=== PATIENT | female | born 1950 | race Caucasian/White ===

== ENCOUNTER → 2017-01-23 | Outpatient (CLI) | payer MEDICARE ==
[~2017-01-23] MED LIST: ALPR-557 PO; AZAT50TA PO; BPR150TCR PO; LD5PT TOP; LIOT5TAB3 PO; LVT.15T PO; METO5TAB2 PO; OMEP20TA2 PO; PRED5TAB PO; TRAM50TA2 PO; TRAZ150T42 PO; VIT B12 IM; Vit D PO
--- OUTSIDE RECORDS SUMMARY | 2017-01-23 16:58 | XMS REPORT | Continuity of Care Document ---
Demographics Address [facility] 11/[address] [facility] [place] [address] Preferred Language Unknown Marital Status Unknown Yazidi Affiliation Unknown Race Unknown Ethnic Group Unknown Author Author [facility] Organization [facility] Address Unknown Phone Unavailable Allergies Active Description Code Type Severity Reaction Onset Reported/Identified Relationship to Patient Clinical Status Yes amoxicillin [id number] Drug Allergy Unknown N/A 08/31/2006 Yes clavulanic acid [id number] Drug Allergy Unknown N/A 08/31/2006 Yes baclofen [id number] Drug Allergy Unknown N/A 05/08/2014 Yes lorazepam [id number] Drug Allergy Unknown N/A 05/08/2014 Yes metronidazole [id number] Drug Allergy Unknown N/A 05/08/2014 Yes SOME PAIN MEDS GIVEN IV SOME PAIN MEDS GIVEN IV Unknown N/A 05/08/2014 Medications Problems Date Dx Coded Attending Type Code Diagnosis Diagnosed By 04/11/2014 LOUISE DELGADO DO S Ot 244.9 HYPOTHYROIDISM NOS 04/11/2014 PAULA DELGADO DOLINE S Ot 276.8 HYPOPOTASSEMIA 04/11/2014 PAULA DELGADO DOLINE S Ot 305.1 TOBACCO USE DISORDER 04/11/2014 PAULETTE DELGADO DOQUELINE S Ot 535.50 UNSP GASTRITIS GASTRODUODENITIS W/ O ME 04/11/2014 PAULA DELGADO DOLINE S Ot 553.3 DIAPHRAGMATIC HERNIA 04/11/2014 PAULA DELGADO DOLINE S Ot 555.9 REGIONAL ENTERITIS NOS 04/11/2014 PAULA DELGADO DOLINE S Ot 560.89 INTESTINAL OBSTRUCT NEC 04/11/2014 PAULA DELGADO DOLINE S Ot 716.90 ARTHROPATHY NOS-UNSPEC 04/11/2014 LOUISE DELGADO DO S Ot 722.52 LUMB/LUMBOSAC DISC DEGEN 04/11/2014 LOUISE DELGADO DO S Ot V12.79 PERSONAL HISTORY OTH SPEC DIGESTIVE SYST 05/08/2014 YANCY MACHADO, MARITZA Rodrigues Ot 455.6 HEMORRHOIDS NOS 05/08/2014 YANCY MACHADO, MARITZA Rodrigues Ot 555.9 REGIONAL ENTERITIS NOS 05/08/2014 YANCY MACHADO, MARITZA Rodrigues Ot 562.10 DIVERTICULOSIS COLON (W/O MENT OF HEMORR 05/08/2014 YANCY MACHADO, MARITZA Rodrigues Ot 789.06 ABDOMINAL PAIN, EPIGASTRIC 05/08/2014 YANCY MACHADO, MARITZA Rodrigues Ot 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 07/06/2015 DEXTER LAYTON ADVERTISING DISPATCH CLERK Ot 733.90 07/06/2015 DEXTER LAYTON ADVERTISING DISPATCH CLERK Ot V58.65 07/06/2015 DEXTER LAYTON ADVERTISING DISPATCH CLERK Ot V76.12 07/18/2015 DEXTER LAYTON ADVERTISING DISPATCH CLERK Ot 733.90 07/18/2015 DEXTER LAYTON ADVERTISING DISPATCH CLERK Ot V58.65 07/18/2015 DEXTER LAYTON ADVERTISING DISPATCH CLERK Ot V76.12 08/15/2015 DEXTER LAYTON ADVERTISING DISPATCH CLERK Ot 593.2 08/15/2015 DEXTER LAYTON ADVERTISING DISPATCH CLERK Ot 611.72 08/17/2015 Ot 473.9 08/17/2015 Ot 251.2 08/17/2015 Ot 255.8 08/17/2015 Ot 473.9 08/17/2015 Ot 579.9 08/17/2015 Ot 627.2 08/17/2015 YANCY MACHADO, MARITZA Rodrigues Ot V72.84 08/17/2015 DEXTER LAYTON ADVERTISING DISPATCH CLERK Ot 733.90 08/17/2015 DEXTER LAYTON ADVERTISING DISPATCH CLERK Ot V58.65 08/17/2015 DEXTER LAYTON ADVERTISING DISPATCH CLERK Ot V76.12 08/17/2015 DEXTER LAYTON ADVERTISING DISPATCH CLERK Ot 593.2 08/17/2015 DEXTER LAYTON ADVERTISING DISPATCH CLERK Ot 611.72 08/27/2015 DEXTER LAYTON ADVERTISING DISPATCH CLERK Ot 593.2 08/27/2015 DEXTER LAYTON ADVERTISING DISPATCH CLERK Ot 611.72 09/11/2015 BEATRIZ STOVER MD Ot M47.896 09/11/2015 BEATRIZ STOVER MD Ot M51.26 09/12/2015 Ot 473.9 09/12/2015 Ot 251.2 09/12/2015 Ot 255.8 09/12/2015 Ot 473.9 09/12/2015 Ot 579.9 09/12/2015 Ot 627.2 09/12/2015 YANCY MACHADO, MARITZA M Ot V72.84 09/12/2015 DEXTER LAYTON ADVERTISING DISPATCH CLERK Ot 733.90 09/12/2015 DEXTER LAYTON ADVERTISING DISPATCH CLERK Ot V58.65 09/12/2015 DEXTER LAYTON ADVERTISING DISPATCH CLERK Ot V76.12 09/12/2015 DEXTER LAYTON ADVERTISING DISPATCH CLERK Ot 593.2 09/12/2015 DEXTER LAYTON ADVERTISING DISPATCH CLERK Ot 611.72 09/12/2015 CK MACHADO, BEATRIZ Santa Ot M47.896 09/12/2015 BEATRIZ STOVER MD Ot M51.26 09/12/2015 BEATRIZ STOVER MD Ot M54.10 09/12/2015 OTHER, UNLISTED Ot K50.90 09/12/2015 OTHER, UNLISTED Ot Z87.19 09/12/2015 BEATRIZ STOVER MD Ot M54.10 09/12/2015 TERRI MACHADO, RONAL Lowry Ot K50.90 09/12/2015 TERRI MACHADO, RONAL Lowry Ot Z87.19 09/13/2015 BEATRIZ STOVER MD Ot M54.10 09/14/2015 TERRI MACHADO, RONAL Lowry Ot K50.90 09/14/2015 TERRI MACHADO, RONAL Lowry Ot Z87.19 09/19/2015 BEATRIZ STOVER MD Ot M54.10 09/19/2015 TERRI MACHADO, RONAL Lowry Ot K50.90 09/19/2015 TERRI MACHADO, RONAL Lowry Ot Z87.19 09/19/2015 TERRI MACHADO, RONAL Lowry Ot K50.90 09/19/2015 RONAL MURRAY MD, I Ot Z87.19 09/20/2015 BEATRIZ STOVER MD Ot M47.896 09/20/2015 BEATRIZ STOVER MD Ot M51.26 09/20/2015 BEATRIZ STOVER MD Ot M54.10 09/26/2015 BEATRIZ STOVER MD Ot M54.10 10/08/2015 TERRI MACHADO, RONAL Lowry Ot K50.90 10/08/2015 TERRI MACHADO, RONAL Lowry Ot Z87.19 10/11/2015 RONAL MURRAY MD, I Ot K50.90 10/11/2015 RONAL MURRAY MD, I Ot Z87.19 08/19/2016 YANCY MACHADO, MARITZA Rodrigues Ot V72.84 EXAM PRE-OPERATIVE NOS 08/19/2016 DEXTER LAYTON ADVERTISING DISPATCH CLERK Ot 733.90 BONE CARTILAGE DIS NOS 08/19/2016 DEXTER LAYTON ADVERTISING DISPATCH CLERK Ot V58.65 LONG-TERM(CURRENT)USE OF STEROIDS 08/19/2016 DEXTER LAYTON ADVERTISING DISPATCH CLERK Ot V76.12 OTH SCREEN MAMMO-MALIGN NEOPLASM OF LUIS 08/19/2016 DEXTER LAYTON ADVERTISING DISPATCH CLERK Ot 593.2 CYST OF KIDNEY, ACQUIRED 08/19/2016 DEXTER LAYTONP Ot 611.72 LUMP OR MASS IN BREAST 08/19/2016 CK MACHADO, BEATRIZ Santa Ot M47.896 OTHER SPONDYLOSIS, LUMBAR REGION 08/19/2016 CK MACHADO, BEATRIZ Santa Ot M51.26 OTHER INTERVERTEBRAL DISC DISPLACEMENT, 08/19/2016 CK MACHADO, BEATRIZ Santa Ot M54.10 RADICULOPATHY, SITE UNSPECIFIED 08/19/2016 OTHER, UNLISTED Ot K50.90 CROHN'S DISEASE, UNSPECIFIED, WITHOUT CO 08/19/2016 OTHER, UNLISTED Ot Z87.19 PERSONAL HISTORY OF OTHER DISEASES OF 08/19/2016 CK MACHADO, BEATRIZ Santa Ot M54.10 RADICULOPATHY, SITE UNSPECIFIED 08/19/2016 TERRI MACHADO, RONAL Lowry Ot K50.90 CROHN'S DISEASE, UNSPECIFIED, WITHOUT CO 08/19/2016 RONAL MURRAY MD, I Ot Z87.19 PERSONAL HISTORY OF OTHER DISEASES OF 08/19/2016 RONAL MURRAY MD, I Ot K50.90 CROHN'S DISEASE, UNSPECIFIED, WITHOUT CO 08/19/2016 RONAL MURRAY MD, I Ot Z87.19 PERSONAL HISTORY OF OTHER DISEASES OF 08/20/2016 DEXTER LAYTON ADVERTISING DISPATCH CLERK Ot N28.1 CYST OF KIDNEY, ACQUIRED 09/09/2016 DEXTER LAYTON ADVERTISING DISPATCH CLERK Ot N28.1 CYST OF KIDNEY, ACQUIRED 09/18/2016 DEXTER LAYTON ADVERTISING DISPATCH CLERK Ot N28.1 CYST OF KIDNEY, ACQUIRED Procedures Results Encounters ACCT No. Visit Date/Time Discharge Status Pt. Type Provider Facility Loc./Unit Complaint [id number] 09/12/2015 07:19:00 2014 23:59:59 CLS Outpatient RONAL MURRAY MD, I [facility] RAD CLOSTRIDUIM FIFFICILE COLITIS, HX OF CROHNS [id number] 08/28/2015 08:02:00 2014 23:59:59 CLS Outpatient OTHER, UNLISTED [facility] RAD CLOSTRIDUIM FIFFICILE COLITIS, HX OF CROHNS [id number] 08/27/2015 09:40:00 2014 23:59:59 CLS Outpatient RONAL MURRAY MD, I [facility] LAB CROHNS DISEASE, CLOSTRIDIUM DIFFICILE, MRI W/CONTRA [id number] 08/27/2015 08:16:00 2014 23:59:59 CLS Outpatient BEATRIZ STOVER MD [facility] RAD RADICULOPATHY [id number] 08/22/2015 14:23:00 2014 23:59:59 CLS Outpatient BEATRIZ STOVER MD [facility] RAD RADICULOPATHY [id number] 08/17/2015 14:42:00 2014 23:59:59 CLS Outpatient BEATRIZ STOVER MD [facility] RAD RADICULOPATHY [id number] 07/23/2015 13:34:00 2014 23:59:59 CLS Outpatient DEXTER LAYTON ADVERTISING DISPATCH CLERK [facility] RAD LEFT BREAST NODULE,RENAL CYST [id number] 06/28/2015 11:13:00 2014 23:59:59 CLS Outpatient DEXTER LAYTON ADVERTISING DISPATCH CLERK [facility] RAD SCREENING VENEER GRADER STEROID USE [id number] 05/08/2014 06:39:00 2013 10:10:00 DIS [facility] [id number] 05/03/2014 07:20:00 2013 23:59:59 CLS Outpatient MARITZA HAINES MD [facility] PREOP CHRONS DISEASE [id number] 04/09/2014 02:52:00 2013 12:07:00 DIS Inpatient LOUISE DELGADO DO [facility] SURGICAL SMALL BOWEL OBSTRUCTION [id number] 08/18/2016 13:18:00 ACT Outpatient DEXTER LAYTON [facility] RAD L RENAL CYST [id number] 05/08/2010 15:25:00 Document Registration [id number] 04/19/2010 10:18:00 Document Registration
[2017-01-26 13:47] LABS: EHRLICHIA CHAFFEENSIS G ABY <1:16 (<1:16)
[2017-01-26 16:05] LABS: IGG ROCKY MOUNTAIN SPOTTED FEV <1:16 (<1:16); IGM ROCKY MOUNTAIN SPOTTED FEV <1:10 (<1:10); TULAREMIA ANTIBODY <1:20
[2017-01-28 07:47] LABS: LYME ANTIBODY C 0.22 (0.00-0.90)
== END ==
LOC: LAB 16:55
PROVIDERS: ATTEND Family Medicine
DX: M25.50 Pain in unspecified joint (principal); M54.2 Cervicalgia; Z87.898 Personal history of other specified conditions
CPT/HCPCS: 36415; 86618; 86666; 86668; 86757

== ENCOUNTER 2017-03-24 13:16 | Outpatient (RCR) | payer MEDICARE ==
[~2017-03-24 13:16] MED LIST changes: -CATHETER FLUSH 10 ML SYR IV PRN; -IOHEXOL 350 MG/ML 100 ML (OMNIPAQUE 350) VIAL IV ONE; -NS 100 ML (IVPB) BAG IV ONE
== END 2017-04-30 14:31 | disposition home or self-care (01) ==
PROVIDERS: ATTEND Nurse Practitioner Family
DX: I89.0 Lymphedema, not elsewhere classified (principal); K66.0 Peritoneal adhesions (postprocedural) (postinfection)

== ENCOUNTER → 2017-03-24 | Outpatient (CLI) | payer MEDICARE ==
[~2017-03-24] MED LIST changes: +CATHETER FLUSH 10 ML SYR IV PRN; +IOHEXOL 350 MG/ML 100 ML (OMNIPAQUE 350) VIAL IV ONE; +NS 100 ML (IVPB) BAG IV ONE
--- NOTE | 2017-03-24 15:16 | Diagnostic Imaging Report ---
PROCEDURE: CT abdomen and pelvis with contrast. TECHNIQUE: Multiple contiguous axial images were obtained through the abdomen and pelvis after administration of intravenous contrast. INDICATION: Abdominal pain. Crohn's disease. TECHNIQUE: 100 of Omnipaque 350 was administered intravenously. FINDINGS: The lung bases demonstrate no significant abnormality. The liver, spleen, pancreas, and adrenals appear unremarkable. The CBD is mildly dilated at 1.2 cm in caliber. This is minimally more prominent compared to 09/12/2015 exam with the one measured 1 cm in caliber. Cholecystectomy clips are seen. The kidneys have symmetric enhancement and contrast excretion. There is no hydronephrosis. There is a simple cyst in the inferior pole of the left kidney measuring 2.4 cm. Anastomotic sutures are seen near the terminal ileum region. There is a slightly prominent enhancement in the small bowel loops, particularly in the jejunum, with prominent luminal fluid with no significant dilatation to suggest obstruction. This may relate to duodenitis, presumably Crohn's disease related. There is also a segment of wall thickening and luminal constriction seen within the distal sigmoid and another shorter area with similar findings. This could be related to incidental areas of spasm or colitis. Suggestion of mucosal thickening in the mid to distal rectum is also seen. There is the suggestion of a prior hysterectomy. The urinary bladder appears unremarkable. There are a few diverticula with no diverticulitis. No abscess. No evidence of perforation or pneumoperitoneum. The abdominal aorta is normal in caliber. No para-aortic significantly enlarged lymph nodes are seen. The osseous structures demonstrate the posterior and anterior fusion changes involving the lower lumbar spine (L4-S1 levels). IMPRESSION: 1. There is prominent mucosal enhancement and degenerative loops and segments of the rectosigmoid, presumably related to Crohn's disease. Followup colonoscopy to insure no underlying neoplasm is suggested. 2. Diverticulosis. No diverticulitis. The findings were discussed with Dr. Mancera at the time of dictation by Dr. Johns. Dictated by: Dictated on workstation # [id number]
== END ==
LOC: RAD 14:09
PROVIDERS: ATTEND Nurse Practitioner Family
DX: K50.90 Crohn's disease, unspecified, without complications (principal); K57.90 Diverticulosis of intestine, part unspecified, without perforation or abscess without bleeding
CPT/HCPCS: 74177

== ENCOUNTER → 2017-08-06 | Outpatient (CLI) | payer MEDICARE ==
--- NOTE | 2017-08-06 11:41 | Diagnostic Imaging Report ---
EXAMINATION: DEXA scan. INDICATION: Osteopenia. TECHNIQUE: Bone mineral density estimated based on dual energy radiography over the lumbar spine and femoral necks, was performed. FINDINGS: The femoral neck T-score is -0.6 on both sides. This is 8.5% decreased density measurement compared to the prior study of 06/28/2015. The lumbar spine T score could not be measured due to fusion hardware. IMPRESSION: Decreased bone mineral density measurements compared to 2015. It is still within normal range, however. Dictated by: Dictated on workstation # [id number]
--- NOTE | 2017-08-06 17:39 | Diagnostic Imaging Report ---
Bilateral screening mammogram 2D views with tomosynthesis. The current study was also evaluated with a Computer Aided Detection (CAD) system. INDICATION: Screening. No current complaints stated on the questionnaire. COMPARISON: 07/23/2015. FINDINGS: The breasts are composed of heterogeneously dense parenchyma which may decrease mammographic sensitivity. Benign-appearing calcifications are seen. Allowing for technique and positional differences, no suspicious change is seen. IMPRESSION: Dense breasts with no definite change. ACR BI-RADS Category 2: Benign findings. Result letter will be mailed to the patient. Note: At least 10% of breast cancer is not imaged by mammography. Dictated by: Dictated on workstation # [id number]
== END ==
LOC: RAD 09:36
PROVIDERS: ATTEND Family Medicine
DX: Z12.31 Encounter for screening mammogram for malignant neoplasm of breast (principal); K50.918 Crohn's disease, unspecified, with other complication; Z79.52 Long term (current) use of systemic steroids
CPT/HCPCS: 77067; 77080

== ENCOUNTER → 2017-12-22 | Outpatient (CLI) | payer MEDICARE ==
--- NOTE | 2017-12-22 16:48 | Diagnostic Imaging Report ---
INDICATION: Abdominal pain. COMPARISON: CT dated 03/24/2017. FINDINGS: Two supine radiographic views of the abdomen were obtained. Small bowel loops are nondistended. There is no large collection of free intraperitoneal air. Postsurgical changes of the lumbar spine are noted. No unexpected radiopaque foreign bodies are seen. Multiple pelvic phleboliths are noted. Included portions of the lung bases are clear. IMPRESSION: 1. Nonobstructed small bowel gas pattern. Dictated by: Dictated on workstation # [id number]
== END ==
LOC: RAD 16:09
PROVIDERS: ATTEND Nurse Practitioner Family
DX: R10.9 Unspecified abdominal pain (principal)
CPT/HCPCS: 74018

== ENCOUNTER 2018-01-09 17:27 | Inpatient (IN) | payer MEDICARE ==
[~2018-01-09] VITALS: Ht 162.6 cm; Wt 88.9 kg
[2018-01-09] MEDS ORDERED: ACETAMINOPHEN 500 MG TAB (TYLENOL) PO ONE (18:15)
[2018-01-09] MEDS ORDERED: NS IV 1000 ML 1,000 ML IV SCH (18:15)
--- NOTE | 2018-01-09 18:21 | ED Abdominal Pain ---
General Chief Complaint: Abdominal/GI Problems Stated Complaint: HX OF KROHNS,JOINT PAIN,FEVER Nursing Triage Note: c/o L side abdomen pain and just not feeling well Sepsis Screen: No Definite Risk Source of Information: Patient, Family Exam Limitations: No Limitations (SHAI HANDY MD) History of Present Illness Date Seen by Provider: Jan 09, 2018 Time Seen by Provider: 18:16 Initial Comments This 67-year-old white female presents with a complaint of left lower abdominal pain for the last 10 days. The patient describes the pain as sharp, moderate in severity, essentially nonradiating, and reminiscent of her previous bowel obstructions. Patient denies any history of diverticulitis. She denies black or tarry stools. The patient has had fever but attributes to an upper respiratory infection for which she is on azithromycin. Patient denies associated flank pain, dysuria, or frequency. She's had no productive cough or chest pain. She denies headache or stiff neck or photophobia. The patient had evaluation of this abdominal pain with her primary care physician Dr. Mancera. The patient's abdominal film at that time failed to demonstrate evidence of obstruction. (SHAI HANDY MD) Allergies and Home Medications Allergies Coded Allergies: Amoxicillin (Verified Allergy, Unknown, 08/31/06) baclofen (Unverified Allergy, Unknown, 05/08/14) clavulanic acid (Verified Allergy, Unknown, 08/31/06) lorazepam (Unverified Allergy, Unknown, 05/08/14) metronidazole (Unverified Allergy, Unknown, 05/08/14) Uncoded Allergies: SOME PAIN MEDS GIVEN IV (Allergy, Unknown, 05/08/14) Home Medications Alprazolam 0.5 Mg Tab, 0.5 MG PO BID, (Reported) Azathioprine 50 Mg Tablet, 100 MG PO HS, (Reported) Bupropion Hcl 150 Mg Tabcr, 150 MG PO BID, (Reported) Levothyroxine Sodium 150 Mcg Tablet, 0.5 EACH PO DAILY, (Reported) Lidocaine 1 Ea Patch, 1 EA TOP DAILY, (Reported) Liothyronine Sodium 5 Mcg Tablet, 5 MCG PO DAILY, (Reported) Omeprazole 20 Mg Tablet.dr, 20 MG PO DAILY, (Reported) Prednisone 5 Mg Tablet, 5 MG PO DAILY start at 60mg x 2 days, then 40mg x 2 days, then 20mg x 2 days, then 10mg x 2 days, then resume 5mg dosing Prescribed by: JEAN MANCERA on 04/11/14 0936 Tramadol Hcl 50 Mg Tablet, 50 MG PO BID, (Reported) Trazodone Hcl 150 Mg Tablet, 150 MG PO HS, (Reported) [Vit B12 ] , IM EVERY OTHER WEEK Prescribed by: IAN LAUREANO on 04/09/14 0708 [Vit D] , 50,000 PO twice a week, (Reported) Patient Home Medication List Home Medication List Reviewed: Yes (SHAI HANDY MD) Review of Systems Constitutional: fever EENTM: No Ear Pain, No Throat Pain Respiratory: See HPI, Cough Cardiovascular: Denies Chest Pain Gastrointestinal: Abdominal Pain, Denies Diarrhea, Denies Vomiting Genitourinary: Burning, Frequency Musculoskeletal: No back pain Skin: No rash Psychiatric/Neurological: No Symptoms Reported Endocrine: No Symptoms Reported Hematologic/Lymphatic: No Symptoms Reported (SHAI HANDY MD) Past Lpkskuc-Rwecgm-Jlonfa Hx Patient Social History Alcohol Use: Denies Use Recreational Drug Use: No Recent Foreign Travel: No Contact w/Someone Who Travel: No Recent Infectious Disease Expo: No Physical Abuse: No Sexual Abuse: No (SHAI HANDY MD) Immunizations Up To Date Date of Pneumonia Vaccine: Oct 09, 2011 (SHAI HANDY MD) Surgeries History of Surgeries: Yes (SHAI HANDY MD) Respiratory History of Respiratory Disorde: Yes (ASTHMA) (SHAI HANDY MD) Cardiovascular History of Cardiac Disorders: No (SHAI HANDY MD) Neurological History of Neurological Disord: No (SHAI HANDY MD) Reproductive System Hx Reproductive Disorders: No Sexually Transmitted Disease: No HIV/AIDS: No (SHAI HANDY MD) Gastrointestinal History of Gastrointestinal Di: Yes (gastritis) Gastrointestinal Disorders: Crohns Disease, Hiatal Hernia (SHAI HANDY MD) Musculoskeletal History of Musculoskeletal Dis: Yes (DEGENERATIVE ARTHRITIS IN BACK) Musculoskeletal Disorders: Arthritis (SHAI HANDY MD) Endocrine History of Endocrine Disorders: Yes Endocrine Disorders: Hypothyroidsim (SHAI HANDY MD) Cancer History of Cancer: No (SHAI HANDY MD) Psychosocial History of Psychiatric Problem: No Suicide Risk Score: 0 (SHAI HANDY MD) Integumentary History of Skin or Integumenta: No (SHAI HANDY MD) Blood Transfusions History of Blood Disorders: No Adverse Reaction to a Blood Tr: No (SHAI HANDY MD) Reviewed Nursing Assessment Reviewed/Agree w Nursing PMH: Yes (SHAI HANDY MD) Family Medical History Family Medial History: Cancer 19 FATHER, Onset:40's - 50 G8 SISTER, Onset:40's - 50 Family history: Allergy 19 MOTHER Family history: Alzheimer's disease 19 MOTHER Family history: Arthritis 19 MOTHER Family history: Asthma 19 MOTHER Family history: Cardiovascular disease 19 MOTHER Family history: Osteoporosis 19 MOTHER Heart disease 19 MOTHER History of - respiratory disease 19 MOTHER Hypercholesterolemia 19 MOTHER Malignant neoplasm of lung G8 SISTER Stroke 19 MOTHER No Family History of: Abdominal aortic aneurysm Saint Jacob's disease Alcoholism Aphasia Cancer of colon Cataract Chest pain Congenital heart disease Congestive heart failure Cystic fibrosis Family history: Breast disease Family history: Coronary thrombosis Family history: Diabetes mellitus Family history: Gastrointestinal disease Family history: Glaucoma Family history: Hypertension Headache Hearing loss Hereditary disease History of - anemia History of - disorder History of drug abuse Human immunodeficiency virus (HIV) seropositivity Infertile Kidney disease Myocardial infarction Parkinson's disease Prostate cancer Psychotic disorder Seizure disorder Tuberculosis (SHAI HANDY MD) Family Medial History: Cancer 19 FATHER, Onset:40's - 50 G8 SISTER, Onset:40's - 50 Family history: Allergy 19 MOTHER Family history: Alzheimer's disease 19 MOTHER Family history: Arthritis 19 MOTHER Family history: Asthma 19 MOTHER Family history: Cardiovascular disease 19 MOTHER Family history: Osteoporosis 19 MOTHER Heart disease 19 MOTHER History of - respiratory disease 19 MOTHER Hypercholesterolemia 19 MOTHER Malignant neoplasm of lung G8 SISTER Stroke 19 MOTHER No Family History of: Abdominal aortic aneurysm Saint Jacob's disease Alcoholism Aphasia Cancer of colon Cataract Chest pain Congenital heart disease Congestive heart failure Cystic fibrosis Family history: Breast disease Family history: Coronary thrombosis Family history: Diabetes mellitus Family history: Gastrointestinal disease Family history: Glaucoma Family history: Hypertension Headache Hearing loss Hereditary disease History of - anemia History of - disorder History of drug abuse Human immunodeficiency virus (HIV) seropositivity Infertile Kidney disease Myocardial infarction Parkinson's disease Prostate cancer Psychotic disorder Seizure disorder Tuberculosis (COLT PALMA MD) Physical Exam Vital Signs VS - Last 72 Hours, by Label 01/09/18 17:54 Temp 98.6 Pulse 105 Resp 18 B/P (MAP) 143/101 (115) Pulse Ox 94 (COLT PALMA MD) Vital Signs Capillary Refill : Less Than 3 Seconds (SHAI HANDY MD) General Appearance: WD/WN, no apparent distress HEENT: normal ENT inspection Neck: normal inspection Respiratory: chest non-tender, lungs clear, normal breath sounds Cardiovascular: normal peripheral pulses, regular rate, rhythm Gastrointestinal: normal bowel sounds, tenderness (there was slight tenderness to palpation left lower quadrant.) Extremities: normal range of motion, non-tender Back: normal inspection Neurologic/Psychiatric: no motor/sensory deficits, alert, normal mood/affect Skin: normal color, warm/dry (SHAI HANDY MD) Focused Exam Evaluation Lactate Level Laboratory Tests 01/09/18 20:30: (COLT PALMA MD) Lactic Acid Level Laboratory Tests Test 01/09/18 20:30 (COLT PALMA MD) Progress/Results/Core Measures Results/Orders Lab Results Laboratory Tests Test 01/09/18 16:35 01/09/18 19:21 01/09/18 20:30 Range/Units White Blood Count 26.1 H 4.3-11.0 10^3/uL Red Blood Count 4.09 L 4.35-5.85 10^6/uL Hemoglobin 13.8 11.5-16.0 G/DL Hematocrit 40 35-52 % Mean Corpuscular Volume 98 80-99 FL Mean Corpuscular Hemoglobin 34 25-34 PG Mean Corpuscular Hemoglobin Concent 35 32-36 G/DL Red Cell Distribution Width 14.0 10.0-14.5 % Platelet Count 368 130-400 10^3/uL Mean Platelet Volume 9.1 7.4-10.4 FL Neutrophils (%) (Auto) 86 H 42-75 % Lymphocytes (%) (Auto) 6 L 12-44 % Monocytes (%) (Auto) 8 0-12 % Eosinophils (%) (Auto) 0 0-10 % Basophils (%) (Auto) 0 0-10 % Neutrophils # (Auto) 22.5 H 1.8-7.8 X 10^3 Lymphocytes # (Auto) 1.5 1.0-4.0 X 10^3 Monocytes # (Auto) 2.0 H 0.0-1.0 X 10^3 Eosinophils # (Auto) 0.0 0.0-0.3 10^3/uL Basophils # (Auto) 0.0 0.0-0.1 10^3/uL Neutrophils % (Manual) 83 % Lymphocytes % (Manual) 7 % Monocytes % (Manual) 7 % Eosinophils % (Manual) 0 % Basophils % (Manual) 0 % Band Neutrophils 3 % Blood Morphology Comment NORMAL Sodium Level 136 135-145 MMOL/L Potassium Level 3.7 3.6-5.0 MMOL/L Chloride Level 101 98-107 MMOL/L Carbon Dioxide Level 24 21-32 MMOL/L Anion Gap 11 5-14 MMOL/L Blood Urea Nitrogen 9 7-18 MG/DL Creatinine 0.71 0.60-1.30 MG/DL Estimat Glomerular Filtration Rate > 60 BUN/Creatinine Ratio 13 Glucose Level 103 70-105 MG/DL Calcium Level 9.8 8.5-10.1 MG/DL Total Bilirubin 1.6 H 0.1-1.0 MG/DL Aspartate Amino Transf (AST/SGOT) 13 5-34 U/L Alanine Aminotransferase (ALT/SGPT) 12 0-55 U/L Alkaline Phosphatase 60 40-136 U/L Total Protein 7.0 6.4-8.2 GM/DL Albumin 4.0 3.2-4.5 GM/DL Lipase < 4 L 8-78 U/L Urine Color YELLOW Urine Clarity CLEAR Urine pH 5 5-9 Urine Specific Hustle 1.020 1.016-1.022 Urine Protein 1+ H NEGATIVE Urine Glucose (UA) NEGATIVE NEGATIVE Urine Ketones NEGATIVE NEGATIVE Urine Nitrite NEGATIVE NEGATIVE Urine Bilirubin NEGATIVE NEGATIVE Urine Urobilinogen NORMAL NORMAL MG/DL Urine Leukocyte Esterase 3+ H NEGATIVE Urine RBC (Auto) 4+ H NEGATIVE Urine RBC 0-2 /HPF Urine WBC 10-25 H /HPF Urine Squamous Epithelial Cells 2-5 /HPF Urine Crystals NONE /LPF Urine Bacteria TRACE /HPF Urine Casts NONE /LPF Urine Mucus MODERATE H /LPF Urine Culture Indicated YES (COLT PALMA MD) My Orders Orders - COLT PALMA MD Lactic Acid Analyzer (01/09/18 20:13) Blood Culture (01/09/18 20:13) Ns Iv 1000 Ml (Sodium Chloride 0.9%) (01/09/18 20:13) Ceftriaxone Injection (Rocephin Injectio (01/09/18 20:45) Methylprednisolone Sod Succ (Solu-Medrol (01/09/18 20:32) (COLT PALMA MD) Medications Given in ED Current Medications Medications Dose Ordered Sig/Judith Route Start Time Stop Time Status Last Admin Dose Admin Acetaminophen 1,000 mg ONCE ONCE PO 01/09/18 18:15 01/09/18 18:16 DC 01/09/18 18:18 1,000 MG (COLT PALMA MD) Vital Signs/I&O Vital Sign - Last 12Hours 01/09/18 17:54 Temp 98.6 Pulse 105 Resp 18 B/P (MAP) 143/101 (115) Pulse Ox 94 (COLT PALMA MD) Blood Pressure Mean: 115 Progress Note : Time: 18:22 Progress Note I discussed the history of patient. She is still concerned that she may be having an acute abdominal process. I ordered a CT of the abdomen with appropriate lab to evaluate this possibility. All present patient to Dr. Palma for his definitive evaluation at the completion of the patient's treatment. (SHAI HANDY MD) Progress Note : Progress Note 1900: Care was assumed from Dr. Handy at [address] Reexamined. Patient does have left lower quadrant left upper quadrant abdominal pain. Does have history of white count elevation previously this week that had improved. Today seems to have worsened. CT pending. 2030: CT complete and does show findings consistent and/or concerning for Crohn's flare especially on the left side and maybe even up to the transverse colon. See report for details. I discussed the case with Dr. HAGAN, on-call for Dr. Mancera. We will initiate antibiotics and steroids. Blood cultures and lactic acid have been ordered and are pending. Patient also has urinary tract infection. We will initiate treatment with Rocephin and Flagyl IV as well as Solu-Medrol 125 mg IV every 6 hours. Patient is wanting to take her home medicines which we will allow her for tonight with Dr. HAGAN to evaluate for further medication in the morning. Patient to be admitted inpatient status. Findings and concerns discussed with patient and family who agree with plan. (COLT PALMA MD) Diagnostic Imaging Diagonstic Imaging: CT Plain Films/CT/US/NM/MRI: abdomen, pelvis Comments NAME: JULIENNE GENAO [facility] REC#: [id number] PT STATUS: REG ER : 1950 PHYSICIAN: SHAI HANDY MD ADMIT DATE: 01/09/18/ER Draft Date of Exam:01/09/18 CT ABDOMEN/PELVIS WO Clinical indication: Patient complains of left-sided pain times approximately 10 days which is worsening day. Patient denies nausea, vomiting and diarrhea. Patient has history of Crohn's and left kidney cyst. Past surgical history of cholecystectomy, appendectomy, hysterectomy and bowel resection. Exam: CT scan of the abdomen and pelvis performed without IV contrast. Sagittal and coronal reformatted images were created. Comparison: CT scan of the abdomen and pelvis performed with contrast dated 03/24/2017. Findings: Likely minimal atelectasis involving both lung bases. There are degenerative changes involving both hips and the visualized lower thoracic spine and lumbar spine. There is again seen postop changes to the lower lumbar spine with posterior fusion hardware. The gallbladder is surgically resected, stable. The liver, spleen and adrenal glands are unremarkable. Again seen is fatty infiltration of the pancreas which is otherwise unremarkable. Stable 3.4 cm cyst involving the inferior pole of the left kidney. Otherwise, both kidneys are unremarkable with no stones, hydronephrosis or other renal mass. There is interval development of diffuse bowel wall thickening involving the mid to distal descending colon extending to the proximal sigmoid colon with small to moderate amount of adjacent fat stranding. There is also note of diverticula seen in these regions as well too. There is a prominent diverticula seen on series 2, image 48 which is in the midst of the fat stranding and diverticulitis cannot be completely excluded. There may also be component of Crohn's flareup given the diffuse bowel wall thickening which even extends further than the area of inflammation. Bowel wall thickening is seen from the mid colon all the way to the splenic flexure region. There are also areas of bowel wall thickening seen across the transverse colon. There are stable surgical resection changes with sutures in the region of the cecum. There is no evidence of intestinal obstruction, intra-abdominal free air or evidence of abscess. The bladder is partially fluid-filled with no gross abnormality. The uterus is surgically resected. The ovaries are not identified on this exam and may have been surgically resected. There is no significant intra-abdominal or pelvic lymphadenopathy. Again seen are postop changes with incision along the anterior abdominal wall. The extra abdominal soft tissues are otherwise unremarkable. Impression: 1: There is small to moderate amount of fat stranding adjacent to the mid to distal descending colon with circumferential bowel wall thickening in the region. There is also a prominent diverticula noted in the area as well. These findings may be related to diverticulitis, but components of Crohn's disease flareup cannot be completely excluded given the diffuse thickening of the bowel involving the left colon and sigmoid colon as well. 2: There is no evidence of intra-abdominal free air or drainable fluid collection. 3: There are areas of circumferential bowel wall thickening involving the mid sigmoid colon all the way to the splenic flexure and involving the transverse colon. 4: The remainder of the exam is stable with no significant interval abnormality. Dictated on workstation # [id number] Dict: 01/09/181858 Trans: 01/09/181915 [facility] [id number] Interpreted by: NAYE ARCE MD Electronically signed by: Reviewed: Reviewed by Me (COLT PALMA MD) Departure Communication (Admissions) Time/Spoke to Admitting Phy: 20:30 (COLT PALMA MD) Impression Impression: Primary Impression: Crohns disease Qualified Codes: K50.80 - Crohn's disease of both small and large intestine without complications Additional Impression: Urinary tract infection Qualified Codes: N30.00 - Acute cystitis without hematuria Disposition: ADMITTED INPATIENT Condition: Stable Admissions Decision to Admit Reason: Admit from ER (General) Decision to Admit/Date: Jan 09, 2018 Time/Decision to Admit Time: 20:30 (COLT PALMA MD) Departure-Patient Inst. Referrals: JEAN MANCERA MD (PCP/Family) Primary Care Physician SHAI HANDY MD Jan 09, 2018 18:21 COLT PALMA MD Jan 09, 2018 19:20
[2018-01-09 18:47] LABS: BASOPHILS % (AUTO) 0 % (0-10); EOSINOPHILS % (AUTO) 0 % (0-10); HEMATOCRIT 40 % (35-52); HEMOGLOBIN 13.8 G/DL (11.5-16.0); LYMPHOCYTES # (AUTO) 1.5 X 10^3 (1.0-4.0); LYMPHOCYTES % (AUTO) 6 % (12-44); MEAN CORPUSCULAR HEMOGLOBIN 34 PG (25-34); MEAN CORPUSCULAR HGB CONC 35 G/DL (32-36); MEAN CORPUSCULAR VOLUME 98 FL (80-99); MEAN PLATELET VOLUME 9.1 FL (7.4-10.4); MONOCYTES % (AUTO) 8 % (0-12); NEUTROPHILS # (AUTO) 22.5 X 10^3 (1.8-7.8); NEUTROPHILS % (AUTO) 86 % (42-75); PLATELET COUNT 368 10^3/uL (130-400); RED BLOOD COUNT 4.09 10^6/uL (4.35-5.85); WHITE BLOOD COUNT 26.1 10^3/uL (4.3-11.0)
[2018-01-09 19:14] LABS: BAND NEUTROPHILS 3 %; BASOPHILS % (MANUAL) 0 %; EOSINOPHILS % (MANUAL) 0 %; LYMPHOCYTES % (MANUAL) 7 %; MONOCYTES % (MANUAL) 7 %; NEUTROPHILS % (MANUAL) 83 %; RBC MORPH NORMAL
--- NOTE | 2018-01-09 19:17 | Diagnostic Imaging Report ---
Clinical indication: Patient complains of left-sided pain times approximately 10 days which is worsening day. Patient denies nausea, vomiting and diarrhea. Patient has history of Crohn's and left kidney cyst. Past surgical history of cholecystectomy, appendectomy, hysterectomy and bowel resection. Exam: CT scan of the abdomen and pelvis performed without IV contrast. Sagittal and coronal reformatted images were created. Comparison: CT scan of the abdomen and pelvis performed with contrast dated 03/24/2017. Findings: Likely minimal atelectasis involving both lung bases. There are degenerative changes involving both hips and the visualized lower thoracic spine and lumbar spine. There is again seen postop changes to the lower lumbar spine with posterior fusion hardware. The gallbladder is surgically resected, stable. The liver, spleen and adrenal glands are unremarkable. Again seen is fatty infiltration of the pancreas which is otherwise unremarkable. Stable 3.4 cm cyst involving the inferior pole of the left kidney. Otherwise, both kidneys are unremarkable with no stones, hydronephrosis or other renal mass. There is interval development of diffuse bowel wall thickening involving the mid to distal descending colon extending to the proximal sigmoid colon with small to moderate amount of adjacent fat stranding. There is also note of diverticula seen in these regions as well too. There is a prominent diverticula seen on series 2, image 48 which is in the midst of the fat stranding and diverticulitis cannot be completely excluded. There may also be component of Crohn's flareup given the diffuse bowel wall thickening which even extends further than the area of inflammation. Bowel wall thickening is seen from the mid colon all the way to the splenic flexure region. There are also areas of bowel wall thickening seen across the transverse colon. There are stable surgical resection changes with sutures in the region of the cecum. There is no evidence of intestinal obstruction, intra-abdominal free air or evidence of abscess. The bladder is partially fluid-filled with no gross abnormality. The uterus is surgically resected. The ovaries are not identified on this exam and may have been surgically resected. There is no significant intra-abdominal or pelvic lymphadenopathy. Again seen are postop changes with incision along the anterior abdominal wall. The extra abdominal soft tissues are otherwise unremarkable. Impression: 1: There is small to moderate amount of fat stranding adjacent to the mid to distal descending colon with circumferential bowel wall thickening in the region. There is also a prominent diverticula noted in the area as well. These findings may be related to diverticulitis, but components of Crohn's disease flareup cannot be completely excluded given the diffuse thickening of the bowel involving the left colon and sigmoid colon as well. 2: There is no evidence of intra-abdominal free air or drainable fluid collection. 3: There are areas of circumferential bowel wall thickening involving the mid sigmoid colon all the way to the splenic flexure and involving the transverse colon. 4: The remainder of the exam is stable with no significant interval abnormality. Dictated by: Dictated on workstation # [id number]
[2018-01-09 19:26] LABS: BILIRUBIN,URINE NEGATIVE (NEGATIVE); CLARITY,URINE CLEAR; COLOR,URINE YELLOW; GLUCOSE, URINE (UA) NEGATIVE (NEGATIVE); KETONES,URINE NEGATIVE (NEGATIVE); LEUKOCYTE ESTERASE ,URINE 3+ (NEGATIVE); NITRITE,URINE NEGATIVE (NEGATIVE); PH,URINE 5 (5-9); PROTEIN,URINE 1+ (NEGATIVE); UROBILINOGEN,URINE NORMAL (NORMAL)
[2018-01-09 19:28] LABS: ALANINE AMINOTRANSFERASE 12 U/L (0-55); ALKALINE PHOSPHATASE 60 U/L (40-136); BILIRUBIN,TOTAL 1.6 MG/DL (0.1-1.0); BUN/CREATININE RATIO 13; CALCIUM 9.8 MG/DL (8.5-10.1); CARBON DIOXIDE 24 MMOL/L (21-32); CHLORIDE 101 MMOL/L (98-107); CREATININE SERUM 0.71 MG/DL (0.60-1.30); GFR ESTIMATED > 60; GLUCOSE 103 MG/DL (70-105); LIPASE < 4 U/L (8-78); POTASSIUM 3.7 MMOL/L (3.6-5.0); SODIUM 136 MMOL/L (135-145)
[2018-01-09 19:33] LABS: BACTERIA,URINE TRACE /HPF; RBC,URINE 0-2 /HPF
[2018-01-09] MEDS ORDERED: NS IV 1000 ML 1,000 ML IV ONE (20:13)
[2018-01-09] MEDS ORDERED: methylPREDNISolone 125 MG (Solu-MEDROL) VIAL IV STA (20:32)
[2018-01-09] MEDS ORDERED: cefTRIAXone INJECTION 1,000 MG in NS (IVPB) 100 ML IV ONE (20:45)
[2018-01-09 21:03] VITALS: BP 142/79
--- OUTSIDE RECORDS SUMMARY | 2018-01-09 21:05 | XMS REPORT | CCD ---
Author Author Jacinta Modi MD, [facility] Address [address] [place] [address] Phone Care Team Providers Care Infusion Therapy Nurse Name Role Phone PP Unavailable CCM Unavailable Summary Purpose Interface Exchange Insurance Providers Payer name Policy type / Coverage type Covered republican ID Effective Begin Date Effective End Date WPS Medicare Part B Medicare Part B [id number] Unknown Unknown [facility] Medicare Part B [id number] Unknown Unknown Family history Mother Diagnosis Age At Onset Hyperlipidemia Unknown Stroke Unknown Hypertension Unknown Osteoporosis Unknown Heart Attack Unknown Arthritis Unknown Asthma Unknown Alzheimer's Disease Unknown Son Diagnosis Age At Onset Asthma Unknown Father Diagnosis Age At Onset brain cancer Unknown Cancer Unknown Sister Diagnosis Age At Onset Arthritis Unknown Depression Unknown Cancer Unknown Social History Social History Element Codes Description Effective Dates Marital status Unknown Single 10/17/[address]: 65838174 Current every day smoker 10/17/2013 Number of years using tobacco Unknown 25 10/17/2013 Number of cigarettes/day Unknown 10 ( Half a pack) 10/17/2013 Alcohol history Unknown occasionally drinks alcohol 10/17/2013 Has the patient ever used illegal drugs? Unknown Has never used illegal drugs 10/17/2013 Allergies, Adverse Reactions, Alerts Allergies, Adverse Reactions, Alerts data not found Past Medical History Illness Codes Condition Status Onset Date Resolved Date Generalized abdominal pain ICD-9: 789.07 ICD-10: R10.84 Active 03/23/2017 Unknown Vitamin B12 deficiency anemia, unspecified ICD-9: 266.2 ICD-10: D51.9 Active 01/02/2016 Unknown Atrophy of thyroid (acquired) ICD-9: 244.8 ICD-10: E03.4 Active 10/19/2017 Unknown Essential (primary) hypertension ICD-9: 401.1 ICD-10: I10 Active 08/24/2017 Unknown Crohn's disease of large intestine with other complication ICD-9: 555.1 ICD-10: K50.118 Active 10/19/2017 Unknown Crohn's disease, unspecified, with other complication ICD-9: 555.9 ICD-10: K50.918 Active 01/02/2016 Unknown Generalized anxiety disorder ICD-9: 300.02 ICD-10: F41.1 Active 10/19/2016 Unknown 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 ICD-10: E27.3 Active 10/19/2016 Unknown Essential (primary) hypertension ICD-9: 401.9 ICD-10: I10 Active 10/19/2016 Unknown Hypokalemia ICD-9: 276.8 ICD-10: E87.6 Active 09/22/2017 Unknown Hypothyroidism, unspecified ICD-9: 244.9 ICD-10: E03.9 Active 10/19/2016 Unknown 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 ICD-9: V58.65 ICD-10: Z79.52 Active 07/28/2017 Unknown Vitamin B12 deficiency anemia due to intrinsic factor deficiency ICD-9: 281.0 ICD-10: D51.0 Active 08/11/2016 Unknown Vitamin D deficiency, unspecified ICD-9: 268.9 ICD-10: E55.9 Active 01/02/2016 Unknown Anorectal abscess ICD- 9: 566 ICD-10: K61.2 Active 01/02/2016 Unknown Low back pain ICD-9: 724.2 ICD-10: M54.5 Active 03/05/2016 Unknown Encounter for screening mammogram for malignant neoplasm of breast ICD-9: V76.12 ICD-10: Z12.31 Active 07/28/2017 Unknown Allergic rhinitis due to pollen ICD-9: 477.9 ICD-10: J30.1 Active 09/06/2015 Unknown Encounter for general adult medical examination with abnormal findings ICD-9: V70.0 ICD-10: Z00.01 Active 02/11/2017 Unknown Major depressive disorder, single episode, mild ICD-9: 311 ICD-10: F32.0 Active 06/16/2016 Unknown Cervicalgia ICD-9: 723.1 ICD-10: M54.2 Active 01/23/2017 Unknown Other malaise ICD-9: 780.79 ICD-10: R53.81 Active 01/23/2017 Unknown Pain in joints of left hand ICD-9: 719.44 ICD-10: M25.542 Active 01/23/2017 Unknown Pain in joints of right hand ICD-9: 719.44 ICD-10: M25.541 Active 01/23/2017 Unknown Pain in left hip ICD-9 : 719.45 ICD-10: M25.552 Active 01/23/2017 Unknown Pain in right hip ICD- 9: 719.45 ICD-10: M25.551 Active 01/23/2017 Unknown Personal history of other infectious and parasitic diseases ICD-9: V12.09 ICD-10: Z86.19 Active 01/23/2017 Unknown Encounter for immunization ICD-9: V04.81 ICD-10: Z23 Active 08/11/2016 Unknown Urinary tract infection, site not specified ICD-9: 599.0 ICD-10: N39.0 Active 08/11/2016 Unknown Actinic keratosis ICD- 9: 702.0 ICD-10: L57.0 Active 07/14/2016 Unknown Rash and other nonspecific skin eruption ICD-9: 782.1 ICD-10: R21 Active 07/07/2016 Unknown Bitten or stung by nonvenomous insect and other nonvenomous arthropods, initial encounter ICD-9: 919.4 ICD-10: W57.XXXA Active 07/01/2016 Unknown Other pruritus ICD-9: 698.8 ICD-10: L29.8 Active 07/01/2016 Unknown Dysuria ICD-9: 788.1 ICD-10: R30.0 Active 12/22/2014 Unknown Hypertension Unknown Active 02/08/2016 Unknown Dizziness and giddiness ICD-9: 780.4 ICD-10: R42 Active 02/07/2016 Unknown Acute recurrent maxillary sinusitis ICD-9: 461.0 ICD-10: J01.01 Active 11/18/2015 Unknown Vasomotor rhinitis ICD -9: 477.9 ICD-10: J30.0 Active 11/18/2015 Unknown Candidal stomatitis ICD-9: 112.0 ICD-10: B37.0 Active 10/02/2015 Unknown Other specified disorders of nose and nasal sinuses ICD-9: 478.19 ICD-10: J34.89 Active 10/02/2015 Unknown Sciatica Unknown Active 09/13/2015 Unknown Lumbago with sciatica, unspecified side ICD-9: 724.3 ICD-10: M54.40 Active 09/12/2015 Unknown Cutaneous abscess, unspecified ICD-9: 682.9 ICD-10: L02.91 Active 07/21/2014 Unknown Other herpesviral infection ICD-9: 054.79 ICD-10: B00.89 Active 08/08/2015 Unknown URINARY FREQUENCY ICD- 9: 788.41 Active 07/30/2015 Unknown Bulging disc ICD-9: 722.2 Active 02/13/2014 Unknown Chronic steroid use ICD-9: V58.65 Active 10/31/2013 Unknown Degenerative disc disease, lumbar ICD-9: 722.52 Active 2014 Unknown Peroneal mononeuropathy ICD-9: 355.3 Active 07/05/2015 Unknown Pain, dental ICD-9: 525.9 Active 06/14/2015 Unknown Medicare welcome exam ICD-9: V70.0 Active 04/30/2015 Unknown Chronic sinusitis ICD- 9: 473.9 Active 04/26/2015 Unknown Low back pain ICD-9: 724.2 Active 02/23/2015 Unknown Vitamin B 12 deficiency ICD-9: 266.2 Active 02/23/2015 Unknown ALLERGIC RHINITIS ICD- 9: 477.9 Active 01/26/2015 Unknown COPD (chronic obstructive pulmonary disease) ICD-9: 496 Active 12/22/2014 Unknown Dyspnea ICD-9: 786.09 Active 12/22/2014 Unknown Dysuria ICD-9: 788.1 Active 12/22/2014 Unknown DEPRESSIVE DISORDER NEC ICD-9: 311 Active 09/29/2014 Unknown ACUTE URI ICD-9: 465.9 Active 09/08/2014 Unknown COUGH ICD-9: 786.2 Active 09/08/2014 Unknown MALAISE AND FATIGUE ICD-9: 780.79 Active 09/08/2014 Unknown Adrenal insufficiency ICD-9: 255.41 Active 08/28/2014 Unknown GENERALIZED ANXIETY DISEASE ICD-9: 300.02 Active 08/28/2014 Unknown ACUTE SINUSITIS ICD-9 : 461.9 Active 08/16/2014 Unknown Crohns disease ICD-9: 555.9 Active 08/16/2014 Unknown Cellulitis ICD-9: 682.9 Active 07/21/2014 Unknown Hypothyroid ICD-9: 244.9 Active 06/30/2014 Unknown Abdominal pain ICD-9: 789.00 Active 05/02/2014 Unknown Back pain ICD-9: 724.5 Active 05/02/2014 Unknown ANAL FISTULA ICD-9: 565.1 Active 03/23/2014 Unknown Hematuria ICD-9: 599.70 Active 02/15/2014 Unknown Sacroiliitis ICD-9: 720.2 Active 02/13/2014 Unknown Depression Unknown Active 01/09/2014 Unknown Hypokalemia ICD-9: 276.8 Active 01/09/2014 Unknown ACUTE PHARYNGITIS ICD- 9: 462 Active 11/15/2013 Unknown Encounter for long-term (current) use of other medications ICD-9: V58.69 Active 10/31/2013 Unknown Post-menopausal ICD-9 : V49.81 Active 10/31/2013 Unknown Crohn's disease Unknown Active 10/17/2013 Unknown Hypothryroidism Unknown Active 10/17/2013 Unknown Problems Condition Codes Effective Dates Condition Status Generalized abdominal pain ICD-9: 789.07 ICD-10: R10.84 03/23/2017 Active Vitamin B12 deficiency anemia, unspecified ICD-9: 266.2 ICD-10: D51.9 01/02/2016 Active Atrophy of thyroid (acquired) ICD-9: 244.8 ICD-10: E03.4 10/19/2017 Active Essential (primary) hypertension ICD-9: 401.1 ICD-10: I10 08/24/2017 Active Crohn's disease of large intestine with other complication ICD-9: 555.1 ICD-10: K50.118 10/19/2017 Active Crohn's disease, unspecified, with other complication ICD-9: 555.9 ICD-10: K50.918 01/02/2016 Active Generalized anxiety disorder ICD-9: 300.02 ICD-10: F41.1 10/19/2016 Active 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 ICD-10: E27.3 10/19/2016 Active Essential (primary) hypertension ICD-9: 401.9 ICD-10: I10 10/19/2016 Active Hypokalemia ICD-9: 276.8 ICD-10: E87.6 09/22/2017 Active Hypothyroidism, unspecified ICD-9: 244.9 ICD-10: E03.9 10/19/2016 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 ICD-10: Z79.52 07/28/2017 Active Vitamin B12 deficiency anemia due to intrinsic factor deficiency ICD-9: 281.0 ICD-10: D51.0 08/11/2016 Active Vitamin D deficiency, unspecified ICD-9: 268.9 ICD-10: E55.9 01/02/2016 Active Anorectal abscess ICD- 9: 566 ICD-10: K61.2 01/02/2016 Active Low back pain ICD-9: 724.2 ICD-10: M54.5 03/05/2016 Active Encounter for screening mammogram for malignant neoplasm of breast ICD-9: V76.12 ICD-10: Z12.31 07/28/2017 Active Allergic rhinitis due to pollen ICD-9: 477.9 ICD-10: J30.1 09/06/2015 Active Encounter for general adult medical examination with abnormal findings ICD-9: V70.0 ICD-10: Z00.01 02/11/2017 Active Major depressive disorder, single episode, mild ICD-9: 311 ICD-10: F32.0 06/16/2016 Active Cervicalgia ICD-9: 723.1 ICD-10: M54.2 01/23/2017 Active Other malaise ICD-9: 780.79 ICD-10: R53.81 01/23/2017 Active Pain in joints of left hand ICD-9: 719.44 ICD-10: M25.542 01/23/2017 Active Pain in joints of right hand ICD-9: 719.44 ICD-10: M25.541 01/23/2017 Active Pain in left hip ICD-9 : 719.45 ICD-10: M25.552 01/23/2017 Active Pain in right hip ICD- 9: 719.45 ICD-10: M25.551 01/23/2017 Active Personal history of other infectious and parasitic diseases ICD-9: V12.09 ICD-10: Z86.19 01/23/2017 Active Encounter for immunization ICD-9: V04.81 ICD-10: Z23 08/11/2016 Active Urinary tract infection, site not specified ICD-9: 599.0 ICD-10: N39.0 08/11/2016 Active Actinic keratosis ICD- 9: 702.0 ICD-10: L57.0 07/14/2016 Active Rash and other nonspecific skin eruption ICD-9: 782.1 ICD-10: R21 07/07/2016 Active Bitten or stung by nonvenomous insect and other nonvenomous arthropods, initial encounter ICD-9: 919.4 ICD-10: W57.XXXA 07/01/2016 Active Other pruritus ICD-9: 698.8 ICD-10: L29.8 07/01/2016 Active Dysuria ICD-9: 788.1 ICD-10: R30.0 12/22/2014 Active Hypertension Unknown 02/08/2016 Active Dizziness and giddiness ICD-9: 780.4 ICD-10: R42 02/07/2016 Active Acute recurrent maxillary sinusitis ICD-9: 461.0 ICD-10: J01.01 11/18/2015 Active Vasomotor rhinitis ICD -9: 477.9 ICD-10: J30.0 11/18/2015 Active Candidal stomatitis ICD-9: 112.0 ICD-10: B37.0 10/02/2015 Active Other specified disorders of nose and nasal sinuses ICD-9: 478.19 ICD-10: J34.89 10/02/2015 Active Sciatica Unknown 09/13/2015 Active Lumbago with sciatica, unspecified side ICD-9: 724.3 ICD-10: M54.40 09/12/2015 Active Cutaneous abscess, unspecified ICD-9: 682.9 ICD-10: L02.91 07/21/2014 Active Other herpesviral infection ICD-9: 054.79 ICD-10: B00.89 08/08/2015 Active URINARY FREQUENCY ICD- 9: 788.41 07/30/2015 Active Bulging disc ICD-9: 722.2 02/13/2014 Active Chronic steroid use ICD-9: V58.65 10/31/2013 Active Degenerative disc disease, lumbar ICD-9: 722.52 07/05/2015 Active Peroneal mononeuropathy ICD-9: 355.3 07/05/2015 Active Pain, dental ICD-9: 525.9 06/14/2015 Active Medicare welcome exam ICD-9: V70.0 04/30/2015 Active Chronic sinusitis ICD- 9: 473.9 04/26/2015 Active Low back pain ICD-9: 724.2 02/23/2015 Active Vitamin B 12 deficiency ICD-9: 266.2 02/23/2015 Active ALLERGIC RHINITIS ICD- 9: 477.9 01/26/2015 Active COPD (chronic obstructive pulmonary disease) ICD-9: 496 12/22/2014 Active Dyspnea ICD-9: 786.09 12/22/2014 Active Dysuria ICD-9: 788.1 12/22/2014 Active DEPRESSIVE DISORDER NEC ICD-9: 311 09/29/2014 Active ACUTE URI ICD-9: 465.9 09/08/2014 Active COUGH ICD-9: 786.2 09/08/2014 Active MALAISE AND FATIGUE ICD-9: 780.79 09/08/2014 Active Adrenal insufficiency ICD-9: 255.41 08/28/2014 Active GENERALIZED ANXIETY DISEASE ICD-9: 300.02 08/28/2014 Active ACUTE SINUSITIS ICD-9 : 461.9 08/16/2014 Active Crohns disease ICD-9: 555.9 08/16/2014 Active Cellulitis ICD-9: 682.9 07/21/2014 Active Hypothyroid ICD-9: 244.9 06/30/2014 Active Abdominal pain ICD-9: 789.00 05/02/2014 Active Back pain ICD-9: 724.5 05/02/2014 Active ANAL FISTULA ICD-9: 565.1 03/23/2014 Active Hematuria ICD-9: 599.70 02/15/2014 Active Sacroiliitis ICD-9: 720.2 02/13/2014 Active Depression Unknown 01/09/2014 Active Hypokalemia ICD-9: 276.8 01/09/2014 Active ACUTE PHARYNGITIS ICD- 9: 462 11/15/2013 Active Encounter for long-term (current) use of other medications ICD-9: V58.69 2012 Active Post-menopausal ICD-9 : V49.81 10/31/2013 Active Crohn's disease Unknown 10/17/2013 Active Hypothryroidism Unknown 10/17/2013 Active Medications Medication Codes Instructions Start Date Stop Date Status Fill Instructions cyanocobalamin (vit B-12) 1,000 mcg/mL injection solution RxNorm: 354035 1 Milliliter(s) Inj 12/22/2017 12/22/2017 Inactive Vitamin D2 50,000 unit capsule RxNorm: 221928 TAKE 2 CAPSULES BY MOUTH ONCE WEEKLY 11/30/2017 02/21/2018 Active liothyronine 5 mcg tablet RxNorm: 550824 1 Tablet(s) daily 06/201802/20/2019 Active - First Attempt Ref: [id number] levothyroxine 50 mcg tablet RxNorm: 028926 1 Tablet(s) PO daily 11/16/2017 08/12/2018 Active pt will call when she needs it filled tramadol 50 mg tablet RxNorm: 484463 1 or 2 Tablet(s) PO Q6 PRN as needed 11/03/2017 01/31/2018 Active cyanocobalamin (vit B-12) 1,000 mcg/mL injection solution RxNorm: 723825 Milliliter(s) Inj 10/29/2017 10/29/2017 Inactive prednisone 10 mg tablet RxNorm: 937890 TAKE 1 TABLET BY MOUTH DAILY DIRECTED 10/28/2017 07/24/2018 Active - Ref: [id number] prednisone 10 mg tablet RxNorm: 457366 1 Tablet(s) PO daily 07/24/2018 Active prednisone 20 mg tablet RxNorm: 811586 3 Tablet(s) PO daily 07/24/2018 Active Wellbutrin SR 150 mg tablet, 12 hr sustained-release RxNorm: 022664 Tablet(s) TAKE 2 TABLETS BY MOUTH EVERY MORNING AND 1 TABLET BY MOUTH EVERY NIGHT AT BEDTIME 10/28/2017 07/24/2018 Active prednisone 20 mg tablet RxNorm: 144618 TAKE 3 TABLETS BY MOUTH DAILY 10/28/2017 07/24/2018 Active - Ref: [id number] Xanax 0.5 mg tablet RxNorm: 458007 Tablet(s) TAKE 1 TABLET BY MOUTH TWICE DAILY NEEDED FOR ANXIETY 10/21/20172017 Active prednisone 10 mg tablet RxNorm: 595966 1 Tablet(s) PO UD use as directed to taper dose of steroid 10/19/2017 10/27/2017 Inactive prednisone 20 mg tablet RxNorm: 137535 2 Tablet(s) PO UD as directed to taper down dose per dr orders 10/19/20172016 Inactive 2 tabs daily x 3 days, 1.5 tabs daily x 3 days, then 25mg daily x 3 days then resume 20mg daily. prednisone 1 mg tablet RxNorm: 235675 1 Tablet(s) PO UD use as directed to decrease dose of steroid per dr orders 10/19/2017 10/27/2017 Inactive cyanocobalamin (vit B-12) 1,000 mcg/mL injection solution RxNorm: 178405 Milliliter(s) Inj 10/12/2017 10/12/2017 Inactive Wellbutrin SR 150 mg tablet, 12 hr sustained-release RxNorm: 060053 TAKE 2 TABLETS BY MOUTH EVERY MORNING AND 1 TABLET BY MOUTH EVERY NIGHT AT BEDTIME 10/08/2017 10/27/2017 Inactive - First Attempt Ref: [id number] liothyronine 5 mcg tablet RxNorm: 298440 TAKE 2 TABLETS BY MOUTH EVERY DAY 10/08/2017 11/15/2017 Inactive - First Attempt Ref: [id number] cyanocobalamin (vit B-12) 1,000 mcg/mL injection solution RxNorm: 491105 1 Milliliter(s) Inj 09/22/2017 09/22/2017 Inactive losartan 50 mg tablet RxNorm: 722693 1 Tablet(s) PO daily 201609/03/2018 Active losartan 50 mg tablet RxNorm: 543090 1 Tablet(s) PO daily 201609/08/2017 Inactive Imuran 50 mg tablet RxNorm: 666941 3 Tablet(s) daily Take 3 tablets by mouth daily 09/04/2017 12/02/2017 Inactive trazodone 150 mg tablet RxNorm: 079922 Tablet(s) Take 1 tablet by mouth at bedtime 09/04/2017 12/02/2017 Inactive trazodone 150 mg tablet RxNorm: 673497 Tablet(s) Take 1 tablet by mouth at bedtime 08/26/2017 09/03/2017 Inactive Imuran 50 mg tablet RxNorm: 677593 3 Tablet(s) daily Take 3 tablets by mouth daily 08/26/2017 09/03/2017 Inactive doxycycline hyclate 100 mg tablet RxNorm: 845937 1 Tablet(s) PO BID 08/18/2017 08/27/2017 Inactive nystatin 100,000 unit/mL oral suspension RxNorm: 346645 5 Milliliter(s) PO QID 08/14/2017 08/13/2017 Inactive nystatin 100,000 unit/mL oral suspension RxNorm: 549570 5 Milliliter(s) PO QID 08/14/2017 08/27/2017 Inactive Vitamin D2 50,000 unit capsule RxNorm: 787279 TAKE 2 CAPSULES BY MOUTH ONCE WEEKLY 08/10/2017 11/01/2017 Inactive cyanocobalamin (vit B-12) 1,000 mcg/mL injection solution RxNorm: 512419 1 Milliliter(s) Inj 07/28/2017 07/28/2017 Inactive losartan 50 mg tablet RxNorm: 234388 1 Tablet(s) PO daily 201609/07/2017 Inactive Imuran 50 mg tablet RxNorm: 106182 Take 3 tablets by mouth daily 07/23/2017 08/25/2017 Inactive - First Attempt Ref: [id number] trazodone 150 mg tablet RxNorm: 722110 Take 1 tablet by mouth at bedtime 07/23/2017 08/25/2017 Inactive - First Attempt Ref: [id number] Valtrex 1 gram tablet RxNorm: 380206 1 Tablet(s) PO BID 201607/19/2017 Inactive Valtrex 1 gram tablet RxNorm: 305739 1 Tablet(s) PO BID 201607/26/2017 Inactive Cipro 500 mg tablet RxNorm: 831443 1 Tablet(s) PO BID 201607/01/2017 Inactive prednisone 5 mg tablet RxNorm: 565467 1 Tablet(s) PO UD 201610/18/2017 Inactive prednisone 20 mg tablet RxNorm: 608161 2 Tablet(s) PO UD 201610/18/2017 Inactive 2 tabs daily x 3 days, 1.5 tabs daily x 3 days, then 25mg daily x 3 days then resume 20mg daily. omeprazole 20 mg capsule,delayed release RxNorm: 697147 Take 1 capsule by mouth daily 05/25/2017 02/18/2018 Active - First Attempt Ref: [id number] levothyroxine 50 mcg tablet RxNorm: 399906 Take 1 tablet by mouth daily 05/25/2017 10/18/2017 Inactive - First Attempt Ref: [id number] liothyronine 5 mcg tablet RxNorm: 202536 Take 2 tablets by mouth every day 05/25/2017 08/22/2017 Inactive - First Attempt Ref: [id number] Cipro 500 mg tablet RxNorm: 428959 1 Tablet(s) PO BID 201605/24/2017 Inactive Vitamin D2 50,000 unit capsule RxNorm: 259096 TAKE 2 CAPSULES BY MOUTH ONCE WEEKLY 05/14/2017 08/05/2017 Inactive cyanocobalamin (vit B-12) 1,000 mcg/mL injection solution RxNorm: 202029 INJECT 1 ML IN THE MUSCLE EVERY 2 WEEKS 05/11/2017 04/11/2018 Active tramadol 50 mg tablet RxNorm: 438264 1 or 2 Tablet(s) PO Q6 PRN as needed 05/05/2017 08/02/2017 Inactive methotrexate sodium 2.5 mg tablet RxNorm: 600550 2 Tablet(s) PO QW Manage by Dr Ellington 04/14/2017 04/15/2017 Inactive Xanax 0.5 mg tablet RxNorm: 298441 TAKE 1 TABLET BY MOUTH TWICE DAILY NEEDED FOR ANXIETY 04/10/2017 10/06/2017 Inactive Cipro 500 mg tablet RxNorm: 185473 1 Tablet(s) PO BID 201603/25/2017 Inactive Cipro 500 mg tablet RxNorm: 744550 1 Tablet(s) PO BID 201604/04/2017 Inactive Xanax 0.5 mg tablet RxNorm: 277700 1 Tablet(s) PO BID TAKE 1 TABLET BY MOUTH TWICE DAILY NEEDED FOR ANXIETY 02/18/2017 04/09/2017 Inactive liothyronine 5 mcg tablet RxNorm: 320301 Take 2 tablets by mouth every day 02/10/2017 05/10/2017 Inactive - Ref: [id number] doxycycline hyclate 100 mg tablet RxNorm: 009372 1 Tablet(s) PO BID 01/23/2017 02/01/2017 Inactive cyanocobalamin (vit B-12) 1,000 mcg/mL injection solution RxNorm: 383835 Milliliter(s) Inj 01/13/2017 01/13/2017 Inactive liothyronine 5 mcg tablet RxNorm: 035582 Take 2 tablets by mouth every day 01/09/2017 02/09/2017 Inactive - Ref: [id number] cyanocobalamin (vit B-12) 1,000 mcg/mL injection solution RxNorm: 178947 1 Milliliter(s) Inj 12/30/2016 12/30/2016 Inactive Wellbutrin SR 150 mg tablet, 12 hr sustained-release RxNorm: 734079 Take 2 tablets by mouth every morning and 1 tablet by mouth every night at bedtime 12/26/2016 09/21/2017 Inactive - First Attempt Ref: [id number] levothyroxine 50 mcg tablet RxNorm: 234593 Take 1 tablet by mouth daily 12/25/2016 05/24/2017 Inactive - First Attempt Ref: [id number] tramadol 50 mg tablet RxNorm: 214145 1 or 2 Tablet(s) PO Q6 PRN as needed 10/22/2016 05/04/2017 Inactive prednisone 20 mg tablet RxNorm: 679779 1 Tablet(s) PO daily 02/17/2017 Inactive Xanax 0.5 mg tablet RxNorm: 003164 1 Tablet(s) PO BID TAKE 1 TABLET BY MOUTH TWICE DAILY NEEDED FOR ANXIETY 10/21/2016 02/17/2017 Inactive tramadol 50 mg tablet RxNorm: 440523 1 or 2 Tablet(s) PO Q6 PRN as needed 10/21/2016 10/21/2016 Inactive Xanax 0.5 mg tablet RxNorm: 364196 1 Tablet(s) PO BID TAKE 1 TABLET BY MOUTH TWICE DAILY NEEDED FOR ANXIETY 09/29/2016 10/20/2016 Inactive nystatin 100,000 unit/mL oral suspension RxNorm: 169433 5 Unit(s) PO QID 09/22/2016 09/21/2016 Inactive nystatin 100,000 unit/mL oral suspension RxNorm: 094054 5 Unit(s) PO QID SWISH AND SWALLOW 09/22/2016 10/05/2016 Inactive Xanax 0.5 mg tablet RxNorm: 666922 1 Tablet(s) PO BID TAKE 1 TABLET BY MOUTH TWICE DAILY NEEDED FOR ANXIETY 09/01/2016 09/28/2016 Inactive Xanax 0.5 mg tablet RxNorm: 208863 1 Tablet(s) PO BID TAKE 1 TABLET BY MOUTH TWICE DAILY NEEDED FOR ANXIETY 08/12/2016 08/31/2016 Inactive omeprazole 20 mg capsule,delayed release RxNorm: 045130 Capsule(s) 1 CAPSULE(S) PO DAILY 08/12/2016 05/24/2017 Inactive prednisone 20 mg tablet RxNorm: 463074 1 Tablet(s) PO daily 02/201610/20/2016 Inactive trazodone 150 mg tablet RxNorm: 673096 Tablet(s) Take 1 tablet by mouth every night at bedtime 08/12/2016 07/22/2017 Inactive - cyanocobalamin (vit B-12) 1,000 mcg/mL injection solution RxNorm: 970709 Milliliter(s) Inj 08/12/2016 08/12/2016 Inactive Imuran 50 mg tablet RxNorm: 019364 3 Tablet(s) PO daily 201507/22/2017 Inactive Vitamin D2 50,000 unit capsule RxNorm: 939641 TAKE 2 CAPSULES BY MOUTH ONCE WEEKLY 07/28/2016 01/11/2017 Inactive prednisone 20 mg tablet RxNorm: 431424 TAKE 2 TABLETS(40MG) BY MOUTH DAILY THEN DECREASE DIRECTED 07/11/20162015 Inactive doxycycline hyclate 100 mg capsule RxNorm: 9824833 1 Capsule(s) PO BID 07/08/2016 07/17/2016 Inactive liothyronine 5 mcg tablet RxNorm: 917401 Tablet(s) PO UD 2 TABLET(S) PO QAM AND 1 PO Q PM 06/17/2016 01/08/2017 Inactive prednisone 20 mg tablet RxNorm: 760376 1 Tablet(s) PO UD 201507/10/2016 Inactive 40mg daily then decrease as directed Xanax 0.5 mg tablet RxNorm: 919426 1 Tablet(s) PO BID TAKE 1 TABLET BY MOUTH TWICE DAILY NEEDED FOR ANXIETY 06/06/2016 08/11/2016 Inactive prednisone 20 mg tablet RxNorm: 939277 1 Tablet(s) PO UD 201506/11/2016 Inactive 40mg daily then decrease as directed cyanocobalamin (vit B-12) 1,000 mcg/mL injection solution RxNorm: 327855 Milliliter(s) Inj 05/13/2016 05/13/2016 Inactive tramadol 50 mg tablet RxNorm: 465514 1 or 2 Tablet(s) PO Q6 PRN as needed 05/05/2016 10/20/2016 Inactive prednisone 20 mg tablet RxNorm: 246397 1 Tablet(s) PO daily 05/201604/24/2016 Inactive Wellbutrin SR 150 mg tablet,sustained-release RxNorm: 088946 Take 2 tablets by mouth every morning and 1 tablet by mouth at bedtime 201510/06/2016 Inactive - Wellbutrin SR 150 mg tablet,sustained-release RxNorm: 092502 1 Tablet(s) PO UD 2 pills in morning and one pill at bedtime 04/09/2016 04/09/2016 Inactive levothyroxine 50 mcg tablet RxNorm: 872615 Tablet(s) Take 1 tablet by mouth daily 03/12/2016 12/06/2016 Inactive - cyanocobalamin (vit B-12) 1,000 mcg/mL injection solution RxNorm: 491183 INJECT 1 ML IN THE MUSCLE EVERY 2 WEEKS 03/12/2016 06/03/2016 Inactive omeprazole 20 mg capsule,delayed release RxNorm: 121027 Take 1 capsule by mouth daily 03/10/2016 12/04/2016 Inactive - levothyroxine 50 mcg tablet RxNorm: 207455 Take 1 tablet by mouth daily 03/10/2016 03/11/2016 Inactive - trazodone 150 mg tablet RxNorm: 531520 Take 1 tablet by mouth every night at bedtime 03/10/2016 08/11/2016 Inactive - liothyronine 5 mcg tablet RxNorm: 911068 2 TABLET(S) PO QAM 12/201506/16/2016 Inactive omeprazole 20 mg capsule,delayed release RxNorm: 405375 1 CAPSULE(S) PO DAILY 03/10/2016 08/11/2016 Inactive Wellbutrin SR 150 mg tablet,sustained-release RxNorm: 405814 1 Tablet(s) PO UD 2 pills in morning and one pill at bedtime 03/06/2016 04/08/2016 Inactive prednisone 20 mg tablet RxNorm: 560218 1 Tablet(s) PO UD 201504/04/2016 Inactive prednisone 20 mg tablet RxNorm: 627357 1 Tablet(s) PO UD 201503/18/2016 Inactive prednisone 20 mg tablet RxNorm: 192992 1 Tablet(s) PO UD 201502/17/2016 Inactive 60mgx3 days then 40mg daily x 3 days then 20mg dailyx 3 days Xanax 0.5 mg tablet RxNorm: 222899 1 Tablet(s) PO BID TAKE 1 TABLET BY MOUTH TWICE DAILY NEEDED FOR ANXIETY 02/04/2016 04/03/2016 Inactive (Response to an electronic controlled substance refill request - RxReferenceNumber: [id number]| 1|0|1) Voltaren 1 % topical gel RxNorm: 514245 2 TOP QID as needed 06/201601/14/2016 Inactive prednisone 20 mg tablet RxNorm: 334495 1 Tablet(s) PO daily 06/201601/17/2016 Inactive Voltaren 1 % topical gel RxNorm: 801515 2 TOP QID as needed 06/201603/05/2016 Inactive Cipro 500 mg tablet RxNorm: 880235 1 Tablet(s) PO BID 201501/12/2016 Inactive tramadol 50 mg tablet RxNorm: 304616 1 or 2 Tablet(s) PO Q6 PRN as needed 01/03/2016 11/02/2017 Inactive trazodone 150 mg tablet RxNorm: 052786 1 TABLET(S) PO QHS 12/1803/09/2016 Inactive Kenalog 40 mg/mL suspension for injection RxNorm: 9212160 Milliliter(s) Inj 11/19/2015 11/19/2015 Inactive ceftriaxone 500 mg solution for injection RxNorm: 8347961 Inj 11/19/2015 11/19/2015 Inactive liothyronine 5 mcg tablet RxNorm: 215115 2 Tablet(s) PO daily 11/08/2015 11/01/2016 Inactive prednisone 10 mg tablet RxNorm: 137420 1 Tablet(s) PO daily 08/03/2016 Inactive Xanax 0.5 mg tablet RxNorm: 879750 1 Tablet(s) PO BID TAKE 1 TABLET BY MOUTH TWICE DAILY NEEDED FOR ANXIETY 11/08/2015 01/06/2016 Inactive (Response to an electronic controlled substance refill request - RxReferenceNumber: [id number]| 1|0|1) liothyronine 5 mcg tablet RxNorm: 216028 2 Tablet(s) PO daily 11/08/2015 11/07/2015 Inactive tramadol 50 mg tablet RxNorm: 091489 1 or 2 Tablet(s) PO Q6 PRN as needed 10/16/2015 01/02/2016 Inactive Xanax 0.5 mg tablet RxNorm: 623877 1 Tablet(s) PO BID TAKE 1 TABLET BY MOUTH TWICE DAILY NEEDED FOR ANXIETY 10/16/2015 11/07/2015 Inactive (Response to an electronic controlled substance refill request - RxReferenceNumber: [id number]| 1|0|1) Xanax 0.5 mg tablet RxNorm: 322686 1 Tablet(s) PO BID TAKE 1 TABLET BY MOUTH TWICE DAILY NEEDED FOR ANXIETY 10/01/2015 10/15/2015 Inactive (Response to an electronic controlled substance refill request - RxReferenceNumber: [id number]| 1|0|1) ProAir HFA 90 mcg/actuation aerosol inhaler RxNorm: 1003098 1-2 Puff(s) INH PRN as needed 09/07/2015 No Stop Date Active tramadol 50 mg tablet RxNorm: 645362 1 or 2 Tablet(s) PO Q6 PRN as needed 09/07/2015 10/15/2015 Inactive Kenalog 40 mg/mL suspension for injection RxNorm: 2782722 Milliliter(s) Inj 09/07/2015 09/07/2015 Inactive prednisone 20 mg tablet RxNorm: 981109 1 Tablet(s) PO daily 11/05/2015 Inactive cyanocobalamin (vit B-12) 1,000 mcg/mL injection solution RxNorm: 317796 Milliliter(s) Inj 09/07/2015 09/07/2015 Inactive Lidoderm 5 % (700 mg/patch) adhesive patch RxNorm: 2413642 APPLY 2 PATCHES TOPICALLY NEEDED(LEAVE ON FOR 12 HOURS THEN REMOVE FOR 12 HOURS) 08/16/2015 03/05/2016 Inactive acyclovir 800 mg tablet RxNorm: 163576 1 Tablet(s) PO QID 08/0908/18/2015 Inactive tramadol 50 mg tablet RxNorm: 259674 1 or 2 Tablet(s) PO Q6 PRN as needed 08/06/2015 09/06/2015 Inactive prednisone 20 mg tablet RxNorm: 392430 1 Tablet(s) PO UD 201409/06/2015 Inactive cyclobenzaprine 5 mg tablet RxNorm: 893295 1 Tablet(s) PO TID PRN 07/06/2015 03/05/2016 Inactive Vitamin D2 50,000 unit capsule RxNorm: 787552 2 Capsule(s) PO QW 07/06/2015 03/05/2016 Inactive nystatin 100,000 unit/mL oral suspension RxNorm: 155442 5 Milliliter(s) PO QID 07/06/2015 07/19/2015 Inactive prednisone 20 mg tablet RxNorm: 488915 1 Tablet(s) PO UD 201406/24/2015 Inactive prednisone 20 mg tablet RxNorm: 982519 1 Tablet(s) PO UD 201407/04/2015 Inactive disregard the last order for 20 prednisone 10 mg tablet RxNorm: 521315 1 Tablet(s) PO daily 10/201511/07/2015 Inactive prednisone 20 mg tablet RxNorm: 817579 1 Tablet(s) PO UD 201406/24/2015 Inactive prednisone 20 mg tablet RxNorm: 033380 1 Tablet(s) PO UD 201406/19/2015 Inactive prednisone 20 mg tablet RxNorm: 912952 Tablet(s) PO 3 tablets po daily x 3 days, then 2 tablets po daily x 3 days, then 1 tablet po daily x 1 week, then down to 10mg thereafter 06/12/2015 06/24/2015 Inactive prednisone 20 mg tablet RxNorm: 585052 Tablet(s) PO 3 tablets po daily x 3 days, then 2 tablets po daily x 3 days, then 1 tablet po daily x 1 week, then down to 10mg thereafter 06/12/2015 06/11/2015 Inactive Levaquin 500 mg tablet RxNorm: 833099 1 Tablet(s) PO x1 dose before dental appt on June 05 05/31/2015 03/05/2016 Inactive ProAir HFA 90 mcg/actuation aerosol inhaler RxNorm: 7516570 1-2 Puff(s) INH PRN as needed 05/01/2015 09/06/2015 Inactive Zithromax Z-Leno 250 mg tablet RxNorm: 638608 1 Tablet(s) PO UD 04/13/2015 04/22/2015 Inactive devyn sheridan refill x 1 Kenalog 40 mg/mL suspension for injection RxNorm: 7639310 Milliliter(s) Inj 04/13/2015 04/13/2015 Inactive Xanax 0.5 mg tablet RxNorm: 745577 1 Tablet(s) PO BID TAKE 1 TABLET BY MOUTH TWICE DAILY NEEDED FOR ANXIETY 04/03/2015 07/31/2015 Inactive (Response to an electronic controlled substance refill request - RxReferenceNumber: [id number]| 1|0|1) Imuran 50 mg tablet RxNorm: 050773 3 Tablet(s) PO daily 201408/11/2016 Inactive omeprazole 20 mg capsule,delayed release RxNorm: 836058 1 CAPSULE(S) PO DAILY 03/05/2015 11/29/2015 Inactive Omnaris 50 mcg nasal spray RxNorm: 519070 2 Premier NASAL QPM 05/25/2015 Inactive Claritin 10 mg tablet RxNorm: 338683 1 Tablet(s) PO daily 201401/02/2016 Inactive Vitamin D2 50,000 unit capsule RxNorm: 169848 TAKE TWO CAPSULES BY MOUTH EVERY WEEK 01/26/2015 04/19/2015 Inactive cyanocobalamin (vit B-12) 1,000 mcg/mL injection solution RxNorm: 454081 1 Milliliter(s) Inj X7azfcm 01/25/201510/15 Inactive Xanax 0.5 mg tablet RxNorm: 499010 1 Tablet(s) PO BID TAKE 1 TABLET BY MOUTH TWICE DAILY NEEDED FOR ANXIETY 01/01/2015 04/02/2015 Inactive (Response to an electronic controlled substance refill request - RxReferenceNumber: [id number]| 1|0|1) Imuran 50 mg tablet RxNorm: 617699 2 Tablet(s) PO daily 201403/25/2015 Inactive trazodone 150 mg tablet RxNorm: 888514 1 Tablet(s) PO QHS 01/0109/27/2015 Inactive [SAVINGS FOR UNINSURED PATIENTS -- BIN:[id number], PCN: ASPROD1, Group: [place], ID# [id number], Process claim through [employer], for questions: . THIS IS NOT INSURANCE.] Lidoderm 5 % (700 mg/patch) adhesive patch RxNorm: 9943971 2 TOP Q12 PRN as needed on q12 hours off q 12 hours 01/01/2015 06/29/2015 Inactive prednisone 10 mg tablet RxNorm: 743594 1 Tablet(s) PO daily 06/19/2015 Inactive Xanax 0.5 mg tablet RxNorm: 013636 TAKE 1 TABLET BY MOUTH TWICE DAILY NEEDED FOR ANXIETY 12/29/2014 01/27/2015 Inactive (Response to an electronic controlled substance refill request - RxReferenceNumber: [id number]|1|0|1) Wellbutrin SR 150 mg tablet,sustained-release RxNorm: 223109 1 Tablet(s) PO UD 2 pills in morning and one pill at bedtime 12/29/2014 12/23/2015 Inactive liothyronine 5 mcg tablet RxNorm: 745677 2 Tablet(s) PO QAM 09/24/2015 Inactive Xanax 0.5 mg tablet RxNorm: 600599 1 Tablet(s) PO BID TAKE 1 TABLET BY MOUTH TWICE DAILY NEEDED FOR ANXIETY 12/28/2014 12/31/2014 Inactive (Response to an electronic controlled substance refill request - RxReferenceNumber: [id number]| 1|0|1) Anoro Ellipta 62.5 mcg-25 mcg/actuation powder for inhalation RxNorm: 9856430 1 Puff(s) INH QAM 12/22/20142014 Inactive trazodone 150 mg tablet RxNorm: 228210 1 TABLET(S) PO QHS 12/1106/08/2015 Inactive trazodone 150 mg tablet RxNorm: 124315 1 Tablet(s) PO QHS 12/0812/31/2014 Inactive [SAVINGS FOR UNINSURED PATIENTS -- BIN:[id number], PCN: ASPROD1, Group: [id number], ID# [id number], Process claim through [employer], for questions: . THIS IS NOT INSURANCE.] Xanax 0.5 mg tablet RxNorm: 792626 TAKE 1 TABLET BY MOUTH TWICE DAILY NEEDED FOR ANXIETY 10/17/2014 11/15/2014 Inactive (Response to an electronic controlled substance refill request - RxReferenceNumber: [id number]|1|0|1) Xanax 0.5 mg tablet RxNorm: 284196 1 Tablet(s) PO BID TAKE 1 TABLET BY MOUTH TWICE DAILY NEEDED FOR ANXIETY 10/17/2014 12/15/2014 Inactive (Response to an electronic controlled substance refill request - RxReferenceNumber: [id number]| 1|0|1) Slow-Mag 71.5 mg tablet,delayed release RxNorm: 223539 1 Tablet(s) PO as doctor directed biweekly 10/16/2014 03/05/2016 Inactive [SAVINGS FOR UNINSURED PATIENTS - - BIN:[id number], PCN: ASPROD1, Group: [id number], ID# [id number], Process claim through [employer], for questions: . THIS IS NOT INSURANCE.] azithromycin 250 mg tablet RxNorm: 484740 TAKE 2 TABLETS BY MOUTH AT ONCE TODAY, THEN TAKE 1 TABLET BY MOUTH ONCE DAILY FOR 4 DAYS 10/12/2014 10/16/2014 Inactive azithromycin 250 mg tablet RxNorm: 764747 2 Tablet(s) PO day 1, then 1 tablet po days 2 through 5 10/10/2014 10/11/2014 Inactive azithromycin 250 mg tablet RxNorm: 166132 2 Tablet(s) PO day 1, then 1 tablet po days 2 through 5 10/10/2014 10/09/2014 Inactive Wellbutrin SR 150 mg tablet,sustained-release RxNorm: 242295 1 Tablet(s) PO UD 2 pills in morning and one pill at bedtime 09/29/2014 12/28/2014 Inactive Wellbutrin SR 150 mg tablet,sustained-release RxNorm: 718736 1 Tablet(s) PO BID 09/25/2014 09/28/2014 Inactive Xanax 0.5 mg tablet RxNorm: 100571 1 Tablet(s) PO BID TAKE 1 TABLET BY MOUTH TWICE DAILY NEEDED FOR ANXIETY 09/19/2014 10/16/2014 Inactive (Response to an electronic controlled substance refill request - RxReferenceNumber: [id number]| 1|0|1) Vitamin D2 50,000 unit capsule RxNorm: 849919 TAKE TWO CAPSULES BY MOUTH EVERY WEEK 09/18/2014 12/10/2014 Inactive Kenalog 40 mg/mL suspension for injection RxNorm: 1971229 1 Milliliter(s) Inj 09/08/2014 09/08/2014 Inactive prednisone 10 mg tablet RxNorm: 511947 1 Tablet(s) PO daily 12/28/2014 Inactive prednisone 20 mg tablet RxNorm: 234352 1/2 Tablet(s) PO every other day 08/28/2014 09/07/2014 Inactive [SAVINGS FOR UNINSURED PATIENTS -- BIN:[id number], PCN: ASPROD1, Group: [facility], ID# [id number], Process claim through [employer], for questions: [phone]. THIS IS NOT INSURANCE.] Xanax 0.5 mg tablet RxNorm: 901868 TAKE 1 TABLET BY MOUTH TWICE DAILY NEEDED FOR ANXIETY 08/14/2014 09/12/2014 Inactive (Response to an electronic controlled substance refill request - RxReferenceNumber: [id number]|1|0|1) Bactroban 2 % topical ointment RxNorm: 176852 1 Application TOP BID 07/21/2014 07/30/2014 Inactive ciprofloxacin 500 mg tablet RxNorm: 937576 1 Tablet(s) PO BID 07/21/2014 07/30/2014 Inactive Xanax 0.5 mg tablet RxNorm: 892891 Tablet(s) PO TAKE 1 TABLET BY MOUTH TWICE DAILY 07/05/2014 12/21/2014 Inactive (Appended: Controlled substance eRx refill - RxReferenceNumber: [id number]|1|0|1) Xanax 0.5 mg tablet RxNorm: 196743 TAKE 1 TABLET BY MOUTH TWICE DAILY NEEDED FOR ANXIETY 07/04/2014 08/02/2014 Inactive (Response to an electronic controlled substance refill request - RxReferenceNumber: [id number]|1|0|1) liothyronine 5 mcg tablet RxNorm: 524064 2 Tablet(s) PO QAM 12/28/2014 Inactive trazodone 150 mg tablet RxNorm: 524815 1 Tablet(s) PO QHS 05/2312/07/2014 Inactive levothyroxine 50 mcg tablet RxNorm: 324086 1 Tablet(s) PO daily 03/23/2014 03/17/2015 Inactive ciprofloxacin 500 mg tablet RxNorm: 673542 1 Tablet(s) PO BID 03/23/2014 04/01/2014 Inactive tramadol 50 mg tablet RxNorm: 044154 1 or 2 Tablet(s) PO Q6 PRN 02/13/2014 05/04/2016 Inactive prednisone 10 mg tablet RxNorm: 350686 1 Tablet(s) PO daily 05/201408/15/[address] is tapering this down so will be taking 5 mg daily Lidoderm 5 % (700 mg/patch) adhesive patch RxNorm: 1377874 2 TOP Q12 PRN on q12 hours off q 12 hours 02/13/20142013 Inactive Klor-Con M10 mEq tablet,extended release RxNorm: 448439 1 Tablet(s) PO daily 01/16/2014 03/05/2016 Inactive Klor-Con M10 mEq tablet,extended release RxNorm: 598366 1 Tablet(s) PO daily 01/16/2014 01/15/2014 Inactive omeprazole 20 mg capsule,delayed release RxNorm: 719214 1 Capsule(s) PO daily 01/09/2014 01/03/2015 Inactive cyanocobalamin (vit B-12) 1,000 mcg/mL injection solution RxNorm: 897573 1 Milliliter(s) Inj C8eoorx 01/09/201401/24 Inactive prednisone 10 mg tablet RxNorm: 852827 1 Tablet(s) PO daily 01/201402/12/[address] is tapering this down so will be taking 5 mg daily Wellbutrin SR 150 mg tablet,sustained-release RxNorm: 868124 1 Tablet(s) PO BID 12/20/2013 09/24/2014 Inactive Wellbutrin SR 150 mg tablet,sustained-release RxNorm: 286327 1 Tablet(s) PO BID 12/20/2013 12/19/2013 Inactive Xanax 0.5 mg tablet RxNorm: 160759 Tablet(s) PO TAKE 1 TABLET BY MOUTH TWICE DAILY 11/28/2013 07/04/2014 Inactive (Appended: Controlled substance eRx refill - RxReferenceNumber: [id number]|1|0|1) Xanax 0.5 mg tablet RxNorm: 793045 1 Tablet(s) PO BID 201307/05/2014 Inactive Kenalog 40 mg/mL suspension for injection RxNorm: 5043228 1 Milliliter(s) Inj 11/15/2013 11/15/2013 Inactive prednisone 10 mg tablet RxNorm: 912612 1 Tablet(s) PO daily 01/08/2014 Inactive Trazadone 100mg 100 mg RxNorm: 1.5 Tablet(s) PO QHS 201201/02/2016 Inactive simethicone 125 mg capsule RxNorm: 253148 Capsule(s) PO PRN No Start Date Active loperamide 2 mg tablet RxNorm: 785961 Tablet(s) PO PRN No Start Date Active Xanax 0.5 mg tablet RxNorm: 699740 1 Tablet(s) PO BID No Start Date 11/28/2013 Inactive Lidoderm 5 % (700 mg/patch) adhesive patch RxNorm: 8452124 TOP on q12 hours off q 12 hours No Start Date 02/12/2014 Inactive liothyronine 5 mcg tablet RxNorm: 880233 2 Tablet(s) PO QAM No Start Date 06/04/2014 Inactive tramadol 50 mg tablet RxNorm: 284541 1 Tablet(s) PO daily No Start Date 02/12/2014 Inactive fluticasone propionate (bulk) 100 % powder RxNorm: Premier Miscellaneous PRN No Start Date 01/25/2015 Inactive trazodone 150 mg tablet RxNorm: 500420 1 Tablet(s) PO QHS No Start Date 05/23/2014 Inactive Vitamin D2 50,000 unit capsule RxNorm: 473135 1 Capsule(s) PO BIW No Start Date 09/17/2014 Inactive prednisone 10 mg tablet RxNorm: 758055 1 Tablet(s) PO daily No Start Date 10/30/2013 Inactive Imuran 50 mg tablet RxNorm: 278693 2 Tablet(s) PO daily No Start Date 12/31/2014 Inactive omeprazole 40 mg capsule,delayed release RxNorm: 103991 1 Capsule(s) PO daily No Start Date 01/08/2014 Inactive ProAir HFA 90 mcg/actuation aerosol inhaler RxNorm: 7133041 Puff(s) INH PRN No Start Date 04/30/2015 Inactive levothyroxine 75 mcg tablet RxNorm: 532749 1/2 Tablet(s) PO daily No Start Date 03/22/2014 Inactive Wellbutrin SR 150 mg tablet,sustained-release RxNorm: 042028 1 Tablet(s) PO BID No Start Date 12/19/2013 Inactive cyanocobalamin (vit B-12) 1,000 mcg/mL injection solution RxNorm: 639047 Milliliter(s) Inj BIW No Start Date 2013 Inactive Trazadone 100mg 100 mg RxNorm: oral No Start Date 10/16/2013 Inactive Levaquin 500 mg tablet RxNorm: 581217 1 Tablet(s) PO x1 dose before dental appt on June 05 No Start Date 05/30/2015 Inactive Medication Administered Medication Codes Instructions Start Date Status cyanocobalamin (vit B-12) 1,000 mcg/mL injection solution RxNorm: 747757 1Milliliter 12/22/2017 No longer Active cyanocobalamin (vit B-12) 1,000 mcg/mL injection solution RxNorm: 545873 Milliliter 10/29/2017 No longer Active cyanocobalamin (vit B-12) 1,000 mcg/mL injection solution RxNorm: 874066 Milliliter 10/12/2017 No longer Active cyanocobalamin (vit B-12) 1,000 mcg/mL injection solution RxNorm: 668436 1Milliliter 09/22/2017 No longer Active cyanocobalamin (vit B-12) 1,000 mcg/mL injection solution RxNorm: 697545 1Milliliter 07/28/2017 No longer Active cyanocobalamin (vit B-12) 1,000 mcg/mL injection solution RxNorm: 094505 Milliliter 01/13/2017 No longer Active cyanocobalamin (vit B-12) 1,000 mcg/mL injection solution RxNorm: 566348 1Milliliter 12/30/2016 No longer Active cyanocobalamin (vit B-12) 1,000 mcg/mL injection solution RxNorm: 331609 Milliliter 08/12/2016 No longer Active cyanocobalamin (vit B-12) 1,000 mcg/mL injection solution RxNorm: 731846 Milliliter 05/13/2016 No longer Active ceftriaxone 500 mg solution for injection RxNorm: 2816018 11/19/2015 No longer Active Kenalog 40 mg/mL suspension for injection RxNorm: 7434249 Milliliter 11/19/2015 No longer Active cyanocobalamin (vit B-12) 1,000 mcg/mL injection solution RxNorm: 592562 Milliliter 09/07/2015 No longer Active Kenalog 40 mg/mL suspension for injection RxNorm: 5204168 Milliliter 09/07/2015 No longer Active Kenalog 40 mg/mL suspension for injection RxNorm: 7910297 Milliliter 04/13/2015 No longer Active Kenalog 40 mg/mL suspension for injection RxNorm: 5699578 1Milliliter 09/08/2014 No longer Active Kenalog 40 mg/mL suspension for injection RxNorm: 0010480 1Milliliter 11/15/2013 No longer Active Immunizations Vaccine Codes Date Status Influenza CVX: 141 08/12/2016 completed Influenza CVX: 141 10/09/2011 completed Pneumococcal CVX: 33 10/09/2011 completed Tetanus, Diptheria, Pertussis CVX: 113 completed Tetanus/Diptheria CVX: 113 10/09/2011 completed Assessments Condition Codes Effective Dates Other vitamin B12 deficiency anemias ICD-10: D51.8 ICD-9: 281.1 12/22/2017 Generalized abdominal pain ICD-10: R10.84 ICD-9: 789.07 12/22/2017 Atrophy of thyroid (acquired) ICD-10: E03.4 ICD-9: 244.8 11/16/2017 Essential (primary) hypertension ICD-10: I10 ICD-9: 401.1 10/29/2017 Vitamin B12 deficiency anemia, unspecified ICD-10: D51.9 ICD-9: 266.2 10/29/2017 Generalized anxiety disorder ICD-10: F41.1 ICD-9: 300.02 10/19/2017 Crohn's disease of large intestine with other complication ICD-10: K50.118 ICD-9: 555.1 10/19/2017 Essential (primary) hypertension ICD-10: I10 ICD-9: 401.9 09/22/2017 Vitamin B12 deficiency anemia due to intrinsic factor deficiency ICD-10: D51.0 ICD-9: 281.0 09/22/2017 long-term (current) use of systemic steroids ICD-10: Z79.52 ICD-9: V58.65 09/22/2017 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 ICD-9: 255.41 09/22/2017 Hypothyroidism, unspecified ICD-10: E03.9 ICD-9: 244.9 09/22/2017 Vitamin D deficiency, unspecified ICD-10: E55.9 ICD-9: 268.9 09/22/2017 Hypokalemia ICD-10: E87.6 ICD-9: 276.8 09/22/2017 Crohn's disease, unspecified, with other complication ICD-10 : K50.918 ICD-9: 555.9 09/22/2017 Low back pain ICD-10: M54.5 ICD-9: 724.2 08/20/2017 Anorectal abscess ICD-10: K61.2 ICD-9: 566 08/20/2017 Encounter for screening mammogram for malignant neoplasm of breast ICD-10: Z12.31 ICD-9: V76.12 07/28/2017 Allergic rhinitis due to pollen ICD-10: J30.1 ICD-9: 477.9 06/12/2017 Encounter for general adult medical examination with abnormal findings ICD-10: Z00.01 ICD-9: V70.0 02/11/2017 Major depressive disorder, single episode, mild ICD-10: F32.0 ICD-9: 311 02/10/2017 Pain in joints of left hand ICD-10: M25.542 ICD-9: 719.44 01/23/2017 Pain in joints of right hand ICD-10: M25.541 ICD-9: 719.44 01/23/2017 Cervicalgia ICD-10: M54.2 ICD-9: 723.1 01/23/2017 Personal history of other infectious and parasitic diseases ICD-10: Z86.19 ICD-9: V12.09 01/23/2017 Other malaise ICD-10: R53.81 ICD-9: 780.79 01/23/2017 Pain in left hip ICD-10: M25.552 ICD-9: 719.45 01/23/2017 Pain in right hip ICD-10: M25.551 ICD-9: 719.45 01/23/2017 Urinary tract infection, site not specified ICD-10: N39.0 ICD-9: 599.0 08/12/2016 Encounter for immunization ICD-10: Z23 ICD-9: V04.81 08/12/2016 Actinic keratosis ICD-10: L57.0 ICD-9: 702.0 07/15/2016 Rash and other nonspecific skin eruption ICD-10: R21 ICD-9: 782.1 07/08/2016 Other pruritus ICD-10: L29.8 ICD-9: 698.8 07/02/2016 Bitten or stung by nonvenomous insect and other nonvenomous arthropods, initial encounter ICD-10: W57.XXXA ICD-9: 919.4 07/02/2016 Dysuria ICD-10: R30.0 ICD-9: 788.1 05/13/2016 Dizziness and giddiness ICD-10: R42 ICD-9: 780.4 02/08/2016 Acute recurrent maxillary sinusitis ICD-10: J01.01 ICD-9: 461.0 11/19/2015 Vasomotor rhinitis ICD-10: J30.0 ICD-9: 477.9 11/19/2015 Candidal stomatitis ICD-10: B37.0 ICD-9: 112.0 10/03/2015 Other specified disorders of nose and nasal sinuses ICD-10: J34.89 ICD-9: 478.19 10/03/2015 Lumbago with sciatica, unspecified side ICD-10: M54.40 ICD-9: 724.3 09/13/2015 Cutaneous abscess, unspecified ICD-10: L02.91 ICD-9: 682.9 08/09/2015 Other herpesviral infection ICD-10: B00.89 ICD-9: 054.79 08/09/2015 Degenerative disc disease, lumbar ICD-9: 722.52 07/31/2015 URINARY FREQUENCY ICD-9: 788.41 2014 Crohns disease ICD-9: 555.9 07/31/2015 Bulging disc ICD-9: 722.2 07/06/2015 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79 12/22/2014 Back pain ICD-9: 724.5 10/16/2014 DEPRESSIVE DISORDER NEC ICD-9: 311 2013 GENERALIZED ANXIETY DISEASE ICD-9: 300.02 08/28/2014 ACUTE SINUSITIS ICD-9: 461.9 08/16/2014 ANAL FISTULA ICD-9: 565.1 07/21/2014 Cellulitis ICD-9: 682.9 07/21/2014 ENCNTR LONG-RX USE NEC ICD-9: V58.69 HYPOPOTASSEMIA ICD-9: 276.8 03/23/2014 Hematuria ICD-9: 599.70 02/15/2014 Sacroiliitis ICD-9: 720.2 02/13/2014 ACUTE PHARYNGITIS ICD-9: 462 11/15/2013 Post-menopausal ICD-9: V49.81 10/31/2013 Reason For Visit Reason For Visit Effective Dates Notes abdominal pain 12/22/2017 hypertension 11/16/2017 back pain 10/19/2017 and left hip pain hypertension 09/25/2017 hypertension 09/08/2017 and left hip pain back pain 08/20/2017 and left hip pain back pain 07/28/2017 and left hip pain back pain 06/19/2017 sinus congestion 06/12/2017 new lesion 05/15/2017 abdominal pain 04/14/2017 crohn's disease abdominal pain 03/23/2017 crohn's disease Annual Medicare Wellness Exam 02/11/2017 anxiety 02/10/2017 crohn's disease joint complaint 01/23/2017 anxiety 01/13/2017 crohn's disease anxiety 12/30/2016 crohn's disease anxiety 12/22/2016 abdominal pain 10/20/2016 crohn's disease abdominal pain 08/12/2016 crohn's disease rash 07/15/2016 arthropod bite 07/08/2016 arthropod bite 07/02/2016 depression 06/17/2016 back pain 05/16/2016 back pain 05/13/2016 back pain 03/06/2016 hypothyroid 02/08/2016 hemorrhoids 01/03/2016 she reports she has a rectal abscess that needs opened cough 11/19/2015 back pain 10/15/2015 oral pain 10/03/2015 nasal allergies 09/07/2015 cyst 08/09/2015 urinary incontinence 07/31/2015 fatigue 07/06/2015 fatigue 06/15/2015 ~generic 05/01/2015 cough 04/27/2015 sinus congestion 04/13/2015 nose stopped up, cough, ears and eyes itch. back pain 02/23/2015 c/o cramping cough 01/26/2015 urinary urgency 12/22/2014 cough 11/16/2014 depression 10/16/2014 depression 09/29/2014 cough 09/08/2014 cough 08/28/2014 cough 08/16/2014 skin lesion 07/21/2014 back pain 06/30/2014 c/o cramping back pain 06/05/2014 c/o cramping Hospital Follow Up 05/02/2014 small bowel obobstruction fatigue 04/04/2014 fatigue 03/23/2014 back pain 02/13/2014 depression 01/09/2014 sinus congestion 11/15/2013 cough 10/31/2013 2 week follow up sinus congestion 10/17/2013 Results Observation Observation Code Item Item Code Result Date Vitamin D 25 Oh [id number] VITAMIN D, 25 HYDROXY 61.36 ng/mL Magnesium Ord90 Mag 1.5 mg/dL 09/22/2017 Free T4 Ips968 FREE T4 0.84 ng/dL 09/22/2017 C-Reactive Protein Qnt Crqnt CRP 1.1 mg/dl 09/22/2017 Comp Metabolic Nxe162 NA 138 mEq/L 09/22/2017 Comp Metabolic Jwe779 K 3.4 mEq/L 09/22/2017 Comp Metabolic Una398 CL 104 mEq/L 09/22/2017 Comp Metabolic Ess083 CO2 25.0 mEq/L 09/22/2017 Comp Metabolic Tpt391 ANION GAP 12 09/22/2017 Comp Metabolic Hlt313 GLUCOSE 141 mg/dL 09/22/2017 Comp Metabolic Gbc198 Creat 0.7 mg/dL 09/22/2017 Comp Metabolic Mdc170 eGFR 86 ml/min/1.73m2 09/22/2017 Comp Metabolic Hsk295 BUN 11 mg/dL 09/22/2017 Comp Metabolic Noq014 B/C Ratio 15.3 Ratio 09/22/2017 Comp Metabolic Ndu564 CALCIUM 9.5 mg/dL 09/22/2017 Comp Metabolic Aew464 ALK PHOS 42 U/L 09/22/2017 Comp Metabolic Oaw531 AST(SGOT) 26 U/L 09/22/2017 Comp Metabolic Eiy959 ALT(SGPT) 32 U/L 09/22/2017 Comp Metabolic Iil207 BILI T 0.6 mg/dL 09/22/2017 Comp Metabolic Rem815 ALBUMIN 4.1 g/dL 09/22/2017 Comp Metabolic Ntg220 TPRO 6.4 g/dL 09/22/2017 Comp Metabolic Kfo258 GLOB 2.3 g/dL 09/22/2017 Comp Metabolic Yfd824 A/G Ratio 1.8 Ratio 09/22/2017 Comp Metabolic Mtx893 Osmo 277 mOsmo 09/22/2017 Tsh Ord6 hTSH II 0.48 uIU/mL 09/22/2017 B12 Nix213 B12 443.00 pg/ml 09/22/2017 Sed Rate Ord21 ESR 10 mm/hr 09/22/2017 Cbc With Differential Ord2 WBC 11.87 K/ul 09/22/2017 Cbc With Differential Ord2 RBC 4.28 M/ul 09/22/2017 Cbc With Differential Ord2 HGB 15.1 g/dl 09/22/2017 Cbc With Differential Ord2 Neut% 93.6 % 09/22/2017 Cbc With Differential Ord2 HCT 43.8 % 09/22/2017 Cbc With Differential Ord2 MCV 102.3 fl 09/22/2017 Cbc With Differential Ord2 Lymph% 3.9 % 09/22/2017 Cbc With Differential Ord2 MCH 35.3 pg 09/22/2017 Cbc With Differential Ord2 [place]% 2.3 % 09/22/2017 Cbc With Differential Ord2 MCHC 34.5 pg 09/22/2017 Cbc With Differential Ord2 Eos% 0.1 % 09/22/2017 Cbc With Differential Ord2 Baso% 0.1 % 09/22/2017 Cbc With Differential Ord2 PLT 341 K/ul 09/22/2017 Cbc With Differential Ord2 Neut ABS# 11.12 K/ul 09/22/2017 Cbc With Differential Ord2 RDW 14.3 % 09/22/2017 Cbc With Differential Ord2 Lymph ABS# 0.46 K/ul 09/22/2017 Cbc With Differential Ord2 [place] ABS# 0.3 K/ul 09/22/2017 Cbc With Differential Ord2 Eos ABS# 0.0 K/ul 09/22/2017 Cbc With Differential Ord2 Baso ABS# 0.0 K/ul 09/22/2017 Cbc With Differential Ord2 WBC 12.97 K/ul 06/19/2017 Cbc With Differential Ord2 RBC 4.23 M/ul 06/19/2017 Cbc With Differential Ord2 HGB 14.4 g/dl 06/19/2017 Cbc With Differential Ord2 Neut% 77.1 % 06/19/2017 Cbc With Differential Ord2 HCT 42.5 % 06/19/2017 Cbc With Differential Ord2 MCV 100.5 fl 06/19/2017 Cbc With Differential Ord2 Lymph% 12.3 % 06/19/2017 Cbc With Differential Ord2 MCH 34.0 pg 06/19/2017 Cbc With Differential Ord2 [place]% 9.7 % 06/19/2017 Cbc With Differential Ord2 MCHC 33.9 pg 06/19/2017 Cbc With Differential Ord2 Eos% 0.7 % 06/19/2017 Cbc With Differential Ord2 PLT 286 K/ul 06/19/2017 Cbc With Differential Ord2 Baso% 0.2 % 06/19/2017 Cbc With Differential Ord2 RDW 14.4 % 06/19/2017 Cbc With Differential Ord2 Neut ABS# 9.99 K/ul 06/19/2017 Cbc With Differential Ord2 Lymph ABS# 1.60 K/ul 06/19/2017 Cbc With Differential Ord2 [place] ABS# 1.3 K/ul 06/19/2017 Cbc With Differential Ord2 Eos ABS# 0.1 K/ul 06/19/2017 Cbc With Differential Ord2 Baso ABS# 0.0 K/ul 06/19/2017 Magnesium Ord90 Mag 1.5 mg/dL 06/19/2017 B12 Gmp019 B12 611.00 pg/ml 06/19/2017 Sed Rate Ord21 ESR 1 mm/hr 06/19/2017 C-Reactive Protein Qnt Crqnt CRP 0.2 mg/dl 06/19/2017 Tsh Ord6 hTSH II 0.94 uIU/mL 06/19/2017 Vitamin D 25 Oh [id number] VITAMIN D, 25 HYDROXY 39.89 ng/mL Comp Metabolic Rqk079 NA 140 mEq/L 06/19/2017 Comp Metabolic Kuq047 K 3.7 mEq/L 06/19/2017 Comp Metabolic Zzx064 CL 101 mEq/L 06/19/2017 Comp Metabolic Saz885 CO2 30.0 mEq/L 06/19/2017 Comp Metabolic Edi089 ANION GAP 13 06/19/2017 Comp Metabolic Uyr915 GLUCOSE 91 mg/dL 06/19/2017 Comp Metabolic Ahi081 Creat 0.7 mg/dL 06/19/2017 Comp Metabolic Dzv693 eGFR 87 ml/min/1.73m2 06/19/2017 Comp Metabolic Tok398 BUN 12 mg/dL 06/19/2017 Comp Metabolic Yjn377 B/C Ratio 16.9 Ratio 06/19/2017 Comp Metabolic Cmk153 CALCIUM 9.0 mg/dL 06/19/2017 Comp Metabolic Wai555 ALK PHOS 45 U/L 06/19/2017 Comp Metabolic Feb273 AST(SGOT) 14 U/L 06/19/2017 Comp Metabolic Lhc822 ALT(SGPT) 15 U/L 06/19/2017 Comp Metabolic Rvf259 BILI T 0.7 mg/dL 06/19/2017 Comp Metabolic Bqs761 ALBUMIN 3.8 g/dL 06/19/2017 Comp Metabolic Vri351 TPRO 6.1 g/dL 06/19/2017 Comp Metabolic Jmq233 GLOB 2.3 g/dL 06/19/2017 Comp Metabolic Men892 A/G Ratio 1.6 Ratio 06/19/2017 Comp Metabolic Dtc236 Osmo 279 mOsmo 06/19/2017 Free T4 Wih224 FREE T4 0.99 ng/dL 06/19/2017 Comp Metabolic Fme452 NA 139 mEq/L 03/23/2017 Comp Metabolic Kfq454 K 4.2 mEq/L 03/23/2017 Comp Metabolic Krj393 CL 104 mEq/L 03/23/2017 Comp Metabolic Whn531 CO2 23.0 mEq/L 03/23/2017 Comp Metabolic Ldz604 ANION GAP 16 03/23/2017 Comp Metabolic Rhz039 GLUCOSE 111 mg/dL 03/23/2017 Comp Metabolic Qna015 Creat 0.7 mg/dL 03/23/2017 Comp Metabolic Wjq837 eGFR 87 ml/min/1.73m2 03/23/2017 Comp Metabolic Wba607 BUN 16 mg/dL 03/23/2017 Comp Metabolic Qyx051 B/C Ratio 22.5 Ratio 03/23/2017 Comp Metabolic Pmx272 CALCIUM 9.4 mg/dL 03/23/2017 Comp Metabolic Eyh999 ALK PHOS 51 U/L 03/23/2017 Comp Metabolic Rys536 AST(SGOT) 14 U/L 03/23/2017 Comp Metabolic Kiq470 ALT(SGPT) 13 U/L 03/23/2017 Comp Metabolic Emk427 BILI T 0.6 mg/dL 03/23/2017 Comp Metabolic Qdu855 ALBUMIN 4.0 g/dL 03/23/2017 Comp Metabolic Fxa424 TPRO 6.6 g/dL 03/23/2017 Comp Metabolic Ywo081 GLOB 2.6 g/dL 03/23/2017 Comp Metabolic Qfx178 A/G Ratio 1.5 Ratio 03/23/2017 Comp Metabolic Vab318 Osmo 279 mOsmo 03/23/2017 Cbc With Differential Ord2 WBC 11.56 K/ul 03/23/2017 Cbc With Differential Ord2 RBC 4.35 M/ul 03/23/2017 Cbc With Differential Ord2 HGB 15.0 g/dl 03/23/2017 Cbc With Differential Ord2 Neut% 87.2 % 03/23/2017 Cbc With Differential Ord2 HCT 43.0 % 03/23/2017 Cbc With Differential Ord2 Lymph% 8.5 % 03/23/2017 Cbc With Differential Ord2 MCV 98.9 fl 03/23/2017 Cbc With Differential Ord2 [place]% 3.7 % 03/23/2017 Cbc With Differential Ord2 MCH 34.5 pg 03/23/2017 Cbc With Differential Ord2 Eos% 0.3 % 03/23/2017 Cbc With Differential Ord2 MCHC 34.9 pg 03/23/2017 Cbc With Differential Ord2 PLT 315 K/ul 03/23/2017 Cbc With Differential Ord2 Baso% 0.3 % 03/23/2017 Cbc With Differential Ord2 RDW 13.4 % 03/23/2017 Cbc With Differential Ord2 Neut ABS# 10.08 K/ul 03/23/2017 Cbc With Differential Ord2 Lymph ABS# 0.98 K/ul 03/23/2017 Cbc With Differential Ord2 [place] ABS# 0.4 K/ul 03/23/2017 Cbc With Differential Ord2 Eos ABS# 0.0 K/ul 03/23/2017 Cbc With Differential Ord2 Baso ABS# 0.0 K/ul 03/23/2017 Comp Metabolic Nbe157 NA 136 mEq/L 01/13/2017 Comp Metabolic Hsi051 K 3.9 mEq/L 01/13/2017 Comp Metabolic Znd310 CL 101 mEq/L 01/13/2017 Comp Metabolic Ong407 CO2 26.0 mEq/L 01/13/2017 Comp Metabolic Egb246 ANION GAP 13 01/13/2017 Comp Metabolic Noc070 GLUCOSE 110 mg/dL 01/13/2017 Comp Metabolic Bzj034 Creat 0.8 mg/dL 01/13/2017 Comp Metabolic Ylv007 eGFR 75 ml/min/1.73m2 01/13/2017 Comp Metabolic Kuz621 BUN 14 mg/dL 01/13/2017 Comp Metabolic Yko589 B/C Ratio 17.3 Ratio 01/13/2017 Comp Metabolic Nuz690 CALCIUM 9.3 mg/dL 01/13/2017 Comp Metabolic Kyh547 ALK PHOS 50 U/L 01/13/2017 Comp Metabolic Sze559 AST(SGOT) 14 U/L 01/13/2017 Comp Metabolic Jqt312 ALT(SGPT) 12 U/L 01/13/2017 Comp Metabolic Kfe000 BILI T 0.4 mg/dL 01/13/2017 Comp Metabolic Cjw605 ALBUMIN 4.1 g/dL 01/13/2017 Comp Metabolic Qih844 TPRO 6.7 g/dL 01/13/2017 Comp Metabolic Sdi247 GLOB 2.6 g/dL 01/13/2017 Comp Metabolic Mxs421 A/G Ratio 1.5 Ratio 01/13/2017 Comp Metabolic Frb659 Osmo 273 mOsmo 01/13/2017 C-Reactive Protein Qnt Crqnt CRP 0.2 mg/dl 01/13/2017 Cbc With Differential Ord2 WBC 12.99 K/ul 01/13/2017 Cbc With Differential Ord2 RBC 4.34 M/ul 01/13/2017 Cbc With Differential Ord2 HGB 14.8 g/dl 01/13/2017 Cbc With Differential Ord2 HCT 44.3 % 01/13/2017 Cbc With Differential Ord2 Neut% 84.3 % 01/13/2017 Cbc With Differential Ord2 MCV 102.1 fl 01/13/2017 Cbc With Differential Ord2 Lymph% 10.2 % 01/13/2017 Cbc With Differential Ord2 MCH 34.1 pg 01/13/2017 Cbc With Differential Ord2 [place]% 4.9 % 01/13/2017 Cbc With Differential Ord2 Eos% 0.5 % 01/13/2017 Cbc With Differential Ord2 MCHC 33.4 pg 01/13/2017 Cbc With Differential Ord2 PLT 320 K/ul 01/13/2017 Cbc With Differential Ord2 Baso% 0.1 % 01/13/2017 Cbc With Differential Ord2 Neut ABS# 10.96 K/ul 01/13/2017 Cbc With Differential Ord2 RDW 13.4 % 01/13/2017 Cbc With Differential Ord2 Lymph ABS# 1.32 K/ul 01/13/2017 Cbc With Differential Ord2 [place] ABS# 0.6 K/ul 01/13/2017 Cbc With Differential Ord2 Eos ABS# 0.1 K/ul 01/13/2017 Cbc With Differential Ord2 Baso ABS# 0.0 K/ul 01/13/2017 Thyroglobulin Quant/Antithyroglobulin 401866 THYROGLOBULIN . 12/23/2016 Thyroglobulin Quant/Antithyroglobulin 479273 THYROGLOBULIN 10.7 ng/mL 12/23/2016 Thyroglobulin Quant/Antithyroglobulin 278543 THYROGLOBULIN ANTIBODY . 12/23/2016 Thyroglobulin Quant/Antithyroglobulin 818214 THYROGLOBULIN ANTIBODY <10 IU/mL 12/23/2016 Total T3 Ord42 TT3 1.04 ng/ml 12/22/2016 Tsh Ord6 hTSH II 0.44 uIU/mL 12/22/2016 Free T4 Erf339 FREE T4 0.99 ng/dL 12/22/2016 [place] Spotted Fever Igg/Igm [id number] [place] SPOTTED FEVER IGM EIA . 08/26/2016 [place] Spotted Fever Igg/Igm [id number] RMSF, IGM 2.01 index 08/26/2016 [place] Spotted Fever Igg/Igm [id number] [place] SPOTTED FEVER IGG EIA FLEX . 08/26/2016 [place] Spotted Fever Igg/Igm [id number] RMSF, IGG SCREEN-FLEX Equivocal 08/26/2016 [place] Spot'D Fev Igg 547451 RMSF, IGG -TITER IFA 1:256 Ehrlichia Chaffeensis Antibody Igm [id number] EHRLICHIA CHAFFEENSIS IGM < 1:16 08/25/2016 Ehrlichia Chaffeensis Antibody Igg [id number] EHRLICHIA CHAFFEENSIS IGG <1:64 08/25/2016 [place] Disease Total Antibodies With Western Blot Reflex [id number] B. BURGDORFERI, IGG/IGM 0.12 LI 08/23/2016 [place]ym[place] Disease Total Antibodies With Western Blot Reflex [id number] 08/23/2016 Vitamin D 25 Oh Lxi3260 VITAMIN D, 25 HYDROXY 46.68 ng/mL Free T4 Cck358 FREE T4 0.82 ng/dL 08/21/2016 Comp Metabolic Vzh497 NA 138 mEq/L 08/21/2016 Comp Metabolic Zng588 K 3.6 mEq/L 08/21/2016 Comp Metabolic Unf069 CL 98 mEq/L 08/21/2016 Comp Metabolic Ifw016 CO2 32.0 mEq/L 08/21/2016 Comp Metabolic Iwj775 ANION GAP 12 08/21/2016 Comp Metabolic Riv208 GLUCOSE 86 mg/dL 08/21/2016 Comp Metabolic Nio971 Creat 0.8 mg/dL 08/21/2016 Comp Metabolic Ugt778 eGFR 77 ml/min/1.73m2 08/21/2016 Comp Metabolic Gil407 BUN 15 mg/dL 08/21/2016 Comp Metabolic Edd455 B/C Ratio 19.0 Ratio 08/21/2016 Comp Metabolic Rot029 CALCIUM 9.3 mg/dL 08/21/2016 Comp Metabolic Cxu439 ALK PHOS 46 U/L 08/21/2016 Comp Metabolic Wza443 AST(SGOT) 14 U/L 08/21/2016 Comp Metabolic Top645 ALT(SGPT) 13 U/L 08/21/2016 Comp Metabolic Nrz133 BILI T 0.6 mg/dL 08/21/2016 Comp Metabolic Pdq415 ALBUMIN 4.1 g/dL 08/21/2016 Comp Metabolic Xgt406 TPRO 6.5 g/dL 08/21/2016 Comp Metabolic Ttp479 GLOB 2.4 g/dL 08/21/2016 Comp Metabolic Hps035 A/G Ratio 1.7 Ratio 08/21/2016 Comp Metabolic Hlk686 Osmo 276 mOsmo 08/21/2016 C-Reactive Protein Qnt Crqnt CRP 0.2 mg/dl 08/21/2016 Bili D Ord93 BILI D 0.1 mg/dL 08/21/2016 Bili D Ord93 BILI I 0.5 mg/dL 08/21/2016 Tsh Ord6 hTSH II 1.14 uIU/mL 08/21/2016 Lipid Ord30 CHOL 238 mg/dL 08/21/2016 Lipid Ord30 HDL 63.0 mg/dl 08/21/2016 Lipid Ord30 TRIG 269 mg/dL 08/21/2016 Lipid Ord30 LDL 121 mg/dL 08/21/2016 Lipid Ord30 C/HDL 3.8 Ratio 08/21/2016 B12 Hvi328 B12 582.00 pg/ml 08/21/2016 Cbc With Differential Ord2 WBC 10.87 K/ul 08/21/2016 Cbc With Differential Ord2 RBC 4.31 M/ul 08/21/2016 Cbc With Differential Ord2 HGB 14.8 g/dl 08/21/2016 Cbc With Differential Ord2 HCT 43.8 % 08/21/2016 Cbc With Differential Ord2 Neut% 61.1 % 08/21/2016 Cbc With Differential Ord2 Lymph% 27.7 % 08/21/2016 Cbc With Differential Ord2 MCV 101.6 fl 08/21/2016 Cbc With Differential Ord2 [place]% 9.6 % 08/21/2016 Cbc With Differential Ord2 MCH 34.3 pg 08/21/2016 Cbc With Differential Ord2 MCHC 33.8 pg 08/21/2016 Cbc With Differential Ord2 Eos% 1.2 % 08/21/2016 Cbc With Differential Ord2 Baso% 0.4 % 08/21/2016 Cbc With Differential Ord2 PLT 329 K/ul 08/21/2016 Cbc With Differential Ord2 Neut ABS# 6.65 K/ul 08/21/2016 Cbc With Differential Ord2 RDW 13.7 % 08/21/2016 Cbc With Differential Ord2 Lymph ABS# 3.01 K/ul 08/21/2016 Cbc With Differential Ord2 [place] ABS# 1.0 K/ul 08/21/2016 Cbc With Differential Ord2 Eos ABS# 0.1 K/ul 08/21/2016 Cbc With Differential Ord2 Baso ABS# 0.0 K/ul 08/21/2016 Magnesium Ord90 Mag 1.6 mg/dL 08/21/2016 Urine Culture Ucult Preliminary NO Growth Day 1 08/14/2016 Urine Culture Ucult Complete NO Growth Day 2 08/14/2016 [place] Spotted Fever Igg/Igm [id number] [place] SPOTTED FEVER IGM EIA . 07/08/2016 [place] Spotted Fever Igg/Igm 174810 RMSF, IGM 0.37 index 07/08/2016 [place] Spotted Fever Igg/Igm 375130 [place] SPOTTED FEVER IGG EIA FLEX . 07/08/2016 [place] Spotted Fever Igg/Igm 324518 RMSF, IGG SCREEN-FLEX Negative 07/08/2016 Ehrlichia Chaffeensis Antibody Igm [id number] EHRLICHIA CHAFFEENSIS IGM < 1:16 07/07/2016 Ehrlichia Chaffeensis Antibody Igg [id number] EHRLICHIA CHAFFEENSIS IGG <1:64 07/07/2016 Lymes Disease Total Antibodies With Western Blot Reflex [id number] B. BURGDORFERI, IGG/IGM 0.19 LI 07/04/2016 Lymes Disease Total Antibodies With Western Blot Reflex [id number] 07/04/2016 Bili D Ord93 BILI D 0.1 mg/dL 05/13/2016 Bili D Ord93 BILI I 0.5 mg/dL 05/13/2016 Tsh Ord6 hTSH II 0.34 uIU/mL 05/13/2016 Cbc With Differential Ord2 WBC 10.52 K/ul 05/13/2016 Cbc With Differential Ord2 RBC 4.43 M/ul 05/13/2016 Cbc With Differential Ord2 HGB 15.1 g/dl 05/13/2016 Cbc With Differential Ord2 HCT 45.1 % 05/13/2016 Cbc With Differential Ord2 Neut% 86.5 % 05/13/2016 Cbc With Differential Ord2 MCV 101.8 fl 05/13/2016 Cbc With Differential Ord2 Lymph% 7.7 % 05/13/2016 Cbc With Differential Ord2 [place]% 5.1 % 05/13/2016 Cbc With Differential Ord2 MCH 34.1 pg 05/13/2016 Cbc With Differential Ord2 MCHC 33.5 pg 05/13/2016 Cbc With Differential Ord2 Eos% 0.3 % 05/13/2016 Cbc With Differential Ord2 Baso% 0.4 % 05/13/2016 Cbc With Differential Ord2 PLT 332 K/ul 05/13/2016 Cbc With Differential Ord2 Neut ABS# 9.10 K/ul 05/13/2016 Cbc With Differential Ord2 RDW 13.6 % 05/13/2016 Cbc With Differential Ord2 Lymph ABS# 0.81 K/ul 05/13/2016 Cbc With Differential Ord2 [place] ABS# 0.5 K/ul 05/13/2016 Cbc With Differential Ord2 Eos ABS# 0.0 K/ul 05/13/2016 Cbc With Differential Ord2 Baso ABS# 0.0 K/ul 05/13/2016 C-Reactive Protein Qnt Crqnt CRP 0.2 mg/dl 05/13/2016 Comp Metabolic Nus499 NA 136 mEq/L 05/13/2016 Comp Metabolic Dpc879 K 4.4 mEq/L 05/13/2016 Comp Metabolic Wcy853 CL 102 mEq/L 05/13/2016 Comp Metabolic Ddg507 CO2 27.0 mEq/L 05/13/2016 Comp Metabolic Mcd892 ANION GAP 11 05/13/2016 Comp Metabolic Apm892 GLUCOSE 101 mg/dL 05/13/2016 Comp Metabolic Ajb908 Creat 0.7 mg/dL 05/13/2016 Comp Metabolic Dwd738 eGFR 97 ml/min/1.73m2 05/13/2016 Comp Metabolic Gkh794 BUN 22 mg/dL 05/13/2016 Comp Metabolic Nde486 B/C Ratio 33.8 Ratio 05/13/2016 Comp Metabolic Erd030 CALCIUM 9.5 mg/dL 05/13/2016 Comp Metabolic Zhd530 ALK PHOS 62 U/L 05/13/2016 Comp Metabolic Dch689 AST(SGOT) 24 U/L 05/13/2016 Comp Metabolic Tqc657 ALT(SGPT) 14 U/L 05/13/2016 Comp Metabolic Eqj819 BILI T 0.6 mg/dL 05/13/2016 Comp Metabolic Bqj196 ALBUMIN 4.1 g/dL 05/13/2016 Comp Metabolic Bfu740 TPRO 6.8 g/dL 05/13/2016 Comp Metabolic Isl350 GLOB 2.7 g/dL 05/13/2016 Comp Metabolic Tsq983 A/G Ratio 1.5 Ratio 05/13/2016 Comp Metabolic Uzr805 Osmo 275 mOsmo 05/13/2016 Free T4 Srs765 FREE T4 0.82 ng/dL 05/13/2016 Comp Metabolic Lwx986 NA 136 mEq/L 02/11/2016 Comp Metabolic Saj708 K 4.8 mEq/L 02/11/2016 Comp Metabolic Ydp121 CL 99 mEq/L 02/11/2016 Comp Metabolic Mii661 CO2 29.0 mEq/L 02/11/2016 Comp Metabolic Xij582 ANION GAP 13 02/11/2016 Comp Metabolic Vfe140 GLUCOSE 100 mg/dL 02/11/2016 Comp Metabolic Jhw612 Creat 0.7 mg/dL 02/11/2016 Comp Metabolic Ktg342 eGFR 94 ml/min/1.73m2 02/11/2016 Comp Metabolic Znh843 BUN 13 mg/dL 02/11/2016 Comp Metabolic Ncr689 B/C Ratio 19.4 Ratio 02/11/2016 Comp Metabolic Dko754 CALCIUM 9.9 mg/dL 02/11/2016 Comp Metabolic Ecx838 ALK PHOS 76 U/L 02/11/2016 Comp Metabolic Poc880 AST(SGOT) 17 U/L 02/11/2016 Comp Metabolic Ocf726 ALT(SGPT) 12 U/L 02/11/2016 Comp Metabolic Cpe108 BILI T 0.6 mg/dL 02/11/2016 Comp Metabolic Zmz983 ALBUMIN 4.2 g/dL 02/11/2016 Comp Metabolic Plr602 TPRO 7.1 g/dL 02/11/2016 Comp Metabolic Hlx343 GLOB 2.9 g/dL 02/11/2016 Comp Metabolic Nad656 A/G Ratio 1.5 Ratio 02/11/2016 Comp Metabolic Dez888 Osmo 272 mOsmo 02/11/2016 Cbc With Differential Ord2 WBC 9.43 K/ul 02/08/2016 Cbc With Differential Ord2 RBC 4.30 M/ul 02/08/2016 Cbc With Differential Ord2 HGB 14.2 g/dl 02/08/2016 Cbc With Differential Ord2 HCT 42.7 % 02/08/2016 Cbc With Differential Ord2 Neut% 81.5 % 02/08/2016 Cbc With Differential Ord2 Lymph% 12.9 % 02/08/2016 Cbc With Differential Ord2 MCV 99.3 fl 02/08/2016 Cbc With Differential Ord2 MCH 33.0 pg 02/08/2016 Cbc With Differential Ord2 [place]% 5.2 % 02/08/2016 Cbc With Differential Ord2 MCHC 33.3 pg 02/08/2016 Cbc With Differential Ord2 Eos% 0.1 % 02/08/2016 Cbc With Differential Ord2 PLT 327 K/ul 02/08/2016 Cbc With Differential Ord2 Baso% 0.3 % 02/08/2016 Cbc With Differential Ord2 Neut ABS# 7.68 K/ul 02/08/2016 Cbc With Differential Ord2 RDW 14.2 % 02/08/2016 Cbc With Differential Ord2 Lymph ABS# 1.22 K/ul 02/08/2016 Cbc With Differential Ord2 [place] ABS# 0.5 K/ul 02/08/2016 Cbc With Differential Ord2 Eos ABS# 0.0 K/ul 02/08/2016 Cbc With Differential Ord2 Baso ABS# 0.0 K/ul 02/08/2016 Cbc With Differential Ord2 New Analyzer Notice Please note new ref ranges starting 11-21-2015 due to implemntation of new five part differential hematolgy analyzer. 02/08/2016 Tsh Ord6 hTSH II 0.27 uIU/mL 02/08/2016 Free T4 Tdp693 FREE T4 0.86 ng/dL 02/08/2016 Vitamin D 25 Oh Rvs5307 VITAMIN D, 25 HYDROXY 51.23 ng/mL B12 Acy261 B12 594.00 pg/ml 01/03/2016 Magnesium Ord90 Mag 1.4 mg/dL 01/03/2016 C-Reactive Protein Qnt Crqnt CRP 1.5 mg/dl 01/03/2016 Comp Metabolic Axa024 NA 138 mEq/L 01/03/2016 Comp Metabolic Hoj827 K 3.9 mEq/L 01/03/2016 Comp Metabolic Gsp864 CL 100 mEq/L 01/03/2016 Comp Metabolic Dxl214 CO2 27.0 mEq/L 01/03/2016 Comp Metabolic Xwg792 ANION GAP 15 01/03/2016 Comp Metabolic Vda847 GLUCOSE 104 mg/dL 01/03/2016 Comp Metabolic Zeu134 Creat 0.6 mg/dL 01/03/2016 Comp Metabolic Tem460 eGFR 104 ml/min/1.73m2 01/03/2016 Comp Metabolic Imz528 BUN 13 mg/dL 01/03/2016 Comp Metabolic Jll965 B/C Ratio 21.3 Ratio 01/03/2016 Comp Metabolic Sft556 CALCIUM 9.3 mg/dL 01/03/2016 Comp Metabolic Alm966 ALK PHOS 70 U/L 01/03/2016 Comp Metabolic Obj151 AST(SGOT) 17 U/L 01/03/2016 Comp Metabolic Ybj973 ALT(SGPT) 10 U/L 01/03/2016 Comp Metabolic Tnc230 BILI T 0.5 mg/dL 01/03/2016 Comp Metabolic Mpo850 ALBUMIN 4.1 g/dL 01/03/2016 Comp Metabolic Tvs690 TPRO 6.7 g/dL 01/03/2016 Comp Metabolic Jdc362 GLOB 2.6 g/dL 01/03/2016 Comp Metabolic Nhl563 A/G Ratio 1.6 Ratio 01/03/2016 Comp Metabolic Ige093 Osmo 276 mOsmo 01/03/2016 Free T4 Qlk830 FREE T4 0.94 ng/dL 01/03/2016 Cbc With Differential Ord2 WBC 13.01 K/ul 01/03/2016 Cbc With Differential Ord2 RBC 4.38 M/ul 01/03/2016 Cbc With Differential Ord2 HGB 14.2 g/dl 01/03/2016 Cbc With Differential Ord2 HCT 43.5 % 01/03/2016 Cbc With Differential Ord2 Neut% 88.0 % 01/03/2016 Cbc With Differential Ord2 Lymph% 6.5 % 01/03/2016 Cbc With Differential Ord2 MCV 99.3 fl 01/03/2016 Cbc With Differential Ord2 MCH 32.4 pg 01/03/2016 Cbc With Differential Ord2 [place]% 5.2 % 01/03/2016 Cbc With Differential Ord2 MCHC 32.6 pg 01/03/2016 Cbc With Differential Ord2 Eos% 0.1 % 01/03/2016 Cbc With Differential Ord2 PLT 269 K/ul 01/03/2016 Cbc With Differential Ord2 Baso% 0.2 % 01/03/2016 Cbc With Differential Ord2 RDW 14.7 % 01/03/2016 Cbc With Differential Ord2 Neut ABS# 11.46 K/ul 01/03/2016 Cbc With Differential Ord2 Lymph ABS# 0.84 K/ul 01/03/2016 Cbc With Differential Ord2 [place] ABS# 0.7 K/ul 01/03/2016 Cbc With Differential Ord2 Eos ABS# 0.0 K/ul 01/03/2016 Cbc With Differential Ord2 Baso ABS# 0.0 K/ul 01/03/2016 Cbc With Differential Ord2 New Analyzer Notice Please note new ref ranges starting 11-21-2015 due to implemntation of new five part differential hematolgy analyzer. 01/03/2016 Tsh Ord6 hTSH II 0.31 uIU/mL 01/03/2016 Urine Culture Ucult Preliminary No Growth Day 1 08/02/2015 Urine Culture Ucult Complete No Growth Day 2 08/02/2015 B12 Qed157 B12 550.00 pg/ml 07/02/2015 Cbc With Differential Ord2 WBC 11.7 K/uL 07/02/2015 Cbc With Differential Ord2 LYM 2.3 K/uL 07/02/2015 Cbc With Differential Ord2 LYM% 19.9 % 07/02/2015 Cbc With Differential Ord2 NEUT/GRAN 8.7 K/uL 07/02/2015 Cbc With Differential Ord2 NEUT/GRAN % 74.0 % 07/02/2015 Cbc With Differential Ord2 MID 0.7 K/uL 07/02/2015 Cbc With Differential Ord2 MID% 6.1 % 07/02/2015 Cbc With Differential Ord2 RBC 4.42 M/uL 07/02/2015 Cbc With Differential Ord2 HGB 15.2 g/dL 07/02/2015 Cbc With Differential Ord2 HCT 45.3 % 07/02/2015 Cbc With Differential Ord2 MCV 102 fL 07/02/2015 Cbc With Differential Ord2 MCH 34 pg 07/02/2015 Cbc With Differential Ord2 MCHC 34 g/dL 07/02/2015 Cbc With Differential Ord2 PLT 339 K/uL 07/02/2015 Cbc With Differential Ord2 RDW 14.3 % 07/02/2015 T4 Ord4 T4 11.0 ug/dL 07/02/2015 Comp Metabolic Znl364 NA 137 mEq/L 07/02/2015 Comp Metabolic Bcf910 K 3.8 mEq/L 07/02/2015 Comp Metabolic Fjv339 CL 100 mEq/L 07/02/2015 Comp Metabolic Ucq472 CO2 32.0 mEq/L 07/02/2015 Comp Metabolic Gdo478 ANION GAP 9 07/02/2015 Comp Metabolic Iqc180 GLUCOSE 96 mg/dL 07/02/2015 Comp Metabolic Wev626 Creat 0.8 mg/dL 07/02/2015 Comp Metabolic Wul247 eGFR 81 ml/min/1.73m2 07/02/2015 Comp Metabolic Zxe370 BUN 16 mg/dL 07/02/2015 Comp Metabolic Swb860 B/C Ratio 21.1 Ratio 07/02/2015 Comp Metabolic Irh592 CALCIUM 9.4 mg/dL 07/02/2015 Comp Metabolic Mae281 ALK PHOS 51 U/L 07/02/2015 Comp Metabolic Igo399 AST(SGOT) 14 U/L 07/02/2015 Comp Metabolic Cep172 ALT(SGPT) 13 U/L 07/02/2015 Comp Metabolic Pot857 BILI T 0.8 mg/dL 07/02/2015 Comp Metabolic Nzh995 ALBUMIN 4.1 g/dL 07/02/2015 Comp Metabolic Czx912 TPRO 6.6 g/dL 07/02/2015 Comp Metabolic Dvv611 GLOB 2.5 g/dL 07/02/2015 Comp Metabolic Yzy916 A/G Ratio 1.6 Ratio 07/02/2015 Comp Metabolic Eaa632 Osmo 275 mOsmo 07/02/2015 Magnesium Ord90 Mag 1.6 mg/dL 07/02/2015 Tsh Ord6 hTSH II 0.58 uIU/mL 07/02/2015 Bili D Ord93 BILI D 0.1 mg/dL 07/02/2015 Bili D Ord93 BILI I 0.7 mg/dL 07/02/2015 Folate Ord36 Folate >24.30 ng/mL 07/02/2015 CHEM 14 [id number] AST 12 U/L 02/23/2015 CHEM 14 8711589 ALT 9 IU/L 02/23/2015 CHEM 14 8932044 BUN 15 MG/DL 02/23/2015 CHEM 14 7298347 ALBUMIN 4.3 GM/DL 02/23/2015 CHEM 14 9203591 CHLORIDE 106 MMOL/L 02/23/2015 CHEM 14 2038008 BILI TOT 0.6 MG/DL 02/23/2015 CHEM 14 4173998 ALK PHOS 48 U/L 02/23/2015 CHEM 14 0207596 SODIUM 138 MMOL/L 02/23/2015 CHEM 14 3736977 CREATININE 0.63 MG/DL 02/23/2015 CHEM 14 6236909 CALCIUM 9.5 MG/DL 02/23/2015 CHEM 14 4477432 POTASSIUM 3.7 MMOL/L 02/23/2015 CHEM 14 0352346 PROT TOT 7.0 GM/DL 02/23/2015 CHEM 14 7791713 GLUCOSE 109 MG/DL 02/23/2015 CHEM 14 6891036 BICARB 30 MMOL/L 02/23/2015 CHEM 14 3458285 ANION GAP 2 MEQ/L 02/23/2015 CBC 5899693 WBC 11.1 10e9/L 02/23/2015 CBC 2979455 RBC 4.30 10e12/L 02/23/2015 CBC 2369287 HGB 14.6 g/dL 02/23/2015 CBC 4183660 HCT DET 42.9 % 02/23/2015 CBC 9061697 MCV 99.8 fL 02/23/2015 CBC 7159380 MCH 34.0 pg 02/23/2015 CBC 2011931 MCHC 34.0 g/dL 02/23/2015 CBC 3663459 PLT 352 10e9/L 02/23/2015 CBC 1513101 MPV 9.7 fL 02/23/2015 CBC 6582147 NANI % 76.8 % 02/23/2015 CBC 1491486 LY % 14.1 % 02/23/2015 CBC 7392039 MON % 7.8 % 02/23/2015 CBC 1106623 EOS % 0.9 % 02/23/2015 CBC 1712007 BASO % 0.4 % 02/23/2015 CBC 2938439 RDW 12.9 % 02/23/2015 CBC 9587320 ABS NANI 8.52 10e9/L 02/23/2015 CBC 7294725 ABS LYMPH 1.57 10e9/L 02/23/2015 CBC 1656667 ABS MONO 0.87 10e9/L 02/23/2015 CBC 5397500 ABS EOS 0.10 10e9/L 02/23/2015 CBC 7165045 ABS BASO 0.04 10e9/L 02/23/2015 CBC 2526857 RDW-SD 46.1 fL 02/23/2015 VIT B 12 2660265 VIT B 12 716 PG/ML 02/23/2015 GFR CALC 1882531 GFR AA >60 ML/MIN 02/23/2015 GFR CALC 9052630 GFR NON-AA >60 ML/MIN 02/23/2015 MAGNESIUM 4677015 MAGNESIUM 1.1 MEQ/L 02/23/2015 TSH 6258723 TSH 0.692 uIU/ML 02/23/2015 FREE T4 8915680 FREE T4 1.25 NG/DL 02/23/2015 VIT D TOTL 7204151 VIT D TOTL 57 NG/ML 02/23/2015 BMP 3420664 GLUCOSE 106 MG/DL 11/16/2014 BMP 9082443 CREATININE 0.65 MG/DL 11/16/2014 BMP 7239351 BUN 11 MG/DL 11/16/2014 BMP 5181127 SODIUM 137 MMOL/L 11/16/2014 BMP 0233090 POTASSIUM 3.5 MMOL/L 11/16/2014 BMP 8280113 CHLORIDE 99 MMOL/L 11/16/2014 BMP 5056878 BICARB 29 MMOL/L 11/16/2014 BMP 5548895 ANION GAP 9 MEQ/L 11/16/2014 BMP 2666940 CALCIUM 9.2 MG/DL 11/16/2014 GFR CALC 0358118 GFR AA >60 ML/MIN 11/16/2014 GFR CALC 5432958 GFR NON-AA >60 ML/MIN 11/16/2014 MAGNESIUM 1141521 MAGNESIUM 1.2 MEQ/L 11/16/2014 CHEM 14 1852590 AST 12 U/L 06/05/2014 CHEM 14 7749620 ALT 9 U/L 06/05/2014 CHEM 14 4252062 BUN 9 MG/DL 06/05/2014 CHEM 14 2494081 ALBUMIN 4.3 GM/DL 06/05/2014 CHEM 14 3159881 CHLORIDE 102 MMOL/L 06/05/2014 CHEM 14 6152802 BILI TOT 0.5 MG/DL 06/05/2014 CHEM 14 8617585 ALK PHOS 50 U/L 06/05/2014 CHEM 14 5038781 SODIUM 140 MMOL/L 06/05/2014 CHEM 14 7271930 CREATININE 0.72 MG/DL 06/05/2014 CHEM 14 5497215 CALCIUM 9.3 MG/DL 06/05/2014 CHEM 14 0417119 POTASSIUM 3.3 MMOL/L 06/05/2014 CHEM 14 4507097 PROT TOT 6.8 GM/DL 06/05/2014 CHEM 14 8273084 GLUCOSE 98 MG/DL 06/05/2014 CHEM 14 4441613 BICARB 24 MMOL/L 06/05/2014 CHEM 14 6176583 ANION GAP 14 MMOL/L 06/05/2014 TSH 6893808 TSH 0.238 uIU/ML 06/05/2014 CBC [id number] WBC 10.8 10e9/L 06/05/2014 CBC [id number] RBC 4.24 10e12/L 06/05/2014 CBC [id number] HGB 14.4 g/dL 06/05/2014 CBC [id number] HCT DET 40.7 % 06/05/2014 CBC [id number] MCV 96.0 fL 06/05/2014 CBC [id number] MCH 34.0 pg 06/05/2014 CBC [id number] MCHC 35.4 g/dL 06/05/2014 CBC [id number] PLT 323 10e9/L 06/05/2014 CBC [id number] MPV 9.7 fL 06/05/2014 CBC [id number] NANI % 79.8 % 06/05/2014 CBC [id number] LY % 13.0 % 06/05/2014 CBC [id number] MON % 6.3 % 06/05/2014 CBC [id number] EOS % 0.6 % 06/05/2014 CBC [id number] BASO % 0.3 % 06/05/2014 CBC [id number] RDW 12.8 % 06/05/2014 CBC [id number] ABS NANI 8.62 10e9/L 06/05/2014 CBC [id number] ABS LYMPH 1.40 10e9/L 06/05/2014 CBC [id number] ABS MONO 0.68 10e9/L 06/05/2014 CBC [id number] ABS EOS 0.06 10e9/L 06/05/2014 CBC [id number] ABS BASO 0.03 10e9/L 06/05/2014 CBC [id number] RDW-SD 43.7 fL 06/05/2014 CRP [id number] CRP 0.1 MG/DL 06/05/2014 CHEM 14 [id number] AST 15 U/L 03/23/2014 CHEM 14 [id number] ALT 11 U/L 03/23/2014 CHEM 14 [id number] BUN 13 MG/DL 03/23/2014 CHEM 14 [id number] ALBUMIN 4.6 GM/DL 03/23/2014 CHEM 14 [id number] CHLORIDE 98 MMOL/L 03/23/2014 CHEM 14 [id number] BILI TOT 0.5 MG/DL 03/23/2014 CHEM 14 [id number] ALK PHOS 61 U/L 03/23/2014 CHEM 14 [id number] SODIUM 138 MMOL/L 03/23/2014 CHEM 14 [id number] CREATININE 0.74 MG/DL 03/23/2014 CHEM 14 [id number] CALCIUM 9.7 MG/DL 03/23/2014 CHEM 14 [id number] POTASSIUM 3.9 MMOL/L 03/23/2014 CHEM 14 [id number] PROT TOT 7.4 GM/DL 03/23/2014 CHEM 14 [id number] GLUCOSE 100 MG/DL 03/23/2014 CHEM 14 [id number] BICARB 30 MMOL/L 03/23/2014 CHEM 14 [id number] ANION GAP 10 MMOL/L 03/23/2014 GFR CALC [id number] GFR AA >60 ML/MIN 03/23/2014 GFR CALC [id number] GFR NON-AA >60 ML/MIN 03/23/2014 CBC [id number] WBC 11.5 10e9/L 03/23/2014 CBC [id number] RBC 4.63 10e12/L 03/23/2014 CBC [id number] HGB 15.6 g/dL 03/23/2014 CBC [id number] HCT DET 45.4 % 03/23/2014 CBC [id number] MCV 98.1 fL 03/23/2014 CBC [id number] MCH 33.7 pg 03/23/2014 CBC [id number] MCHC 34.4 g/dL 03/23/2014 CBC [id number] PLT 311 10e9/L 03/23/2014 CBC [id number] MPV 9.5 fL 03/23/2014 CBC [id number] NANI % 81.5 % 03/23/2014 CBC [id number] LY % 10.9 % 03/23/2014 CBC [id number] MON % 6.7 % 03/23/2014 CBC [id number] EOS % 0.7 % 03/23/2014 CBC [id number] BASO % 0.2 % 03/23/2014 CBC [id number] RDW 13.1 % 03/23/2014 CBC [id number] ABS NANI 9.37 10e9/L 03/23/2014 CBC [id number] ABS LYMPH 1.25 10e9/L 03/23/2014 CBC [id number] ABS MONO 0.77 10e9/L 03/23/2014 CBC [id number] ABS EOS 0.08 10e9/L 03/23/2014 CBC [id number] ABS BASO 0.02 10e9/L 03/23/2014 CBC [id number] RDW-SD 46.3 fL 03/23/2014 CBC [id number] WBC 11.8 10e9/L 02/13/2014 CBC [id number] RBC 4.42 10e12/L 02/13/2014 CBC [id number] HGB 14.8 g/dL 02/13/2014 CBC [id number] HCT DET 42.8 % 02/13/2014 CBC [id number] MCV 96.8 fL 02/13/2014 CBC [id number] MCH 33.5 pg 02/13/2014 CBC [id number] MCHC 34.6 g/dL 02/13/2014 CBC [id number] PLT 317 10e9/L 02/13/2014 CBC [id number] MPV 9.7 fL 02/13/2014 CBC [id number] NANI % 82.5 % 02/13/2014 CBC [id number] LY % 11.8 % 02/13/2014 CBC [id number] MON % 5.0 % 02/13/2014 CBC [id number] EOS % 0.4 % 02/13/2014 CBC [id number] BASO % 0.3 % 02/13/2014 CBC [id number] RDW 12.6 % 02/13/2014 CBC [id number] ABS NANI 9.74 10e9/L 02/13/2014 CBC [id number] ABS LYMPH 1.39 10e9/L 02/13/2014 CBC [id number] ABS MONO 0.59 10e9/L 02/13/2014 CBC [id number] ABS EOS 0.05 10e9/L 02/13/2014 CBC [id number] ABS BASO 0.04 10e9/L 02/13/2014 CBC [id number] RDW-SD 43.3 fL 02/13/2014 VIT B 12 6510214 VIT B 12 1144 PG/ML 02/13/2014 CHEM 14 [id number] AST 14 U/L 02/13/2014 CHEM 14 [id number] ALT 11 IU/L 02/13/2014 CHEM 14 [id number] BUN 13 MG/DL 02/13/2014 CHEM 14 [id number] ALBUMIN 4.4 GM/DL 02/13/2014 CHEM 14 [id number] CHLORIDE 103 MMOL/L 02/13/2014 CHEM 14 [id number] BILI TOT 0.6 MG/DL 02/13/2014 CHEM 14 4195438 ALK PHOS 49 U/L 02/13/2014 CHEM 14 8625971 SODIUM 137 MMOL/L 02/13/2014 CHEM 14 [id number] CREATININE 0.64 MG/DL 02/13/2014 CHEM 14 [id number] CALCIUM 9.8 MG/DL 02/13/2014 CHEM 14 [id number] POTASSIUM 3.8 MMOL/L 02/13/2014 CHEM 14 [id number] PROT TOT 7.1 GM/DL 02/13/2014 CHEM 14 [id number] GLUCOSE 96 MG/DL 02/13/2014 CHEM 14 [id number] BICARB 25 MMOL/L 02/13/2014 CHEM 14 [id number] ANION GAP 9 MEQ/L 02/13/2014 GFR CALC [id number] GFR AA >60 ML/MIN 02/13/2014 GFR CALC [id number] GFR NON-AA >60 ML/MIN 02/13/2014 A1C HPLC [id number] A1C HPLC 34826-8 4.7 % 01/12/2014 MAGNESIUM [id number] MAGNESIUM 1.3 MEQ/L 01/10/2014 GFR CALC [id number] GFR AA >60 ML/MIN 01/09/2014 GFR CALC [id number] GFR NON-AA >60 ML/MIN 01/09/2014 CHEM 14 [id number] AST 11 U/L 01/09/2014 CHEM 14 [id number] ALT 8 IU/L 01/09/2014 CHEM 14 [id number] BUN 11 MG/DL 01/09/2014 CHEM 14 2571130 ALBUMIN 4.1 GM/DL 01/09/2014 CHEM 14 [id number] CHLORIDE 100 MMOL/L 01/09/2014 CHEM 14 [id number] BILI TOT 0.5 MG/DL 01/09/2014 CHEM 14 7628974 ALK PHOS 47 U/L 01/09/2014 CHEM 14 [id number] SODIUM 136 MMOL/L 01/09/2014 CHEM 14 [id number] CREATININE 0.69 MG/DL 01/09/2014 CHEM 14 7649724 CALCIUM 9.3 MG/DL 01/09/2014 CHEM 14 8899795 POTASSIUM 3.4 MMOL/L 01/09/2014 CHEM 14 1949550 PROT TOT 6.4 GM/DL 01/09/2014 CHEM 14 [id number] GLUCOSE 103 MG/DL 01/09/2014 CHEM 14 [id number] BICARB 27 MMOL/L 01/09/2014 CHEM 14 [id number] ANION GAP 9 MEQ/L 01/09/2014 CBC [id number] WBC 10.4 10e9/L 01/09/2014 CBC [id number] RBC 4.20 10e12/L 01/09/2014 CBC [id number] HGB 14.2 g/dL 01/09/2014 CBC [id number] HCT DET 41.3 % 01/09/2014 CBC [id number] MCV 98.3 fL 01/09/2014 CBC [id number] MCH 33.8 pg 01/09/2014 CBC [id number] MCHC 34.4 g/dL 01/09/2014 CBC [id number] PLT 305 10e9/L 01/09/2014 CBC [id number] MPV 9.5 fL 01/09/2014 CBC [id number] NANI % 81.5 % 01/09/2014 CBC [id number] LY % 11.1 % 01/09/2014 CBC [id number] MON % 6.3 % 01/09/2014 CBC [id number] EOS % 0.6 % 01/09/2014 CBC [id number] BASO % 0.5 % 01/09/2014 CBC [id number] RDW 12.8 % 01/09/2014 CBC [id number] ABS NANI 8.48 10e9/L 01/09/2014 CBC [id number] ABS LYMPH 1.15 10e9/L 01/09/2014 CBC [id number] ABS MONO 0.66 10e9/L 01/09/2014 CBC [id number] ABS EOS 0.06 10e9/L 01/09/2014 CBC [id number] ABS BASO 0.05 10e9/L 01/09/2014 CBC [id number] RDW-SD 44.4 fL 01/09/2014 TSH [id number] TSH 0.359 uIU/ML 01/09/2014 TSH [id number] TSH 0.452 uIU/ML 10/31/2013 MAGNESIUM [id number] MAGNESIUM 1.2 MEQ/L 10/31/2013 FREE T4 [id number] FREE T4 1.17 NG/DL 10/31/2013 GFR CALC [id number] GFR AA >60 ML/MIN 10/31/2013 GFR CALC [id number] GFR NON-AA >60 ML/MIN 10/31/2013 CHEM 14 [id number] AST 13 U/L 10/31/2013 CHEM 14 [id number] ALT 11 IU/L 10/31/2013 CHEM 14 [id number] BUN 10 MG/DL 10/31/2013 CHEM 14 [id number] ALBUMIN 4.1 GM/DL 10/31/2013 CHEM 14 7020511 CHLORIDE 101 MMOL/L 10/31/2013 CHEM 14 7831536 BILI TOT 0.5 MG/DL 10/31/2013 CHEM 14 6280532 ALK PHOS 44 U/L 10/31/2013 CHEM 14 3718632 SODIUM 140 MMOL/L 10/31/2013 CHEM 14 [id number] CREATININE 0.76 MG/DL 10/31/2013 CHEM 14 6567851 CALCIUM 9.4 MG/DL 10/31/2013 CHEM 14 4240030 POTASSIUM 3.7 MMOL/L 10/31/2013 CHEM 14 2135198 PROT TOT 6.5 GM/DL 10/31/2013 CHEM 14 3853841 GLUCOSE 116 MG/DL 10/31/2013 CHEM 14 7370905 BICARB 32 MMOL/L 10/31/2013 CHEM 14 4742295 ANION GAP 7 MEQ/L 10/31/2013 VIT D TOTL 8787703 VIT D TOTL 89 NG/ML 10/31/2013 URINALYSIS NONAUTO W/O SCOPE 74966 Specific [place] 1.025 DateTime(Free Text in Aprima) URINALYSIS NONAUTO W/O SCOPE 95387 PH 5 DateTime(Free Text in Aprima) URINALYSIS NONAUTO W/O SCOPE 34192 GLUCOSE neg DateTime( Free Text in Apr[employer]) URINALYSIS NONAUTO W/O SCOPE 47755 Protein neg DateTime( Free Text in Apr[employer]) URINALYSIS NONAUTO W/O SCOPE 95688 Blood 1+ DateTime(Free Text in Apr[employer]) URINALYSIS NONAUTO W/O SCOPE 57624 Bilirubin neg DateTime(Free Text in Apr[employer]) URINALYSIS NONAUTO W/O SCOPE 22159 Ketones neg DateTime( Free Text in Apr[employer]) URINALYSIS NONAUTO W/O SCOPE 51862 Urobilinogen neg DateTime(Free Text in Apr[employer]) URINALYSIS NONAUTO W/O SCOPE 96171 Nitrite neg DateTime( Free Text in Apr[employer]) URINALYSIS NONAUTO W/O SCOPE 09543 Leukocytes 1+ DateTime(Free Text in Apr[employer]) URINALYSIS NONAUTO W/O SCOPE 21831 Specific [place] 1.010 DateTime(Free Text in Aprima) URINALYSIS NONAUTO W/O SCOPE 95944 PH 6.0 DateTime(Free Text in Aprima) URINALYSIS NONAUTO W/O SCOPE 79979 Protein N DateTime( Free Text in Apr[employer]) URINALYSIS NONAUTO W/O SCOPE 49746 Blood N DateTime(Free Text in Apr[employer]) URINALYSIS NONAUTO W/O SCOPE 98627 Bilirubin N DateTime( Free Text in Apr[employer]) URINALYSIS NONAUTO W/O SCOPE 00345 Ketones N DateTime( Free Text in Apr[employer]) URINALYSIS NONAUTO W/O SCOPE 18062 Urobilinogen N DateTime(Free Text in Apr[employer]) URINALYSIS NONAUTO W/O SCOPE 59667 Nitrite N DateTime( Free Text in ) URINALYSIS NONAUTO W/O SCOPE 56307 Leukocytes N DateTime (Free Text in ) Review of Systems System Result Effective Dates Constitutional recent illness 12/22/2017 Constitutional No chills 12/22/2017 Constitutional No diaphoresis 12/22/2017 Constitutional fatigue 12/22/2017 Constitutional No fever 12/22/2017 Constitutional malaise 12/22/2017 Eyes No eye erythema 12/22/2017 Ears/Nose/Throat/Neck No nasal discharge 12/22/2017 Ears/Nose/Throat/Neck No nasal allergies 12/22/2017 Cardiovascular No chest pain/pressure Cardiovascular No dyspnea 12/22/2017 Respiratory No cough 12/22/2017 Gastrointestinal abdominal pain 2017 Gastrointestinal diarrhea 12/22/2017 Gastrointestinal constipation 12/22/2017 Gastrointestinal gas and bloating 2017 Gastrointestinal gastroesophageal reflux 12/22/2017 Gastrointestinal No vomiting 12/22/2017 Gastrointestinal nausea 12/22/2017 Gastrointestinal No melena 12/22/2017 Gastrointestinal No hematochezia 2017 Neurologic No alteration of consciousness 12/22/2017 Neurologic No mental status change 2017 Dermatologic sores 12/22/2017 Constitutional recent illness 11/16/2017 Constitutional No anorexia 11/16/2017 Constitutional No night sweats 2017 Constitutional No chills 11/16/2017 Constitutional No diaphoresis 11/16/2017 Constitutional fatigue 11/16/2017 Constitutional No insomnia 11/16/2017 Constitutional No malaise 11/16/2017 Eyes No eye discharge 11/16/2017 Eyes No eye erythema 11/16/2017 Ears/Nose/Throat/Neck No dizziness 2017 Ears/Nose/Throat/Neck No headache 2017 Ears/Nose/Throat/Neck No sore throat 06/2018 Ears/Nose/Throat/Neck No otalgia 2017 Cardiovascular No chest pain/pressure 06/2018 Respiratory No chest tightness 2017 Respiratory No cigarette smoking 2017 Respiratory No cough 11/16/2017 Respiratory No dyspnea 11/16/2017 Respiratory No pedal edema 11/16/2017 Respiratory No snoring 11/16/2017 Respiratory No wheezing 11/16/2017 Gastrointestinal abdominal pain 2017 Gastrointestinal No constipation 2017 Gastrointestinal No vomiting 11/16/2017 Genitourinary/Nephrology No dysuria 11/16 Musculoskeletal back pain 11/16/2017 Musculoskeletal joint complaint 2017 Dermatologic No rash 11/16/2017 Neurologic No alteration of consciousness 11/16/2017 Psychiatric No anxiety 11/16/2017 Psychiatric No depression 11/16/2017 Endocrine cold sensitivity 11/16/2017 Endocrine dry or coarse skin 11/16/2017 Constitutional recent illness 10/19/2017 Constitutional No anorexia 10/19/2017 Constitutional No night sweats 2016 Constitutional No chills 10/19/2017 Constitutional No diaphoresis 10/19/2017 Constitutional fatigue 10/19/2017 Constitutional No insomnia 10/19/2017 Constitutional No weight loss 10/19/2017 Constitutional weight gain 10/19/2017 Eyes No eye discharge 10/19/2017 Eyes No eye erythema 10/19/2017 Ears/Nose/Throat/Neck No dizziness 2016 Ears/Nose/Throat/Neck No headache 2016 Ears/Nose/Throat/Neck No otalgia 2016 Ears/Nose/Throat/Neck No sore throat 09/2017 Cardiovascular No chest pain/pressure 09/2017 Respiratory No chest tightness 2016 Respiratory No cigarette smoking 2016 Respiratory No cough 10/19/2017 Respiratory No dyspnea 10/19/2017 Respiratory No pedal edema 10/19/2017 Respiratory No snoring 10/19/2017 Respiratory No wheezing 10/19/2017 Gastrointestinal abdominal pain 2016 Gastrointestinal No constipation 2016 Gastrointestinal No vomiting 10/19/2017 Genitourinary/Nephrology No dysuria 10/19 Musculoskeletal back pain 10/19/2017 Musculoskeletal joint complaint 2016 Dermatologic No rash 10/19/2017 Neurologic No alteration of consciousness 10/19/2017 Constitutional No malaise 10/19/2017 Psychiatric No anxiety 10/19/2017 Psychiatric No depression 10/19/2017 Respiratory cough 09/25/2017 Constitutional recent illness 09/25/2017 Constitutional No anorexia 09/25/2017 Constitutional No night sweats 2016 Constitutional No chills 09/25/2017 Constitutional No diaphoresis 09/25/2017 Constitutional fatigue 09/25/2017 Constitutional No fever 09/25/2017 Constitutional No insomnia 09/25/2017 Constitutional No malaise 09/25/2017 Constitutional No weight loss 09/25/2017 Constitutional No weight gain 09/25/2017 Eyes No eye discharge 09/25/2017 Eyes No eye erythema 09/25/2017 Ears/Nose/Throat/Neck nasal allergies Cardiovascular No chest pain/pressure Gastrointestinal abdominal pain 2016 Gastrointestinal diarrhea 09/25/2017 Genitourinary/Nephrology No dysuria 09/25 Musculoskeletal joint complaint 2016 Musculoskeletal back pain 09/25/2017 Dermatologic No rash 09/25/2017 Neurologic No alteration of consciousness 09/25/2017 Constitutional recent illness 09/08/2017 Constitutional No anorexia 09/08/2017 Constitutional No night sweats 2016 Constitutional No chills 09/08/2017 Constitutional No diaphoresis 09/08/2017 Constitutional fatigue 09/08/2017 Constitutional No fever 09/08/2017 Constitutional No insomnia 09/08/2017 Constitutional No malaise 09/08/2017 Constitutional weight gain 09/08/2017 Eyes No eye discharge 09/08/2017 Eyes No eye erythema 09/08/2017 Ears/Nose/Throat/Neck No dizziness 2016 Ears/Nose/Throat/Neck No headache 2016 Ears/Nose/Throat/Neck No sore throat Ears/Nose/Throat/Neck No otalgia 2016 Cardiovascular No chest pain/pressure Respiratory No chest tightness 2016 Respiratory No cigarette smoking 2016 Respiratory No cough 09/08/2017 Respiratory No dyspnea 09/08/2017 Respiratory No pedal edema 09/08/2017 Respiratory No snoring 09/08/2017 Respiratory No wheezing 09/08/2017 Gastrointestinal abdominal pain 2016 Gastrointestinal No constipation 2016 Gastrointestinal No vomiting 09/08/2017 Genitourinary/Nephrology No dysuria 09/08 Musculoskeletal back pain 09/08/2017 Musculoskeletal joint complaint 2016 Dermatologic No rash 09/08/2017 Neurologic No alteration of consciousness 09/08/2017 Constitutional No weight loss 09/08/2017 Constitutional recent illness 08/20/2017 Constitutional No anorexia 08/20/2017 Constitutional No night sweats 2016 Constitutional No chills 08/20/2017 Constitutional No diaphoresis 08/20/2017 Constitutional fatigue 08/20/2017 Constitutional No fever 08/20/2017 Constitutional No insomnia 08/20/2017 Constitutional No malaise 08/20/2017 Constitutional weight gain 08/20/2017 Eyes No eye discharge 08/20/2017 Eyes No eye erythema 08/20/2017 Ears/Nose/Throat/Neck No dizziness 2016 Ears/Nose/Throat/Neck No headache 2016 Ears/Nose/Throat/Neck No sore throat 10/2017 Ears/Nose/Throat/Neck No otalgia 2016 Cardiovascular No chest pain/pressure 10/2017 Gastrointestinal abdominal pain 2016 Gastrointestinal No constipation 2016 Gastrointestinal No vomiting 08/20/2017 Genitourinary/Nephrology No dysuria 08/20 Musculoskeletal back pain 08/20/2017 Musculoskeletal joint complaint 2016 Dermatologic No rash 08/20/2017 Neurologic No alteration of consciousness 08/20/2017 Respiratory No chest tightness 2016 Respiratory No cigarette smoking 2016 Respiratory No cough 08/20/2017 Respiratory No dyspnea 08/20/2017 Respiratory No pedal edema 08/20/2017 Respiratory No snoring 08/20/2017 Respiratory No wheezing 08/20/2017 Dermatologic sores 08/20/2017 Constitutional No recent illness 2016 Constitutional No anorexia 07/28/2017 Constitutional No night sweats 2016 Constitutional No chills 07/28/2017 Constitutional No diaphoresis 07/28/2017 Constitutional No fatigue 07/28/2017 Constitutional No fever 07/28/2017 Constitutional No insomnia 07/28/2017 Constitutional No malaise 07/28/2017 Constitutional weight gain 07/28/2017 Eyes No eye discharge 07/28/2017 Eyes No eye erythema 07/28/2017 Ears/Nose/Throat/Neck No dizziness 2016 Ears/Nose/Throat/Neck No headache 2016 Ears/Nose/Throat/Neck No otalgia 2016 Ears/Nose/Throat/Neck No sore throat Cardiovascular No chest pain/pressure Gastrointestinal abdominal pain 2016 Gastrointestinal No constipation 2016 Gastrointestinal No vomiting 07/28/2017 Genitourinary/Nephrology No dysuria 07/28 Musculoskeletal back pain 07/28/2017 Musculoskeletal joint complaint 2016 Dermatologic No rash 07/28/2017 Neurologic No alteration of consciousness 07/28/2017 Constitutional No recent illness 2016 Constitutional No anorexia 06/19/2017 Constitutional No night sweats 2016 Constitutional No chills 06/19/2017 Constitutional No diaphoresis 06/19/2017 Constitutional No fatigue 06/19/2017 Constitutional No fever 06/19/2017 Constitutional No insomnia 06/19/2017 Constitutional No malaise 06/19/2017 Constitutional No weight gain 06/19/2017 Eyes No eye discharge 06/19/2017 Eyes No eye erythema 06/19/2017 Ears/Nose/Throat/Neck No dizziness 2016 Ears/Nose/Throat/Neck No headache 2016 Ears/Nose/Throat/Neck nasal allergies 09/2017 Ears/Nose/Throat/Neck nasal discharge 09/2017 Ears/Nose/Throat/Neck No otalgia 2016 Ears/Nose/Throat/Neck sinus congestion Ears/Nose/Throat/Neck No sore throat 09/2017 Cardiovascular No chest pain/pressure 09/2017 Respiratory cough 06/19/2017 Gastrointestinal abdominal pain 2016 Gastrointestinal No constipation 2016 Gastrointestinal No vomiting 06/19/2017 Genitourinary/Nephrology No dysuria 06/19 Musculoskeletal back pain 06/19/2017 Musculoskeletal joint complaint 2016 Dermatologic No rash 06/19/2017 Neurologic No alteration of consciousness 06/19/2017 Constitutional No recent illness 2016 Constitutional No night sweats 2016 Constitutional No chills 06/12/2017 Constitutional No diaphoresis 06/12/2017 Constitutional No fatigue 06/12/2017 Constitutional No fever 06/12/2017 Constitutional No insomnia 06/12/2017 Constitutional No malaise 06/12/2017 Constitutional weight loss 06/12/2017 Constitutional No weight gain 06/12/2017 Eyes No eye discharge 06/12/2017 Eyes No eye erythema 06/12/2017 Ears/Nose/Throat/Neck No dizziness 2016 Ears/Nose/Throat/Neck No headache 2016 Cardiovascular No chest pain/pressure 02/2017 Respiratory cough 06/12/2017 Gastrointestinal No constipation 2016 Gastrointestinal No vomiting 06/12/2017 Genitourinary/Nephrology No dysuria 06/12 Musculoskeletal back pain 06/12/2017 Dermatologic No rash 06/12/2017 Neurologic No alteration of consciousness 06/12/2017 Constitutional No anorexia 06/12/2017 Ears/Nose/Throat/Neck nasal allergies 02/2017 Ears/Nose/Throat/Neck nasal discharge 02/2017 Ears/Nose/Throat/Neck No otalgia 2016 Ears/Nose/Throat/Neck sinus congestion Ears/Nose/Throat/Neck No sore throat 02/2017 Gastrointestinal abdominal pain 2016 Musculoskeletal joint complaint 2016 Gastrointestinal diarrhea 05/15/2017 Gastrointestinal No constipation 2016 Gastrointestinal abdominal pain 2016 Constitutional recent illness 05/15/2017 Constitutional No anorexia 05/15/2017 Constitutional No night sweats 2016 Constitutional No chills 05/15/2017 Constitutional No diaphoresis 05/15/2017 Constitutional No fatigue 05/15/2017 Constitutional No insomnia 05/15/2017 Constitutional No fever 05/15/2017 Constitutional No malaise 05/15/2017 Constitutional No weight loss 05/15/2017 Constitutional No weight gain 05/15/2017 Constitutional recent illness 04/14/2017 Constitutional No night sweats 2016 Constitutional No chills 04/14/2017 Constitutional No diaphoresis 04/14/2017 Constitutional fatigue 04/14/2017 Constitutional No fever 04/14/2017 Constitutional No insomnia 04/14/2017 Constitutional No malaise 04/14/2017 Constitutional No weight loss 04/14/2017 Constitutional No weight gain 04/14/2017 Eyes No eye discharge 04/14/2017 Eyes No eye erythema 04/14/2017 Ears/Nose/Throat/Neck No dizziness 2016 Ears/Nose/Throat/Neck headache 2016 Cardiovascular No chest pain/pressure 04/2017 Respiratory cough 04/14/2017 Gastrointestinal abdominal pain 2016 Gastrointestinal No constipation 2016 Gastrointestinal nausea 04/14/2017 Gastrointestinal No vomiting 04/14/2017 Genitourinary/Nephrology No dysuria 04/14 Musculoskeletal back pain 04/14/2017 Dermatologic No rash 04/14/2017 Neurologic No alteration of consciousness 04/14/2017 Gastrointestinal abdominal pain 2016 Gastrointestinal nausea 03/23/2017 Gastrointestinal No vomiting 03/23/2017 Constitutional recent illness 03/23/2017 Constitutional anorexia 03/23/2017 Constitutional No night sweats 2016 Constitutional No chills 03/23/2017 Constitutional No diaphoresis 03/23/2017 Constitutional fatigue 03/23/2017 Constitutional No fever 03/23/2017 Constitutional No insomnia 03/23/2017 Constitutional No malaise 03/23/2017 Constitutional No weight loss 03/23/2017 Constitutional No weight gain 03/23/2017 Eyes No eye erythema 03/23/2017 Eyes No eye discharge 03/23/2017 Ears/Nose/Throat/Neck No dizziness 2016 Ears/Nose/Throat/Neck headache 2016 Cardiovascular No chest pain/pressure Respiratory cough 03/23/2017 Gastrointestinal No constipation 2016 Genitourinary/Nephrology No dysuria 03/23 Musculoskeletal back pain 03/23/2017 Dermatologic No rash 03/23/2017 Neurologic No alteration of consciousness 03/23/2017 Constitutional No chills 02/11/2017 Constitutional No diaphoresis 02/11/2017 Constitutional No fever 02/11/2017 Eyes No eye discharge 02/11/2017 Eyes No eye erythema 02/11/2017 Cardiovascular No chest pain/pressure 03/2017 Respiratory No cough 02/11/2017 Neurologic No alteration of consciousness 02/11/2017 Ears/Nose/Throat/Neck nasal allergies 03/2017 Neurologic No mental status change 2016 Constitutional recent illness 02/10/2017 Constitutional No anorexia 02/10/2017 Constitutional No night sweats 2016 Constitutional No chills 02/10/2017 Constitutional No diaphoresis 02/10/2017 Constitutional No fatigue 02/10/2017 Constitutional No fever 02/10/2017 Constitutional No insomnia 02/10/2017 Constitutional No malaise 02/10/2017 Constitutional No weight loss 02/10/2017 Constitutional No weight gain 02/10/2017 Eyes No eye discharge 02/10/2017 Eyes No eye erythema 02/10/2017 Ears/Nose/Throat/Neck No dizziness 2016 Cardiovascular No chest pain/pressure 02/2017 Respiratory No cough 02/10/2017 Gastrointestinal abdominal pain 2016 Gastrointestinal No constipation 2016 Gastrointestinal No diarrhea 02/10/2017 Gastrointestinal gastroesophageal reflux 02/10/2017 Genitourinary/Nephrology No dysuria 02/10 Musculoskeletal joint complaint 2016 Dermatologic No rash 02/10/2017 Neurologic No alteration of consciousness 02/10/2017 Psychiatric anxiety 02/10/2017 Psychiatric depression 02/10/2017 Constitutional recent illness 01/23/2017 Constitutional No chills 01/23/2017 Constitutional fatigue 01/23/2017 Constitutional No fever 01/23/2017 Constitutional malaise 01/23/2017 Eyes No eye discharge 01/23/2017 Eyes No eye erythema 01/23/2017 Ears/Nose/Throat/Neck nasal allergies Ears/Nose/Throat/Neck nasal discharge Cardiovascular No chest pain/pressure Respiratory No cough 01/23/2017 Genitourinary/Nephrology dysuria 2016 Musculoskeletal back pain 01/23/2017 Dermatologic No rash 01/23/2017 Neurologic No alteration of consciousness 01/23/2017 Psychiatric anxiety 01/23/2017 Psychiatric depression 01/23/2017 Ears/Nose/Throat/Neck otalgia 01/23/2017 Gastrointestinal abdominal pain 2016 Musculoskeletal joint complaint 2016 Constitutional No recent illness 2016 Constitutional No anorexia 01/13/2017 Constitutional No night sweats 2016 Constitutional No chills 01/13/2017 Constitutional No diaphoresis 01/13/2017 Constitutional fatigue 01/13/2017 Constitutional No fever 01/13/2017 Constitutional No insomnia 01/13/2017 Constitutional No malaise 01/13/2017 Constitutional No weight loss 01/13/2017 Constitutional No weight gain 01/13/2017 Eyes No eye discharge 01/13/2017 Eyes No eye erythema 01/13/2017 Ears/Nose/Throat/Neck nasal allergies 05/2017 Cardiovascular No chest pain/pressure 05/2017 Respiratory No cough 01/13/2017 Gastrointestinal abdominal pain 2016 Genitourinary/Nephrology No dysuria 01/13 Musculoskeletal back pain 01/13/2017 Dermatologic No rash 01/13/2017 Neurologic No alteration of consciousness 01/13/2017 Psychiatric anxiety 01/13/2017 Psychiatric depression 01/13/2017 Ears/Nose/Throat/Neck No dizziness 2016 Ears/Nose/Throat/Neck nasal discharge 05/2017 Constitutional No recent illness 2016 Constitutional No anorexia 12/30/2016 Constitutional No night sweats 2016 Constitutional No chills 12/30/2016 Constitutional No diaphoresis 12/30/2016 Constitutional fatigue 12/30/2016 Constitutional No fever 12/30/2016 Constitutional No insomnia 12/30/2016 Constitutional No malaise 12/30/2016 Constitutional No weight loss 12/30/2016 Constitutional No weight gain 12/30/2016 Psychiatric depression 12/30/2016 Psychiatric anxiety 12/30/2016 Musculoskeletal back pain 12/30/2016 Gastrointestinal abdominal pain 2016 Eyes No eye discharge 12/30/2016 Eyes No eye erythema 12/30/2016 Ears/Nose/Throat/Neck nasal allergies Cardiovascular No chest pain/pressure Respiratory No cough 12/30/2016 Genitourinary/Nephrology No dysuria 12/30 Dermatologic No rash 12/30/2016 Neurologic No alteration of consciousness 12/30/2016 Constitutional No recent illness 2016 Constitutional No anorexia 12/22/2016 Constitutional No night sweats 2016 Constitutional No chills 12/22/2016 Constitutional No diaphoresis 12/22/2016 Constitutional fatigue 12/22/2016 Constitutional No fever 12/22/2016 Constitutional No insomnia 12/22/2016 Constitutional No malaise 12/22/2016 Constitutional No weight loss 12/22/2016 Constitutional No weight gain 12/22/2016 Eyes No eye discharge 12/22/2016 Eyes No eye erythema 12/22/2016 Ears/Nose/Throat/Neck No dizziness 2016 Ears/Nose/Throat/Neck nasal allergies Ears/Nose/Throat/Neck nasal discharge Cardiovascular No chest pain/pressure Respiratory No cough 12/22/2016 Gastrointestinal abdominal pain 2016 Genitourinary/Nephrology No dysuria 12/22 Musculoskeletal back pain 12/22/2016 Dermatologic No rash 12/22/2016 Neurologic No alteration of consciousness 12/22/2016 Psychiatric anxiety 12/22/2016 Psychiatric depression 12/22/2016 Constitutional No recent illness 2015 Constitutional No anorexia 10/20/2016 Constitutional No night sweats 2015 Constitutional No chills 10/20/2016 Constitutional fatigue 10/20/2016 Constitutional No diaphoresis 10/20/2016 Constitutional No fever 10/20/2016 Constitutional No insomnia 10/20/2016 Constitutional No malaise 10/20/2016 Constitutional No weight loss 10/20/2016 Constitutional No weight gain 10/20/2016 Eyes No eye discharge 10/20/2016 Eyes No eye erythema 10/20/2016 Ears/Nose/Throat/Neck No dizziness 2015 Ears/Nose/Throat/Neck No headache 2015 Cardiovascular No chest pain/pressure 10/2016 Respiratory cough 10/20/2016 Gastrointestinal abdominal pain 2015 Genitourinary/Nephrology No dysuria 10/20 Neurologic No alteration of consciousness 10/20/2016 Psychiatric depression 10/20/2016 Musculoskeletal back pain 10/20/2016 Dermatologic mole change 10/20/2016 Ears/Nose/Throat/Neck nasal allergies 10/2016 Constitutional No recent illness 2015 Constitutional No anorexia 08/12/2016 Constitutional No night sweats 2015 Constitutional No chills 08/12/2016 Constitutional No diaphoresis 08/12/2016 Constitutional fatigue 08/12/2016 Constitutional No fever 08/12/2016 Constitutional No insomnia 08/12/2016 Constitutional No malaise 08/12/2016 Constitutional No weight loss 08/12/2016 Constitutional No weight gain 08/12/2016 Eyes No eye discharge 08/12/2016 Eyes No eye erythema 08/12/2016 Ears/Nose/Throat/Neck No dizziness 2015 Ears/Nose/Throat/Neck No headache 2015 Cardiovascular No chest pain/pressure 02/2016 Respiratory cough 08/12/2016 Gastrointestinal abdominal pain 2015 Genitourinary/Nephrology dysuria 2015 Neurologic No alteration of consciousness 08/12/2016 Psychiatric depression 08/12/2016 Gastrointestinal gas and bloating 2015 Ears/Nose/Throat/Neck nasal allergies 02/2016 Ears/Nose/Throat/Neck nasal discharge 02/2016 Respiratory wheezing 08/12/2016 Respiratory cigarette smoking 08/12/2016 Musculoskeletal back pain 08/12/2016 Dermatologic No rash 08/12/2016 Psychiatric anxiety 08/12/2016 Constitutional No recent illness 2015 Constitutional No anorexia 07/15/2016 Constitutional No night sweats 2015 Constitutional No chills 07/15/2016 Constitutional No diaphoresis 07/15/2016 Constitutional fatigue 07/15/2016 Constitutional No fever 07/15/2016 Constitutional No insomnia 07/15/2016 Constitutional No malaise 07/15/2016 Constitutional No weight loss 07/15/2016 Constitutional No weight gain 07/15/2016 Eyes No eye discharge 07/15/2016 Eyes No eye erythema 07/15/2016 Ears/Nose/Throat/Neck No dizziness 2015 Ears/Nose/Throat/Neck No headache 2015 Cardiovascular No chest pain/pressure 04/2016 Respiratory No cough 07/15/2016 Dermatologic rash 07/15/2016 Neurologic No alteration of consciousness 07/15/2016 Psychiatric depression 07/15/2016 Gastrointestinal No abdominal pain 2015 Genitourinary/Nephrology No dysuria 07/15 Dermatologic sores 07/15/2016 Constitutional No recent illness 2015 Constitutional No chills 07/08/2016 Constitutional No diaphoresis 07/08/2016 Constitutional No fever 07/08/2016 Eyes No eye discharge 07/08/2016 Eyes No eye erythema 07/08/2016 Cardiovascular No chest pain/pressure Respiratory No cough 07/08/2016 Neurologic No alteration of consciousness 07/08/2016 Ears/Nose/Throat/Neck No nasal discharge 07/08/2016 Ears/Nose/Throat/Neck No nasal allergies 07/08/2016 Cardiovascular No dyspnea 07/08/2016 Respiratory No dyspnea 07/08/2016 Respiratory No chest congestion 2015 Gastrointestinal No abdominal pain 2015 Dermatologic sores 07/08/2016 Neurologic No mental status change 2015 Constitutional No recent illness 2015 Constitutional No chills 07/02/2016 Constitutional No diaphoresis 07/02/2016 Constitutional No fever 07/02/2016 Eyes No eye discharge 07/02/2016 Eyes No eye erythema 07/02/2016 Ears/Nose/Throat/Neck No nasal allergies 07/02/2016 Ears/Nose/Throat/Neck No nasal discharge 07/02/2016 Cardiovascular No chest pain/pressure Cardiovascular No dyspnea 07/02/2016 Respiratory No cough 07/02/2016 Respiratory No dyspnea 07/02/2016 Gastrointestinal No abdominal pain 2015 Neurologic No alteration of consciousness 07/02/2016 Neurologic No mental status change 2015 Dermatologic sores 07/02/2016 Musculoskeletal joint complaint 2015 Constitutional No recent illness 2015 Constitutional No anorexia 06/17/2016 Constitutional No night sweats 2015 Constitutional No chills 06/17/2016 Constitutional No diaphoresis 06/17/2016 Constitutional fatigue 06/17/2016 Constitutional No fever 06/17/2016 Constitutional No malaise 06/17/2016 Constitutional No weight loss 06/17/2016 Constitutional No insomnia 06/17/2016 Constitutional No weight gain 06/17/2016 Eyes No eye discharge 06/17/2016 Eyes No eye erythema 06/17/2016 Ears/Nose/Throat/Neck No dizziness 2015 Ears/Nose/Throat/Neck No headache 2015 Cardiovascular No chest pain/pressure 07/2016 Respiratory No cough 06/17/2016 Dermatologic No rash 06/17/2016 Neurologic No alteration of consciousness 06/17/2016 Psychiatric depression 06/17/2016 Musculoskeletal joint complaint 2015 Musculoskeletal myalgias 05/16/2016 Musculoskeletal No muscle weakness 2015 Psychiatric depression 05/16/2016 Psychiatric No anxiety 05/16/2016 Dermatologic No rash 05/16/2016 Dermatologic No sores 05/16/2016 Constitutional No recent illness 2015 Constitutional No anorexia 05/16/2016 Constitutional No night sweats 2015 Constitutional No chills 05/16/2016 Constitutional No diaphoresis 05/16/2016 Constitutional No fatigue 05/16/2016 Constitutional No fever 05/16/2016 Constitutional insomnia 05/16/2016 Constitutional No malaise 05/16/2016 Constitutional No weight loss 05/16/2016 Constitutional No weight gain 05/16/2016 Constitutional No obesity 05/16/2016 Gastrointestinal gastroesophageal reflux 05/16/2016 Gastrointestinal No constipation 2015 Gastrointestinal No diarrhea 05/16/2016 Respiratory No cigarette smoking 2015 Respiratory No cough 05/16/2016 Respiratory No chest tightness 2015 Respiratory No chest congestion 2015 Respiratory No dyspnea 05/16/2016 Respiratory No dyspnea on exertion 2015 Cardiovascular No chest pain/pressure 06/2016 Musculoskeletal shoulder pain 05/16/2016 Musculoskeletal arthralgia(s) 05/16/2016 Musculoskeletal No swelling 05/16/2016 Musculoskeletal back pain 05/16/2016 Genitourinary/Nephrology No dysuria 05/16 Ears/Nose/Throat/Neck nasal discharge 06/2016 Ears/Nose/Throat/Neck nasal allergies 06/2016 Ears/Nose/Throat/Neck No headache 2015 Ears/Nose/Throat/Neck No postnasal drip 05/16/2016 Ears/Nose/Throat/Neck sinus congestion Ears/Nose/Throat/Neck No sore throat 06/2016 Eyes No vision change 05/16/2016 Constitutional No recent illness 2015 Constitutional No anorexia 05/13/2016 Constitutional No night sweats 2015 Constitutional No chills 05/13/2016 Constitutional No diaphoresis 05/13/2016 Constitutional fatigue 05/13/2016 Constitutional No fever 05/13/2016 Constitutional No insomnia 05/13/2016 Constitutional No malaise 05/13/2016 Eyes No eye discharge 05/13/2016 Eyes No eye erythema 05/13/2016 Ears/Nose/Throat/Neck nasal allergies 03/2016 Cardiovascular No chest pain/pressure 03/2016 Respiratory No cough 05/13/2016 Gastrointestinal No vomiting 05/13/2016 Genitourinary/Nephrology dysuria 2015 Dermatologic No rash 05/13/2016 Neurologic No alteration of consciousness 05/13/2016 Musculoskeletal joint complaint 2015 Musculoskeletal myalgias 05/13/2016 Musculoskeletal back pain 05/13/2016 Musculoskeletal back pain 03/06/2016 Constitutional No recent illness 2015 Constitutional No anorexia 03/06/2016 Constitutional No night sweats 2015 Constitutional No chills 03/06/2016 Constitutional No diaphoresis 03/06/2016 Constitutional fatigue 03/06/2016 Constitutional No fever 03/06/2016 Constitutional No insomnia 03/06/2016 Constitutional No malaise 03/06/2016 Eyes No eye discharge 03/06/2016 Eyes No eye erythema 03/06/2016 Ears/Nose/Throat/Neck nasal allergies Cardiovascular No chest pain/pressure Respiratory No cough 03/06/2016 Gastrointestinal No vomiting 03/06/2016 Genitourinary/Nephrology No dysuria 03/06 Dermatologic No rash 03/06/2016 Neurologic No alteration of consciousness 03/06/2016 Gastrointestinal abdominal pain 2015 Gastrointestinal constipation 02/08/2016 Gastrointestinal No diarrhea 02/08/2016 Genitourinary/Nephrology No dysuria 02/07 Constitutional No recent illness 2015 Constitutional No anorexia 02/08/2016 Constitutional No night sweats 2015 Constitutional No chills 02/08/2016 Constitutional No diaphoresis 02/08/2016 Constitutional fatigue 02/08/2016 Constitutional No fever 02/08/2016 Constitutional No insomnia 02/08/2016 Constitutional No malaise 02/08/2016 Constitutional No weight loss 02/08/2016 Constitutional No weight gain 02/08/2016 Eyes No eye discharge 02/08/2016 Eyes No eye erythema 02/08/2016 Ears/Nose/Throat/Neck dizziness 2015 Ears/Nose/Throat/Neck No headache 2015 Cardiovascular No chest pain/pressure 11/2015 Respiratory No cough 02/08/2016 Musculoskeletal joint complaint 2015 Dermatologic No rash 02/08/2016 Neurologic No alteration of consciousness 02/08/2016 Psychiatric anxiety 02/08/2016 Endocrine No dry or coarse skin 2015 Constitutional No recent illness 2015 Constitutional No anorexia 01/03/2016 Constitutional No night sweats 2015 Constitutional No chills 01/03/2016 Constitutional No diaphoresis 01/03/2016 Constitutional No fatigue 01/03/2016 Constitutional No fever 01/03/2016 Constitutional No insomnia 01/03/2016 Constitutional No malaise 01/03/2016 Constitutional No weight loss 01/03/2016 Constitutional No weight gain 01/03/2016 Constitutional No obesity 01/03/2016 Dermatologic No rash 01/03/2016 Dermatologic sores 01/03/2016 Gastrointestinal No hemorrhoids 2015 Gastrointestinal No constipation 2015 Gastrointestinal diarrhea 01/03/2016 Gastrointestinal abdominal pain 2015 Gastrointestinal No vomiting 01/03/2016 Gastrointestinal No nausea 01/03/2016 Respiratory No dyspnea 01/03/2016 Respiratory No dyspnea on exertion 2015 Respiratory No cough 01/03/2016 Respiratory No cigarette smoking 2015 Respiratory No chest congestion 2015 Respiratory No chest tightness 2015 Ears/Nose/Throat/Neck nasal allergies Ears/Nose/Throat/Neck nasal discharge Ears/Nose/Throat/Neck No headache 2015 Ears/Nose/Throat/Neck No otitis media Ears/Nose/Throat/Neck No otalgia 2015 Ears/Nose/Throat/Neck No sore throat Ears/Nose/Throat/Neck No sinus congestion 01/03/2016 Cardiovascular No chest pain/pressure Genitourinary/Nephrology No dysuria 01/03 Musculoskeletal No myalgias 01/03/2016 Musculoskeletal No muscle weakness 2015 Musculoskeletal No joint complaint 2015 Musculoskeletal No back pain 01/03/2016 Psychiatric depression 01/03/2016 Psychiatric No anxiety 01/03/2016 Constitutional recent illness 11/19/2015 Constitutional No anorexia 11/19/2015 Constitutional No night sweats 2015 Constitutional No diaphoresis 11/19/2015 Constitutional fatigue 11/19/2015 Constitutional No fever 11/19/2015 Constitutional No insomnia 11/19/2015 Constitutional No malaise 11/19/2015 Eyes No eye discharge 11/19/2015 Eyes No eye erythema 11/19/2015 Ears/Nose/Throat/Neck headache 2015 Ears/Nose/Throat/Neck nasal allergies 09/2016 Ears/Nose/Throat/Neck nasal discharge 09/2016 Ears/Nose/Throat/Neck otalgia 11/19/2015 Ears/Nose/Throat/Neck sinus congestion Cardiovascular No chest pain/pressure 09/2016 Respiratory cough 11/19/2015 Gastrointestinal No abdominal pain 2015 Gastrointestinal No constipation 2015 Gastrointestinal No diarrhea 11/19/2015 Neurologic No alteration of consciousness 11/19/2015 Constitutional No chills 11/19/2015 Ears/Nose/Throat/Neck postnasal drip 09/2016 Cardiovascular No dyspnea 11/19/2015 Respiratory chest congestion 11/19/2015 Gastrointestinal No nausea 11/19/2015 Gastrointestinal No vomiting 11/19/2015 Dermatologic No rash 11/19/2015 Constitutional No recent illness 2014 Constitutional No anorexia 10/15/2015 Constitutional No night sweats 2014 Constitutional No chills 10/15/2015 Constitutional No diaphoresis 10/15/2015 Constitutional fatigue 10/15/2015 Constitutional No fever 10/15/2015 Constitutional No insomnia 10/15/2015 Constitutional No malaise 10/15/2015 Eyes No eye discharge 10/15/2015 Eyes No eye erythema 10/15/2015 Ears/Nose/Throat/Neck No otalgia 2014 Cardiovascular No chest pain/pressure 05/2015 Gastrointestinal No abdominal pain 2014 Genitourinary/Nephrology No dysuria 10/15 Musculoskeletal back pain 10/15/2015 Dermatologic mole change 10/15/2015 Neurologic No alteration of consciousness 10/15/2015 Constitutional No chills 10/03/2015 Constitutional No fatigue 10/03/2015 Constitutional No fever 10/03/2015 Constitutional No insomnia 10/03/2015 Constitutional No malaise 10/03/2015 Eyes No blindness 10/03/2015 Eyes No vision change 10/03/2015 Ears/Nose/Throat/Neck No nasal allergies 10/03/2015 Ears/Nose/Throat/Neck No sore throat Ears/Nose/Throat/Neck No postnasal drip 10/03/2015 Ears/Nose/Throat/Neck No sinus congestion 10/03/2015 Cardiovascular No chest pain/pressure Cardiovascular No dyspnea 10/03/2015 Cardiovascular No edema 10/03/2015 Cardiovascular No fatigue 10/03/2015 Respiratory No chest tightness 2014 Respiratory No cough 10/03/2015 Respiratory No dyspnea 10/03/2015 Gastrointestinal No abdominal pain 2014 Gastrointestinal No constipation 2014 Gastrointestinal No diarrhea 10/03/2015 Musculoskeletal No stiffness 10/03/2015 Musculoskeletal No swelling 10/03/2015 Musculoskeletal back pain 10/03/2015 Musculoskeletal No muscle weakness 2014 Musculoskeletal No myalgias 10/03/2015 Dermatologic No rash 10/03/2015 Dermatologic No sores 10/03/2015 Dermatologic No scar 10/03/2015 Neurologic No dizziness 10/03/2015 Neurologic No headache 10/03/2015 Psychiatric No anxiety 10/03/2015 Psychiatric No depression 10/03/2015 Ears/Nose/Throat/Neck No headache 2014 Ears/Nose/Throat/Neck oral lesion 2014 Constitutional No recent illness 2014 Constitutional No chills 09/13/2015 Constitutional No fatigue 09/13/2015 Constitutional No fever 09/13/2015 Constitutional No insomnia 09/13/2015 Constitutional No malaise 09/13/2015 Eyes No blindness 09/13/2015 Eyes No vision change 09/13/2015 Ears/Nose/Throat/Neck No dental pain 03/2015 Ears/Nose/Throat/Neck No dizziness 2014 Ears/Nose/Throat/Neck No dysphagia 2014 Ears/Nose/Throat/Neck No headache 2014 Ears/Nose/Throat/Neck No hearing loss 03/2015 Ears/Nose/Throat/Neck No nasal allergies 09/13/2015 Ears/Nose/Throat/Neck No sore throat 03/2015 Ears/Nose/Throat/Neck No postnasal drip 09/13/2015 Ears/Nose/Throat/Neck No sinus congestion 09/13/2015 Cardiovascular No chest pain/pressure 03/2015 Cardiovascular No dyspnea 09/13/2015 Cardiovascular No edema 09/13/2015 Cardiovascular No exercise intolerance Cardiovascular No fatigue 09/13/2015 Cardiovascular No near-syncope/dizziness 09/13/2015 Respiratory No chest tightness 2014 Respiratory No cough 09/13/2015 Respiratory No dyspnea 09/13/2015 Respiratory No pedal edema 09/13/2015 Gastrointestinal No abdominal pain 2014 Gastrointestinal No constipation 2014 Gastrointestinal No diarrhea 09/13/2015 Gastrointestinal No gastroesophageal reflux 09/13/2015 Gastrointestinal No nausea 09/13/2015 Gastrointestinal No vomiting 09/13/2015 Genitourinary/Nephrology No dysuria 09/13 Genitourinary/Nephrology No nocturia 03/2015 Genitourinary/Nephrology No urinary incontinence 09/13/2015 Musculoskeletal No stiffness 09/13/2015 Musculoskeletal No swelling 09/13/2015 Musculoskeletal No muscle weakness 2014 Musculoskeletal No myalgias 09/13/2015 Dermatologic No rash 09/13/2015 Dermatologic No sores 09/13/2015 Dermatologic No scar 09/13/2015 Neurologic No dizziness 09/13/2015 Neurologic No headache 09/13/2015 Neurologic No neck pain 09/13/2015 Neurologic No syncope 09/13/2015 Psychiatric No anxiety 09/13/2015 Psychiatric No depression 09/13/2015 Musculoskeletal back pain 09/13/2015 Constitutional No recent illness 2014 Constitutional No anorexia 09/07/2015 Constitutional No night sweats 2014 Constitutional No chills 09/07/2015 Constitutional No diaphoresis 09/07/2015 Constitutional fatigue 09/07/2015 Constitutional No fever 09/07/2015 Constitutional No insomnia 09/07/2015 Constitutional No malaise 09/07/2015 Constitutional No weight loss 09/07/2015 Constitutional No weight gain 09/07/2015 Eyes No eye discharge 09/07/2015 Eyes No eye erythema 09/07/2015 Ears/Nose/Throat/Neck nasal allergies Ears/Nose/Throat/Neck nasal discharge Ears/Nose/Throat/Neck No otalgia 2014 Ears/Nose/Throat/Neck sinus congestion Cardiovascular No chest pain/pressure Respiratory productive sputum 09/07/2015 Respiratory cough 09/07/2015 Gastrointestinal No abdominal pain 2014 Genitourinary/Nephrology No dysuria 09/07 Musculoskeletal back pain 09/07/2015 Dermatologic mole change 09/07/2015 Neurologic No alteration of consciousness 09/07/2015 Constitutional recent illness 08/09/2015 Constitutional fatigue 08/09/2015 Constitutional No fever 08/09/2015 Cardiovascular No chest pain/pressure 11/2014 Respiratory No cough 08/09/2015 Respiratory No chest tightness 2014 Gastrointestinal No abdominal pain 2014 Gastrointestinal diarrhea 08/09/2015 Dermatologic drainage 08/09/2015 Dermatologic erythema 08/09/2015 Psychiatric No anxiety 08/09/2015 Psychiatric No depression 08/09/2015 Genitourinary/Nephrology No dysuria 07/31 Genitourinary/Nephrology urinary urgency 07/31/2015 Genitourinary/Nephrology urinary frequency 07/31/2015 Genitourinary/Nephrology urinary incontinence 07/31/2015 Constitutional No recent illness 2014 Constitutional No anorexia 07/31/2015 Constitutional No night sweats 2014 Constitutional No chills 07/31/2015 Constitutional No diaphoresis 07/31/2015 Constitutional fatigue 07/31/2015 Constitutional No fever 07/31/2015 Constitutional No insomnia 07/31/2015 Constitutional No malaise 07/31/2015 Constitutional No weight gain 07/31/2015 Eyes No eye discharge 07/31/2015 Ears/Nose/Throat/Neck nasal allergies Ears/Nose/Throat/Neck No nasal discharge 07/31/2015 Ears/Nose/Throat/Neck oral pain 2014 Respiratory No cough 07/31/2015 Gastrointestinal No nausea 07/31/2015 Gastrointestinal No vomiting 07/31/2015 Dermatologic No rash 07/31/2015 Neurologic No aphasia 07/31/2015 Constitutional No recent illness 2014 Constitutional No anorexia 07/06/2015 Constitutional No night sweats 2014 Constitutional No chills 07/06/2015 Constitutional No diaphoresis 07/06/2015 Constitutional fatigue 07/06/2015 Constitutional No fever 07/06/2015 Constitutional No insomnia 07/06/2015 Constitutional No malaise 07/06/2015 Constitutional No weight gain 07/06/2015 Eyes No eye discharge 07/06/2015 Ears/Nose/Throat/Neck nasal allergies Ears/Nose/Throat/Neck No nasal discharge 07/06/2015 Ears/Nose/Throat/Neck oral pain 2014 Respiratory No cough 07/06/2015 Gastrointestinal No nausea 07/06/2015 Gastrointestinal No vomiting 07/06/2015 Dermatologic No rash 07/06/2015 Neurologic No aphasia 07/06/2015 Constitutional No recent illness 2014 Constitutional fatigue 06/15/2015 Constitutional No anorexia 06/15/2015 Constitutional No night sweats 2014 Constitutional No chills 06/15/2015 Constitutional No diaphoresis 06/15/2015 Constitutional No fever 06/15/2015 Constitutional No insomnia 06/15/2015 Constitutional No malaise 06/15/2015 Constitutional weight loss 06/15/2015 Constitutional No weight gain 06/15/2015 Respiratory No cough 06/15/2015 Ears/Nose/Throat/Neck nasal allergies 05/2015 Ears/Nose/Throat/Neck No nasal discharge 06/15/2015 Eyes No eye discharge 06/15/2015 Ears/Nose/Throat/Neck oral pain 2014 Gastrointestinal No vomiting 06/15/2015 Gastrointestinal No nausea 06/15/2015 Dermatologic No rash 06/15/2015 Neurologic No aphasia 06/15/2015 Constitutional No recent illness 2014 Constitutional No night sweats 2014 Constitutional No chills 05/01/2015 Constitutional No diaphoresis 05/01/2015 Constitutional No fatigue 05/01/2015 Constitutional No fever 05/01/2015 Constitutional No insomnia 05/01/2015 Constitutional No malaise 05/01/2015 Constitutional No weight loss 05/01/2015 Constitutional No weight gain 05/01/2015 Constitutional No obesity 05/01/2015 Eyes No blindness 05/01/2015 Eyes No eye discharge 05/01/2015 Eyes No eye erythema 05/01/2015 Eyes No eye floaters 05/01/2015 Eyes No eye foreign body 05/01/2015 Eyes No eye pain 05/01/2015 Eyes No eye tearing 05/01/2015 Eyes No eye trauma 05/01/2015 Eyes No eyelid edema 05/01/2015 Eyes No eyelid erythema 05/01/2015 Eyes No eyelid pain 05/01/2015 Eyes No photophobia 05/01/2015 Eyes No vision change 05/01/2015 Eyes No amblyopia 05/01/2015 Eyes No cataract 05/01/2015 Eyes No glaucoma 05/01/2015 Eyes No macular degeneration 05/01/2015 Ears/Nose/Throat/Neck No dental pain Ears/Nose/Throat/Neck No dizziness 2014 Ears/Nose/Throat/Neck No dysphagia 2014 Ears/Nose/Throat/Neck No headache 2014 Ears/Nose/Throat/Neck No hearing loss Ears/Nose/Throat/Neck No nasal allergies 05/01/2015 Ears/Nose/Throat/Neck No nasal discharge 05/01/2015 Ears/Nose/Throat/Neck No postnasal drip 05/01/2015 Ears/Nose/Throat/Neck No sinus congestion 05/01/2015 Ears/Nose/Throat/Neck No sore throat Cardiovascular No arrhythmia 05/01/2015 Cardiovascular No chest pain/pressure Cardiovascular No dyspnea 05/01/2015 Cardiovascular No edema 05/01/2015 Cardiovascular No exercise intolerance Cardiovascular No fatigue 05/01/2015 Cardiovascular No near-syncope/dizziness 05/01/2015 Cardiovascular No orthopnea 05/01/2015 Cardiovascular No palpitations 2014 Respiratory No asthma 05/01/2015 Respiratory No pleuritic pain 05/01/2015 Respiratory No productive sputum 2014 Respiratory No chest tightness 2014 Respiratory No cigarette smoking 2014 Respiratory No cough 05/01/2015 Respiratory No dyspnea 05/01/2015 Respiratory No pedal edema 05/01/2015 Respiratory No snoring 05/01/2015 Respiratory No wheezing 05/01/2015 Gastrointestinal No hemorrhoids 2014 Gastrointestinal No abdominal pain 2014 Gastrointestinal No constipation 2014 Gastrointestinal No diarrhea 05/01/2015 Gastrointestinal No gastroesophageal reflux 05/01/2015 Gastrointestinal No melena 05/01/2015 Gastrointestinal No nausea 05/01/2015 Gastrointestinal No vomiting 05/01/2015 Genitourinary/Nephrology No dysuria 05/01 Genitourinary/Nephrology No nocturia Genitourinary/Nephrology No urinary incontinence 05/01/2015 Musculoskeletal No stiffness 05/01/2015 Musculoskeletal No swelling 05/01/2015 Musculoskeletal No muscle weakness 2014 Musculoskeletal No myalgias 05/01/2015 Dermatologic No rash 05/01/2015 Dermatologic No scar 05/01/2015 Constitutional recent illness 04/27/2015 Constitutional No anorexia 04/27/2015 Constitutional No chills 04/27/2015 Constitutional No night sweats 2014 Constitutional No diaphoresis 04/27/2015 Constitutional No fatigue 04/27/2015 Constitutional No fever 04/27/2015 Constitutional No insomnia 04/27/2015 Constitutional No malaise 04/27/2015 Constitutional No weight loss 04/27/2015 Constitutional No weight gain 04/27/2015 Eyes No eye discharge 04/27/2015 Eyes No eye erythema 04/27/2015 Ears/Nose/Throat/Neck nasal allergies Ears/Nose/Throat/Neck nasal discharge Ears/Nose/Throat/Neck No headache 2014 Ears/Nose/Throat/Neck otalgia 04/27/2015 Ears/Nose/Throat/Neck sinus congestion Cardiovascular No chest pain/pressure Respiratory No cough 04/27/2015 Gastrointestinal No abdominal pain 2014 Gastrointestinal No constipation 2014 Gastrointestinal No diarrhea 04/27/2015 Genitourinary/Nephrology No dysuria 04/27 Dermatologic No rash 04/27/2015 Dermatologic No sores 04/27/2015 Neurologic No alteration of consciousness 04/27/2015 Constitutional recent illness 04/13/2015 Constitutional No anorexia 04/13/2015 Constitutional No night sweats 2014 Constitutional No chills 04/13/2015 Constitutional diaphoresis 04/13/2015 Constitutional fatigue 04/13/2015 Constitutional No fever 04/13/2015 Constitutional No insomnia 04/13/2015 Constitutional No malaise 04/13/2015 Constitutional No weight loss 04/13/2015 Constitutional No weight gain 04/13/2015 Eyes No eye discharge 04/13/2015 Eyes No eye erythema 04/13/2015 Ears/Nose/Throat/Neck No dizziness 2014 Ears/Nose/Throat/Neck headache 2014 Ears/Nose/Throat/Neck nasal allergies 03/2015 Ears/Nose/Throat/Neck nasal discharge 03/2015 Ears/Nose/Throat/Neck otalgia 04/13/2015 Ears/Nose/Throat/Neck sinus congestion Cardiovascular No chest pain/pressure 03/2015 Respiratory productive sputum 04/13/2015 Respiratory chest congestion 04/13/2015 Respiratory cough 04/13/2015 Respiratory wheezing 04/13/2015 Gastrointestinal gastroesophageal reflux 04/13/2015 Genitourinary/Nephrology No dysuria 04/13 Dermatologic No rash 04/13/2015 Dermatologic No sores 04/13/2015 Musculoskeletal No joint complaint 2014 Neurologic No alteration of consciousness 04/13/2015 Constitutional recent illness 02/23/2015 Constitutional No anorexia 02/23/2015 Constitutional fatigue 02/23/2015 Constitutional No fever 02/23/2015 Eyes No eye discharge 02/23/2015 Eyes No eye erythema 02/23/2015 Ears/Nose/Throat/Neck No nasal discharge 02/23/2015 Cardiovascular No chest pain/pressure Respiratory No cough 02/23/2015 Gastrointestinal abdominal pain 2014 Gastrointestinal constipation 02/23/2015 Gastrointestinal diarrhea 02/23/2015 Genitourinary/Nephrology No dysuria 02/23 Musculoskeletal joint complaint 2014 Dermatologic No rash 02/23/2015 Neurologic No alteration of consciousness 02/23/2015 Constitutional No anorexia 01/26/2015 Constitutional No night sweats 2014 Constitutional No chills 01/26/2015 Constitutional No diaphoresis 01/26/2015 Constitutional fatigue 01/26/2015 Constitutional No fever 01/26/2015 Constitutional No insomnia 01/26/2015 Constitutional No malaise 01/26/2015 Eyes No eye discharge 01/26/2015 Eyes No eye erythema 01/26/2015 Ears/Nose/Throat/Neck No sore throat Ears/Nose/Throat/Neck No otalgia 2014 Cardiovascular No chest pain/pressure Gastrointestinal No constipation 2014 Gastrointestinal No nausea 01/26/2015 Gastrointestinal No vomiting 01/26/2015 Genitourinary/Nephrology No dysuria 01/26 Dermatologic No rash 01/26/2015 Dermatologic No sores 01/26/2015 Psychiatric No anxiety 01/26/2015 Psychiatric No depression 01/26/2015 Constitutional No anorexia 12/22/2014 Constitutional No night sweats 2014 Constitutional No chills 12/22/2014 Constitutional No diaphoresis 12/22/2014 Constitutional fatigue 12/22/2014 Constitutional No fever 12/22/2014 Constitutional No insomnia 12/22/2014 Constitutional No malaise 12/22/2014 Eyes No eye discharge 12/22/2014 Eyes No eye erythema 12/22/2014 Ears/Nose/Throat/Neck No sore throat Ears/Nose/Throat/Neck No otalgia 2014 Cardiovascular No chest pain/pressure Gastrointestinal No constipation 2014 Gastrointestinal No nausea 12/22/2014 Gastrointestinal No vomiting 12/22/2014 Genitourinary/Nephrology No dysuria 12/22 Dermatologic No rash 12/22/2014 Dermatologic No sores 12/22/2014 Psychiatric No anxiety 12/22/2014 Psychiatric No depression 12/22/2014 Respiratory chest tightness 12/22/2014 Respiratory cough 12/22/2014 Respiratory dyspnea on exertion 2014 Constitutional No anorexia 11/16/2014 Constitutional No night sweats 2014 Constitutional No chills 11/16/2014 Constitutional No diaphoresis 11/16/2014 Constitutional fatigue 11/16/2014 Constitutional No fever 11/16/2014 Constitutional No insomnia 11/16/2014 Constitutional No malaise 11/16/2014 Eyes No eye discharge 11/16/2014 Eyes No eye erythema 11/16/2014 Ears/Nose/Throat/Neck No sore throat 06/2015 Ears/Nose/Throat/Neck No otalgia 2014 Cardiovascular No chest pain/pressure 06/2015 Gastrointestinal No constipation 2014 Gastrointestinal No nausea 11/16/2014 Gastrointestinal No vomiting 11/16/2014 Genitourinary/Nephrology No dysuria 11/16 Dermatologic No rash 11/16/2014 Dermatologic No sores 11/16/2014 Psychiatric No anxiety 11/16/2014 Psychiatric No depression 11/16/2014 Constitutional No anorexia 10/16/2014 Constitutional No night sweats 2013 Constitutional No chills 10/16/2014 Constitutional No diaphoresis 10/16/2014 Constitutional fatigue 10/16/2014 Constitutional No fever 10/16/2014 Constitutional No insomnia 10/16/2014 Constitutional No malaise 10/16/2014 Eyes No eye discharge 10/16/2014 Eyes No eye erythema 10/16/2014 Ears/Nose/Throat/Neck No sore throat 06/2014 Ears/Nose/Throat/Neck No otalgia 2013 Cardiovascular No chest pain/pressure 06/2014 Respiratory chest congestion 10/16/2014 Respiratory cough 10/16/2014 Gastrointestinal abdominal pain 2013 Gastrointestinal No constipation 2013 Gastrointestinal No gas and bloating 06/2014 Gastrointestinal No vomiting 10/16/2014 Genitourinary/Nephrology No dysuria 10/16 Dermatologic No rash 10/16/2014 Dermatologic No sores 10/16/2014 Psychiatric No anxiety 10/16/2014 Psychiatric No depression 10/16/2014 Constitutional No anorexia 09/29/2014 Constitutional No night sweats 2013 Constitutional No chills 09/29/2014 Constitutional No diaphoresis 09/29/2014 Constitutional fatigue 09/29/2014 Constitutional No fever 09/29/2014 Constitutional No insomnia 09/29/2014 Constitutional No malaise 09/29/2014 Eyes No eye discharge 09/29/2014 Eyes No eye erythema 09/29/2014 Ears/Nose/Throat/Neck No sore throat Ears/Nose/Throat/Neck No otalgia 2013 Cardiovascular No chest pain/pressure Respiratory chest congestion 09/29/2014 Respiratory cough 09/29/2014 Gastrointestinal abdominal pain 2013 Gastrointestinal No constipation 2013 Gastrointestinal No gas and bloating Gastrointestinal No vomiting 09/29/2014 Genitourinary/Nephrology No dysuria 09/29 Dermatologic No rash 09/29/2014 Dermatologic No sores 09/29/2014 Psychiatric No anxiety 09/29/2014 Psychiatric No depression 09/29/2014 Constitutional No anorexia 09/08/2014 Constitutional No night sweats 2013 Constitutional No chills 09/08/2014 Constitutional No diaphoresis 09/08/2014 Constitutional fatigue 09/08/2014 Constitutional No fever 09/08/2014 Constitutional No insomnia 09/08/2014 Constitutional No malaise 09/08/2014 Eyes No eye discharge 09/08/2014 Eyes No eye erythema 09/08/2014 Ears/Nose/Throat/Neck No sore throat Ears/Nose/Throat/Neck No otalgia 2013 Cardiovascular No chest pain/pressure Respiratory cough 09/08/2014 Gastrointestinal abdominal pain 2013 Gastrointestinal No constipation 2013 Gastrointestinal No gas and bloating Gastrointestinal No vomiting 09/08/2014 Genitourinary/Nephrology No dysuria 09/08 Dermatologic No rash 09/08/2014 Dermatologic No sores 09/08/2014 Psychiatric No anxiety 09/08/2014 Psychiatric No depression 09/08/2014 Respiratory chest congestion 09/08/2014 Constitutional No anorexia 08/28/2014 Constitutional No night sweats 2013 Constitutional No chills 08/28/2014 Constitutional No diaphoresis 08/28/2014 Constitutional fatigue 08/28/2014 Constitutional No fever 08/28/2014 Constitutional No insomnia 08/28/2014 Constitutional No malaise 08/28/2014 Eyes No eye discharge 08/28/2014 Eyes No eye erythema 08/28/2014 Ears/Nose/Throat/Neck No sore throat Ears/Nose/Throat/Neck No otalgia 2013 Cardiovascular No chest pain/pressure Gastrointestinal abdominal pain 2013 Gastrointestinal No constipation 2013 Gastrointestinal No gas and bloating Gastrointestinal No vomiting 08/28/2014 Genitourinary/Nephrology No dysuria 08/28 Dermatologic No rash 08/28/2014 Dermatologic No sores 08/28/2014 Psychiatric No anxiety 08/28/2014 Psychiatric No depression 08/28/2014 Constitutional No anorexia 08/16/2014 Constitutional No night sweats 2013 Constitutional No chills 08/16/2014 Constitutional No diaphoresis 08/16/2014 Constitutional fatigue 08/16/2014 Constitutional No fever 08/16/2014 Constitutional No insomnia 08/16/2014 Constitutional No malaise 08/16/2014 Eyes No eye discharge 08/16/2014 Eyes No eye erythema 08/16/2014 Ears/Nose/Throat/Neck No sore throat 06/2014 Ears/Nose/Throat/Neck No otalgia 2013 Cardiovascular No chest pain/pressure 06/2014 Gastrointestinal abdominal pain 2013 Gastrointestinal No constipation 2013 Gastrointestinal No gas and bloating 06/2014 Gastrointestinal No vomiting 08/16/2014 Genitourinary/Nephrology No dysuria 08/16 Dermatologic No rash 08/16/2014 Dermatologic No sores 08/16/2014 Psychiatric No anxiety 08/16/2014 Psychiatric No depression 08/16/2014 Respiratory cough 08/16/2014 Constitutional recent illness 07/21/2014 Constitutional No anorexia 07/21/2014 Constitutional No chills 07/21/2014 Constitutional No diaphoresis 07/21/2014 Constitutional fatigue 07/21/2014 Constitutional No fever 07/21/2014 Constitutional No insomnia 07/21/2014 Gastrointestinal No constipation 2013 Gastrointestinal No nausea 07/21/2014 Gastrointestinal No vomiting 07/21/2014 Genitourinary/Nephrology No dysuria 07/21 Eyes No eye discharge 07/21/2014 Respiratory No cough 07/21/2014 Cardiovascular No chest pain/pressure 10/2014 Constitutional No anorexia 06/30/2014 Constitutional No night sweats 2013 Constitutional No chills 06/30/2014 Constitutional No diaphoresis 06/30/2014 Constitutional fatigue 06/30/2014 Constitutional No fever 06/30/2014 Constitutional No insomnia 06/30/2014 Constitutional No malaise 06/30/2014 Eyes No eye discharge 06/30/2014 Eyes No eye erythema 06/30/2014 Ears/Nose/Throat/Neck No otalgia 2013 Ears/Nose/Throat/Neck No sore throat Cardiovascular No chest pain/pressure Gastrointestinal No constipation 2013 Gastrointestinal No gas and bloating Gastrointestinal No vomiting 06/30/2014 Genitourinary/Nephrology No dysuria 06/30 Dermatologic No rash 06/30/2014 Dermatologic No sores 06/30/2014 Psychiatric No anxiety 06/30/2014 Psychiatric No depression 06/30/2014 Gastrointestinal abdominal pain 2013 Constitutional No anorexia 06/05/2014 Constitutional No night sweats 2013 Constitutional No chills 06/05/2014 Constitutional No diaphoresis 06/05/2014 Constitutional fatigue 06/05/2014 Constitutional No fever 06/05/2014 Constitutional No insomnia 06/05/2014 Constitutional No malaise 06/05/2014 Eyes No eye discharge 06/05/2014 Eyes No eye erythema 06/05/2014 Ears/Nose/Throat/Neck No sore throat Ears/Nose/Throat/Neck No otalgia 2013 Cardiovascular No chest pain/pressure Gastrointestinal No constipation 2013 Gastrointestinal No gas and bloating Gastrointestinal No nausea 06/05/2014 Gastrointestinal No vomiting 06/05/2014 Genitourinary/Nephrology No dysuria 06/05 Dermatologic No rash 06/05/2014 Dermatologic No sores 06/05/2014 Psychiatric No anxiety 06/05/2014 Psychiatric No depression 06/05/2014 Constitutional No anorexia 05/02/2014 Constitutional No night sweats 2013 Constitutional No chills 05/02/2014 Constitutional No diaphoresis 05/02/2014 Constitutional fatigue 05/02/2014 Constitutional No fever 05/02/2014 Constitutional No insomnia 05/02/2014 Constitutional No malaise 05/02/2014 Eyes No eye discharge 05/02/2014 Eyes No eye erythema 05/02/2014 Ears/Nose/Throat/Neck No sore throat Ears/Nose/Throat/Neck No otalgia 2013 Cardiovascular No chest pain/pressure Gastrointestinal No constipation 2013 Gastrointestinal No gas and bloating Gastrointestinal No nausea 05/02/2014 Gastrointestinal No vomiting 05/02/2014 Genitourinary/Nephrology No dysuria 05/02 Dermatologic No rash 05/02/2014 Dermatologic No sores 05/02/2014 Psychiatric No anxiety 05/02/2014 Psychiatric No depression 05/02/2014 Gastrointestinal No abdominal pain 2013 Gastrointestinal No constipation 2013 Gastrointestinal No diarrhea 04/04/2014 Gastrointestinal No vomiting 04/04/2014 Gastrointestinal No nausea 04/04/2014 Genitourinary/Nephrology No dysuria 04/04 Respiratory No cough 04/04/2014 Cardiovascular No chest pain/pressure Constitutional recent illness 04/04/2014 Constitutional No anorexia 04/04/2014 Constitutional No fever 04/04/2014 Constitutional fatigue 04/04/2014 Constitutional No chills 04/04/2014 Constitutional No diaphoresis 04/04/2014 Constitutional No night sweats 2013 Eyes No eye erythema 04/04/2014 Eyes No eye discharge 04/04/2014 Ears/Nose/Throat/Neck No dizziness 2013 Ears/Nose/Throat/Neck No nasal discharge 04/04/2014 Musculoskeletal No joint complaint 2013 Dermatologic No rash 04/04/2014 Dermatologic No sores 04/04/2014 Neurologic No alteration of consciousness 04/04/2014 Constitutional No anorexia 03/23/2014 Constitutional No night sweats 2013 Constitutional No chills 03/23/2014 Constitutional No diaphoresis 03/23/2014 Constitutional fatigue 03/23/2014 Constitutional No fever 03/23/2014 Constitutional No insomnia 03/23/2014 Constitutional No malaise 03/23/2014 Eyes No eye discharge 03/23/2014 Eyes No eye erythema 03/23/2014 Ears/Nose/Throat/Neck No sore throat Ears/Nose/Throat/Neck No otalgia 2013 Cardiovascular No chest pain/pressure Gastrointestinal No constipation 2013 Gastrointestinal No nausea 03/23/2014 Gastrointestinal No vomiting 03/23/2014 Genitourinary/Nephrology No dysuria 03/23 Dermatologic No rash 03/23/2014 Dermatologic No sores 03/23/2014 Gastrointestinal No gas and bloating Psychiatric No anxiety 03/23/2014 Psychiatric No depression 03/23/2014 Constitutional No recent illness 2013 Constitutional No diaphoresis 02/13/2014 Constitutional No chills 02/13/2014 Constitutional No night sweats 2013 Constitutional No anorexia 02/13/2014 Constitutional fatigue 02/13/2014 Constitutional No fever 02/13/2014 Constitutional No insomnia 02/13/2014 Eyes No eye discharge 02/13/2014 Eyes No eye erythema 02/13/2014 Ears/Nose/Throat/Neck No dizziness 2013 Ears/Nose/Throat/Neck No headache 2013 Cardiovascular No chest pain/pressure 05/2014 Respiratory No cough 02/13/2014 Gastrointestinal No abdominal pain 2013 Genitourinary/Nephrology No dysuria 02/13 Dermatologic No sores 02/13/2014 Dermatologic No rash 02/13/2014 Neurologic No alteration of consciousness 02/13/2014 Constitutional No anorexia 01/09/2014 Constitutional No night sweats 2013 Constitutional No chills 01/09/2014 Constitutional No diaphoresis 01/09/2014 Constitutional fatigue 01/09/2014 Constitutional No fever 01/09/2014 Constitutional No insomnia 01/09/2014 Constitutional No malaise 01/09/2014 Eyes No eye discharge 01/09/2014 Eyes No eye erythema 01/09/2014 Ears/Nose/Throat/Neck No sore throat 01/2014 Ears/Nose/Throat/Neck No otalgia 2013 Cardiovascular No chest pain/pressure 01/2014 Gastrointestinal No constipation 2013 Gastrointestinal No nausea 01/09/2014 Gastrointestinal No vomiting 01/09/2014 Genitourinary/Nephrology No dysuria 01/09 Dermatologic No rash 01/09/2014 Dermatologic No sores 01/09/2014 Constitutional recent illness 11/15/2013 Constitutional No anorexia 11/15/2013 Constitutional No night sweats 2013 Constitutional No chills 11/15/2013 Constitutional No diaphoresis 11/15/2013 Constitutional fatigue 11/15/2013 Constitutional No fever 11/15/2013 Constitutional No insomnia 11/15/2013 Constitutional No malaise 11/15/2013 Eyes No eye discharge 11/15/2013 Eyes No eye erythema 11/15/2013 Cardiovascular No chest pain/pressure 05/2014 Respiratory No chest congestion 2013 Respiratory cough 11/15/2013 Gastrointestinal abdominal pain 2013 Gastrointestinal No constipation 2013 Gastrointestinal diarrhea 11/15/2013 Gastrointestinal No nausea 11/15/2013 Gastrointestinal No vomiting 11/15/2013 Genitourinary/Nephrology No dysuria 11/15 Dermatologic No rash 11/15/2013 Dermatologic No sores 11/15/2013 Constitutional recent illness 10/31/2013 Constitutional No anorexia 10/31/2013 Constitutional No night sweats 2012 Constitutional No chills 10/31/2013 Constitutional No diaphoresis 10/31/2013 Constitutional fatigue 10/31/2013 Constitutional No fever 10/31/2013 Constitutional No insomnia 10/31/2013 Constitutional No malaise 10/31/2013 Eyes No eye discharge 10/31/2013 Eyes No eye erythema 10/31/2013 Ears/Nose/Throat/Neck nasal allergies Ears/Nose/Throat/Neck No otalgia 2012 Ears/Nose/Throat/Neck sinus congestion Ears/Nose/Throat/Neck No sore throat Cardiovascular No chest pain/pressure Gastrointestinal abdominal pain 2012 Gastrointestinal No constipation 2012 Gastrointestinal diarrhea 10/31/2013 Gastrointestinal No nausea 10/31/2013 Gastrointestinal No vomiting 10/31/2013 Genitourinary/Nephrology No dysuria 10/31 Dermatologic No rash 10/31/2013 Dermatologic No sores 10/31/2013 Ears/Nose/Throat/Neck nasal discharge Constitutional recent illness 10/17/2013 Constitutional No anorexia 10/17/2013 Constitutional No night sweats 2012 Constitutional No chills 10/17/2013 Constitutional No diaphoresis 10/17/2013 Constitutional fatigue 10/17/2013 Constitutional No fever 10/17/2013 Constitutional No insomnia 10/17/2013 Constitutional No malaise 10/17/2013 Eyes No eye discharge 10/17/2013 Eyes No eye erythema 10/17/2013 Ears/Nose/Throat/Neck nasal allergies 07/2013 Ears/Nose/Throat/Neck nasal discharge 07/2013 Ears/Nose/Throat/Neck No otalgia 2012 Ears/Nose/Throat/Neck sinus congestion Ears/Nose/Throat/Neck No sore throat 07/2013 Cardiovascular No chest pain/pressure 07/2013 Respiratory productive sputum 10/17/2013 Respiratory cough 10/17/2013 Respiratory No chest congestion 2012 Gastrointestinal abdominal pain 2012 Gastrointestinal No constipation 2012 Gastrointestinal diarrhea 10/17/2013 Gastrointestinal No nausea 10/17/2013 Gastrointestinal No vomiting 10/17/2013 Genitourinary/Nephrology No dysuria 10/17 Dermatologic No rash 10/17/2013 Dermatologic No sores 10/17/2013 Physical Exam Exam Name System Name Item Name Status Result Effective Dates Notes Full Exam - General 1994 Constitutional general appearance Overall: well developed 12/22/2017 None Full Exam - General 1994 Constitutional general appearance Overall: in no acute distress 12/22/2017 None Full Exam - General 1994 Constitutional general appearance Overall: well nourished 12/22/2017 None Full Exam - General 1994 Eyes conjunctiva /eyelids Overall: conjunctiva clear 12/22/2017 None Full Exam - General 1994 Eyes conjunctiva /eyelids Overall: cornea clear 12/22/2017 None Full Exam - General 1994 Eyes conjunctiva /eyelids Overall: eyelids normal 12/22/2017 None Full Exam - General 1994 Ears/Nose/Throat lips/teeth/gingiva Overall: benign lips 12/22/2017 None Full Exam - General 1994 Ears/Nose/Throat oral cavity/pharynx/larynx Overall: oral mucosa clear 12/22/2017 None Full Exam - General 1994 Respiratory respiratory effort/rhythm Overall: normal rate 12/22/2017 None Full Exam - General 1994 Respiratory respiratory effort/rhythm Overall: no retractions 12/22/2017 None Full Exam - General 1994 Respiratory auscultation Overall: breath sounds clear bilaterally 12/22/2017 None Full Exam - General 1994 Cardiovascular auscultation of heart Rate: regular rate 12/22/2017 None Full Exam - General 1994 Abdomen abdominal exam Bowel sounds: hypoactive 12/22/2017 None Full Exam - General 1994 Abdomen abdominal exam Epigastric: tender to palpation 12/22/2017 None Full Exam - General 1994 Abdomen abdominal exam Epigastric: voluntary guarding 12/22/2017 None Full Exam - General 1994 Abdomen abdominal exam Epigastric: no rebound tenderness 12/22/2017 None Full Exam - General 1994 Abdomen abdominal exam Epigastric: soft 12/22/2017 None Full Exam - General 1994 Abdomen abdominal exam Lower quadrant: non-tender to palpation 12/22/2017 None Full Exam - General 1994 Abdomen abdominal exam Lower quadrant: no guarding 12/22/2017 None Full Exam - General 1994 Abdomen abdominal exam Lower quadrant: soft 12/22/2017 None Full Exam - General 1994 Abdomen abdominal exam Lower quadrant: no rebound tenderness 12/22/2017 None Full Exam - General 1994 Abdomen abdominal exam Upper quadrant: tender to palpation 12/22/2017 None Full Exam - General 1994 Abdomen abdominal exam Upper quadrant: dull pain 12/22/2017 None Full Exam - General 1994 Abdomen abdominal exam Upper quadrant: voluntary guarding 12/22/2017 None Full Exam - General 1994 Abdomen abdominal exam Upper quadrant: no rebound tenderness 12/22/2017 None Full Exam - General 1994 Abdomen abdominal exam Upper quadrant: soft 12/22/2017 None Full Exam - General 1994 Musculoskeletal head and neck Overall: head atraumatic 12/22/2017 None Full Exam - General 1994 Integument inspection of skin Location: chest 12/22/2017 right breast Full Exam - General 1994 Integument inspection of skin Rash/Lesions: bulla 12/22/2017 None Full Exam - General 1994 Integument inspection of skin Pigmentation: erythematous 12/22/2017 None Full Exam - General 1994 Neurologic cranial nerves Overall: crainial nerves 2 - 12 grossly intact 12/22/2017 None Full Exam - General 1994 Psychiatric orientation/consciousness Overall: oriented to person, place and time 12/22/2017 None Full Exam - General 1994 Psychiatric mood and affect Overall: normal mood and affect 12/22/2017 None Full Exam - General 1994 Psychiatric appearance Overall: well-groomed, good eye contact 12/22/2017 None Full Exam - General 1994 Constitutional general appearance Overall: well developed 11/16/2017 None Full Exam - General 1994 Constitutional general appearance Overall: in no acute distress 11/16/2017 None Full Exam - General 1994 Constitutional general appearance Overall: well nourished 11/16/2017 None Full Exam - General 1994 Eyes pupils and irises Overall: pupils equal, round, reactive to light and accomodation 11/16/2017 None Full Exam - General 1994 Ears/Nose/Throat otoscopic exam Overall: external auditory canals clear 11/16/2017 None Full Exam - General 1994 Ears/Nose/Throat otoscopic exam Overall: tympanic membranes clear 11/16/2017 None Full Exam - General 1994 Respiratory auscultation Overall: breath sounds clear bilaterally 11/16/2017 None Full Exam - General 1994 Respiratory respiratory effort/rhythm Overall: no retractions 11/16/2017 None Full Exam - General 1994 Respiratory respiratory effort/rhythm Overall: normal rate 11/16/2017 None Full Exam - General 1994 Cardiovascular extremities Overall: no clubbing 11/16/2017 None Full Exam - General 1994 Cardiovascular auscultation of heart Overall: regular rate 11/16/2017 None Full Exam - General 1994 Cardiovascular auscultation of heart Overall: normal heart sounds 11/16/2017 None Full Exam - General 1994 Cardiovascular auscultation of heart Overall: no murmurs 11/16/2017 None Full Exam - General 1994 Abdomen abdominal exam Bowel sounds: a normal exam 11/16/2017 None Full Exam - General 1994 Lymphatic neck nodes Overall: anterior cervical chain benign 11/16/2017 None Full Exam - General 1994 Lymphatic neck nodes Overall: posterior cervical chain benign 11/16/2017 None Full Exam - General 1994 Psychiatric orientation/consciousness Overall: oriented to person, place and time 11/16/2017 None Full Exam - General 1994 Constitutional general appearance Overall: well developed 10/19/2017 None Full Exam - General 1994 Constitutional general appearance Overall: in no acute distress 10/19/2017 None Full Exam - General 1994 Constitutional general appearance Overall: well nourished 10/19/2017 None Full Exam - General 1994 Ears/Nose/Throat otoscopic exam Overall: external auditory canals clear 10/19/2017 None Full Exam - General 1994 Ears/Nose/Throat otoscopic exam Overall: tympanic membranes clear 10/19/2017 None Full Exam - General 1994 Respiratory auscultation Overall: breath sounds clear bilaterally 10/19/2017 None Full Exam - General 1994 Respiratory respiratory effort/rhythm Overall: no retractions 10/19/2017 None Full Exam - General 1994 Respiratory respiratory effort/rhythm Overall: normal rate 10/19/2017 None Full Exam - General 1994 Cardiovascular extremities Overall: no clubbing 10/19/2017 None Full Exam - General 1994 Cardiovascular auscultation of heart Overall: regular rate 10/19/2017 None Full Exam - General 1994 Cardiovascular auscultation of heart Overall: normal heart sounds 10/19/2017 None Full Exam - General 1994 Cardiovascular auscultation of heart Overall: no murmurs 10/19/2017 None Full Exam - General 1994 Abdomen abdominal exam Bowel sounds: a normal exam 10/19/2017 None Full Exam - General 1994 Psychiatric orientation/consciousness Overall: oriented to person, place and time 10/19/2017 None Full Exam - General 1994 Eyes pupils and irises Overall: pupils equal, round, reactive to light and accomodation 10/19/2017 None Full Exam - General 1994 Lymphatic neck nodes Overall: anterior cervical chain benign 10/19/2017 None Full Exam - General 1994 Lymphatic neck nodes Overall: posterior cervical chain benign 10/19/2017 None Full Exam - General 1994 Integument inspection of skin Overall: few scattered moles, no gross abnormalities 10/19/2017 None Full Exam - General 1994 Constitutional general appearance Overall: well developed 09/25/2017 None Full Exam - General 1994 Constitutional general appearance Overall: in no acute distress 09/25/2017 None Full Exam - General 1994 Constitutional general appearance Overall: well nourished 09/25/2017 None Full Exam - General 1994 Ears/Nose/Throat otoscopic exam Overall: external auditory canals clear 09/25/2017 None Full Exam - General 1994 Ears/Nose/Throat otoscopic exam Overall: tympanic membranes clear 09/25/2017 None Full Exam - General 1994 Respiratory auscultation Overall: breath sounds clear bilaterally 09/25/2017 None Full Exam - General 1994 Respiratory respiratory effort/rhythm Overall: no retractions 09/25/2017 None Full Exam - General 1994 Respiratory respiratory effort/rhythm Overall: normal rate 09/25/2017 None Full Exam - General 1994 Cardiovascular extremities Overall: no clubbing 09/25/2017 None Full Exam - General 1994 Cardiovascular auscultation of heart Overall: regular rate 09/25/2017 None Full Exam - General 1994 Cardiovascular auscultation of heart Overall: normal heart sounds 09/25/2017 None Full Exam - General 1994 Cardiovascular auscultation of heart Overall: no murmurs 09/25/2017 None Full Exam - General 1994 Abdomen abdominal exam Bowel sounds: a normal exam 09/25/2017 None Full Exam - General 1994 Psychiatric orientation/consciousness Overall: oriented to person, place and time 09/25/2017 None Full Exam - General 1994 Lymphatic neck nodes Overall: posterior cervical chain benign 09/25/2017 None Full Exam - General 1994 Lymphatic neck nodes Overall: anterior cervical chain benign 09/25/2017 None Full Exam - General 1994 Constitutional general appearance Assistive Device: cane 09/25/2017 None Full Exam - General 1994 Constitutional general appearance Overall: well developed 09/08/2017 None Full Exam - General 1994 Constitutional general appearance Overall: in no acute distress 09/08/2017 None Full Exam - General 1994 Constitutional general appearance Overall: well nourished 09/08/2017 None Full Exam - General 1994 Respiratory auscultation Overall: breath sounds clear bilaterally 09/08/2017 None Full Exam - General 1994 Respiratory respiratory effort/rhythm Overall: no retractions 09/08/2017 None Full Exam - General 1994 Respiratory respiratory effort/rhythm Overall: normal rate 09/08/2017 None Full Exam - General 1994 Cardiovascular extremities Overall: no clubbing 09/08/2017 None Full Exam - General 1994 Cardiovascular auscultation of heart Overall: regular rate 09/08/2017 None Full Exam - General 1994 Cardiovascular auscultation of heart Overall: normal heart sounds 09/08/2017 None Full Exam - General 1994 Cardiovascular auscultation of heart Overall: no murmurs 09/08/2017 None Full Exam - General 1994 Abdomen abdominal exam Bowel sounds: a normal exam 09/08/2017 None Full Exam - General 1994 Psychiatric orientation/consciousness Overall: oriented to person, place and time 09/08/2017 None Full Exam - General 1994 Ears/Nose/Throat otoscopic exam Overall: tympanic membranes clear 09/08/2017 None Full Exam - General 1994 Ears/Nose/Throat otoscopic exam Overall: external auditory canals clear 09/08/2017 None Full Exam - General 1994 Constitutional general appearance Overall: well developed 08/20/2017 None Full Exam - General 1994 Constitutional general appearance Overall: in no acute distress 08/20/2017 None Full Exam - General 1994 Constitutional general appearance Overall: well nourished 08/20/2017 None Full Exam - General 1994 Respiratory auscultation Overall: breath sounds clear bilaterally 08/20/2017 None Full Exam - General 1994 Respiratory respiratory effort/rhythm Overall: no retractions 08/20/2017 None Full Exam - General 1994 Respiratory respiratory effort/rhythm Overall: normal rate 08/20/2017 None Full Exam - General 1994 Cardiovascular extremities Overall: no clubbing 08/20/2017 None Full Exam - General 1994 Cardiovascular auscultation of heart Overall: regular rate 08/20/2017 None Full Exam - General 1994 Cardiovascular auscultation of heart Overall: normal heart sounds 08/20/2017 None Full Exam - General 1994 Cardiovascular auscultation of heart Overall: no murmurs 08/20/2017 None Full Exam - General 1994 Abdomen abdominal exam Bowel sounds: a normal exam 08/20/2017 None Full Exam - General 1994 Psychiatric orientation/consciousness Overall: oriented to person, place and time 08/20/2017 None Full Exam - General 1994 Integument inspection of skin Dermatitis: erythema 08/20/2017 around anus - at 3 oclock and 4 oclock position - tender to palpation. Full Exam - General 1994 Constitutional general appearance Overall: well developed 07/28/2017 None Full Exam - General 1994 Constitutional general appearance Overall: in no acute distress 07/28/2017 None Full Exam - General 1994 Constitutional general appearance Overall: well nourished 07/28/2017 None Full Exam - General 1994 Eyes conjunctiva /eyelids Overall: conjunctiva clear 07/28/2017 None Full Exam - General 1994 Eyes conjunctiva /eyelids Overall: cornea clear 07/28/2017 None Full Exam - General 1994 Eyes conjunctiva /eyelids Overall: eyelids normal 07/28/2017 None Full Exam - General 1994 Eyes pupils and irises Overall: pupils equal, round, reactive to light and accomodation 07/28/2017 None Full Exam - General 1994 Respiratory auscultation Overall: breath sounds clear bilaterally 07/28/2017 None Full Exam - General 1994 Respiratory respiratory effort/rhythm Overall: no retractions 07/28/2017 None Full Exam - General 1994 Respiratory respiratory effort/rhythm Overall: normal rate 07/28/2017 None Full Exam - General 1994 Cardiovascular extremities Overall: no clubbing 07/28/2017 None Full Exam - General 1994 Cardiovascular auscultation of heart Overall: regular rate 07/28/2017 None Full Exam - General 1994 Cardiovascular auscultation of heart Overall: normal heart sounds 07/28/2017 None Full Exam - General 1994 Cardiovascular auscultation of heart Overall: no murmurs 07/28/2017 None Full Exam - General 1994 Abdomen abdominal exam Bowel sounds: a normal exam 07/28/2017 None Full Exam - General 1994 Lymphatic neck nodes Overall: anterior cervical chain benign 07/28/2017 None Full Exam - General 1994 Lymphatic neck nodes Overall: posterior cervical chain benign 07/28/2017 None Full Exam - General 1994 Neurologic cranial nerves Overall: crainial nerves 2 - 12 grossly intact 07/28/2017 None Full Exam - General 1994 Psychiatric orientation/consciousness Overall: oriented to person, place and time 07/28/2017 None Full Exam - General 1994 Ears/Nose/Throat otoscopic exam Overall: tympanic membranes clear 07/28/2017 None Full Exam - General 1994 Ears/Nose/Throat otoscopic exam Overall: external auditory canals clear 07/28/2017 None Full Exam - General 1994 Ears/Nose/Throat oral cavity/pharynx/larynx Overall: oropharyngeal mucosa clear 07/28/2017 None Full Exam - General 1994 Ears/Nose/Throat oral cavity/pharynx/larynx Overall: no masses 07/28/2017 None Full Exam - General 1994 Ears/Nose/Throat oral cavity/pharynx/larynx Overall: oral mucosa clear 07/28/2017 None Full Exam - General 1994 Constitutional general appearance Overall: well developed 06/19/2017 None Full Exam - General 1994 Constitutional general appearance Overall: in no acute distress 06/19/2017 None Full Exam - General 1994 Constitutional general appearance Overall: well nourished 06/19/2017 None Full Exam - General 1994 Eyes conjunctiva /eyelids Overall: conjunctiva clear 06/19/2017 None Full Exam - General 1994 Eyes conjunctiva /eyelids Overall: cornea clear 06/19/2017 None Full Exam - General 1994 Eyes conjunctiva /eyelids Overall: eyelids normal 06/19/2017 None Full Exam - General 1994 Eyes pupils and irises Overall: pupils equal, round, reactive to light and accomodation 06/19/2017 None Full Exam - General 1994 Respiratory auscultation Overall: breath sounds clear bilaterally 06/19/2017 None Full Exam - General 1994 Respiratory respiratory effort/rhythm Overall: no retractions 06/19/2017 None Full Exam - General 1994 Respiratory respiratory effort/rhythm Overall: normal rate 06/19/2017 None Full Exam - General 1994 Cardiovascular extremities Overall: no clubbing 06/19/2017 None Full Exam - General 1994 Cardiovascular auscultation of heart Overall: regular rate 06/19/2017 None Full Exam - General 1994 Cardiovascular auscultation of heart Overall: normal heart sounds 06/19/2017 None Full Exam - General 1994 Cardiovascular auscultation of heart Overall: no murmurs 06/19/2017 None Full Exam - General 1994 Abdomen abdominal exam Bowel sounds: a normal exam 06/19/2017 None Full Exam - General 1994 Lymphatic neck nodes Overall: anterior cervical chain benign 06/19/2017 None Full Exam - General 1994 Lymphatic neck nodes Overall: posterior cervical chain benign 06/19/2017 None Full Exam - General 1994 Neurologic cranial nerves Overall: crainial nerves 2 - 12 grossly intact 06/19/2017 None Full Exam - General 1994 Psychiatric orientation/consciousness Overall: oriented to person, place and time 06/19/2017 None Full Exam - General 1994 Constitutional general appearance Overall: well developed 06/12/2017 None Full Exam - General 1994 Constitutional general appearance Overall: in no acute distress 06/12/2017 None Full Exam - General 1994 Constitutional general appearance Overall: well nourished 06/12/2017 None Full Exam - General 1994 Eyes conjunctiva /eyelids Overall: conjunctiva clear 06/12/2017 None Full Exam - General 1994 Eyes conjunctiva /eyelids Overall: cornea clear 06/12/2017 None Full Exam - General 1994 Eyes conjunctiva /eyelids Overall: eyelids normal 06/12/2017 None Full Exam - General 1994 Eyes pupils and irises Overall: pupils equal, round, reactive to light and accomodation 06/12/2017 None Full Exam - General 1994 Ears/Nose/Throat otoscopic exam Overall: external auditory canals clear 06/12/2017 None Full Exam - General 1994 Ears/Nose/Throat otoscopic exam Overall: tympanic membranes clear 06/12/2017 None Full Exam - General 1994 Ears/Nose/Throat oral cavity/pharynx/larynx Overall: oral mucosa clear 06/12/2017 None Full Exam - General 1994 Ears/Nose/Throat oral cavity/pharynx/larynx Overall: oropharyngeal mucosa clear 06/12/2017 None Full Exam - General 1994 Ears/Nose/Throat oral cavity/pharynx/larynx Overall: no masses 06/12/2017 None Full Exam - General 1994 Respiratory auscultation Overall: breath sounds clear bilaterally 06/12/2017 None Full Exam - General 1994 Respiratory respiratory effort/rhythm Overall: no retractions 06/12/2017 None Full Exam - General 1994 Respiratory respiratory effort/rhythm Overall: normal rate 06/12/2017 None Full Exam - General 1994 Cardiovascular extremities Overall: no clubbing 06/12/2017 None Full Exam - General 1994 Cardiovascular auscultation of heart Overall: regular rate 06/12/2017 None Full Exam - General 1994 Cardiovascular auscultation of heart Overall: normal heart sounds 06/12/2017 None Full Exam - General 1994 Cardiovascular auscultation of heart Overall: no murmurs 06/12/2017 None Full Exam - General 1994 Abdomen abdominal exam Contour: flat 06/12/2017 None Full Exam - General 1994 Abdomen abdominal exam Bowel sounds: a normal exam 06/12/2017 None Full Exam - General 1994 Abdomen abdominal exam Upper quadrant: tender to palpation 06/12/2017 None Full Exam - General 1994 Abdomen abdominal exam Lower quadrant: non-tender to palpation 06/12/2017 None Full Exam - General 1994 Lymphatic neck nodes Overall: anterior cervical chain benign 06/12/2017 None Full Exam - General 1994 Lymphatic neck nodes Overall: posterior cervical chain benign 06/12/2017 None Full Exam - General 1994 Neurologic cranial nerves Overall: crainial nerves 2 - 12 grossly intact 06/12/2017 None Full Exam - General 1994 Psychiatric orientation/consciousness Overall: oriented to person, place and time 06/12/2017 None Full Exam - General 1994 Abdomen rectal exam Palpation: tenderness 05/15/2017 at 9 o'clock , fullness 8 o'clock to 10 o' clock Full Exam - General 1994 Constitutional general appearance Overall: well developed 05/15/2017 None Full Exam - General 1994 Constitutional general appearance Overall: in no acute distress 05/15/2017 None Full Exam - General 1994 Constitutional general appearance Overall: well nourished 05/15/2017 None Full Exam - General 1994 Psychiatric orientation/consciousness Overall: oriented to person, place and time 05/15/2017 None Full Exam - General 1994 Respiratory auscultation Overall: breath sounds clear bilaterally 05/15/2017 None Full Exam - General 1994 Respiratory respiratory effort/rhythm Overall: no retractions 05/15/2017 None Full Exam - General 1994 Respiratory respiratory effort/rhythm Overall: normal rate 05/15/2017 None Full Exam - General 1994 Cardiovascular auscultation of heart Overall: regular rate 05/15/2017 None Full Exam - General 1994 Cardiovascular auscultation of heart Overall: normal heart sounds 05/15/2017 None Full Exam - General 1994 Constitutional general appearance Overall: well developed 04/14/2017 None Full Exam - General 1994 Constitutional general appearance Overall: in no acute distress 04/14/2017 None Full Exam - General 1994 Constitutional general appearance Overall: well nourished 04/14/2017 None Full Exam - General 1994 Eyes conjunctiva /eyelids Overall: conjunctiva clear 04/14/2017 None Full Exam - General 1994 Eyes conjunctiva /eyelids Overall: cornea clear 04/14/2017 None Full Exam - General 1994 Eyes conjunctiva /eyelids Overall: eyelids normal 04/14/2017 None Full Exam - General 1994 Eyes pupils and irises Overall: pupils equal, round, reactive to light and accomodation 04/14/2017 None Full Exam - General 1994 Ears/Nose/Throat otoscopic exam Overall: external auditory canals clear 04/14/2017 None Full Exam - General 1994 Ears/Nose/Throat otoscopic exam Overall: tympanic membranes clear 04/14/2017 None Full Exam - General 1994 Ears/Nose/Throat oral cavity/pharynx/larynx Overall: oral mucosa clear 04/14/2017 None Full Exam - General 1994 Ears/Nose/Throat oral cavity/pharynx/larynx Overall: oropharyngeal mucosa clear 04/14/2017 None Full Exam - General 1994 Ears/Nose/Throat oral cavity/pharynx/larynx Overall: no masses 04/14/2017 None Full Exam - General 1994 Respiratory auscultation Overall: breath sounds clear bilaterally 04/14/2017 None Full Exam - General 1994 Respiratory respiratory effort/rhythm Overall: no retractions 04/14/2017 None Full Exam - General 1994 Respiratory respiratory effort/rhythm Overall: normal rate 04/14/2017 None Full Exam - General 1994 Cardiovascular extremities Overall: no clubbing 04/14/2017 None Full Exam - General 1994 Cardiovascular auscultation of heart Overall: regular rate 04/14/2017 None Full Exam - General 1994 Cardiovascular auscultation of heart Overall: normal heart sounds 04/14/2017 None Full Exam - General 1994 Cardiovascular auscultation of heart Overall: no murmurs 04/14/2017 None Full Exam - General 1994 Abdomen abdominal exam Contour: flat 04/14/2017 None Full Exam - General 1994 Abdomen abdominal exam Bowel sounds: a normal exam 04/14/2017 None Full Exam - General 1994 Abdomen abdominal exam Upper quadrant: tender to palpation 04/14/2017 None Full Exam - General 1994 Abdomen abdominal exam Lower quadrant: non-tender to palpation 04/14/2017 None Full Exam - General 1994 Lymphatic neck nodes Overall: anterior cervical chain benign 04/14/2017 None Full Exam - General 1994 Lymphatic neck nodes Overall: posterior cervical chain benign 04/14/2017 None Full Exam - General 1994 Neurologic cranial nerves Overall: crainial nerves 2 - 12 grossly intact 04/14/2017 None Full Exam - General 1994 Psychiatric orientation/consciousness Overall: oriented to person, place and time 04/14/2017 None Full Exam - General 1994 Constitutional general appearance Overall: well developed 03/23/2017 None Full Exam - General 1994 Constitutional general appearance Overall: in no acute distress 03/23/2017 None Full Exam - General 1994 Constitutional general appearance Overall: well nourished 03/23/2017 None Full Exam - General 1994 Eyes conjunctiva /eyelids Overall: conjunctiva clear 03/23/2017 None Full Exam - General 1994 Eyes conjunctiva /eyelids Overall: cornea clear 03/23/2017 None Full Exam - General 1994 Eyes conjunctiva /eyelids Overall: eyelids normal 03/23/2017 None Full Exam - General 1994 Eyes pupils and irises Overall: pupils equal, round, reactive to light and accomodation 03/23/2017 None Full Exam - General 1994 Ears/Nose/Throat otoscopic exam Overall: external auditory canals clear 03/23/2017 None Full Exam - General 1994 Ears/Nose/Throat otoscopic exam Overall: tympanic membranes clear 03/23/2017 None Full Exam - General 1994 Ears/Nose/Throat oral cavity/pharynx/larynx Overall: oral mucosa clear 03/23/2017 None Full Exam - General 1994 Ears/Nose/Throat oral cavity/pharynx/larynx Overall: oropharyngeal mucosa clear 03/23/2017 None Full Exam - General 1994 Ears/Nose/Throat oral cavity/pharynx/larynx Overall: no masses 03/23/2017 None Full Exam - General 1994 Respiratory auscultation Overall: breath sounds clear bilaterally 03/23/2017 None Full Exam - General 1994 Respiratory respiratory effort/rhythm Overall: no retractions 03/23/2017 None Full Exam - General 1994 Respiratory respiratory effort/rhythm Overall: normal rate 03/23/2017 None Full Exam - General 1994 Cardiovascular extremities Overall: no clubbing 03/23/2017 None Full Exam - General 1994 Cardiovascular auscultation of heart Overall: regular rate 03/23/2017 None Full Exam - General 1994 Cardiovascular auscultation of heart Overall: normal heart sounds 03/23/2017 None Full Exam - General 1994 Cardiovascular auscultation of heart Overall: no murmurs 03/23/2017 None Full Exam - General 1994 Abdomen abdominal exam Contour: flat 03/23/2017 None Full Exam - General 1994 Abdomen abdominal exam Bowel sounds: a normal exam 03/23/2017 None Full Exam - General 1994 Abdomen abdominal exam Upper quadrant: tender to palpation 03/23/2017 None Full Exam - General 1994 Abdomen abdominal exam Lower quadrant: non-tender to palpation 03/23/2017 None Full Exam - General 1994 Lymphatic neck nodes Overall: anterior cervical chain benign 03/23/2017 None Full Exam - General 1994 Lymphatic neck nodes Overall: posterior cervical chain benign 03/23/2017 None Full Exam - General 1994 Neurologic cranial nerves Overall: crainial nerves 2 - 12 grossly intact 03/23/2017 None Full Exam - General 1994 Psychiatric orientation/consciousness Overall: oriented to person, place and time 03/23/2017 None Full Exam - General 1994 Constitutional general appearance Overall: well developed 02/11/2017 None Full Exam - General 1994 Constitutional general appearance Overall: in no acute distress 02/11/2017 None Full Exam - General 1994 Constitutional general appearance Overall: well nourished 02/11/2017 None Full Exam - General 1994 Eyes conjunctiva /eyelids Overall: conjunctiva clear 02/11/2017 None Full Exam - General 1994 Eyes conjunctiva /eyelids Overall: eyelids normal 02/11/2017 None Full Exam - General 1994 Ears/Nose/Throat oral cavity/pharynx/larynx Overall: oral mucosa clear 02/11/2017 None Full Exam - General 1994 Respiratory auscultation Overall: breath sounds clear bilaterally 02/11/2017 None Full Exam - General 1994 Respiratory respiratory effort/rhythm Overall: no retractions 02/11/2017 None Full Exam - General 1994 Respiratory respiratory effort/rhythm Overall: normal rate 02/11/2017 None Full Exam - General 1994 Cardiovascular extremities Overall: no clubbing 02/11/2017 None Full Exam - General 1994 Cardiovascular auscultation of heart Overall: regular rate 02/11/2017 None Full Exam - General 1994 Cardiovascular auscultation of heart Overall: normal heart sounds 02/11/2017 None Full Exam - General 1994 Lymphatic neck nodes Overall: anterior cervical chain benign 02/11/2017 None Full Exam - General 1994 Lymphatic neck nodes Overall: posterior cervical chain benign 02/11/2017 None Full Exam - General 1994 Musculoskeletal gait and station Overall: normal gait 02/11/2017 None Full Exam - General 1994 Musculoskeletal gait and station Overall: normal station 02/11/2017 None Full Exam - General 1994 Neurologic cranial nerves Overall: crainial nerves 2 - 12 grossly intact 02/11/2017 None Full Exam - General 1994 Psychiatric orientation/consciousness Overall: oriented to person, place and time 02/11/2017 None Full Exam - General 1994 Psychiatric mood and affect Overall: normal mood and affect 02/11/2017 None Full Exam - General 1994 Ears/Nose/Throat lips/teeth/gingiva Overall: benign lips 02/11/2017 None Full Exam - General 1994 Psychiatric appearance Overall: well-groomed, good eye contact 02/11/2017 None Full Exam - General 1994 Constitutional general appearance Overall: well developed 02/10/2017 None Full Exam - General 1994 Constitutional general appearance Overall: in no acute distress 02/10/2017 None Full Exam - General 1994 Constitutional general appearance Overall: well nourished 02/10/2017 None Full Exam - General 1994 Eyes conjunctiva /eyelids Overall: conjunctiva clear 02/10/2017 None Full Exam - General 1994 Eyes conjunctiva /eyelids Overall: cornea clear 02/10/2017 None Full Exam - General 1994 Eyes conjunctiva /eyelids Overall: eyelids normal 02/10/2017 None Full Exam - General 1994 Eyes pupils and irises Overall: pupils equal, round, reactive to light and accomodation 02/10/2017 None Full Exam - General 1994 Ears/Nose/Throat otoscopic exam Overall: external auditory canals clear 02/10/2017 None Full Exam - General 1994 Ears/Nose/Throat otoscopic exam Overall: tympanic membranes clear 02/10/2017 None Full Exam - General 1994 Ears/Nose/Throat oral cavity/pharynx/larynx Overall: oral mucosa clear 02/10/2017 None Full Exam - General 1994 Respiratory auscultation Overall: breath sounds clear bilaterally 02/10/2017 None Full Exam - General 1994 Respiratory respiratory effort/rhythm Overall: no retractions 02/10/2017 None Full Exam - General 1994 Respiratory respiratory effort/rhythm Overall: normal rate 02/10/2017 None Full Exam - General 1994 Cardiovascular extremities Overall: no clubbing 02/10/2017 None Full Exam - General 1994 Cardiovascular auscultation of heart Overall: regular rate 02/10/2017 None Full Exam - General 1994 Cardiovascular auscultation of heart Overall: normal heart sounds 02/10/2017 None Full Exam - General 1994 Cardiovascular auscultation of heart Overall: no murmurs 02/10/2017 None Full Exam - General 1994 Abdomen abdominal exam Contour: flat 02/10/2017 None Full Exam - General 1994 Abdomen abdominal exam Bowel sounds: a normal exam 02/10/2017 None Full Exam - General 1994 Lymphatic neck nodes Overall: anterior cervical chain benign 02/10/2017 None Full Exam - General 1994 Lymphatic neck nodes Overall: posterior cervical chain benign 02/10/2017 None Full Exam - General 1994 Musculoskeletal gait and station Overall: normal gait 02/10/2017 None Full Exam - General 1994 Musculoskeletal gait and station Overall: normal station 02/10/2017 None Full Exam - General 1994 Neurologic cranial nerves Overall: crainial nerves 2 - 12 grossly intact 02/10/2017 None Full Exam - General 1994 Psychiatric orientation/consciousness Overall: oriented to person, place and time 02/10/2017 None Full Exam - General 1994 Psychiatric mood and affect Overall: normal mood and affect 02/10/2017 None Full Exam - General 1994 Constitutional general appearance Overall: well developed 01/23/2017 None Full Exam - General 1994 Constitutional general appearance Overall: well nourished 01/23/2017 None Full Exam - General 1994 Eyes conjunctiva /eyelids Overall: conjunctiva clear 01/23/2017 None Full Exam - General 1994 Eyes conjunctiva /eyelids Overall: eyelids normal 01/23/2017 None Full Exam - General 1994 Ears/Nose/Throat otoscopic exam Overall: external auditory canals clear 01/23/2017 None Full Exam - General 1994 Ears/Nose/Throat otoscopic exam Overall: tympanic membranes clear 01/23/2017 None Full Exam - General 1994 Ears/Nose/Throat oral cavity/pharynx/larynx Overall: oral mucosa clear 01/23/2017 None Full Exam - General 1994 Respiratory auscultation Overall: breath sounds clear bilaterally 01/23/2017 None Full Exam - General 1994 Respiratory respiratory effort/rhythm Overall: no retractions 01/23/2017 None Full Exam - General 1994 Respiratory respiratory effort/rhythm Overall: normal rate 01/23/2017 None Full Exam - General 1994 Cardiovascular extremities Overall: no clubbing 01/23/2017 None Full Exam - General 1994 Cardiovascular auscultation of heart Overall: regular rate 01/23/2017 None Full Exam - General 1994 Cardiovascular auscultation of heart Overall: normal heart sounds 01/23/2017 None Full Exam - General 1994 Musculoskeletal gait and station Overall: normal gait 01/23/2017 None Full Exam - General 1994 Musculoskeletal gait and station Overall: normal station 01/23/2017 None Full Exam - General 1994 Neurologic cranial nerves Overall: crainial nerves 2 - 12 grossly intact 01/23/2017 None Full Exam - General 1994 Psychiatric orientation/consciousness Overall: oriented to person, place and time 01/23/2017 None Full Exam - General 1994 Psychiatric mood and affect Mood: depressed 01/23/2017 None Full Exam - General 1994 Constitutional general appearance Evidence of Distress: mild distress 01/23/2017 None Full Exam - General 1994 Constitutional general appearance Evidence of Distress: anxious 01/23/2017 None Full Exam - General 1994 Lymphatic neck nodes Overall: anterior cervical chain benign 01/23/2017 None Full Exam - General 1994 Lymphatic neck nodes Overall: posterior cervical chain benign 01/23/2017 None Full Exam - General 1994 Constitutional general appearance Overall: well developed 01/13/2017 None Full Exam - General 1994 Constitutional general appearance Overall: in no acute distress 01/13/2017 None Full Exam - General 1994 Constitutional general appearance Overall: well nourished 01/13/2017 None Full Exam - General 1994 Eyes conjunctiva /eyelids Overall: conjunctiva clear 01/13/2017 None Full Exam - General 1994 Eyes conjunctiva /eyelids Overall: cornea clear 01/13/2017 None Full Exam - General 1994 Eyes conjunctiva /eyelids Overall: eyelids normal 01/13/2017 None Full Exam - General 1994 Eyes pupils and irises Overall: pupils equal, round, reactive to light and accomodation 01/13/2017 None Full Exam - General 1994 Ears/Nose/Throat otoscopic exam Overall: external auditory canals clear 01/13/2017 None Full Exam - General 1994 Ears/Nose/Throat otoscopic exam Overall: tympanic membranes clear 01/13/2017 None Full Exam - General 1994 Ears/Nose/Throat oral cavity/pharynx/larynx Overall: oral mucosa clear 01/13/2017 None Full Exam - General 1994 Respiratory auscultation Overall: breath sounds clear bilaterally 01/13/2017 None Full Exam - General 1994 Respiratory respiratory effort/rhythm Overall: no retractions 01/13/2017 None Full Exam - General 1994 Respiratory respiratory effort/rhythm Overall: normal rate 01/13/2017 None Full Exam - General 1994 Cardiovascular extremities Overall: no clubbing 01/13/2017 None Full Exam - General 1994 Cardiovascular auscultation of heart Overall: regular rate 01/13/2017 None Full Exam - General 1994 Cardiovascular auscultation of heart Overall: normal heart sounds 01/13/2017 None Full Exam - General 1994 Cardiovascular auscultation of heart Overall: no murmurs 01/13/2017 None Full Exam - General 1994 Abdomen abdominal exam Contour: flat 01/13/2017 None Full Exam - General 1994 Abdomen abdominal exam Bowel sounds: a normal exam 01/13/2017 None Full Exam - General 1994 Lymphatic neck nodes Overall: anterior cervical chain benign 01/13/2017 None Full Exam - General 1994 Lymphatic neck nodes Overall: posterior cervical chain benign 01/13/2017 None Full Exam - General 1994 Musculoskeletal gait and station Overall: normal gait 01/13/2017 None Full Exam - General 1994 Musculoskeletal gait and station Overall: normal station 01/13/2017 None Full Exam - General 1994 Neurologic cranial nerves Overall: crainial nerves 2 - 12 grossly intact 01/13/2017 None Full Exam - General 1994 Psychiatric orientation/consciousness Overall: oriented to person, place and time 01/13/2017 None Full Exam - General 1994 Psychiatric mood and affect Mood: depressed 01/13/2017 None Full Exam - General 1994 Abdomen abdominal exam Upper quadrant: tender to palpation 01/13/2017 None Full Exam - General 1994 Constitutional general appearance Overall: well developed 12/30/2016 None Full Exam - General 1994 Constitutional general appearance Overall: in no acute distress 12/30/2016 None Full Exam - General 1994 Constitutional general appearance Overall: well nourished 12/30/2016 None Full Exam - General 1994 Eyes conjunctiva /eyelids Overall: conjunctiva clear 12/30/2016 None Full Exam - General 1994 Eyes conjunctiva /eyelids Overall: cornea clear 12/30/2016 None Full Exam - General 1994 Eyes conjunctiva /eyelids Overall: eyelids normal 12/30/2016 None Full Exam - General 1994 Eyes pupils and irises Overall: pupils equal, round, reactive to light and accomodation 12/30/2016 None Full Exam - General 1994 Ears/Nose/Throat otoscopic exam Overall: external auditory canals clear 12/30/2016 None Full Exam - General 1994 Ears/Nose/Throat otoscopic exam Overall: tympanic membranes clear 12/30/2016 None Full Exam - General 1994 Ears/Nose/Throat oral cavity/pharynx/larynx Overall: oral mucosa clear 12/30/2016 None Full Exam - General 1994 Respiratory auscultation Overall: breath sounds clear bilaterally 12/30/2016 None Full Exam - General 1994 Respiratory respiratory effort/rhythm Overall: no retractions 12/30/2016 None Full Exam - General 1994 Respiratory respiratory effort/rhythm Overall: normal rate 12/30/2016 None Full Exam - General 1994 Cardiovascular extremities Overall: no clubbing 12/30/2016 None Full Exam - General 1994 Cardiovascular auscultation of heart Overall: regular rate 12/30/2016 None Full Exam - General 1994 Cardiovascular auscultation of heart Overall: normal heart sounds 12/30/2016 None Full Exam - General 1994 Cardiovascular auscultation of heart Overall: no murmurs 12/30/2016 None Full Exam - General 1994 Abdomen abdominal exam Contour: flat 12/30/2016 None Full Exam - General 1994 Abdomen abdominal exam Bowel sounds: a normal exam 12/30/2016 None Full Exam - General 1994 Lymphatic neck nodes Overall: anterior cervical chain benign 12/30/2016 None Full Exam - General 1994 Lymphatic neck nodes Overall: posterior cervical chain benign 12/30/2016 None Full Exam - General 1994 Musculoskeletal gait and station Overall: normal gait 12/30/2016 None Full Exam - General 1994 Musculoskeletal gait and station Overall: normal station 12/30/2016 None Full Exam - General 1994 Neurologic cranial nerves Overall: crainial nerves 2 - 12 grossly intact 12/30/2016 None Full Exam - General 1994 Psychiatric orientation/consciousness Overall: oriented to person, place and time 12/30/2016 None Full Exam - General 1994 Constitutional general appearance Overall: well developed 12/22/2016 None Full Exam - General 1994 Constitutional general appearance Overall: in no acute distress 12/22/2016 None Full Exam - General 1994 Constitutional general appearance Overall: well nourished 12/22/2016 None Full Exam - General 1994 Eyes conjunctiva /eyelids Overall: conjunctiva clear 12/22/2016 None Full Exam - General 1994 Eyes conjunctiva /eyelids Overall: cornea clear 12/22/2016 None Full Exam - General 1994 Eyes conjunctiva /eyelids Overall: eyelids normal 12/22/2016 None Full Exam - General 1994 Eyes pupils and irises Overall: pupils equal, round, reactive to light and accomodation 12/22/2016 None Full Exam - General 1994 Ears/Nose/Throat otoscopic exam Overall: external auditory canals clear 12/22/2016 None Full Exam - General 1994 Ears/Nose/Throat otoscopic exam Overall: tympanic membranes clear 12/22/2016 None Full Exam - General 1994 Ears/Nose/Throat oral cavity/pharynx/larynx Overall: oral mucosa clear 12/22/2016 None Full Exam - General 1994 Respiratory auscultation Overall: breath sounds clear bilaterally 12/22/2016 None Full Exam - General 1994 Respiratory respiratory effort/rhythm Overall: no retractions 12/22/2016 None Full Exam - General 1994 Respiratory respiratory effort/rhythm Overall: normal rate 12/22/2016 None Full Exam - General 1994 Cardiovascular extremities Overall: no clubbing 12/22/2016 None Full Exam - General 1994 Cardiovascular auscultation of heart Overall: regular rate 12/22/2016 None Full Exam - General 1994 Cardiovascular auscultation of heart Overall: normal heart sounds 12/22/2016 None Full Exam - General 1994 Cardiovascular auscultation of heart Overall: no murmurs 12/22/2016 None Full Exam - General 1994 Abdomen abdominal exam Contour: flat 12/22/2016 None Full Exam - General 1994 Abdomen abdominal exam Bowel sounds: a normal exam 12/22/2016 None Full Exam - General 1994 Abdomen abdominal exam Upper quadrant: tender to palpation 12/22/2016 None Full Exam - General 1994 Lymphatic neck nodes Overall: anterior cervical chain benign 12/22/2016 None Full Exam - General 1994 Lymphatic neck nodes Overall: posterior cervical chain benign 12/22/2016 None Full Exam - General 1994 Musculoskeletal gait and station Overall: normal gait 12/22/2016 None Full Exam - General 1994 Musculoskeletal gait and station Overall: normal station 12/22/2016 None Full Exam - General 1994 Neurologic cranial nerves Overall: crainial nerves 2 - 12 grossly intact 12/22/2016 None Full Exam - General 1994 Psychiatric orientation/consciousness Overall: oriented to person, place and time 12/22/2016 None Full Exam - General 1994 Psychiatric mood and affect Mood: depressed 12/22/2016 None Full Exam - General 1994 Constitutional general appearance Overall: well developed 10/20/2016 None Full Exam - General 1994 Constitutional general appearance Overall: in no acute distress 10/20/2016 None Full Exam - General 1994 Constitutional general appearance Overall: well nourished 10/20/2016 None Full Exam - General 1994 Eyes conjunctiva /eyelids Overall: conjunctiva clear 10/20/2016 None Full Exam - General 1994 Eyes conjunctiva /eyelids Overall: cornea clear 10/20/2016 None Full Exam - General 1994 Eyes conjunctiva /eyelids Overall: eyelids normal 10/20/2016 None Full Exam - General 1994 Eyes pupils and irises Overall: pupils equal, round, reactive to light and accomodation 10/20/2016 None Full Exam - General 1994 Ears/Nose/Throat otoscopic exam Overall: external auditory canals clear 10/20/2016 None Full Exam - General 1994 Ears/Nose/Throat otoscopic exam Overall: tympanic membranes clear 10/20/2016 None Full Exam - General 1994 Ears/Nose/Throat oral cavity/pharynx/larynx Overall: oral mucosa clear 10/20/2016 None Full Exam - General 1994 Respiratory auscultation Overall: breath sounds clear bilaterally 10/20/2016 None Full Exam - General 1994 Respiratory respiratory effort/rhythm Overall: no retractions 10/20/2016 None Full Exam - General 1994 Respiratory respiratory effort/rhythm Overall: normal rate 10/20/2016 None Full Exam - General 1994 Cardiovascular extremities Overall: no clubbing 10/20/2016 None Full Exam - General 1994 Cardiovascular auscultation of heart Overall: regular rate 10/20/2016 None Full Exam - General 1994 Cardiovascular auscultation of heart Overall: normal heart sounds 10/20/2016 None Full Exam - General 1994 Cardiovascular auscultation of heart Overall: no murmurs 10/20/2016 None Full Exam - General 1994 Abdomen abdominal exam Contour: flat 10/20/2016 None Full Exam - General 1994 Abdomen abdominal exam Bowel sounds: a normal exam 10/20/2016 None Full Exam - General 1994 Abdomen abdominal exam Upper quadrant: tender to palpation 10/20/2016 None Full Exam - General 1994 Abdomen abdominal exam Lower quadrant: non-tender to palpation 10/20/2016 None Full Exam - General 1994 Lymphatic neck nodes Overall: anterior cervical chain benign 10/20/2016 None Full Exam - General 1994 Lymphatic neck nodes Overall: posterior cervical chain benign 10/20/2016 None Full Exam - General 1994 Musculoskeletal gait and station Overall: normal gait 10/20/2016 None Full Exam - General 1994 Musculoskeletal gait and station Overall: normal station 10/20/2016 None Full Exam - General 1994 Neurologic cranial nerves Overall: crainial nerves 2 - 12 grossly intact 10/20/2016 None Full Exam - General 1994 Psychiatric orientation/consciousness Overall: oriented to person, place and time 10/20/2016 None Full Exam - General 1994 Constitutional general appearance Overall: well developed 08/12/2016 None Full Exam - General 1994 Constitutional general appearance Overall: in no acute distress 08/12/2016 None Full Exam - General 1994 Constitutional general appearance Overall: well nourished 08/12/2016 None Full Exam - General 1994 Eyes conjunctiva /eyelids Overall: conjunctiva clear 08/12/2016 None Full Exam - General 1994 Eyes conjunctiva /eyelids Overall: cornea clear 08/12/2016 None Full Exam - General 1994 Eyes conjunctiva /eyelids Overall: eyelids normal 08/12/2016 None Full Exam - General 1994 Eyes pupils and irises Overall: pupils equal, round, reactive to light and accomodation 08/12/2016 None Full Exam - General 1994 Ears/Nose/Throat otoscopic exam Overall: external auditory canals clear 08/12/2016 None Full Exam - General 1994 Ears/Nose/Throat otoscopic exam Overall: tympanic membranes clear 08/12/2016 None Full Exam - General 1994 Ears/Nose/Throat oral cavity/pharynx/larynx Overall: oral mucosa clear 08/12/2016 None Full Exam - General 1994 Respiratory auscultation Overall: breath sounds clear bilaterally 08/12/2016 None Full Exam - General 1994 Respiratory respiratory effort/rhythm Overall: no retractions 08/12/2016 None Full Exam - General 1994 Respiratory respiratory effort/rhythm Overall: normal rate 08/12/2016 None Full Exam - General 1994 Cardiovascular extremities Overall: no clubbing 08/12/2016 None Full Exam - General 1994 Cardiovascular auscultation of heart Overall: regular rate 08/12/2016 None Full Exam - General 1994 Cardiovascular auscultation of heart Overall: normal heart sounds 08/12/2016 None Full Exam - General 1994 Cardiovascular auscultation of heart Overall: no murmurs 08/12/2016 None Full Exam - General 1994 Abdomen abdominal exam Contour: flat 08/12/2016 None Full Exam - General 1994 Abdomen abdominal exam Bowel sounds: a normal exam 08/12/2016 None Full Exam - General 1994 Abdomen abdominal exam Upper quadrant: tender to palpation 08/12/2016 None Full Exam - General 1994 Abdomen abdominal exam Lower quadrant: non-tender to palpation 08/12/2016 None Full Exam - General 1994 Lymphatic neck nodes Overall: anterior cervical chain benign 08/12/2016 None Full Exam - General 1994 Lymphatic neck nodes Overall: posterior cervical chain benign 08/12/2016 None Full Exam - General 1994 Musculoskeletal gait and station Overall: normal gait 08/12/2016 None Full Exam - General 1994 Musculoskeletal gait and station Overall: normal station 08/12/2016 None Full Exam - General 1994 Neurologic cranial nerves Overall: crainial nerves 2 - 12 grossly intact 08/12/2016 None Full Exam - General 1994 Psychiatric orientation/consciousness Overall: oriented to person, place and time 08/12/2016 None Full Exam - General 1994 Constitutional general appearance Overall: well developed 07/15/2016 None Full Exam - General 1994 Constitutional general appearance Overall: in no acute distress 07/15/2016 None Full Exam - General 1994 Constitutional general appearance Overall: well nourished 07/15/2016 None Full Exam - General 1994 Eyes conjunctiva /eyelids Overall: conjunctiva clear 07/15/2016 None Full Exam - General 1994 Eyes conjunctiva /eyelids Overall: cornea clear 07/15/2016 None Full Exam - General 1994 Eyes conjunctiva /eyelids Overall: eyelids normal 07/15/2016 None Full Exam - General 1994 Ears/Nose/Throat lips/teeth/gingiva Overall: benign lips 07/15/2016 None Full Exam - General 1994 Ears/Nose/Throat oral cavity/pharynx/larynx Overall: oral mucosa clear 07/15/2016 None Full Exam - General 1994 Respiratory respiratory effort/rhythm Overall: no retractions 07/15/2016 None Full Exam - General 1994 Respiratory respiratory effort/rhythm Overall: normal rate 07/15/2016 None Full Exam - General 1994 Cardiovascular extremities Overall: no clubbing 07/15/2016 None Full Exam - General 1994 Lymphatic neck nodes Overall: anterior cervical chain benign 07/15/2016 None Full Exam - General 1994 Lymphatic neck nodes Overall: posterior cervical chain benign 07/15/2016 None Full Exam - General 1994 Musculoskeletal gait and station Overall: normal gait 07/15/2016 None Full Exam - General 1994 Musculoskeletal gait and station Overall: normal station 07/15/2016 None Full Exam - General 1994 Integument inspection of skin Location: diffuse 07/15/2016 small areas of irritation Full Exam - General 1994 Integument inspection of skin Pigmentation: erythematous 07/15/2016 None Full Exam - General 1994 Neurologic cranial nerves Overall: crainial nerves 2 - 12 grossly intact 07/15/2016 None Full Exam - General 1994 Psychiatric orientation/consciousness Overall: oriented to person, place and time 07/15/2016 None Full Exam - General 1994 Psychiatric mood and affect Overall: normal mood and affect 07/15/2016 None Full Exam - General 1994 Psychiatric appearance Overall: well-groomed, good eye contact 07/15/2016 None Full Exam - General 1994 Psychiatric speech Overall: normal quality, no aphasia 07/15/2016 None Full Exam - General 1994 Psychiatric speech Overall: normal quality, quantity, rate 07/15/2016 None Full Exam - General 1994 Integument inspection of skin Location: left arm 07/15/2016 AK x 3 left arm Full Exam - General 1994 Integument inspection of skin Location: left leg 07/15/2016 AK left anterior cowan Full Exam - General 1994 Integument inspection of skin Location: right arm 07/15/2016 AK Full Exam - General 1994 Constitutional general appearance Overall: well developed 07/08/2016 None Full Exam - General 1994 Constitutional general appearance Overall: in no acute distress 07/08/2016 None Full Exam - General 1994 Constitutional general appearance Overall: well nourished 07/08/2016 None Full Exam - General 1994 Eyes conjunctiva /eyelids Overall: conjunctiva clear 07/08/2016 None Full Exam - General 1994 Eyes conjunctiva /eyelids Overall: cornea clear 07/08/2016 None Full Exam - General 1994 Eyes conjunctiva /eyelids Overall: eyelids normal 07/08/2016 None Full Exam - General 1994 Respiratory respiratory effort/rhythm Overall: no retractions 07/08/2016 None Full Exam - General 1994 Respiratory respiratory effort/rhythm Overall: normal rate 07/08/2016 None Full Exam - General 1994 Cardiovascular extremities Overall: no clubbing 07/08/2016 None Full Exam - General 1994 Musculoskeletal gait and station Overall: normal gait 07/08/2016 None Full Exam - General 1994 Musculoskeletal gait and station Overall: normal station 07/08/2016 None Full Exam - General 1994 Neurologic cranial nerves Overall: crainial nerves 2 - 12 grossly intact 07/08/2016 None Full Exam - General 1994 Psychiatric orientation/consciousness Overall: oriented to person, place and time 07/08/2016 None Full Exam - General 1994 Psychiatric mood and affect Overall: normal mood and affect 07/08/2016 None Full Exam - General 1994 Psychiatric appearance Overall: well-groomed, good eye contact 07/08/2016 None Full Exam - General 1994 Psychiatric speech Overall: normal quality, no aphasia 07/08/2016 None Full Exam - General 1994 Psychiatric speech Overall: normal quality, quantity, rate 07/08/2016 None Full Exam - General 1994 Integument inspection of skin Location: back 07/08/2016 None Full Exam - General 1994 Integument inspection of skin Rash/Lesions: wheal 07/08/2016 x 3 Full Exam - General 1994 Integument inspection of skin Pigmentation: erythematous 07/08/2016 None Full Exam - General 1994 Constitutional general appearance Overall: well developed 07/02/2016 None Full Exam - General 1994 Constitutional general appearance Overall: in no acute distress 07/02/2016 None Full Exam - General 1994 Constitutional general appearance Overall: well nourished 07/02/2016 None Full Exam - General 1994 Eyes conjunctiva /eyelids Overall: conjunctiva clear 07/02/2016 None Full Exam - General 1994 Eyes conjunctiva /eyelids Overall: cornea clear 07/02/2016 None Full Exam - General 1994 Eyes conjunctiva /eyelids Overall: eyelids normal 07/02/2016 None Full Exam - General 1994 Respiratory respiratory effort/rhythm Overall: no retractions 07/02/2016 None Full Exam - General 1994 Respiratory respiratory effort/rhythm Overall: normal rate 07/02/2016 None Full Exam - General 1994 Cardiovascular extremities Overall: no clubbing 07/02/2016 None Full Exam - General 1994 Musculoskeletal gait and station Overall: normal gait 07/02/2016 None Full Exam - General 1994 Musculoskeletal gait and station Overall: normal station 07/02/2016 None Full Exam - General 1994 Integument inspection of skin Pigmentation: erythematous 07/02/2016 None Full Exam - General 1994 Neurologic cranial nerves Overall: crainial nerves 2 - 12 grossly intact 07/02/2016 None Full Exam - General 1994 Psychiatric orientation/consciousness Overall: oriented to person, place and time 07/02/2016 None Full Exam - General 1994 Psychiatric mood and affect Overall: normal mood and affect 07/02/2016 None Full Exam - General 1994 Psychiatric appearance Overall: well-groomed, good eye contact 07/02/2016 None Full Exam - General 1994 Psychiatric speech Overall: normal quality, no aphasia 07/02/2016 None Full Exam - General 1994 Psychiatric speech Overall: normal quality, quantity, rate 07/02/2016 None Full Exam - General 1994 Ears/Nose/Throat lips/teeth/gingiva Overall: benign lips 07/02/2016 None Full Exam - General 1994 Ears/Nose/Throat oral cavity/pharynx/larynx Overall: oral mucosa clear 07/02/2016 None Full Exam - General 1994 Lymphatic neck nodes Overall: posterior cervical chain benign 07/02/2016 None Full Exam - General 1994 Lymphatic neck nodes Overall: anterior cervical chain benign 07/02/2016 None Full Exam - General 1994 Integument inspection of skin Location: diffuse 07/02/2016 small areas of irritation Full Exam - General 1994 Integument inspection of skin Location: inguinal area 07/02/2016 4 seed ticks found and removed with head intact Full Exam - General 1994 Constitutional general appearance Overall: well developed 06/17/2016 None Full Exam - General 1994 Constitutional general appearance Overall: in no acute distress 06/17/2016 None Full Exam - General 1994 Constitutional general appearance Overall: well nourished 06/17/2016 None Full Exam - General 1994 Eyes conjunctiva /eyelids Overall: conjunctiva clear 06/17/2016 None Full Exam - General 1994 Eyes conjunctiva /eyelids Overall: cornea clear 06/17/2016 None Full Exam - General 1994 Eyes conjunctiva /eyelids Overall: eyelids normal 06/17/2016 None Full Exam - General 1994 Eyes pupils and irises Overall: pupils equal, round, reactive to light and accomodation 06/17/2016 None Full Exam - General 1994 Respiratory auscultation Overall: breath sounds clear bilaterally 06/17/2016 None Full Exam - General 1994 Respiratory respiratory effort/rhythm Overall: no retractions 06/17/2016 None Full Exam - General 1994 Respiratory respiratory effort/rhythm Overall: normal rate 06/17/2016 None Full Exam - General 1994 Cardiovascular extremities Overall: no clubbing 06/17/2016 None Full Exam - General 1994 Cardiovascular auscultation of heart Overall: regular rate 06/17/2016 None Full Exam - General 1994 Cardiovascular auscultation of heart Overall: normal heart sounds 06/17/2016 None Full Exam - General 1994 Cardiovascular auscultation of heart Overall: no murmurs 06/17/2016 None Full Exam - General 1994 Musculoskeletal gait and station Overall: normal gait 06/17/2016 None Full Exam - General 1994 Musculoskeletal gait and station Overall: normal station 06/17/2016 None Full Exam - General 1994 Neurologic cranial nerves Overall: crainial nerves 2 - 12 grossly intact 06/17/2016 None Full Exam - General 1994 Psychiatric orientation/consciousness Overall: oriented to person, place and time 06/17/2016 None Full Exam - General 1994 Constitutional general appearance Evidence of Distress: tearful 06/17/2016 None Full Exam - General 1994 Constitutional general appearance Overall: well developed 05/16/2016 None Full Exam - General 1994 Constitutional general appearance Overall: in no acute distress 05/16/2016 None Full Exam - General 1994 Constitutional general appearance Overall: well nourished 05/16/2016 None Full Exam - General 1994 Eyes conjunctiva /eyelids Overall: conjunctiva clear 05/16/2016 None Full Exam - General 1994 Eyes conjunctiva /eyelids Overall: cornea clear 05/16/2016 None Full Exam - General 1994 Eyes conjunctiva /eyelids Overall: eyelids normal 05/16/2016 None Full Exam - General 1994 Eyes pupils and irises Overall: pupils equal, round, reactive to light and accomodation 05/16/2016 None Full Exam - General 1994 Ears/Nose/Throat otoscopic exam Overall: external auditory canals clear 05/16/2016 None Full Exam - General 1994 Ears/Nose/Throat otoscopic exam Overall: tympanic membranes clear 05/16/2016 None Full Exam - General 1994 Ears/Nose/Throat oral cavity/pharynx/larynx Overall: oral mucosa clear 05/16/2016 None Full Exam - General 1994 Respiratory auscultation Overall: breath sounds clear bilaterally 05/16/2016 None Full Exam - General 1994 Respiratory respiratory effort/rhythm Overall: no retractions 05/16/2016 None Full Exam - General 1994 Respiratory respiratory effort/rhythm Overall: normal rate 05/16/2016 None Full Exam - General 1994 Cardiovascular extremities Overall: no clubbing 05/16/2016 None Full Exam - General 1994 Cardiovascular auscultation of heart Overall: regular rate 05/16/2016 None Full Exam - General 1994 Cardiovascular auscultation of heart Overall: normal heart sounds 05/16/2016 None Full Exam - General 1994 Cardiovascular auscultation of heart Overall: no murmurs 05/16/2016 None Full Exam - General 1994 Abdomen abdominal exam Contour: flat 05/16/2016 None Full Exam - General 1994 Abdomen abdominal exam Bowel sounds: a normal exam 05/16/2016 None Full Exam - General 1994 Lymphatic neck nodes Overall: anterior cervical chain benign 05/16/2016 None Full Exam - General 1994 Lymphatic neck nodes Overall: posterior cervical chain benign 05/16/2016 None Full Exam - General 1994 Musculoskeletal gait and station Overall: normal gait 05/16/2016 None Full Exam - General 1994 Musculoskeletal gait and station Overall: normal station 05/16/2016 None Full Exam - General 1994 Neurologic cranial nerves Overall: crainial nerves 2 - 12 grossly intact 05/16/2016 None Full Exam - General 1994 Psychiatric orientation/consciousness Overall: oriented to person, place and time 05/16/2016 None Full Exam - General 1994 Constitutional general appearance Overall: well developed 05/13/2016 None Full Exam - General 1994 Constitutional general appearance Overall: in no acute distress 05/13/2016 None Full Exam - General 1994 Constitutional general appearance Overall: well nourished 05/13/2016 None Full Exam - General 1994 Eyes conjunctiva /eyelids Overall: conjunctiva clear 05/13/2016 None Full Exam - General 1994 Eyes conjunctiva /eyelids Overall: cornea clear 05/13/2016 None Full Exam - General 1994 Eyes conjunctiva /eyelids Overall: eyelids normal 05/13/2016 None Full Exam - General 1994 Eyes pupils and irises Overall: pupils equal, round, reactive to light and accomodation 05/13/2016 None Full Exam - General 1994 Ears/Nose/Throat otoscopic exam Overall: external auditory canals clear 05/13/2016 None Full Exam - General 1994 Ears/Nose/Throat otoscopic exam Overall: tympanic membranes clear 05/13/2016 None Full Exam - General 1994 Ears/Nose/Throat oral cavity/pharynx/larynx Overall: oral mucosa clear 05/13/2016 None Full Exam - General 1994 Respiratory auscultation Overall: breath sounds clear bilaterally 05/13/2016 None Full Exam - General 1994 Respiratory respiratory effort/rhythm Overall: no retractions 05/13/2016 None Full Exam - General 1994 Respiratory respiratory effort/rhythm Overall: normal rate 05/13/2016 None Full Exam - General 1994 Cardiovascular extremities Overall: no clubbing 05/13/2016 None Full Exam - General 1994 Cardiovascular auscultation of heart Overall: regular rate 05/13/2016 None Full Exam - General 1994 Cardiovascular auscultation of heart Overall: normal heart sounds 05/13/2016 None Full Exam - General 1994 Cardiovascular auscultation of heart Overall: no murmurs 05/13/2016 None Full Exam - General 1994 Abdomen abdominal exam Contour: flat 05/13/2016 None Full Exam - General 1994 Abdomen abdominal exam Bowel sounds: a normal exam 05/13/2016 None Full Exam - General 1994 Lymphatic neck nodes Overall: anterior cervical chain benign 05/13/2016 None Full Exam - General 1994 Lymphatic neck nodes Overall: posterior cervical chain benign 05/13/2016 None Full Exam - General 1994 Musculoskeletal gait and station Overall: normal gait 05/13/2016 None Full Exam - General 1994 Musculoskeletal gait and station Overall: normal station 05/13/2016 None Full Exam - General 1994 Neurologic cranial nerves Overall: crainial nerves 2 - 12 grossly intact 05/13/2016 None Full Exam - General 1994 Psychiatric orientation/consciousness Overall: oriented to person, place and time 05/13/2016 None Full Exam - General 1994 Constitutional general appearance Overall: well developed 03/06/2016 None Full Exam - General 1994 Constitutional general appearance Overall: in no acute distress 03/06/2016 None Full Exam - General 1994 Constitutional general appearance Overall: well nourished 03/06/2016 None Full Exam - General 1994 Eyes conjunctiva /eyelids Overall: conjunctiva clear 03/06/2016 None Full Exam - General 1994 Eyes conjunctiva /eyelids Overall: cornea clear 03/06/2016 None Full Exam - General 1994 Eyes conjunctiva /eyelids Overall: eyelids normal 03/06/2016 None Full Exam - General 1994 Eyes pupils and irises Overall: pupils equal, round, reactive to light and accomodation 03/06/2016 None Full Exam - General 1994 Ears/Nose/Throat otoscopic exam Overall: external auditory canals clear 03/06/2016 None Full Exam - General 1994 Ears/Nose/Throat otoscopic exam Overall: tympanic membranes clear 03/06/2016 None Full Exam - General 1994 Ears/Nose/Throat oral cavity/pharynx/larynx Overall: oral mucosa clear 03/06/2016 None Full Exam - General 1994 Respiratory auscultation Overall: breath sounds clear bilaterally 03/06/2016 None Full Exam - General 1994 Respiratory respiratory effort/rhythm Overall: no retractions 03/06/2016 None Full Exam - General 1994 Respiratory respiratory effort/rhythm Overall: normal rate 03/06/2016 None Full Exam - General 1994 Cardiovascular extremities Overall: no clubbing 03/06/2016 None Full Exam - General 1994 Cardiovascular auscultation of heart Overall: regular rate 03/06/2016 None Full Exam - General 1994 Cardiovascular auscultation of heart Overall: normal heart sounds 03/06/2016 None Full Exam - General 1994 Cardiovascular auscultation of heart Overall: no murmurs 03/06/2016 None Full Exam - General 1994 Abdomen abdominal exam Contour: flat 03/06/2016 None Full Exam - General 1994 Abdomen abdominal exam Bowel sounds: a normal exam 03/06/2016 None Full Exam - General 1994 Lymphatic neck nodes Overall: anterior cervical chain benign 03/06/2016 None Full Exam - General 1994 Lymphatic neck nodes Overall: posterior cervical chain benign 03/06/2016 None Full Exam - General 1994 Musculoskeletal gait and station Overall: normal gait 03/06/2016 None Full Exam - General 1994 Musculoskeletal gait and station Overall: normal station 03/06/2016 None Full Exam - General 1994 Neurologic cranial nerves Overall: crainial nerves 2 - 12 grossly intact 03/06/2016 None Full Exam - General 1994 Psychiatric orientation/consciousness Overall: oriented to person, place and time 03/06/2016 None Full Exam - General 1994 Constitutional general appearance Overall: well developed 02/08/2016 None Full Exam - General 1994 Constitutional general appearance Overall: in no acute distress 02/08/2016 None Full Exam - General 1994 Constitutional general appearance Overall: well nourished 02/08/2016 None Full Exam - General 1994 Eyes conjunctiva /eyelids Overall: conjunctiva clear 02/08/2016 None Full Exam - General 1994 Eyes conjunctiva /eyelids Overall: cornea clear 02/08/2016 None Full Exam - General 1994 Eyes conjunctiva /eyelids Overall: eyelids normal 02/08/2016 None Full Exam - General 1994 Eyes pupils and irises Overall: pupils equal, round, reactive to light and accomodation 02/08/2016 None Full Exam - General 1994 Respiratory auscultation Overall: breath sounds clear bilaterally 02/08/2016 None Full Exam - General 1994 Respiratory respiratory effort/rhythm Overall: no retractions 02/08/2016 None Full Exam - General 1994 Respiratory respiratory effort/rhythm Overall: normal rate 02/08/2016 None Full Exam - General 1994 Cardiovascular extremities Overall: no clubbing 02/08/2016 None Full Exam - General 1994 Cardiovascular auscultation of heart Overall: regular rate 02/08/2016 None Full Exam - General 1994 Cardiovascular auscultation of heart Overall: normal heart sounds 02/08/2016 None Full Exam - General 1994 Cardiovascular auscultation of heart Overall: no murmurs 02/08/2016 None Full Exam - General 1994 Abdomen abdominal exam Contour: flat 02/08/2016 None Full Exam - General 1994 Abdomen abdominal exam Bowel sounds: a normal exam 02/08/2016 None Full Exam - General 1994 Abdomen abdominal exam Upper quadrant: tender to palpation 02/08/2016 None Full Exam - General 1994 Abdomen abdominal exam Lower quadrant: non-tender to palpation 02/08/2016 None Full Exam - General 1994 Lymphatic neck nodes Overall: anterior cervical chain benign 02/08/2016 None Full Exam - General 1994 Lymphatic neck nodes Overall: posterior cervical chain benign 02/08/2016 None Full Exam - General 1994 Musculoskeletal gait and station Overall: normal gait 02/08/2016 None Full Exam - General 1994 Musculoskeletal gait and station Overall: normal station 02/08/2016 None Full Exam - General 1994 Neurologic cranial nerves Overall: crainial nerves 2 - 12 grossly intact 02/08/2016 None Full Exam - General 1994 Psychiatric orientation/consciousness Overall: oriented to person, place and time 02/08/2016 None Full Exam - General 1994 Ears/Nose/Throat otoscopic exam Overall: external auditory canals clear 02/08/2016 None Full Exam - General 1994 Ears/Nose/Throat otoscopic exam Overall: tympanic membranes clear 02/08/2016 None Full Exam - General 1994 Ears/Nose/Throat oral cavity/pharynx/larynx Overall: oral mucosa clear 02/08/2016 None Full Exam - General 1994 Constitutional general appearance Overall: well developed 01/03/2016 None Full Exam - General 1994 Constitutional general appearance Overall: in no acute distress 01/03/2016 None Full Exam - General 1994 Constitutional general appearance Overall: well nourished 01/03/2016 None Full Exam - General 1994 Eyes conjunctiva /eyelids Overall: conjunctiva clear 01/03/2016 None Full Exam - General 1994 Eyes conjunctiva /eyelids Overall: cornea clear 01/03/2016 None Full Exam - General 1994 Eyes conjunctiva /eyelids Overall: eyelids normal 01/03/2016 None Full Exam - General 1994 Eyes pupils and irises Overall: pupils equal, round, reactive to light and accomodation 01/03/2016 None Full Exam - General 1994 Respiratory auscultation Overall: breath sounds clear bilaterally 01/03/2016 None Full Exam - General 1994 Respiratory respiratory effort/rhythm Overall: no retractions 01/03/2016 None Full Exam - General 1994 Respiratory respiratory effort/rhythm Overall: normal rate 01/03/2016 None Full Exam - General 1994 Cardiovascular extremities Overall: no clubbing 01/03/2016 None Full Exam - General 1994 Cardiovascular auscultation of heart Overall: regular rate 01/03/2016 None Full Exam - General 1994 Cardiovascular auscultation of heart Overall: normal heart sounds 01/03/2016 None Full Exam - General 1994 Cardiovascular auscultation of heart Overall: no murmurs 01/03/2016 None Full Exam - General 1994 Abdomen abdominal exam Contour: flat 01/03/2016 None Full Exam - General 1994 Abdomen abdominal exam Bowel sounds: a normal exam 01/03/2016 None Full Exam - General 1994 Abdomen abdominal exam Upper quadrant: tender to palpation 01/03/2016 None Full Exam - General 1994 Abdomen abdominal exam Lower quadrant: non-tender to palpation 01/03/2016 None Full Exam - General 1994 Abdomen rectal exam Palpation: tenderness 01/03/2016 at 10 oclock position Full Exam - General 1994 Lymphatic neck nodes Overall: anterior cervical chain benign 01/03/2016 None Full Exam - General 1994 Lymphatic neck nodes Overall: posterior cervical chain benign 01/03/2016 None Full Exam - General 1994 Neurologic cranial nerves Overall: crainial nerves 2 - 12 grossly intact 01/03/2016 None Full Exam - General 1994 Psychiatric orientation/consciousness Overall: oriented to person, place and time 01/03/2016 None Full Exam - General 1994 Integument inspection of skin Pigmentation: erythematous 01/03/2016 full, tender area 10 o'clock postion rectum Full Exam - General 1994 Musculoskeletal gait and station Overall: normal gait 01/03/2016 None Full Exam - General 1994 Musculoskeletal gait and station Overall: normal station 01/03/2016 None Full Exam - ENT Constitutional general appearance Overall: well nourished 11/19/2015 None Full Exam - ENT Constitutional general appearance Overall: well developed 11/19/2015 None Full Exam - ENT Constitutional general appearance Overall: in no acute distress 11/19/2015 None Full Exam - ENT Ears/Nose/Throat otoscopic exam Overall: external auditory canals normal 11/19/2015 None Full Exam - ENT Ears/Nose/Throat oropharynx Overall: oral mucosa clear 11/19/2015 None Full Exam - ENT Respiratory inspection Overall: no retractions 11/19/2015 None Full Exam - ENT Respiratory inspection Overall: normal rate 09/2016 None Full Exam - ENT Respiratory auscultation Overall: breath sounds clear bilaterally 11/19/2015 None Full Exam - ENT Cardiovascular auscultation of heart Overall: regular rate 11/19/2015 None Full Exam - ENT Cardiovascular auscultation of heart Overall: normal heart sounds 11/19/2015 None Full Exam - ENT Lymphatic palpation of lymph nodes Overall: anterior cervical chain benign 11/19/2015 None Full Exam - ENT Lymphatic palpation of lymph nodes Overall: posterior cervical chain benign 11/19/2015 None Full Exam - ENT Neurologic orientation Overall: oriented to person, place and time 11/19/2015 None Full Exam - ENT Ears/Nose/Throat otoscopic exam Left tympanic membrane: air -fluid level 11/19/2015 None Full Exam - ENT Ears/Nose/Throat otoscopic exam Right tympanic membrane: air-fluid level 11/19/2015 None Full Exam - ENT Ears/Nose/Throat oropharynx Posterior Pharynx: erythema 11/19/2015 None Full Exam - General 1994 Constitutional general appearance Overall: well developed 10/15/2015 None Full Exam - General 1994 Constitutional general appearance Overall: in no acute distress 10/15/2015 None Full Exam - General 1994 Constitutional general appearance Overall: well nourished 10/15/2015 None Full Exam - General 1994 Eyes conjunctiva /eyelids Overall: conjunctiva clear 10/15/2015 None Full Exam - General 1994 Eyes conjunctiva /eyelids Overall: cornea clear 10/15/2015 None Full Exam - General 1994 Eyes conjunctiva /eyelids Overall: eyelids normal 10/15/2015 None Full Exam - General 1994 Eyes pupils and irises Overall: pupils equal, round, reactive to light and accomodation 10/15/2015 None Full Exam - General 1994 Ears/Nose/Throat otoscopic exam Overall: external auditory canals clear 10/15/2015 None Full Exam - General 1994 Ears/Nose/Throat otoscopic exam Overall: tympanic membranes clear 10/15/2015 None Full Exam - General 1994 Ears/Nose/Throat oral cavity/pharynx/larynx Overall: oral mucosa clear 10/15/2015 None Full Exam - General 1994 Ears/Nose/Throat oral cavity/pharynx/larynx Overall: oropharyngeal mucosa clear 10/15/2015 None Full Exam - General 1994 Ears/Nose/Throat oral cavity/pharynx/larynx Overall: no masses 10/15/2015 None Full Exam - General 1994 Respiratory auscultation Overall: breath sounds clear bilaterally 10/15/2015 None Full Exam - General 1994 Respiratory respiratory effort/rhythm Overall: no retractions 10/15/2015 None Full Exam - General 1994 Respiratory respiratory effort/rhythm Overall: normal rate 10/15/2015 None Full Exam - General 1994 Cardiovascular extremities Overall: no clubbing 10/15/2015 None Full Exam - General 1994 Cardiovascular auscultation of heart Overall: regular rate 10/15/2015 None Full Exam - General 1994 Cardiovascular auscultation of heart Overall: normal heart sounds 10/15/2015 None Full Exam - General 1994 Cardiovascular auscultation of heart Overall: no murmurs 10/15/2015 None Full Exam - General 1994 Abdomen abdominal exam Contour: flat 10/15/2015 None Full Exam - General 1994 Abdomen abdominal exam Bowel sounds: a normal exam 10/15/2015 None Full Exam - General 1994 Abdomen abdominal exam Lower quadrant: non-tender to palpation 10/15/2015 None Full Exam - General 1994 Lymphatic neck nodes Overall: anterior cervical chain benign 10/15/2015 None Full Exam - General 1994 Lymphatic neck nodes Overall: posterior cervical chain benign 10/15/2015 None Full Exam - General 1994 Neurologic cranial nerves Overall: crainial nerves 2 - 12 grossly intact 10/15/2015 None Full Exam - General 1994 Psychiatric orientation/consciousness Overall: oriented to person, place and time 10/15/2015 None Full Exam - General 1994 Constitutional general appearance Development: well developed 10/03/2015 None Full Exam - General 1994 Constitutional general appearance Development: appears stated age 1110/03/2015 None Full Exam - General 1994 Constitutional general appearance Hygiene/Attention to Grooming: good hygiene 10/03/2015 None Full Exam - General 1994 Eyes conjunctiva /eyelids Overall: conjunctiva clear 10/03/2015 None Full Exam - General 1994 Eyes conjunctiva /eyelids Overall: cornea clear 10/03/2015 None Full Exam - General 1994 Eyes conjunctiva /eyelids Overall: eyelids normal 10/03/2015 None Full Exam - General 1994 Eyes pupils and irises Overall: pupils equal, round, reactive to light and accomodation 10/03/2015 None Full Exam - General 1994 Ears/Nose/Throat otoscopic exam Overall: external auditory canals clear 10/03/2015 None Full Exam - General 1994 Ears/Nose/Throat otoscopic exam Overall: tympanic membranes clear 10/03/2015 None Full Exam - General 1994 Ears/Nose/Throat lips/teeth/gingiva Overall: benign lips 10/03/2015 None Full Exam - General 1994 Ears/Nose/Throat lips/teeth/gingiva Overall: normal dentition 10/03/2015 None Full Exam - General 1994 Respiratory auscultation Overall: breath sounds clear bilaterally 10/03/2015 None Full Exam - General 1994 Respiratory respiratory effort/rhythm Overall: no retractions 10/03/2015 None Full Exam - General 1994 Respiratory respiratory effort/rhythm Overall: normal rate 10/03/2015 None Full Exam - General 1994 Cardiovascular extremities Overall: no clubbing 10/03/2015 None Full Exam - General 1994 Cardiovascular auscultation of heart Overall: regular rate 10/03/2015 None Full Exam - General 1994 Cardiovascular auscultation of heart Overall: normal heart sounds 10/03/2015 None Full Exam - General 1994 Abdomen abdominal exam Overall: no tenderness 10/03/2015 None Full Exam - General 1994 Abdomen abdominal exam Overall: normal bowel sounds 10/03/2015 None Full Exam - General 1994 Lymphatic neck nodes Overall: anterior cervical chain benign 10/03/2015 None Full Exam - General 1994 Lymphatic neck nodes Overall: posterior cervical chain benign 10/03/2015 None Full Exam - General 1994 Neurologic cranial nerves Overall: crainial nerves 2 - 12 grossly intact 10/03/2015 None Full Exam - General 1994 Psychiatric orientation/consciousness Overall: oriented to person, place and time 10/03/2015 None Full Exam - General 1994 Psychiatric mood and affect Overall: normal mood and affect 10/03/2015 None Full Exam - General 1994 Ears/Nose/Throat oral cavity/pharynx/larynx Oral mucosa: thrush 10/03/2015 None Full Exam - General 1994 Musculoskeletal spine, ribs and pelvis Overall: good posture 10/03/2015 Pt has back brace in place Full Exam - General 1994 Constitutional general appearance Development: well developed 09/13/2015 None Full Exam - General 1994 Constitutional general appearance Development: appears stated age 1109/13/2015 None Full Exam - General 1994 Constitutional general appearance Hygiene/Attention to Grooming: good hygiene 09/13/2015 None Full Exam - General 1994 Eyes conjunctiva /eyelids Overall: conjunctiva clear 09/13/2015 None Full Exam - General 1994 Eyes conjunctiva /eyelids Overall: cornea clear 09/13/2015 None Full Exam - General 1994 Eyes conjunctiva /eyelids Overall: eyelids normal 09/13/2015 None Full Exam - General 1994 Eyes pupils and irises Overall: pupils equal, round, reactive to light and accomodation 09/13/2015 None Full Exam - General 1994 Ears/Nose/Throat otoscopic exam Overall: external auditory canals clear 09/13/2015 None Full Exam - General 1994 Ears/Nose/Throat otoscopic exam Overall: tympanic membranes clear 09/13/2015 None Full Exam - General 1994 Ears/Nose/Throat lips/teeth/gingiva Overall: benign lips 09/13/2015 None Full Exam - General 1994 Ears/Nose/Throat lips/teeth/gingiva Overall: normal dentition 09/13/2015 None Full Exam - General 1994 Ears/Nose/Throat oral cavity/pharynx/larynx Overall: oral mucosa clear 09/13/2015 None Full Exam - General 1994 Ears/Nose/Throat oral cavity/pharynx/larynx Overall: oropharyngeal mucosa clear 09/13/2015 None Full Exam - General 1994 Ears/Nose/Throat oral cavity/pharynx/larynx Overall: hypopharynx benign 09/13/2015 None Full Exam - General 1994 Ears/Nose/Throat oral cavity/pharynx/larynx Overall: no masses 09/13/2015 None Full Exam - General 1994 Respiratory auscultation Overall: breath sounds clear bilaterally 09/13/2015 None Full Exam - General 1994 Respiratory respiratory effort/rhythm Overall: no retractions 09/13/2015 None Full Exam - General 1994 Respiratory respiratory effort/rhythm Overall: normal rate 09/13/2015 None Full Exam - General 1994 Cardiovascular extremities Overall: no clubbing 09/13/2015 None Full Exam - General 1994 Cardiovascular auscultation of heart Overall: regular rate 09/13/2015 None Full Exam - General 1994 Cardiovascular auscultation of heart Overall: normal heart sounds 09/13/2015 None Full Exam - General 1994 Abdomen abdominal exam Overall: no tenderness 09/13/2015 None Full Exam - General 1994 Abdomen abdominal exam Overall: normal bowel sounds 09/13/2015 None Full Exam - General 1994 Lymphatic neck nodes Overall: anterior cervical chain benign 09/13/2015 None Full Exam - General 1994 Lymphatic neck nodes Overall: posterior cervical chain benign 09/13/2015 None Full Exam - General 1994 Neurologic deep tendon reflexes Overall: deep tendon reflexes intact 09/13/2015 None Full Exam - General 1994 Neurologic cranial nerves Overall: crainial nerves 2 - 12 grossly intact 09/13/2015 None Full Exam - General 1994 Psychiatric orientation/consciousness Overall: oriented to person, place and time 09/13/2015 None Full Exam - General 1994 Psychiatric mood and affect Overall: normal mood and affect 09/13/2015 None Full Exam - General 1994 Constitutional general appearance Overall: well developed 09/07/2015 None Full Exam - General 1994 Constitutional general appearance Overall: in no acute distress 09/07/2015 None Full Exam - General 1994 Constitutional general appearance Overall: well nourished 09/07/2015 None Full Exam - General 1994 Eyes conjunctiva /eyelids Overall: conjunctiva clear 09/07/2015 None Full Exam - General 1994 Eyes conjunctiva /eyelids Overall: cornea clear 09/07/2015 None Full Exam - General 1994 Eyes conjunctiva /eyelids Overall: eyelids normal 09/07/2015 None Full Exam - General 1994 Eyes pupils and irises Overall: pupils equal, round, reactive to light and accomodation 09/07/2015 None Full Exam - General 1994 Ears/Nose/Throat otoscopic exam Overall: external auditory canals clear 09/07/2015 None Full Exam - General 1994 Ears/Nose/Throat otoscopic exam Overall: tympanic membranes clear 09/07/2015 None Full Exam - General 1994 Ears/Nose/Throat oral cavity/pharynx/larynx Overall: oral mucosa clear 09/07/2015 None Full Exam - General 1994 Ears/Nose/Throat oral cavity/pharynx/larynx Overall: oropharyngeal mucosa clear 09/07/2015 None Full Exam - General 1994 Ears/Nose/Throat oral cavity/pharynx/larynx Overall: no masses 09/07/2015 None Full Exam - General 1994 Respiratory auscultation Overall: breath sounds clear bilaterally 09/07/2015 None Full Exam - General 1994 Respiratory respiratory effort/rhythm Overall: no retractions 09/07/2015 None Full Exam - General 1994 Respiratory respiratory effort/rhythm Overall: normal rate 09/07/2015 None Full Exam - General 1994 Cardiovascular extremities Overall: no clubbing 09/07/2015 None Full Exam - General 1994 Cardiovascular auscultation of heart Overall: regular rate 09/07/2015 None Full Exam - General 1994 Cardiovascular auscultation of heart Overall: normal heart sounds 09/07/2015 None Full Exam - General 1994 Cardiovascular auscultation of heart Overall: no murmurs 09/07/2015 None Full Exam - General 1994 Abdomen abdominal exam Contour: flat 09/07/2015 None Full Exam - General 1994 Abdomen abdominal exam Bowel sounds: a normal exam 09/07/2015 None Full Exam - General 1994 Abdomen abdominal exam Lower quadrant: non-tender to palpation 09/07/2015 None Full Exam - General 1994 Lymphatic neck nodes Overall: anterior cervical chain benign 09/07/2015 None Full Exam - General 1994 Lymphatic neck nodes Overall: posterior cervical chain benign 09/07/2015 None Full Exam - General 1994 Neurologic cranial nerves Overall: crainial nerves 2 - 12 grossly intact 09/07/2015 None Full Exam - General 1994 Psychiatric orientation/consciousness Overall: oriented to person, place and time 09/07/2015 None Full Exam - General 1994 Constitutional general appearance Overall: well nourished 08/09/2015 None Full Exam - General 1994 Constitutional general appearance Overall: well developed 08/09/2015 None Full Exam - General 1994 Constitutional general appearance Overall: in no acute distress 08/09/2015 None Full Exam - General 1994 Psychiatric mood and affect Mood: happy 08/09/2015 None Full Exam - General 1994 Psychiatric mood and affect Overall: normal mood and affect 08/09/2015 None Full Exam - General 1994 Psychiatric orientation/consciousness Overall: oriented to person, place and time 08/09/2015 None Full Exam - General 1994 Integument inspection of skin Location: buttocks 08/09/2015 left buttock, round lesion with 5 vessiclar lesions and 1 pustule with induration and tenderness to touch Full Exam - General 1994 Cardiovascular auscultation of heart Overall: regular rate 08/09/2015 None Full Exam - General 1994 Cardiovascular auscultation of heart Overall: normal heart sounds 08/09/2015 None Full Exam - General 1994 Cardiovascular auscultation of heart Overall: no murmurs 08/09/2015 None Full Exam - General 1994 Cardiovascular extremities Overall: no clubbing 08/09/2015 None Full Exam - General 1994 Respiratory respiratory effort/rhythm Overall: normal rate 08/09/2015 None Full Exam - General 1994 Respiratory respiratory effort/rhythm Overall: no retractions 08/09/2015 None Full Exam - General 1994 Respiratory auscultation Overall: breath sounds clear bilaterally 08/09/2015 None Full Exam - General 1994 Constitutional general appearance Overall: well developed 07/31/2015 None Full Exam - General 1994 Constitutional general appearance Overall: in no acute distress 07/31/2015 None Full Exam - General 1994 Constitutional general appearance Overall: well nourished 07/31/2015 None Full Exam - General 1994 Eyes conjunctiva /eyelids Overall: conjunctiva clear 07/31/2015 None Full Exam - General 1994 Eyes conjunctiva /eyelids Overall: cornea clear 07/31/2015 None Full Exam - General 1994 Eyes conjunctiva /eyelids Overall: eyelids normal 07/31/2015 None Full Exam - General 1994 Eyes pupils and irises Overall: pupils equal, round, reactive to light and accomodation 07/31/2015 None Full Exam - General 1994 Ears/Nose/Throat otoscopic exam Overall: external auditory canals clear 07/31/2015 None Full Exam - General 1994 Ears/Nose/Throat otoscopic exam Overall: tympanic membranes clear 07/31/2015 None Full Exam - General 1994 Ears/Nose/Throat oral cavity/pharynx/larynx Overall: oral mucosa clear 07/31/2015 None Full Exam - General 1994 Ears/Nose/Throat oral cavity/pharynx/larynx Overall: oropharyngeal mucosa clear 07/31/2015 None Full Exam - General 1994 Ears/Nose/Throat oral cavity/pharynx/larynx Overall: no masses 07/31/2015 None Full Exam - General 1994 Respiratory auscultation Overall: breath sounds clear bilaterally 07/31/2015 None Full Exam - General 1994 Respiratory respiratory effort/rhythm Overall: no retractions 07/31/2015 None Full Exam - General 1994 Respiratory respiratory effort/rhythm Overall: normal rate 07/31/2015 None Full Exam - General 1994 Cardiovascular extremities Overall: no clubbing 07/31/2015 None Full Exam - General 1994 Cardiovascular auscultation of heart Overall: regular rate 07/31/2015 None Full Exam - General 1994 Cardiovascular auscultation of heart Overall: normal heart sounds 07/31/2015 None Full Exam - General 1994 Cardiovascular auscultation of heart Overall: no murmurs 07/31/2015 None Full Exam - General 1994 Abdomen abdominal exam Contour: flat 07/31/2015 None Full Exam - General 1994 Abdomen abdominal exam Bowel sounds: a normal exam 07/31/2015 None Full Exam - General 1994 Abdomen abdominal exam Lower quadrant: non-tender to palpation 07/31/2015 None Full Exam - General 1994 Lymphatic neck nodes Overall: anterior cervical chain benign 07/31/2015 None Full Exam - General 1994 Lymphatic neck nodes Overall: posterior cervical chain benign 07/31/2015 None Full Exam - General 1994 Neurologic cranial nerves Overall: crainial nerves 2 - 12 grossly intact 07/31/2015 None Full Exam - General 1994 Psychiatric orientation/consciousness Overall: oriented to person, place and time 07/31/2015 None Full Exam - General 1994 Constitutional general appearance Overall: well developed 07/06/2015 None Full Exam - General 1994 Constitutional general appearance Overall: in no acute distress 07/06/2015 None Full Exam - General 1994 Constitutional general appearance Overall: well nourished 07/06/2015 None Full Exam - General 1994 Eyes conjunctiva /eyelids Overall: conjunctiva clear 07/06/2015 None Full Exam - General 1994 Eyes conjunctiva /eyelids Overall: cornea clear 07/06/2015 None Full Exam - General 1994 Eyes conjunctiva /eyelids Overall: eyelids normal 07/06/2015 None Full Exam - General 1994 Eyes pupils and irises Overall: pupils equal, round, reactive to light and accomodation 07/06/2015 None Full Exam - General 1994 Ears/Nose/Throat otoscopic exam Overall: external auditory canals clear 07/06/2015 None Full Exam - General 1994 Ears/Nose/Throat otoscopic exam Overall: tympanic membranes clear 07/06/2015 None Full Exam - General 1994 Ears/Nose/Throat oral cavity/pharynx/larynx Overall: oral mucosa clear 07/06/2015 None Full Exam - General 1994 Ears/Nose/Throat oral cavity/pharynx/larynx Overall: oropharyngeal mucosa clear 07/06/2015 None Full Exam - General 1994 Ears/Nose/Throat oral cavity/pharynx/larynx Overall: no masses 07/06/2015 None Full Exam - General 1994 Respiratory auscultation Overall: breath sounds clear bilaterally 07/06/2015 None Full Exam - General 1994 Respiratory respiratory effort/rhythm Overall: no retractions 07/06/2015 None Full Exam - General 1994 Respiratory respiratory effort/rhythm Overall: normal rate 07/06/2015 None Full Exam - General 1994 Cardiovascular extremities Overall: no clubbing 07/06/2015 None Full Exam - General 1994 Cardiovascular auscultation of heart Overall: regular rate 07/06/2015 None Full Exam - General 1994 Cardiovascular auscultation of heart Overall: normal heart sounds 07/06/2015 None Full Exam - General 1994 Cardiovascular auscultation of heart Overall: no murmurs 07/06/2015 None Full Exam - General 1994 Abdomen abdominal exam Contour: flat 07/06/2015 None Full Exam - General 1994 Abdomen abdominal exam Bowel sounds: a normal exam 07/06/2015 None Full Exam - General 1994 Abdomen abdominal exam Lower quadrant: non-tender to palpation 07/06/2015 None Full Exam - General 1994 Lymphatic neck nodes Overall: anterior cervical chain benign 07/06/2015 None Full Exam - General 1994 Lymphatic neck nodes Overall: posterior cervical chain benign 07/06/2015 None Full Exam - General 1994 Neurologic cranial nerves Overall: crainial nerves 2 - 12 grossly intact 07/06/2015 None Full Exam - General 1994 Psychiatric orientation/consciousness Overall: oriented to person, place and time 07/06/2015 None Full Exam - General 1994 Constitutional general appearance Overall: well developed 06/15/2015 None Full Exam - General 1994 Constitutional general appearance Overall: in no acute distress 06/15/2015 None Full Exam - General 1994 Constitutional general appearance Overall: well nourished 06/15/2015 None Full Exam - General 1994 Eyes conjunctiva /eyelids Overall: conjunctiva clear 06/15/2015 None Full Exam - General 1994 Eyes conjunctiva /eyelids Overall: cornea clear 06/15/2015 None Full Exam - General 1994 Eyes conjunctiva /eyelids Overall: eyelids normal 06/15/2015 None Full Exam - General 1994 Eyes pupils and irises Overall: pupils equal, round, reactive to light and accomodation 06/15/2015 None Full Exam - General 1994 Ears/Nose/Throat otoscopic exam Overall: external auditory canals clear 06/15/2015 None Full Exam - General 1994 Ears/Nose/Throat otoscopic exam Overall: tympanic membranes clear 06/15/2015 None Full Exam - General 1994 Ears/Nose/Throat oral cavity/pharynx/larynx Overall: oral mucosa clear 06/15/2015 None Full Exam - General 1994 Ears/Nose/Throat oral cavity/pharynx/larynx Overall: oropharyngeal mucosa clear 06/15/2015 None Full Exam - General 1994 Ears/Nose/Throat oral cavity/pharynx/larynx Overall: no masses 06/15/2015 None Full Exam - General 1994 Respiratory auscultation Overall: breath sounds clear bilaterally 06/15/2015 None Full Exam - General 1994 Respiratory respiratory effort/rhythm Overall: no retractions 06/15/2015 None Full Exam - General 1994 Respiratory respiratory effort/rhythm Overall: normal rate 06/15/2015 None Full Exam - General 1994 Cardiovascular extremities Overall: no clubbing 06/15/2015 None Full Exam - General 1994 Cardiovascular auscultation of heart Overall: regular rate 06/15/2015 None Full Exam - General 1994 Cardiovascular auscultation of heart Overall: normal heart sounds 06/15/2015 None Full Exam - General 1994 Cardiovascular auscultation of heart Overall: no murmurs 06/15/2015 None Full Exam - General 1994 Abdomen abdominal exam Contour: flat 06/15/2015 None Full Exam - General 1994 Abdomen abdominal exam Bowel sounds: a normal exam 06/15/2015 None Full Exam - General 1994 Abdomen abdominal exam Lower quadrant: non-tender to palpation 06/15/2015 None Full Exam - General 1994 Lymphatic neck nodes Overall: anterior cervical chain benign 06/15/2015 None Full Exam - General 1994 Lymphatic neck nodes Overall: posterior cervical chain benign 06/15/2015 None Full Exam - General 1994 Neurologic cranial nerves Overall: crainial nerves 2 - 12 grossly intact 06/15/2015 None Full Exam - General 1994 Psychiatric orientation/consciousness Overall: oriented to person, place and time 06/15/2015 None Full Exam - General 1994 Constitutional general appearance Overall: well developed 05/01/2015 None Full Exam - General 1994 Constitutional general appearance Overall: in no acute distress 05/01/2015 None Full Exam - General 1994 Constitutional general appearance Overall: well nourished 05/01/2015 None Full Exam - General 1994 Eyes conjunctiva /eyelids Overall: conjunctiva clear 05/01/2015 None Full Exam - General 1994 Eyes conjunctiva /eyelids Overall: cornea clear 05/01/2015 None Full Exam - General 1994 Eyes conjunctiva /eyelids Overall: eyelids normal 05/01/2015 None Full Exam - General 1994 Eyes pupils and irises Overall: pupils equal, round, reactive to light and accomodation 05/01/2015 None Full Exam - General 1994 Ears/Nose/Throat otoscopic exam Overall: external auditory canals clear 05/01/2015 None Full Exam - General 1994 Ears/Nose/Throat otoscopic exam Overall: tympanic membranes clear 05/01/2015 None Full Exam - General 1994 Ears/Nose/Throat oral cavity/pharynx/larynx Overall: oral mucosa clear 05/01/2015 None Full Exam - General 1994 Ears/Nose/Throat oral cavity/pharynx/larynx Overall: oropharyngeal mucosa clear 05/01/2015 None Full Exam - General 1994 Ears/Nose/Throat oral cavity/pharynx/larynx Overall: no masses 05/01/2015 None Full Exam - General 1994 Respiratory auscultation Overall: breath sounds clear bilaterally 05/01/2015 None Full Exam - General 1994 Respiratory respiratory effort/rhythm Overall: no retractions 05/01/2015 None Full Exam - General 1994 Respiratory respiratory effort/rhythm Overall: normal rate 05/01/2015 None Full Exam - General 1994 Cardiovascular extremities Overall: no clubbing 05/01/2015 None Full Exam - General 1994 Cardiovascular auscultation of heart Overall: regular rate 05/01/2015 None Full Exam - General 1994 Cardiovascular auscultation of heart Overall: normal heart sounds 05/01/2015 None Full Exam - General 1994 Cardiovascular auscultation of heart Overall: no murmurs 05/01/2015 None Full Exam - General 1994 Abdomen abdominal exam Contour: flat 05/01/2015 None Full Exam - General 1994 Abdomen abdominal exam Bowel sounds: a normal exam 05/01/2015 None Full Exam - General 1994 Abdomen abdominal exam Lower quadrant: non-tender to palpation 05/01/2015 None Full Exam - General 1994 Lymphatic neck nodes Overall: anterior cervical chain benign 05/01/2015 None Full Exam - General 1994 Lymphatic neck nodes Overall: posterior cervical chain benign 05/01/2015 None Full Exam - General 1994 Neurologic cranial nerves Overall: crainial nerves 2 - 12 grossly intact 05/01/2015 None Full Exam - General 1994 Psychiatric orientation/consciousness Overall: oriented to person, place and time 05/01/2015 None Full Exam - ENT Constitutional general appearance Overall: well nourished 04/27/2015 None Full Exam - ENT Constitutional general appearance Overall: well developed 04/27/2015 None Full Exam - ENT Constitutional general appearance Overall: in no acute distress 04/27/2015 None Full Exam - ENT Ears/Nose/Throat otoscopic exam Overall: external auditory canals normal 04/27/2015 None Full Exam - ENT Ears/Nose/Throat otoscopic exam Overall: tympanic membranes normal 04/27/2015 None Full Exam - ENT Ears/Nose/Throat oropharynx Overall: oral mucosa clear 04/27/2015 None Full Exam - ENT Respiratory inspection Overall: no retractions 04/27/2015 None Full Exam - ENT Respiratory inspection Overall: normal rate None Full Exam - ENT Respiratory auscultation Overall: breath sounds clear bilaterally 04/27/2015 None Full Exam - ENT Cardiovascular auscultation of heart Overall: regular rate 04/27/2015 None Full Exam - ENT Cardiovascular auscultation of heart Overall: normal heart sounds 04/27/2015 None Full Exam - ENT Lymphatic palpation of lymph nodes Overall: anterior cervical chain benign 04/27/2015 None Full Exam - ENT Lymphatic palpation of lymph nodes Overall: posterior cervical chain benign 04/27/2015 None Full Exam - ENT Neurologic orientation Overall: oriented to person, place and time 04/27/2015 None Full Exam - ENT Constitutional general appearance Overall: well nourished 04/13/2015 None Full Exam - ENT Constitutional general appearance Overall: well developed 04/13/2015 None Full Exam - ENT Constitutional general appearance Overall: in no acute distress 04/13/2015 None Full Exam - ENT Neurologic orientation Overall: oriented to person, place and time 04/13/2015 None Full Exam - ENT Lymphatic palpation of lymph nodes Overall: anterior cervical chain benign 04/13/2015 None Full Exam - ENT Lymphatic palpation of lymph nodes Overall: posterior cervical chain benign 04/13/2015 None Full Exam - ENT Cardiovascular auscultation of heart Overall: regular rate 04/13/2015 None Full Exam - ENT Cardiovascular auscultation of heart Overall: normal heart sounds 04/13/2015 None Full Exam - ENT Respiratory inspection Overall: no retractions 04/13/2015 None Full Exam - ENT Respiratory inspection Overall: normal rate 03/2015 None Full Exam - ENT Respiratory auscultation Overall: breath sounds clear bilaterally 04/13/2015 None Full Exam - ENT Ears/Nose/Throat otoscopic exam Overall: external auditory canals normal 04/13/2015 None Full Exam - ENT Ears/Nose/Throat otoscopic exam Overall: tympanic membranes normal 04/13/2015 None Full Exam - ENT Ears/Nose/Throat oropharynx Overall: oral mucosa clear 04/13/2015 None Full Exam - General 1994 Constitutional general appearance Overall: well developed 02/23/2015 None Full Exam - General 1994 Constitutional general appearance Overall: in no acute distress 02/23/2015 None Full Exam - General 1994 Constitutional general appearance Overall: well nourished 02/23/2015 None Full Exam - General 1994 Eyes conjunctiva /eyelids Overall: conjunctiva clear 02/23/2015 None Full Exam - General 1994 Eyes conjunctiva /eyelids Overall: cornea clear 02/23/2015 None Full Exam - General 1994 Eyes conjunctiva /eyelids Overall: eyelids normal 02/23/2015 None Full Exam - General 1994 Eyes pupils and irises Overall: pupils equal, round, reactive to light and accomodation 02/23/2015 None Full Exam - General 1994 Ears/Nose/Throat otoscopic exam Overall: external auditory canals clear 02/23/2015 None Full Exam - General 1994 Ears/Nose/Throat otoscopic exam Overall: tympanic membranes clear 02/23/2015 None Full Exam - General 1994 Ears/Nose/Throat oral cavity/pharynx/larynx Overall: oral mucosa clear 02/23/2015 None Full Exam - General 1994 Ears/Nose/Throat oral cavity/pharynx/larynx Overall: oropharyngeal mucosa clear 02/23/2015 None Full Exam - General 1994 Ears/Nose/Throat oral cavity/pharynx/larynx Overall: no masses 02/23/2015 None Full Exam - General 1994 Respiratory auscultation Overall: breath sounds clear bilaterally 02/23/2015 None Full Exam - General 1994 Respiratory respiratory effort/rhythm Overall: no retractions 02/23/2015 None Full Exam - General 1994 Respiratory respiratory effort/rhythm Overall: normal rate 02/23/2015 None Full Exam - General 1994 Cardiovascular extremities Overall: no clubbing 02/23/2015 None Full Exam - General 1994 Cardiovascular auscultation of heart Overall: regular rate 02/23/2015 None Full Exam - General 1994 Cardiovascular auscultation of heart Overall: normal heart sounds 02/23/2015 None Full Exam - General 1994 Cardiovascular auscultation of heart Overall: no murmurs 02/23/2015 None Full Exam - General 1994 Abdomen abdominal exam Contour: flat 02/23/2015 None Full Exam - General 1994 Abdomen abdominal exam Bowel sounds: a normal exam 02/23/2015 None Full Exam - General 1994 Abdomen abdominal exam Lower quadrant: non-tender to palpation 02/23/2015 None Full Exam - General 1994 Lymphatic neck nodes Overall: anterior cervical chain benign 02/23/2015 None Full Exam - General 1994 Lymphatic neck nodes Overall: posterior cervical chain benign 02/23/2015 None Full Exam - General 1994 Neurologic cranial nerves Overall: crainial nerves 2 - 12 grossly intact 02/23/2015 None Full Exam - General 1994 Psychiatric orientation/consciousness Overall: oriented to person, place and time 02/23/2015 None Full Exam - General 1994 Constitutional general appearance Overall: well developed 01/26/2015 None Full Exam - General 1994 Constitutional general appearance Overall: in no acute distress 01/26/2015 None Full Exam - General 1994 Constitutional general appearance Overall: well nourished 01/26/2015 None Full Exam - General 1994 Eyes conjunctiva /eyelids Overall: conjunctiva clear 01/26/2015 None Full Exam - General 1994 Eyes conjunctiva /eyelids Overall: cornea clear 01/26/2015 None Full Exam - General 1994 Eyes conjunctiva /eyelids Overall: eyelids normal 01/26/2015 None Full Exam - General 1994 Eyes pupils and irises Overall: pupils equal, round, reactive to light and accomodation 01/26/2015 None Full Exam - General 1994 Ears/Nose/Throat otoscopic exam Overall: external auditory canals clear 01/26/2015 None Full Exam - General 1994 Ears/Nose/Throat otoscopic exam Overall: tympanic membranes clear 01/26/2015 None Full Exam - General 1994 Ears/Nose/Throat oral cavity/pharynx/larynx Overall: oral mucosa clear 01/26/2015 None Full Exam - General 1994 Ears/Nose/Throat oral cavity/pharynx/larynx Overall: oropharyngeal mucosa clear 01/26/2015 None Full Exam - General 1994 Ears/Nose/Throat oral cavity/pharynx/larynx Overall: no masses 01/26/2015 None Full Exam - General 1994 Respiratory auscultation Overall: breath sounds clear bilaterally 01/26/2015 None Full Exam - General 1994 Respiratory respiratory effort/rhythm Overall: no retractions 01/26/2015 None Full Exam - General 1994 Respiratory respiratory effort/rhythm Overall: normal rate 01/26/2015 None Full Exam - General 1994 Cardiovascular extremities Overall: no clubbing 01/26/2015 None Full Exam - General 1994 Cardiovascular auscultation of heart Overall: regular rate 01/26/2015 None Full Exam - General 1994 Cardiovascular auscultation of heart Overall: normal heart sounds 01/26/2015 None Full Exam - General 1994 Cardiovascular auscultation of heart Overall: no murmurs 01/26/2015 None Full Exam - General 1994 Abdomen abdominal exam Contour: flat 01/26/2015 None Full Exam - General 1994 Abdomen abdominal exam Bowel sounds: a normal exam 01/26/2015 None Full Exam - General 1994 Abdomen abdominal exam Upper quadrant: tender to palpation 01/26/2015 None Full Exam - General 1994 Abdomen abdominal exam Lower quadrant: non-tender to palpation 01/26/2015 None Full Exam - General 1994 Lymphatic neck nodes Overall: anterior cervical chain benign 01/26/2015 None Full Exam - General 1994 Lymphatic neck nodes Overall: posterior cervical chain benign 01/26/2015 None Full Exam - General 1994 Neurologic cranial nerves Overall: crainial nerves 2 - 12 grossly intact 01/26/2015 None Full Exam - General 1994 Psychiatric orientation/consciousness Overall: oriented to person, place and time 01/26/2015 None Full Exam - General 1994 Constitutional general appearance Overall: well developed 12/22/2014 None Full Exam - General 1994 Constitutional general appearance Overall: in no acute distress 12/22/2014 None Full Exam - General 1994 Constitutional general appearance Overall: well nourished 12/22/2014 None Full Exam - General 1994 Eyes conjunctiva /eyelids Overall: conjunctiva clear 12/22/2014 None Full Exam - General 1994 Eyes conjunctiva /eyelids Overall: cornea clear 12/22/2014 None Full Exam - General 1994 Eyes conjunctiva /eyelids Overall: eyelids normal 12/22/2014 None Full Exam - General 1994 Eyes pupils and irises Overall: pupils equal, round, reactive to light and accomodation 12/22/2014 None Full Exam - General 1994 Ears/Nose/Throat otoscopic exam Overall: external auditory canals clear 12/22/2014 None Full Exam - General 1994 Ears/Nose/Throat otoscopic exam Overall: tympanic membranes clear 12/22/2014 None Full Exam - General 1994 Ears/Nose/Throat oral cavity/pharynx/larynx Overall: oral mucosa clear 12/22/2014 None Full Exam - General 1994 Ears/Nose/Throat oral cavity/pharynx/larynx Overall: oropharyngeal mucosa clear 12/22/2014 None Full Exam - General 1994 Ears/Nose/Throat oral cavity/pharynx/larynx Overall: no masses 12/22/2014 None Full Exam - General 1994 Respiratory auscultation Overall: breath sounds clear bilaterally 12/22/2014 None Full Exam - General 1994 Respiratory respiratory effort/rhythm Overall: no retractions 12/22/2014 None Full Exam - General 1994 Respiratory respiratory effort/rhythm Overall: normal rate 12/22/2014 None Full Exam - General 1994 Cardiovascular extremities Overall: no clubbing 12/22/2014 None Full Exam - General 1994 Cardiovascular auscultation of heart Overall: regular rate 12/22/2014 None Full Exam - General 1994 Cardiovascular auscultation of heart Overall: normal heart sounds 12/22/2014 None Full Exam - General 1994 Cardiovascular auscultation of heart Overall: no murmurs 12/22/2014 None Full Exam - General 1994 Abdomen abdominal exam Contour: flat 12/22/2014 None Full Exam - General 1994 Abdomen abdominal exam Bowel sounds: a normal exam 12/22/2014 None Full Exam - General 1994 Abdomen abdominal exam Upper quadrant: tender to palpation 12/22/2014 None Full Exam - General 1994 Abdomen abdominal exam Lower quadrant: non-tender to palpation 12/22/2014 None Full Exam - General 1994 Lymphatic neck nodes Overall: anterior cervical chain benign 12/22/2014 None Full Exam - General 1994 Lymphatic neck nodes Overall: posterior cervical chain benign 12/22/2014 None Full Exam - General 1994 Neurologic cranial nerves Overall: crainial nerves 2 - 12 grossly intact 12/22/2014 None Full Exam - General 1994 Psychiatric orientation/consciousness Overall: oriented to person, place and time 12/22/2014 None Full Exam - General 1994 Constitutional general appearance Overall: well developed 11/16/2014 None Full Exam - General 1994 Constitutional general appearance Overall: in no acute distress 11/16/2014 None Full Exam - General 1994 Constitutional general appearance Overall: well nourished 11/16/2014 None Full Exam - General 1994 Eyes conjunctiva /eyelids Overall: conjunctiva clear 11/16/2014 None Full Exam - General 1994 Eyes conjunctiva /eyelids Overall: cornea clear 11/16/2014 None Full Exam - General 1994 Eyes conjunctiva /eyelids Overall: eyelids normal 11/16/2014 None Full Exam - General 1994 Eyes pupils and irises Overall: pupils equal, round, reactive to light and accomodation 11/16/2014 None Full Exam - General 1994 Ears/Nose/Throat otoscopic exam Overall: external auditory canals clear 11/16/2014 None Full Exam - General 1994 Ears/Nose/Throat otoscopic exam Overall: tympanic membranes clear 11/16/2014 None Full Exam - General 1994 Ears/Nose/Throat oral cavity/pharynx/larynx Overall: oral mucosa clear 11/16/2014 None Full Exam - General 1994 Ears/Nose/Throat oral cavity/pharynx/larynx Overall: oropharyngeal mucosa clear 11/16/2014 None Full Exam - General 1994 Ears/Nose/Throat oral cavity/pharynx/larynx Overall: no masses 11/16/2014 None Full Exam - General 1994 Respiratory auscultation Overall: breath sounds clear bilaterally 11/16/2014 None Full Exam - General 1994 Respiratory respiratory effort/rhythm Overall: no retractions 11/16/2014 None Full Exam - General 1994 Respiratory respiratory effort/rhythm Overall: normal rate 11/16/2014 None Full Exam - General 1994 Cardiovascular extremities Overall: no clubbing 11/16/2014 None Full Exam - General 1994 Cardiovascular auscultation of heart Overall: regular rate 11/16/2014 None Full Exam - General 1994 Cardiovascular auscultation of heart Overall: normal heart sounds 11/16/2014 None Full Exam - General 1994 Cardiovascular auscultation of heart Overall: no murmurs 11/16/2014 None Full Exam - General 1994 Abdomen abdominal exam Contour: flat 11/16/2014 None Full Exam - General 1994 Abdomen abdominal exam Bowel sounds: a normal exam 11/16/2014 None Full Exam - General 1994 Abdomen abdominal exam Upper quadrant: tender to palpation 11/16/2014 None Full Exam - General 1994 Abdomen abdominal exam Lower quadrant: non-tender to palpation 11/16/2014 None Full Exam - General 1994 Lymphatic neck nodes Overall: anterior cervical chain benign 11/16/2014 None Full Exam - General 1994 Lymphatic neck nodes Overall: posterior cervical chain benign 11/16/2014 None Full Exam - General 1994 Neurologic cranial nerves Overall: crainial nerves 2 - 12 grossly intact 11/16/2014 None Full Exam - General 1994 Psychiatric orientation/consciousness Overall: oriented to person, place and time 11/16/2014 None Full Exam - General 1994 Constitutional general appearance Overall: well developed 10/16/2014 None Full Exam - General 1994 Constitutional general appearance Overall: in no acute distress 10/16/2014 None Full Exam - General 1994 Constitutional general appearance Overall: well nourished 10/16/2014 None Full Exam - General 1994 Eyes conjunctiva /eyelids Overall: conjunctiva clear 10/16/2014 None Full Exam - General 1994 Eyes conjunctiva /eyelids Overall: cornea clear 10/16/2014 None Full Exam - General 1994 Eyes conjunctiva /eyelids Overall: eyelids normal 10/16/2014 None Full Exam - General 1994 Eyes pupils and irises Overall: pupils equal, round, reactive to light and accomodation 10/16/2014 None Full Exam - General 1994 Ears/Nose/Throat otoscopic exam Overall: external auditory canals clear 10/16/2014 None Full Exam - General 1994 Ears/Nose/Throat otoscopic exam Overall: tympanic membranes clear 10/16/2014 None Full Exam - General 1994 Ears/Nose/Throat oral cavity/pharynx/larynx Overall: oral mucosa clear 10/16/2014 None Full Exam - General 1994 Ears/Nose/Throat oral cavity/pharynx/larynx Overall: oropharyngeal mucosa clear 10/16/2014 None Full Exam - General 1994 Ears/Nose/Throat oral cavity/pharynx/larynx Overall: no masses 10/16/2014 None Full Exam - General 1994 Respiratory auscultation Upper lung field: a normal exam 10/16/2014 None Full Exam - General 1994 Respiratory auscultation Lower lung field: diminished 10/16/2014 None Full Exam - General 1994 Respiratory auscultation Lower lung field: rhonchi 10/16/2014 None Full Exam - General 1994 Respiratory respiratory effort/rhythm Overall: no retractions 10/16/2014 None Full Exam - General 1994 Respiratory respiratory effort/rhythm Overall: normal rate 10/16/2014 None Full Exam - General 1994 Cardiovascular extremities Overall: no clubbing 10/16/2014 None Full Exam - General 1994 Cardiovascular auscultation of heart Overall: regular rate 10/16/2014 None Full Exam - General 1994 Cardiovascular auscultation of heart Overall: normal heart sounds 10/16/2014 None Full Exam - General 1994 Cardiovascular auscultation of heart Overall: no murmurs 10/16/2014 None Full Exam - General 1994 Abdomen abdominal exam Contour: flat 10/16/2014 None Full Exam - General 1994 Abdomen abdominal exam Bowel sounds: a normal exam 10/16/2014 None Full Exam - General 1994 Abdomen abdominal exam Upper quadrant: tender to palpation 10/16/2014 None Full Exam - General 1994 Abdomen abdominal exam Lower quadrant: non-tender to palpation 10/16/2014 None Full Exam - General 1994 Abdomen rectal exam Palpation: tenderness 10/16/2014 from 5 to 8 oclock position, fullness from 6 to 8 oclock. Full Exam - General 1994 Lymphatic neck nodes Overall: anterior cervical chain benign 10/16/2014 None Full Exam - General 1994 Lymphatic neck nodes Overall: posterior cervical chain benign 10/16/2014 None Full Exam - General 1994 Neurologic cranial nerves Overall: crainial nerves 2 - 12 grossly intact 10/16/2014 None Full Exam - General 1994 Psychiatric orientation/consciousness Overall: oriented to person, place and time 10/16/2014 None Full Exam - General 1994 Constitutional general appearance Overall: well developed 09/29/2014 None Full Exam - General 1994 Constitutional general appearance Overall: in no acute distress 09/29/2014 None Full Exam - General 1994 Constitutional general appearance Overall: well nourished 09/29/2014 None Full Exam - General 1994 Eyes conjunctiva /eyelids Overall: conjunctiva clear 09/29/2014 None Full Exam - General 1994 Eyes conjunctiva /eyelids Overall: cornea clear 09/29/2014 None Full Exam - General 1994 Eyes conjunctiva /eyelids Overall: eyelids normal 09/29/2014 None Full Exam - General 1994 Eyes pupils and irises Overall: pupils equal, round, reactive to light and accomodation 09/29/2014 None Full Exam - General 1994 Ears/Nose/Throat otoscopic exam Overall: external auditory canals clear 09/29/2014 None Full Exam - General 1994 Ears/Nose/Throat otoscopic exam Overall: tympanic membranes clear 09/29/2014 None Full Exam - General 1994 Ears/Nose/Throat oral cavity/pharynx/larynx Overall: oral mucosa clear 09/29/2014 None Full Exam - General 1994 Ears/Nose/Throat oral cavity/pharynx/larynx Overall: oropharyngeal mucosa clear 09/29/2014 None Full Exam - General 1994 Ears/Nose/Throat oral cavity/pharynx/larynx Overall: no masses 09/29/2014 None Full Exam - General 1994 Respiratory auscultation Upper lung field: a normal exam 09/29/2014 None Full Exam - General 1994 Respiratory auscultation Lower lung field: diminished 09/29/2014 None Full Exam - General 1994 Respiratory auscultation Lower lung field: rhonchi 09/29/2014 None Full Exam - General 1994 Respiratory respiratory effort/rhythm Overall: no retractions 09/29/2014 None Full Exam - General 1994 Respiratory respiratory effort/rhythm Overall: normal rate 09/29/2014 None Full Exam - General 1994 Cardiovascular extremities Overall: no clubbing 09/29/2014 None Full Exam - General 1994 Cardiovascular auscultation of heart Overall: regular rate 09/29/2014 None Full Exam - General 1994 Cardiovascular auscultation of heart Overall: normal heart sounds 09/29/2014 None Full Exam - General 1994 Cardiovascular auscultation of heart Overall: no murmurs 09/29/2014 None Full Exam - General 1994 Abdomen abdominal exam Contour: flat 09/29/2014 None Full Exam - General 1994 Abdomen abdominal exam Bowel sounds: a normal exam 09/29/2014 None Full Exam - General 1994 Abdomen abdominal exam Upper quadrant: tender to palpation 09/29/2014 None Full Exam - General 1994 Abdomen abdominal exam Lower quadrant: non-tender to palpation 09/29/2014 None Full Exam - General 1994 Abdomen rectal exam Palpation: tenderness 09/29/2014 from 5 to 8 oclock position, fullness from 6 to 8 oclock. Full Exam - General 1994 Lymphatic neck nodes Overall: anterior cervical chain benign 09/29/2014 None Full Exam - General 1994 Lymphatic neck nodes Overall: posterior cervical chain benign 09/29/2014 None Full Exam - General 1994 Neurologic cranial nerves Overall: crainial nerves 2 - 12 grossly intact 09/29/2014 None Full Exam - General 1994 Psychiatric orientation/consciousness Overall: oriented to person, place and time 09/29/2014 None Full Exam - General 1994 Constitutional general appearance Overall: well developed 09/08/2014 None Full Exam - General 1994 Constitutional general appearance Overall: in no acute distress 09/08/2014 None Full Exam - General 1994 Constitutional general appearance Overall: well nourished 09/08/2014 None Full Exam - General 1994 Eyes conjunctiva /eyelids Overall: conjunctiva clear 09/08/2014 None Full Exam - General 1994 Eyes conjunctiva /eyelids Overall: cornea clear 09/08/2014 None Full Exam - General 1994 Eyes conjunctiva /eyelids Overall: eyelids normal 09/08/2014 None Full Exam - General 1994 Eyes pupils and irises Overall: pupils equal, round, reactive to light and accomodation 09/08/2014 None Full Exam - General 1994 Ears/Nose/Throat otoscopic exam Overall: external auditory canals clear 09/08/2014 None Full Exam - General 1994 Ears/Nose/Throat otoscopic exam Overall: tympanic membranes clear 09/08/2014 None Full Exam - General 1994 Ears/Nose/Throat oral cavity/pharynx/larynx Overall: oral mucosa clear 09/08/2014 None Full Exam - General 1994 Ears/Nose/Throat oral cavity/pharynx/larynx Overall: oropharyngeal mucosa clear 09/08/2014 None Full Exam - General 1994 Ears/Nose/Throat oral cavity/pharynx/larynx Overall: no masses 09/08/2014 None Full Exam - General 1994 Respiratory respiratory effort/rhythm Overall: no retractions 09/08/2014 None Full Exam - General 1994 Respiratory respiratory effort/rhythm Overall: normal rate 09/08/2014 None Full Exam - General 1994 Cardiovascular extremities Overall: no clubbing 09/08/2014 None Full Exam - General 1994 Cardiovascular auscultation of heart Overall: regular rate 09/08/2014 None Full Exam - General 1994 Cardiovascular auscultation of heart Overall: normal heart sounds 09/08/2014 None Full Exam - General 1994 Cardiovascular auscultation of heart Overall: no murmurs 09/08/2014 None Full Exam - General 1994 Abdomen abdominal exam Contour: flat 09/08/2014 None Full Exam - General 1994 Abdomen abdominal exam Bowel sounds: a normal exam 09/08/2014 None Full Exam - General 1994 Abdomen abdominal exam Upper quadrant: tender to palpation 09/08/2014 None Full Exam - General 1994 Abdomen abdominal exam Lower quadrant: non-tender to palpation 09/08/2014 None Full Exam - General 1994 Abdomen rectal exam Palpation: tenderness 09/08/2014 from 5 to 8 oclock position, fullness from 6 to 8 oclock. Full Exam - General 1994 Lymphatic neck nodes Overall: anterior cervical chain benign 09/08/2014 None Full Exam - General 1994 Lymphatic neck nodes Overall: posterior cervical chain benign 09/08/2014 None Full Exam - General 1994 Neurologic cranial nerves Overall: crainial nerves 2 - 12 grossly intact 09/08/2014 None Full Exam - General 1994 Psychiatric orientation/consciousness Overall: oriented to person, place and time 09/08/2014 None Full Exam - General 1994 Respiratory auscultation Upper lung field: a normal exam 09/08/2014 None Full Exam - General 1994 Respiratory auscultation Lower lung field: diminished 09/08/2014 None Full Exam - General 1994 Respiratory auscultation Lower lung field: rhonchi 09/08/2014 None Full Exam - General 1994 Constitutional general appearance Overall: well developed 08/28/2014 None Full Exam - General 1994 Constitutional general appearance Overall: in no acute distress 08/28/2014 None Full Exam - General 1994 Constitutional general appearance Overall: well nourished 08/28/2014 None Full Exam - General 1994 Eyes conjunctiva /eyelids Overall: conjunctiva clear 08/28/2014 None Full Exam - General 1994 Eyes conjunctiva /eyelids Overall: cornea clear 08/28/2014 None Full Exam - General 1994 Eyes conjunctiva /eyelids Overall: eyelids normal 08/28/2014 None Full Exam - General 1994 Eyes pupils and irises Overall: pupils equal, round, reactive to light and accomodation 08/28/2014 None Full Exam - General 1994 Ears/Nose/Throat otoscopic exam Overall: external auditory canals clear 08/28/2014 None Full Exam - General 1994 Ears/Nose/Throat otoscopic exam Overall: tympanic membranes clear 08/28/2014 None Full Exam - General 1994 Ears/Nose/Throat oral cavity/pharynx/larynx Overall: oral mucosa clear 08/28/2014 None Full Exam - General 1994 Ears/Nose/Throat oral cavity/pharynx/larynx Overall: oropharyngeal mucosa clear 08/28/2014 None Full Exam - General 1994 Ears/Nose/Throat oral cavity/pharynx/larynx Overall: no masses 08/28/2014 None Full Exam - General 1994 Respiratory auscultation Overall: breath sounds clear bilaterally 08/28/2014 None Full Exam - General 1994 Respiratory respiratory effort/rhythm Overall: no retractions 08/28/2014 None Full Exam - General 1994 Respiratory respiratory effort/rhythm Overall: normal rate 08/28/2014 None Full Exam - General 1994 Cardiovascular extremities Overall: no clubbing 08/28/2014 None Full Exam - General 1994 Cardiovascular auscultation of heart Overall: regular rate 08/28/2014 None Full Exam - General 1994 Cardiovascular auscultation of heart Overall: normal heart sounds 08/28/2014 None Full Exam - General 1994 Cardiovascular auscultation of heart Overall: no murmurs 08/28/2014 None Full Exam - General 1994 Abdomen abdominal exam Contour: flat 08/28/2014 None Full Exam - General 1994 Abdomen abdominal exam Bowel sounds: a normal exam 08/28/2014 None Full Exam - General 1994 Abdomen abdominal exam Upper quadrant: tender to palpation 08/28/2014 None Full Exam - General 1994 Abdomen abdominal exam Lower quadrant: non-tender to palpation 08/28/2014 None Full Exam - General 1994 Abdomen rectal exam Palpation: tenderness 08/28/2014 from 5 to 8 oclock position, fullness from 6 to 8 oclock. Full Exam - General 1994 Lymphatic neck nodes Overall: anterior cervical chain benign 08/28/2014 None Full Exam - General 1994 Lymphatic neck nodes Overall: posterior cervical chain benign 08/28/2014 None Full Exam - General 1994 Neurologic cranial nerves Overall: crainial nerves 2 - 12 grossly intact 08/28/2014 None Full Exam - General 1994 Psychiatric orientation/consciousness Overall: oriented to person, place and time 08/28/2014 None Full Exam - General 1994 Constitutional general appearance Overall: well developed 08/16/2014 None Full Exam - General 1994 Constitutional general appearance Overall: in no acute distress 08/16/2014 None Full Exam - General 1994 Constitutional general appearance Overall: well nourished 08/16/2014 None Full Exam - General 1994 Eyes conjunctiva /eyelids Overall: conjunctiva clear 08/16/2014 None Full Exam - General 1994 Eyes conjunctiva /eyelids Overall: cornea clear 08/16/2014 None Full Exam - General 1994 Eyes conjunctiva /eyelids Overall: eyelids normal 08/16/2014 None Full Exam - General 1994 Eyes pupils and irises Overall: pupils equal, round, reactive to light and accomodation 08/16/2014 None Full Exam - General 1994 Ears/Nose/Throat otoscopic exam Overall: external auditory canals clear 08/16/2014 None Full Exam - General 1994 Ears/Nose/Throat otoscopic exam Overall: tympanic membranes clear 08/16/2014 None Full Exam - General 1994 Ears/Nose/Throat oral cavity/pharynx/larynx Overall: oral mucosa clear 08/16/2014 None Full Exam - General 1994 Ears/Nose/Throat oral cavity/pharynx/larynx Overall: oropharyngeal mucosa clear 08/16/2014 None Full Exam - General 1994 Ears/Nose/Throat oral cavity/pharynx/larynx Overall: no masses 08/16/2014 None Full Exam - General 1994 Respiratory auscultation Overall: breath sounds clear bilaterally 08/16/2014 None Full Exam - General 1994 Respiratory respiratory effort/rhythm Overall: no retractions 08/16/2014 None Full Exam - General 1994 Respiratory respiratory effort/rhythm Overall: normal rate 08/16/2014 None Full Exam - General 1994 Cardiovascular extremities Overall: no clubbing 08/16/2014 None Full Exam - General 1994 Cardiovascular auscultation of heart Overall: regular rate 08/16/2014 None Full Exam - General 1994 Cardiovascular auscultation of heart Overall: normal heart sounds 08/16/2014 None Full Exam - General 1994 Cardiovascular auscultation of heart Overall: no murmurs 08/16/2014 None Full Exam - General 1994 Abdomen abdominal exam Contour: flat 08/16/2014 None Full Exam - General 1994 Abdomen abdominal exam Bowel sounds: a normal exam 08/16/2014 None Full Exam - General 1994 Abdomen abdominal exam Upper quadrant: tender to palpation 08/16/2014 None Full Exam - General 1994 Abdomen abdominal exam Lower quadrant: non-tender to palpation 08/16/2014 None Full Exam - General 1994 Abdomen rectal exam Palpation: tenderness 08/16/2014 from 5 to 8 oclock position, fullness from 6 to 8 oclock. Full Exam - General 1994 Lymphatic neck nodes Overall: anterior cervical chain benign 08/16/2014 None Full Exam - General 1994 Lymphatic neck nodes Overall: posterior cervical chain benign 08/16/2014 None Full Exam - General 1994 Neurologic cranial nerves Overall: crainial nerves 2 - 12 grossly intact 08/16/2014 None Full Exam - General 1994 Psychiatric orientation/consciousness Overall: oriented to person, place and time 08/16/2014 None Full Exam - General 1994 Constitutional general appearance Overall: well developed 07/21/2014 None Full Exam - General 1994 Constitutional general appearance Overall: in no acute distress 07/21/2014 None Full Exam - General 1994 Constitutional general appearance Overall: well nourished 07/21/2014 None Full Exam - General 1994 Eyes conjunctiva /eyelids Overall: conjunctiva clear 07/21/2014 None Full Exam - General 1994 Eyes conjunctiva /eyelids Overall: cornea clear 07/21/2014 None Full Exam - General 1994 Eyes conjunctiva /eyelids Overall: eyelids normal 07/21/2014 None Full Exam - General 1994 Eyes pupils and irises Overall: pupils equal, round, reactive to light and accomodation 07/21/2014 None Full Exam - General 1994 Respiratory auscultation Overall: breath sounds clear bilaterally 07/21/2014 None Full Exam - General 1994 Respiratory respiratory effort/rhythm Overall: no retractions 07/21/2014 None Full Exam - General 1994 Respiratory respiratory effort/rhythm Overall: normal rate 07/21/2014 None Full Exam - General 1994 Cardiovascular extremities Overall: no clubbing 07/21/2014 None Full Exam - General 1994 Cardiovascular auscultation of heart Overall: regular rate 07/21/2014 None Full Exam - General 1994 Cardiovascular auscultation of heart Overall: normal heart sounds 07/21/2014 None Full Exam - General 1994 Cardiovascular auscultation of heart Overall: no murmurs 07/21/2014 None Full Exam - General 1994 Abdomen abdominal exam Contour: flat 07/21/2014 None Full Exam - General 1994 Abdomen abdominal exam Bowel sounds: a normal exam 07/21/2014 None Full Exam - General 1994 Abdomen abdominal exam Upper quadrant: tender to palpation 07/21/2014 None Full Exam - General 1994 Abdomen abdominal exam Lower quadrant: non-tender to palpation 07/21/2014 None Full Exam - General 1994 Lymphatic neck nodes Overall: anterior cervical chain benign 07/21/2014 None Full Exam - General 1994 Lymphatic neck nodes Overall: posterior cervical chain benign 07/21/2014 None Full Exam - General 1994 Neurologic cranial nerves Overall: crainial nerves 2 - 12 grossly intact 07/21/2014 None Full Exam - General 1994 Psychiatric orientation/consciousness Overall: oriented to person, place and time 07/21/2014 None Full Exam - General 1994 Integument inspection of skin Pigmentation: erythematous 07/21/2014 macerated, tender area 12 o'clock postion rectum Full Exam - General 1994 Constitutional general appearance Overall: well developed 06/30/2014 None Full Exam - General 1994 Constitutional general appearance Overall: in no acute distress 06/30/2014 None Full Exam - General 1994 Constitutional general appearance Overall: well nourished 06/30/2014 None Full Exam - General 1994 Eyes conjunctiva /eyelids Overall: conjunctiva clear 06/30/2014 None Full Exam - General 1994 Eyes conjunctiva /eyelids Overall: cornea clear 06/30/2014 None Full Exam - General 1994 Eyes conjunctiva /eyelids Overall: eyelids normal 06/30/2014 None Full Exam - General 1994 Eyes pupils and irises Overall: pupils equal, round, reactive to light and accomodation 06/30/2014 None Full Exam - General 1994 Ears/Nose/Throat otoscopic exam Overall: external auditory canals clear 06/30/2014 None Full Exam - General 1994 Ears/Nose/Throat otoscopic exam Overall: tympanic membranes clear 06/30/2014 None Full Exam - General 1994 Ears/Nose/Throat oral cavity/pharynx/larynx Overall: oral mucosa clear 06/30/2014 None Full Exam - General 1994 Ears/Nose/Throat oral cavity/pharynx/larynx Overall: oropharyngeal mucosa clear 06/30/2014 None Full Exam - General 1994 Ears/Nose/Throat oral cavity/pharynx/larynx Overall: no masses 06/30/2014 None Full Exam - General 1994 Respiratory auscultation Overall: breath sounds clear bilaterally 06/30/2014 None Full Exam - General 1994 Respiratory respiratory effort/rhythm Overall: no retractions 06/30/2014 None Full Exam - General 1994 Respiratory respiratory effort/rhythm Overall: normal rate 06/30/2014 None Full Exam - General 1994 Cardiovascular extremities Overall: no clubbing 06/30/2014 None Full Exam - General 1994 Cardiovascular auscultation of heart Overall: regular rate 06/30/2014 None Full Exam - General 1994 Cardiovascular auscultation of heart Overall: normal heart sounds 06/30/2014 None Full Exam - General 1994 Cardiovascular auscultation of heart Overall: no murmurs 06/30/2014 None Full Exam - General 1994 Abdomen abdominal exam Contour: flat 06/30/2014 None Full Exam - General 1994 Abdomen abdominal exam Bowel sounds: a normal exam 06/30/2014 None Full Exam - General 1994 Abdomen abdominal exam Upper quadrant: tender to palpation 06/30/2014 None Full Exam - General 1994 Abdomen abdominal exam Lower quadrant: non-tender to palpation 06/30/2014 None Full Exam - General 1994 Abdomen rectal exam Palpation: tenderness 06/30/2014 from 5 to 8 oclock position, fullness from 6 to 8 oclock. Full Exam - General 1994 Lymphatic neck nodes Overall: anterior cervical chain benign 06/30/2014 None Full Exam - General 1994 Lymphatic neck nodes Overall: posterior cervical chain benign 06/30/2014 None Full Exam - General 1994 Neurologic cranial nerves Overall: crainial nerves 2 - 12 grossly intact 06/30/2014 None Full Exam - General 1994 Psychiatric orientation/consciousness Overall: oriented to person, place and time 06/30/2014 None Full Exam - General 1994 Constitutional general appearance Overall: well developed 06/05/2014 None Full Exam - General 1994 Constitutional general appearance Overall: in no acute distress 06/05/2014 None Full Exam - General 1994 Constitutional general appearance Overall: well nourished 06/05/2014 None Full Exam - General 1994 Eyes conjunctiva /eyelids Overall: conjunctiva clear 06/05/2014 None Full Exam - General 1994 Eyes conjunctiva /eyelids Overall: cornea clear 06/05/2014 None Full Exam - General 1994 Eyes conjunctiva /eyelids Overall: eyelids normal 06/05/2014 None Full Exam - General 1994 Eyes pupils and irises Overall: pupils equal, round, reactive to light and accomodation 06/05/2014 None Full Exam - General 1994 Ears/Nose/Throat otoscopic exam Overall: external auditory canals clear 06/05/2014 None Full Exam - General 1994 Ears/Nose/Throat otoscopic exam Overall: tympanic membranes clear 06/05/2014 None Full Exam - General 1994 Ears/Nose/Throat oral cavity/pharynx/larynx Overall: oral mucosa clear 06/05/2014 None Full Exam - General 1994 Ears/Nose/Throat oral cavity/pharynx/larynx Overall: oropharyngeal mucosa clear 06/05/2014 None Full Exam - General 1994 Ears/Nose/Throat oral cavity/pharynx/larynx Overall: no masses 06/05/2014 None Full Exam - General 1994 Respiratory auscultation Overall: breath sounds clear bilaterally 06/05/2014 None Full Exam - General 1994 Respiratory respiratory effort/rhythm Overall: no retractions 06/05/2014 None Full Exam - General 1994 Respiratory respiratory effort/rhythm Overall: normal rate 06/05/2014 None Full Exam - General 1994 Cardiovascular extremities Overall: no clubbing 06/05/2014 None Full Exam - General 1994 Cardiovascular auscultation of heart Overall: regular rate 06/05/2014 None Full Exam - General 1994 Cardiovascular auscultation of heart Overall: normal heart sounds 06/05/2014 None Full Exam - General 1994 Cardiovascular auscultation of heart Overall: no murmurs 06/05/2014 None Full Exam - General 1994 Abdomen abdominal exam Contour: flat 06/05/2014 None Full Exam - General 1994 Abdomen abdominal exam Bowel sounds: a normal exam 06/05/2014 None Full Exam - General 1994 Abdomen abdominal exam Upper quadrant: tender to palpation 06/05/2014 None Full Exam - General 1994 Abdomen abdominal exam Lower quadrant: non-tender to palpation 06/05/2014 None Full Exam - General 1994 Abdomen rectal exam Palpation: tenderness 06/05/2014 from 5 to 8 oclock position, fullness from 6 to 8 oclock. Full Exam - General 1994 Lymphatic neck nodes Overall: anterior cervical chain benign 06/05/2014 None Full Exam - General 1994 Lymphatic neck nodes Overall: posterior cervical chain benign 06/05/2014 None Full Exam - General 1994 Neurologic cranial nerves Overall: crainial nerves 2 - 12 grossly intact 06/05/2014 None Full Exam - General 1994 Psychiatric orientation/consciousness Overall: oriented to person, place and time 06/05/2014 None Full Exam - General 1994 Constitutional general appearance Overall: well developed 05/02/2014 None Full Exam - General 1994 Constitutional general appearance Overall: in no acute distress 05/02/2014 None Full Exam - General 1994 Constitutional general appearance Overall: well nourished 05/02/2014 None Full Exam - General 1994 Eyes conjunctiva /eyelids Overall: conjunctiva clear 05/02/2014 None Full Exam - General 1994 Eyes conjunctiva /eyelids Overall: cornea clear 05/02/2014 None Full Exam - General 1994 Eyes conjunctiva /eyelids Overall: eyelids normal 05/02/2014 None Full Exam - General 1994 Eyes pupils and irises Overall: pupils equal, round, reactive to light and accomodation 05/02/2014 None Full Exam - General 1994 Ears/Nose/Throat otoscopic exam Overall: external auditory canals clear 05/02/2014 None Full Exam - General 1994 Ears/Nose/Throat otoscopic exam Overall: tympanic membranes clear 05/02/2014 None Full Exam - General 1994 Ears/Nose/Throat oral cavity/pharynx/larynx Overall: oral mucosa clear 05/02/2014 None Full Exam - General 1994 Ears/Nose/Throat oral cavity/pharynx/larynx Overall: oropharyngeal mucosa clear 05/02/2014 None Full Exam - General 1994 Ears/Nose/Throat oral cavity/pharynx/larynx Overall: no masses 05/02/2014 None Full Exam - General 1994 Respiratory auscultation Overall: breath sounds clear bilaterally 05/02/2014 None Full Exam - General 1994 Respiratory respiratory effort/rhythm Overall: no retractions 05/02/2014 None Full Exam - General 1994 Respiratory respiratory effort/rhythm Overall: normal rate 05/02/2014 None Full Exam - General 1994 Cardiovascular extremities Overall: no clubbing 05/02/2014 None Full Exam - General 1994 Cardiovascular auscultation of heart Overall: regular rate 05/02/2014 None Full Exam - General 1994 Cardiovascular auscultation of heart Overall: normal heart sounds 05/02/2014 None Full Exam - General 1994 Cardiovascular auscultation of heart Overall: no murmurs 05/02/2014 None Full Exam - General 1994 Abdomen abdominal exam Contour: flat 05/02/2014 None Full Exam - General 1994 Abdomen abdominal exam Bowel sounds: a normal exam 05/02/2014 None Full Exam - General 1994 Abdomen abdominal exam Upper quadrant: tender to palpation 05/02/2014 None Full Exam - General 1994 Abdomen abdominal exam Lower quadrant: non-tender to palpation 05/02/2014 None Full Exam - General 1994 Abdomen rectal exam Palpation: tenderness 05/02/2014 from 5 to 8 oclock position, fullness from 6 to 8 oclock. Full Exam - General 1994 Lymphatic neck nodes Overall: anterior cervical chain benign 05/02/2014 None Full Exam - General 1994 Lymphatic neck nodes Overall: posterior cervical chain benign 05/02/2014 None Full Exam - General 1994 Neurologic cranial nerves Overall: crainial nerves 2 - 12 grossly intact 05/02/2014 None Full Exam - General 1994 Psychiatric orientation/consciousness Overall: oriented to person, place and time 05/02/2014 None Full Exam - General 1994 Constitutional general appearance Overall: well developed 04/04/2014 None Full Exam - General 1994 Constitutional general appearance Overall: in no acute distress 04/04/2014 None Full Exam - General 1994 Constitutional general appearance Overall: well nourished 04/04/2014 None Full Exam - General 1994 Eyes conjunctiva /eyelids Overall: conjunctiva clear 04/04/2014 None Full Exam - General 1994 Eyes conjunctiva /eyelids Overall: cornea clear 04/04/2014 None Full Exam - General 1994 Eyes conjunctiva /eyelids Overall: eyelids normal 04/04/2014 None Full Exam - General 1994 Eyes pupils and irises Overall: pupils equal, round, reactive to light and accomodation 04/04/2014 None Full Exam - General 1994 Ears/Nose/Throat otoscopic exam Overall: external auditory canals clear 04/04/2014 None Full Exam - General 1994 Ears/Nose/Throat otoscopic exam Overall: tympanic membranes clear 04/04/2014 None Full Exam - General 1994 Ears/Nose/Throat oral cavity/pharynx/larynx Overall: oral mucosa clear 04/04/2014 None Full Exam - General 1994 Ears/Nose/Throat oral cavity/pharynx/larynx Overall: oropharyngeal mucosa clear 04/04/2014 None Full Exam - General 1994 Ears/Nose/Throat oral cavity/pharynx/larynx Overall: no masses 04/04/2014 None Full Exam - General 1994 Respiratory auscultation Overall: breath sounds clear bilaterally 04/04/2014 None Full Exam - General 1994 Respiratory respiratory effort/rhythm Overall: no retractions 04/04/2014 None Full Exam - General 1994 Respiratory respiratory effort/rhythm Overall: normal rate 04/04/2014 None Full Exam - General 1994 Cardiovascular extremities Overall: no clubbing 04/04/2014 None Full Exam - General 1994 Cardiovascular auscultation of heart Overall: regular rate 04/04/2014 None Full Exam - General 1994 Cardiovascular auscultation of heart Overall: normal heart sounds 04/04/2014 None Full Exam - General 1994 Cardiovascular auscultation of heart Overall: no murmurs 04/04/2014 None Full Exam - General 1994 Abdomen abdominal exam Contour: flat 04/04/2014 None Full Exam - General 1994 Abdomen abdominal exam Bowel sounds: a normal exam 04/04/2014 None Full Exam - General 1994 Abdomen abdominal exam Upper quadrant: tender to palpation 04/04/2014 None Full Exam - General 1994 Abdomen abdominal exam Lower quadrant: non-tender to palpation 04/04/2014 None Full Exam - General 1994 Lymphatic neck nodes Overall: anterior cervical chain benign 04/04/2014 None Full Exam - General 1994 Lymphatic neck nodes Overall: posterior cervical chain benign 04/04/2014 None Full Exam - General 1994 Neurologic cranial nerves Overall: crainial nerves 2 - 12 grossly intact 04/04/2014 None Full Exam - General 1994 Psychiatric orientation/consciousness Overall: oriented to person, place and time 04/04/2014 None Full Exam - General 1994 Constitutional general appearance Overall: well developed 03/23/2014 None Full Exam - General 1994 Constitutional general appearance Overall: in no acute distress 03/23/2014 None Full Exam - General 1994 Constitutional general appearance Overall: well nourished 03/23/2014 None Full Exam - General 1994 Eyes conjunctiva /eyelids Overall: conjunctiva clear 03/23/2014 None Full Exam - General 1994 Eyes conjunctiva /eyelids Overall: cornea clear 03/23/2014 None Full Exam - General 1994 Eyes conjunctiva /eyelids Overall: eyelids normal 03/23/2014 None Full Exam - General 1994 Eyes pupils and irises Overall: pupils equal, round, reactive to light and accomodation 03/23/2014 None Full Exam - General 1994 Ears/Nose/Throat otoscopic exam Overall: external auditory canals clear 03/23/2014 None Full Exam - General 1994 Ears/Nose/Throat otoscopic exam Overall: tympanic membranes clear 03/23/2014 None Full Exam - General 1994 Ears/Nose/Throat oral cavity/pharynx/larynx Overall: oral mucosa clear 03/23/2014 None Full Exam - General 1994 Ears/Nose/Throat oral cavity/pharynx/larynx Overall: oropharyngeal mucosa clear 03/23/2014 None Full Exam - General 1994 Ears/Nose/Throat oral cavity/pharynx/larynx Overall: no masses 03/23/2014 None Full Exam - General 1994 Respiratory auscultation Overall: breath sounds clear bilaterally 03/23/2014 None Full Exam - General 1994 Respiratory respiratory effort/rhythm Overall: no retractions 03/23/2014 None Full Exam - General 1994 Respiratory respiratory effort/rhythm Overall: normal rate 03/23/2014 None Full Exam - General 1994 Cardiovascular extremities Overall: no clubbing 03/23/2014 None Full Exam - General 1994 Cardiovascular auscultation of heart Overall: regular rate 03/23/2014 None Full Exam - General 1994 Cardiovascular auscultation of heart Overall: normal heart sounds 03/23/2014 None Full Exam - General 1994 Cardiovascular auscultation of heart Overall: no murmurs 03/23/2014 None Full Exam - General 1994 Abdomen abdominal exam Contour: flat 03/23/2014 None Full Exam - General 1994 Abdomen abdominal exam Bowel sounds: a normal exam 03/23/2014 None Full Exam - General 1994 Abdomen abdominal exam Upper quadrant: tender to palpation 03/23/2014 None Full Exam - General 1994 Abdomen abdominal exam Lower quadrant: non-tender to palpation 03/23/2014 None Full Exam - General 1994 Lymphatic neck nodes Overall: anterior cervical chain benign 03/23/2014 None Full Exam - General 1994 Lymphatic neck nodes Overall: posterior cervical chain benign 03/23/2014 None Full Exam - General 1994 Neurologic cranial nerves Overall: crainial nerves 2 - 12 grossly intact 03/23/2014 None Full Exam - General 1994 Psychiatric orientation/consciousness Overall: oriented to person, place and time 03/23/2014 None Full Exam - General 1994 Abdomen rectal exam Palpation: tenderness 03/23/2014 from 5 to 8 oclock position, fullness from 6 to 8 oclock. Full Exam - General 1994 Constitutional general appearance Overall: well developed 02/13/2014 None Full Exam - General 1994 Constitutional general appearance Overall: in no acute distress 02/13/2014 None Full Exam - General 1994 Constitutional general appearance Overall: well nourished 02/13/2014 None Full Exam - General 1994 Eyes conjunctiva /eyelids Overall: conjunctiva clear 02/13/2014 None Full Exam - General 1994 Eyes conjunctiva /eyelids Overall: cornea clear 02/13/2014 None Full Exam - General 1994 Eyes conjunctiva /eyelids Overall: eyelids normal 02/13/2014 None Full Exam - General 1994 Eyes pupils and irises Overall: pupils equal, round, reactive to light and accomodation 02/13/2014 None Full Exam - General 1994 Ears/Nose/Throat otoscopic exam Overall: external auditory canals clear 02/13/2014 None Full Exam - General 1994 Ears/Nose/Throat otoscopic exam Overall: tympanic membranes clear 02/13/2014 None Full Exam - General 1994 Ears/Nose/Throat oral cavity/pharynx/larynx Overall: oral mucosa clear 02/13/2014 None Full Exam - General 1994 Ears/Nose/Throat oral cavity/pharynx/larynx Overall: oropharyngeal mucosa clear 02/13/2014 None Full Exam - General 1994 Ears/Nose/Throat oral cavity/pharynx/larynx Overall: no masses 02/13/2014 None Full Exam - General 1994 Respiratory auscultation Overall: breath sounds clear bilaterally 02/13/2014 None Full Exam - General 1994 Respiratory respiratory effort/rhythm Overall: no retractions 02/13/2014 None Full Exam - General 1994 Respiratory respiratory effort/rhythm Overall: normal rate 02/13/2014 None Full Exam - General 1994 Cardiovascular extremities Overall: no clubbing 02/13/2014 None Full Exam - General 1994 Cardiovascular auscultation of heart Overall: regular rate 02/13/2014 None Full Exam - General 1994 Cardiovascular auscultation of heart Overall: normal heart sounds 02/13/2014 None Full Exam - General 1994 Cardiovascular auscultation of heart Overall: no murmurs 02/13/2014 None Full Exam - General 1994 Abdomen abdominal exam Contour: flat 02/13/2014 None Full Exam - General 1994 Abdomen abdominal exam Bowel sounds: a normal exam 02/13/2014 None Full Exam - General 1994 Abdomen abdominal exam Upper quadrant: tender to palpation 02/13/2014 None Full Exam - General 1994 Abdomen abdominal exam Lower quadrant: non-tender to palpation 02/13/2014 None Full Exam - General 1994 Lymphatic neck nodes Overall: anterior cervical chain benign 02/13/2014 None Full Exam - General 1994 Lymphatic neck nodes Overall: posterior cervical chain benign 02/13/2014 None Full Exam - General 1994 Neurologic cranial nerves Overall: crainial nerves 2 - 12 grossly intact 02/13/2014 None Full Exam - General 1994 Psychiatric orientation/consciousness Overall: oriented to person, place and time 02/13/2014 None Full Exam - General 1994 Musculoskeletal spine, ribs and pelvis Sacroiliac joints: tender right sacroiliac joint 02/13/2014 None Full Exam - General 1994 Musculoskeletal spine, ribs and pelvis Sacroiliac joints: tender left sacroiliac joint 02/13/2014 None Full Exam - General 1994 Constitutional general appearance Overall: well developed 01/09/2014 None Full Exam - General 1994 Constitutional general appearance Overall: in no acute distress 01/09/2014 None Full Exam - General 1994 Constitutional general appearance Overall: well nourished 01/09/2014 None Full Exam - General 1994 Eyes conjunctiva /eyelids Overall: conjunctiva clear 01/09/2014 None Full Exam - General 1994 Eyes conjunctiva /eyelids Overall: cornea clear 01/09/2014 None Full Exam - General 1994 Eyes conjunctiva /eyelids Overall: eyelids normal 01/09/2014 None Full Exam - General 1994 Eyes pupils and irises Overall: pupils equal, round, reactive to light and accomodation 01/09/2014 None Full Exam - General 1994 Ears/Nose/Throat otoscopic exam Overall: external auditory canals clear 01/09/2014 None Full Exam - General 1994 Ears/Nose/Throat otoscopic exam Overall: tympanic membranes clear 01/09/2014 None Full Exam - General 1994 Ears/Nose/Throat oral cavity/pharynx/larynx Overall: oral mucosa clear 01/09/2014 None Full Exam - General 1995 Ears/Nose/Throat oral cavity/pharynx/larynx Overall: oropharyngeal mucosa clear 01/09/2014 None Full Exam - General 1994 Ears/Nose/Throat oral cavity/pharynx/larynx Overall: no masses 01/09/2014 None Full Exam - General 1994 Respiratory auscultation Overall: breath sounds clear bilaterally 01/09/2014 None Full Exam - General 1994 Respiratory respiratory effort/rhythm Overall: no retractions 01/09/2014 None Full Exam - General 1994 Respiratory respiratory effort/rhythm Overall: normal rate 01/09/2014 None Full Exam - General 1994 Cardiovascular extremities Overall: no clubbing 01/09/2014 None Full Exam - General 1994 Cardiovascular auscultation of heart Overall: regular rate 01/09/2014 None Full Exam - General 1994 Cardiovascular auscultation of heart Overall: normal heart sounds 01/09/2014 None Full Exam - General 1994 Cardiovascular auscultation of heart Overall: no murmurs 01/09/2014 None Full Exam - General 1994 Abdomen abdominal exam Contour: flat 01/09/2014 None Full Exam - General 1994 Abdomen abdominal exam Bowel sounds: a normal exam 01/09/2014 None Full Exam - General 1994 Abdomen abdominal exam Upper quadrant: tender to palpation 01/09/2014 None Full Exam - General 1994 Abdomen abdominal exam Lower quadrant: non-tender to palpation 01/09/2014 None Full Exam - General 1994 Lymphatic neck nodes Overall: anterior cervical chain benign 01/09/2014 None Full Exam - General 1994 Lymphatic neck nodes Overall: posterior cervical chain benign 01/09/2014 None Full Exam - General 1994 Neurologic cranial nerves Overall: crainial nerves 2 - 12 grossly intact 01/09/2014 None Full Exam - General 1994 Psychiatric orientation/consciousness Overall: oriented to person, place and time 01/09/2014 None Full Exam - General 1994 Constitutional general appearance Overall: well developed 11/15/2013 None Full Exam - General 1994 Constitutional general appearance Overall: in no acute distress 11/15/2013 None Full Exam - General 1994 Constitutional general appearance Overall: well nourished 11/15/2013 None Full Exam - General 1994 Eyes conjunctiva /eyelids Overall: conjunctiva clear 11/15/2013 None Full Exam - General 1994 Eyes conjunctiva /eyelids Overall: cornea clear 11/15/2013 None Full Exam - General 1994 Eyes conjunctiva /eyelids Overall: eyelids normal 11/15/2013 None Full Exam - General 1994 Eyes pupils and irises Overall: pupils equal, round, reactive to light and accomodation 11/15/2013 None Full Exam - General 1994 Ears/Nose/Throat otoscopic exam Overall: external auditory canals clear 11/15/2013 None Full Exam - General 1994 Respiratory auscultation Overall: breath sounds clear bilaterally 11/15/2013 None Full Exam - General 1994 Respiratory respiratory effort/rhythm Overall: no retractions 11/15/2013 None Full Exam - General 1994 Respiratory respiratory effort/rhythm Overall: normal rate 11/15/2013 None Full Exam - General 1994 Cardiovascular extremities Overall: no clubbing 11/15/2013 None Full Exam - General 1994 Cardiovascular auscultation of heart Overall: regular rate 11/15/2013 None Full Exam - General 1994 Cardiovascular auscultation of heart Overall: normal heart sounds 11/15/2013 None Full Exam - General 1994 Cardiovascular auscultation of heart Overall: no murmurs 11/15/2013 None Full Exam - General 1994 Abdomen abdominal exam Contour: flat 11/15/2013 None Full Exam - General 1994 Abdomen abdominal exam Bowel sounds: a normal exam 11/15/2013 None Full Exam - General 1994 Abdomen abdominal exam Upper quadrant: tender to palpation 11/15/2013 None Full Exam - General 1994 Abdomen abdominal exam Lower quadrant: non-tender to palpation 11/15/2013 None Full Exam - General 1994 Lymphatic neck nodes Overall: anterior cervical chain benign 11/15/2013 None Full Exam - General 1994 Lymphatic neck nodes Overall: posterior cervical chain benign 11/15/2013 None Full Exam - General 1994 Neurologic cranial nerves Overall: crainial nerves 2 - 12 grossly intact 11/15/2013 None Full Exam - General 1994 Psychiatric orientation/consciousness Overall: oriented to person, place and time 11/15/2013 None Full Exam - General 1994 Ears/Nose/Throat oral cavity/pharynx/larynx Posterior Pharynx: no post nasal drainage 11/15/2013 erythema Full Exam - General 1994 Ears/Nose/Throat otoscopic exam Overall: tympanic membranes clear 11/15/2013 maxillary sinus tenderness bilaterally Full Exam - General 1994 Constitutional general appearance Overall: well developed 10/31/2013 None Full Exam - General 1994 Constitutional general appearance Overall: in no acute distress 10/31/2013 None Full Exam - General 1994 Constitutional general appearance Overall: well nourished 10/31/2013 None Full Exam - General 1994 Eyes conjunctiva /eyelids Overall: conjunctiva clear 10/31/2013 None Full Exam - General 1994 Eyes conjunctiva /eyelids Overall: cornea clear 10/31/2013 None Full Exam - General 1994 Eyes conjunctiva /eyelids Overall: eyelids normal 10/31/2013 None Full Exam - General 1994 Eyes pupils and irises Overall: pupils equal, round, reactive to light and accomodation 10/31/2013 None Full Exam - General 1994 Ears/Nose/Throat otoscopic exam Overall: external auditory canals clear 10/31/2013 None Full Exam - General 1994 Ears/Nose/Throat otoscopic exam Overall: tympanic membranes clear 10/31/2013 None Full Exam - General 1994 Ears/Nose/Throat oral cavity/pharynx/larynx Overall: oral mucosa clear 10/31/2013 None Full Exam - General 1994 Ears/Nose/Throat oral cavity/pharynx/larynx Overall: oropharyngeal mucosa clear 10/31/2013 None Full Exam - General 1994 Ears/Nose/Throat oral cavity/pharynx/larynx Overall: no masses 10/31/2013 None Full Exam - General 1994 Respiratory auscultation Overall: breath sounds clear bilaterally 10/31/2013 None Full Exam - General 1994 Respiratory respiratory effort/rhythm Overall: no retractions 10/31/2013 None Full Exam - General 1994 Respiratory respiratory effort/rhythm Overall: normal rate 10/31/2013 None Full Exam - General 1994 Cardiovascular extremities Overall: no clubbing 10/31/2013 None Full Exam - General 1994 Cardiovascular auscultation of heart Overall: regular rate 10/31/2013 None Full Exam - General 1994 Cardiovascular auscultation of heart Overall: normal heart sounds 10/31/2013 None Full Exam - General 1994 Cardiovascular auscultation of heart Overall: no murmurs 10/31/2013 None Full Exam - General 1994 Abdomen abdominal exam Contour: flat 10/31/2013 None Full Exam - General 1994 Abdomen abdominal exam Bowel sounds: a normal exam 10/31/2013 None Full Exam - General 1994 Abdomen abdominal exam Upper quadrant: tender to palpation 10/31/2013 None Full Exam - General 1994 Abdomen abdominal exam Lower quadrant: non-tender to palpation 10/31/2013 None Full Exam - General 1994 Lymphatic neck nodes Overall: anterior cervical chain benign 10/31/2013 None Full Exam - General 1994 Lymphatic neck nodes Overall: posterior cervical chain benign 10/31/2013 None Full Exam - General 1994 Neurologic cranial nerves Overall: crainial nerves 2 - 12 grossly intact 10/31/2013 None Full Exam - General 1994 Psychiatric orientation/consciousness Overall: oriented to person, place and time 10/31/2013 None Full Exam - General 1994 Psychiatric orientation/consciousness Overall: oriented to person, place and time 10/17/2013 None Full Exam - General 1994 Neurologic cranial nerves Overall: crainial nerves 2 - 12 grossly intact 10/17/2013 None Full Exam - General 1994 Lymphatic neck nodes Overall: anterior cervical chain benign 10/17/2013 None Full Exam - General 1994 Lymphatic neck nodes Overall: posterior cervical chain benign 10/17/2013 None Full Exam - General 1994 Abdomen abdominal exam Contour: flat 10/17/2013 None Full Exam - General 1994 Abdomen abdominal exam Bowel sounds: a normal exam 10/17/2013 None Full Exam - General 1994 Abdomen abdominal exam Upper quadrant: tender to palpation 10/17/2013 None Full Exam - General 1994 Abdomen abdominal exam Lower quadrant: non-tender to palpation 10/17/2013 None Full Exam - General 1994 Cardiovascular extremities Overall: no clubbing 10/17/2013 None Full Exam - General 1994 Cardiovascular auscultation of heart Overall: regular rate 10/17/2013 None Full Exam - General 1994 Cardiovascular auscultation of heart Overall: normal heart sounds 10/17/2013 None Full Exam - General 1994 Cardiovascular auscultation of heart Overall: no murmurs 10/17/2013 None Full Exam - General 1994 Respiratory auscultation Overall: breath sounds clear bilaterally 10/17/2013 None Full Exam - General 1994 Respiratory respiratory effort/rhythm Overall: normal rate 10/17/2013 None Full Exam - General 1994 Respiratory respiratory effort/rhythm Overall: no retractions 10/17/2013 None Full Exam - General 1994 Ears/Nose/Throat oral cavity/pharynx/larynx Overall: oropharyngeal mucosa clear 10/17/2013 None Full Exam - General 1994 Ears/Nose/Throat oral cavity/pharynx/larynx Overall: no masses 10/17/2013 None Full Exam - General 1994 Ears/Nose/Throat oral cavity/pharynx/larynx Overall: oral mucosa clear 10/17/2013 None Full Exam - General 1994 Ears/Nose/Throat otoscopic exam Overall: tympanic membranes clear 10/17/2013 None Full Exam - General 1994 Ears/Nose/Throat otoscopic exam Overall: external auditory canals clear 10/17/2013 None Full Exam - General 1994 Eyes conjunctiva /eyelids Overall: conjunctiva clear 10/17/2013 None Full Exam - General 1994 Eyes conjunctiva /eyelids Overall: eyelids normal 10/17/2013 None Full Exam - General 1994 Eyes conjunctiva /eyelids Overall: cornea clear 10/17/2013 None Full Exam - General 1994 Eyes pupils and irises Overall: pupils equal, round, reactive to light and accomodation 10/17/2013 None Full Exam - General 1994 Constitutional general appearance Overall: well nourished 10/17/2013 None Full Exam - General 1994 Constitutional general appearance Overall: well developed 10/17/2013 None Full Exam - General 1994 Constitutional general appearance Overall: in no acute distress 10/17/2013 None Procedures Procedure Codes Date THER/PROPH/DIAG INJ SC/IM CPT-4: 19414 12/22/2017 VITAMIN B12 INJECTION CPT-4: J3420 12/22/2017 THER/PROPH/DIAG INJ SC/IM CPT-4: 15976 10/29/2017 VITAMIN B12 INJECTION CPT-4: J3420 10/29/2017 THER/PROPH/DIAG INJ SC/IM CPT-4: 35180 10/12/2017 VITAMIN B12 INJECTION CPT-4: J3420 10/12/2017 THER/PROPH/DIAG INJ SC/IM CPT-4: 08107 09/22/2017 TOBACCO-USE POLICE CHIEF 3-[address]: 946274573 CPT-4: G0436 08/24/2017 TOBACCO-USE POLICE CHIEF 3-[address]: 079019064 CPT-4: G0436 08/10/2017 TOBACCO-USE POLICE CHIEF 3-[address]: 869075850 CPT-4: G0436 07/28/2017 THER/PROPH/DIAG INJ SC/IM CPT-4: 47178 07/28/2017 PPPS, SUBSEQ VISIT CPT -4: G0439 02/11/2017 THER/PROPH/DIAG INJ SC/IM CPT-4: 47863 01/13/2017 TOBACCO-USE POLICE CHIEF 3-[address]: 950731978 CPT-4: G0436 12/30/2016 THER/PROPH/DIAG INJ SC/IM CPT-4: 79201 12/30/2016 TOBACCO-USE POLICE CHIEF 3-[address]: 141911022 CPT-4: G0436 12/22/2016 URINALYSIS NONAUTO W/O SCOPE CPT-4: 46080 08/12/2016 THER/PROPH/DIAG INJ SC/IM CPT-4: 17307 08/12/2016 ADMIN INFLUENZA VIRUS VAC CPT-4: G0008 08/12/2016 FLU VACC 4 TONY 3 YRS PLUS IM Formatting Model/CDA Sections, Assigned to/Tabitha Quigley SNOMED CT: 09131378 CPT-4: 71522Zrltzdm 08/12/2016 DESTRUCT PREMALG LESION CPT-4: 05513 07/15/2016 DESTRUCT PREMALG LES 2-14 CPT-4: 33970 07/15/2016 THER/PROPH/DIAG INJ SC/IM CPT-4: 40946 05/13/2016 TOBACCO-USE POLICE CHIEF 3-[address]: 209893858 CPT-4: G0436 02/15/2016 URINALYSIS NONAUTO W/O SCOPE CPT-4: 65300 02/15/2016 THER/PROPH/DIAG INJ SC/IM CPT-4: 82652 02/08/2016 VITAMIN B12 INJECTION CPT-4: J3420 02/08/2016 URINALYSIS NONAUTO W/O SCOPE CPT-4: 55416 01/03/2016 THER/PROPH/DIAG INJ SC/IM CPT-4: 97956 11/19/2015 TRIAMCINOLONE ACET INJ NOS CPT-4: J3301 11/19/2015 ROCEPHIN, PER 250 MG CPT-4: J0696 11/19/2015 THER/PROPH/DIAG INJ SC/IM CPT-4: 65541 09/07/2015 TRIAMCINOLONE ACET INJ NOS CPT-4: J3301 09/07/2015 URINALYSIS NONAUTO W/O SCOPE CPT-4: 46665 07/31/2015 INITIAL PREVENTIVE EXAM CPT-4: G0402 05/01/2015 TRIAMCINOLONE ACET INJ NOS CPT-4: J3301 04/13/2015 THER/PROPH/DIAG INJ SC/IM CPT-4: 02087 04/13/2015 ROUTINE VENIPUNCTURE CPT-4: 64723 02/23/2015 URINALYSIS NONAUTO W/O SCOPE CPT-4: 14384 12/22/2014 ROUTINE VENIPUNCTURE CPT-4: 67623 11/16/2014 THER/PROPH/DIAG INJ SC/IM CPT-4: 90301 09/08/2014 TRIAMCINOLONE ACET INJ NOS CPT-4: J3301 09/08/2014 ROUTINE VENIPUNCTURE CPT-4: 14076 06/05/2014 ROUTINE VENIPUNCTURE CPT-4: 92596 03/23/2014 URINALYSIS NONAUTO W/O SCOPE CPT-4: 03796 03/13/2014 URINALYSIS NONAUTO W/O SCOPE CPT-4: 72770 02/15/2014 ROUTINE VENIPUNCTURE CPT-4: 70536 02/13/2014 ROUTINE VENIPUNCTURE CPT-4: 97964 01/09/2014 TRIAMCINOLONE ACET INJ NOS CPT-4: J3301 11/15/2013 ROUTINE VENIPUNCTURE CPT-4: 40012 10/31/2013 PRESCRIP TRANSMIT VIA ERX SY CPT-4: G8553 10/31/2013 Vital Signs Date Vital 12/22/2017 Blood Pressure 1: 144/84 Code : 8480-6 BMI: 31.6 Code : 40414-7 Heart Rate 1 : 87 bpm Height: 5'4" SpO2: 98% Temperature: 36.5 (C) / 97.7 (F) Weight: 184 lbs 11/16/2017 Blood Pressure 1: 140/84 Code : 8480-6 Blood Pressure 2: 142/88 Code: 8480-6 BMI: 32.1 Code: 41383-4 Heart Rate 1: 93 bpm Height: 5'4" SpO2: 98% Weight: 187 lbs 10/29/2017 Blood Pressure 1: 168/90 Code : 8480-6 10/19/2017 Blood Pressure 1: 138/84 Code : 8480-6 BMI: 31.6 Code : 93682-6 Heart Rate 1 : 90 bpm Height: 5'4" SpO2: 98% Weight: 184 lbs 10/12/2017 Blood Pressure 1: 134/86 Code : 8480-6 Heart Rate 1: 90 bpm SpO2: 96% 09/25/2017 Blood Pressure 1: 156/86 Code : 8480-6 BMI: 31.2 Code : 29435-9 Heart Rate 1 : 92 bpm Height: 5'4" SpO2: 95% Weight: 182 lbs 09/22/2017 Blood Pressure 1: 132/84 Code : 8480-6 Heart Rate 1: 96 bpm SpO2: 97% 09/17/2017 Blood Pressure 1: 152/78 Code : 8480-6 Heart Rate 1: 94 bpm SpO2: 96% 09/08/2017 Blood Pressure 1: 180/90 Code : 8480-6 BMI: 31.6 Code : 86057-0 Heart Rate 1 : 91 bpm Height: 5'4" SpO2: 99% Weight: 184 lbs 08/24/2017 Blood Pressure 1: 186/100 Code: 8480-6 Heart Rate 1: 87 bpm SpO2: 95 % 08/20/2017 Blood Pressure 1: 172/98 Code : 8480-6 BMI: 31.4 Code : 21547-9 Heart Rate 1 : 85 bpm Height: 5'4" SpO2: 98% Weight: 183 lbs 08/10/2017 Blood Pressure 1: 162/90 Code : 8480-6 Heart Rate 1: 87 bpm SpO2: 95% 08/06/2017 Blood Pressure 1: 172/96 Code : 8480-6 Heart Rate 1: 93 bpm SpO2: 98% 07/28/2017 Blood Pressure 1: 162/98 Code : 8480-6 BMI: 31.3 Code : 38409-8 Heart Rate 1 : 89 bpm Height: 5'4" SpO2: 97% Weight: 182 lbs 8 oz 06/19/2017 Blood Pressure 1: 146/80 Code : 8480-6 BMI: 31.2 Code : 84069-6 Heart Rate 1 : 82 bpm Height: 5'4" Weight: 182 lbs 06/12/2017 Blood Pressure 1: 146/88 Code : 8480-6 BMI: 31.2 Code : 83169-4 Heart Rate 1 : 83 bpm Height: 5'4" SpO2: 98% Weight: 182 lbs 05/15/2017 Blood Pressure 1: 162/88 Code : 8480-6 Heart Rate 1: 82 bpm Height: 5'4" SpO2: 98% Temperature: 36.6 (C) / 97.9 (F) Weight: 04/14/2017 Blood Pressure 1: 134/76 Code : 8480-6 BMI: 31.9 Code : 12042-5 Heart Rate 1 : 84 bpm Height: 5'4" SpO2: 96% Weight: 186 lbs 03/23/2017 Blood Pressure 1: 158/94 Code : 8480-6 BMI: 31.4 Code : 07658-9 Heart Rate 1 : 83 bpm Height: 5'4" SpO2: 96% Weight: 183 lbs 02/11/2017 Blood Pressure 1: 150/72 Code : 8480-6 BMI: 31.2 Code : 25281-2 Heart Rate 1 : 87 bpm Height: 5'4" SpO2: 98% Waist Measure (cm): 160 cm Weight: 182 lbs 02/10/2017 Blood Pressure 1: 152/74 Code : 8480-6 BMI: 31.2 Code : 33278-7 Heart Rate 1 : 87 bpm Height: 5'4" SpO2: 95% Weight: 182 lbs 01/23/2017 Blood Pressure 1: 136/80 Code : 8480-6 Blood Pressure 1: 172/84 Code: 8480-6 BMI: 30.7 Code: 80529-9 Heart Rate 1: 91 bpm Height: 5'4" SpO2: 97% Weight: 179 lbs 01/13/2017 Blood Pressure 1: 138/80 Code : 8480-6 Heart Rate 1: 84 bpm Height: 5'4" SpO2: 97% Temperature: 36.9 (C) / 98.4 (F) Weight: 12/30/2016 Blood Pressure 1: 134/78 Code : 8480-6 BMI: 30.7 Code : 98248-1 Heart Rate 1 : 85 bpm Height: 5'4" SpO2: 94% Weight: 179 lbs 12/22/2016 Blood Pressure 1: 126/74 Code : 8480-6 BMI: 30.7 Code : 36661-1 Heart Rate 1 : 73 bpm Height: 5'4" SpO2: 98% Weight: 179 lbs 10/20/2016 Blood Pressure 1: 142/86 Code : 8480-6 Heart Rate 1: 86 bpm Height: 5'4" SpO2: 98% 08/12/2016 Blood Pressure 1: 128/70 Code : 8480-6 BMI: 30.6 Code : 50496-9 Heart Rate 1 : 70 bpm Height: 5'4" SpO2: 98% Weight: 178 lbs 07/15/2016 Blood Pressure 1: 138/80 Code : 8480-6 BMI: 30.9 Code : 40515-9 Heart Rate 1 : 90 bpm Height: 5'4" SpO2: 95% Weight: 180 lbs 07/08/2016 Blood Pressure 1: 136/90 Code : 8480-6 Heart Rate 1: 86 bpm Height: 5'4" SpO2: 97% Weight: 07/02/2016 Blood Pressure 1: 140/88 Code : 8480-6 Heart Rate 1: 90 bpm Height: SpO2: 96% Weight: 06/24/2016 Blood Pressure 1: 162/80 Code : 8480-6 Heart Rate 1: 68 bpm SpO2: 96% 06/17/2016 Blood Pressure 1: 172/94 Code : 8480-6 Blood Pressure 1: 158/88 Code: 8480-6 BMI: 30.9 Code: 24400-0 Heart Rate 1: 86 bpm Height: 5'4" SpO2: 97% Weight: 180 lbs 05/16/2016 Height: Weight: 05/13/2016 Blood Pressure 1: 122/68 Code : 8480-6 BMI: 30.6 Code : 12050-5 Heart Rate 1 : 68 bpm Height: 5'4" SpO2: 93% Weight: 178 lbs 03/06/2016 Blood Pressure 1: 128/82 Code : 8480-6 BMI: 30.2 Code : 83464-0 Heart Rate 1 : 88 bpm Height: 5'4" SpO2: 96% Weight: 176 lbs 02/08/2016 Blood Pressure 1: 120/80 Code : 8480-6 Blood Pressure 1: 152/80 Code: 8480-6 BMI: 29.7 Code: 51914-1 Heart Rate 1: 87 bpm Height: 5'4" SpO2: 97% Weight: 173 lbs 01/03/2016 Blood Pressure 1: 132/88 Code : 8480-6 BMI: 29.0 Code : 59203-0 Heart Rate 1 : 96 bpm Height: 5'4" SpO2: 97% Weight: 169 lbs 11/19/2015 Blood Pressure 1: 146/80 Code : 8480-6 BMI: 29.2 Code : 90903-9 Heart Rate 1 : 87 bpm Height: 5'4" SpO2: 98% Weight: 170 lbs 10/15/2015 Blood Pressure 1: 122/78 Code : 8480-6 BMI: 29.2 Code : 05859-3 Heart Rate 1 : 90 bpm Height: 5'4" SpO2: 97% Weight: 170 lbs 10/03/2015 Blood Pressure 1: 140/72 Code : 8480-6 Heart Rate 1: 82 bpm Height: 5'4" SpO2: 97% Weight: 09/13/2015 Blood Pressure 1: 156/88 Code : 8480-6 Heart Rate 1: 94 bpm SpO2: 97% Weight: 161 lbs 09/07/2015 Blood Pressure 1: 150/92 Code : 8480-6 BMI: 28.2 Code : 40825-9 Heart Rate 1 : 83 bpm Height: 5'4" SpO2: 97% Weight: 164 lbs 08/09/2015 Blood Pressure 1: 142/84 Code : 8480-6 BMI: 27.6 Code : 09927-7 Heart Rate 1 : 95 bpm Height: 5'4" SpO2: 97% Weight: 161 lbs 07/31/2015 Blood Pressure 1: 142/76 Code : 8480-6 BMI: 27.6 Code : 27762-6 Heart Rate 1 : 97 bpm Height: 5'4" SpO2: 98% Weight: 161 lbs 07/06/2015 Blood Pressure 1: 142/90 Code : 8480-6 BMI: 28.3 Code : 79942-9 Heart Rate 1 : 93 bpm Height: 5'4" SpO2: 99% Weight: 165 lbs 06/15/2015 Blood Pressure 1: 142/80 Code : 8480-6 BMI: 28.7 Code : 76496-6 Heart Rate 1 : 99 bpm Height: 5'4" SpO2: 98% Weight: 167 lbs 05/01/2015 Blood Pressure 1: 128/84 Code : 8480-6 BMI: 29.7 Code : 16293-0 Heart Rate 1 : 100 bpm Height: 5'4" Weight: 173 lbs 04/27/2015 Blood Pressure 1: 124/82 Code : 8480-6 Heart Rate 1: 90 bpm SpO2: 99% Weight: 176 lbs 04/13/2015 Blood Pressure 1: 124/78 Code : 8480-6 BMI: 29.9 Code : 16050-2 Heart Rate 1 : 84 bpm Height: 5'4" Weight: 174 lbs 02/23/2015 Blood Pressure 1: 122/80 Code : 8480-6 BMI: 30.2 Code : 02777-9 Heart Rate 1 : 74 bpm Height: 5'4" Weight: 176 lbs 01/26/2015 Blood Pressure 1: 112/68 Code : 8480-6 BMI: 30.0 Code : 87873-6 Heart Rate 1 : 76 bpm Height: 5'4" Weight: 175 lbs 12/22/2014 Blood Pressure 1: 132/86 Code : 8480-6 BMI: 29.7 Code : 57352-3 Heart Rate 1 : 88 bpm Height: 5'4" Weight: 173 lbs 11/16/2014 Blood Pressure 1: 138/78 Code : 8480-6 BMI: 29.5 Code : 95851-9 Heart Rate 1 : 88 bpm Height: 5'4" Weight: 172 lbs 10/16/2014 Blood Pressure 1: 122/88 Code : 8480-6 BMI: 29.0 Code : 87851-4 Heart Rate 1 : 74 bpm Height: 5'4" Weight: 169 lbs 09/29/2014 BMI: 28.3 Code: 82489-6 Height: 5'4" Weight: 165 lbs 09/08/2014 Blood Pressure 1: 128/64 Code : 8480-6 BMI: 29.5 Code : 84967-7 Heart Rate 1 : 88 bpm Height: 5'4" Weight: 172 lbs 08/28/2014 Blood Pressure 1: 138/74 Code : 8480-6 BMI: 29.2 Code : 66711-7 Heart Rate 1 : 78 bpm Height: 5'4" SpO2: 98% Weight: 170 lbs 08/16/2014 Blood Pressure 1: 158/88 Code : 8480-6 Heart Rate 1: 86 bpm SpO2: 97% Temperature: 36.1 (C) / 97.0 (F) Weight: 168 lbs 07/21/2014 Blood Pressure 1: 124/78 Code : 8480-6 Heart Rate 1: 78 bpm Height: Weight: 06/30/2014 Blood Pressure 1: 122/84 Code : 8480-6 BMI: 28.8 Code : 18438-5 Heart Rate 1 : 68 bpm Height: 5'4" SpO2: 96% Weight: 168 lbs 06/05/2014 Blood Pressure 1: 142/90 Code : 8480-6 Heart Rate 1: 76 bpm Height: Weight: 05/02/2014 Blood Pressure 1: 118/76 Code : 8480-6 BMI: 30.0 Code : 36863-4 Heart Rate 1 : 88 bpm Height: 5'4" SpO2: 98% Weight: 175 lbs 04/04/2014 Blood Pressure 1: 134/76 Code : 8480-6 Blood Pressure 2: 122/80 Code: 8480-6 BMI: 30.0 Code: 64858-4 Heart Rate 1: 86 bpm Height: 5'4" Weight: 175 lbs 03/23/2014 Blood Pressure 1: 98/60 Code : 8480-6 Heart Rate 1: 84 bpm Temperature: 36.1 (C) / 96.9 (F) Weight: 02/13/2014 Blood Pressure 1: 136/70 Code : 8480-6 BMI: 28.8 Code : 01080-6 Heart Rate 1 : 68 bpm Height: 5'4" Weight: 168 lbs 01/09/2014 Blood Pressure 1: 136/62 Code : 8480-6 BMI: 28.8 Code : 43981-5 Heart Rate 1 : 76 bpm Height: 5'4" Weight: 168 lbs 11/15/2013 Blood Pressure 1: 136/72 Code : 8480-6 BMI: 27.5 Code : 63191-8 Heart Rate 1 : 76 bpm Height: 5'4" SpO2: 97% Temperature: 36.8 (C) / 98.2 (F) Weight: 160 lbs 10/31/2013 Blood Pressure 1: 144/80 Code : 8480-6 BMI: 26.3 Code : 95094-1 Heart Rate 1 : 88 bpm Height: 5'4" Weight: 153 lbs 10/17/2013 Blood Pressure 1: 132/82 Code : 8480-6 BMI: 27.3 Code : 86013-7 Heart Rate 1 : 80 bpm Height: 5'4" Weight: 159 lbs Functional Status No Functional Status data History of Present Illness Symptom Name Status Result Effective Date Notes abdominal pain Location in the RLQ 12/22/2017 None abdominal pain Pertinent Findings abdominal distension 12/22/2017 None abdominal pain Pertinent Findings Denies vomiting 12/22/2017 None abdominal pain Pertinent Findings nausea 12/22/2017 the first night abdominal pain Pertinent Findings Denies fever 12/22/2017 None abdominal pain Triggers no known associated factors 12/22/2017 None abdominal pain Alleviating Factors medication 12/22/2017 (tylenol) abdominal pain Frequency of Episodes daily 12/22/2017 None abdominal pain Onset and Resolution ongoing 12/22/2017 None abdominal pain Onset of Symptom 1 weeks ago 12/22/2017 None abdominal pain Quality constant 12/22/2017 None blisters Location-Trunk on the right breast 12/22/2017 None blisters Quality acute 12/22/2017 None blisters Onset and Resolution sudden in onset 12/22/2017 None blisters Triggers when exposed to (a heating pad) 12/22/2017 None hypertension Quality primary hypertension 11/16/2017 None hypertension Onset and Resolution ongoing 11/16/2017 None hypertension Onset of Symptom during adulthood 11/16/2017 None hypothyroid Onset and Resolution ongoing 11/16/2017 None hypothyroid Alleviating Factors medication 11/16/2017 None hypertension Blood Pressure Values patient checking blood pressure at home - did not bring in readings 11/16/2017 None hypertension Alleviating Factors medication 11/16/2017 None hypothyroid Pertinent Findings memory impairment 11/16/2017 None hypothyroid Pertinent Findings edema 11/16/2017 None hypothyroid Quality worsening 11/16/2017 None back pain Location lumbar-sacral spine 10/19/2017 None back pain Quality chronic 10/19/2017 None back pain Onset and Resolution ongoing 10/19/2017 None back pain Onset of Symptom years ago 10/19/2017 None back pain Limitation on Activities moderately limits activities 10/19/2017 None back pain Triggers activity 10/19/2017 None back pain Significant Medical Conditions spinal stenosis 10/19/2017 None back pain Alleviating Factors medication 10/19/2017 None back pain Initial treatment massage 10/19/2017 None back pain Initial treatment heat 10/19/2017 None back pain Initial treatment ice 10/19/2017 None back pain Initial treatment injections 10/19/2017 None back pain Initial treatment medication 10/19/2017 None back pain Initial treatment physical therapy 10/19/2017 None back pain Initial treatment stretching 10/19/2017 None back pain Severity moderate 10/19/2017 None hypertension Quality primary hypertension 10/19/2017 None hypertension Onset and Resolution ongoing 10/19/2017 None hypertension Onset of Symptom during adulthood 10/19/2017 None hypertension Alleviating Factors medication 10/19/2017 None hypertension Blood Pressure Values not checking blood pressure at home 10/19/2017 None hypertension Pertinent Findings Denies dizziness 10/19/2017 -Trouble with balance hypertension Pertinent Findings Denies dyspnea 10/19/2017 None hypertension Pertinent Findings Denies edema 10/19/2017 None back pain Quality stable 10/19/2017 None hypertension Quality primary hypertension 09/25/2017 None hypertension Onset and Resolution ongoing 09/25/2017 None hypertension Onset of Symptom during adulthood 09/25/2017 None hypertension Blood Pressure Values not checking blood pressure at home 09/25/2017 None hypertension Severity not consistently severe symptoms, the symptoms fluctuate from no symptoms to anxiety and headaches 09/25/2017 None hypertension Frequency of Episodes increasing 09/25/2017 None hypertension Triggers stress 09/25/2017 None hypertension Pertinent Findings decreased energy 09/25/2017 None hypertension Pertinent Findings Denies dizziness 09/25/2017 None hypertension Pertinent Findings Denies dyspnea 09/25/2017 None hypertension Pertinent Findings edema 09/25/2017 None abnormal test results Abnormal Indicator abnormal 09/25/2017 None abnormal test results Test Performed on 09/24/17 09/25/2017 None abnormal test results Pertinent Findings Denies fever 09/25/2017 None abnormal test results Pertinent Findings Denies chill 09/25/2017 None abnormal test results Pertinent Findings Denies urinary urgency 09/25/2017 None abnormal test results Pertinent Findings Denies polyuria 09/25/2017 None abnormal test results Pertinent Findings Denies urinary retention/hesitancy 09/25/2017 None abnormal test results Type of Test(s) Chem-20 09/25/2017 None abnormal test results Type of Test(s) lipid panel 09/25/2017 None abnormal test results Type of Test(s) liver function panel 09/25/2017 None hypertension Quality primary hypertension 09/08/2017 None hypertension Onset and Resolution ongoing 09/08/2017 None hypertension Onset of Symptom during adulthood 09/08/2017 None hypertension Blood Pressure Values not checking blood pressure at home 09/08/2017 None hypertension Pertinent Findings Denies dizziness 09/08/2017 None hypertension Pertinent Findings decreased energy 09/08/2017 None hypertension Pertinent Findings Denies dyspnea 09/08/2017 None hypertension Pertinent Findings edema 09/08/2017 None back pain Location lumbar-sacral spine 09/08/2017 None back pain Quality chronic 09/08/2017 None back pain Onset and Resolution ongoing 09/08/2017 None back pain Limitation on Activities moderately limits activities 09/08/2017 None back pain Frequency of Episodes increasing 09/08/2017 None back pain Triggers activity 09/08/2017 None back pain Significant Medical Conditions spinal stenosis 09/08/2017 None back pain Alleviating Factors medication 09/08/2017 None back pain Initial treatment massage 09/08/2017 None back pain Initial treatment heat 09/08/2017 None back pain Initial treatment ice 09/08/2017 None back pain Initial treatment injections 09/08/2017 None back pain Initial treatment medication 09/08/2017 None back pain Initial treatment physical therapy 09/08/2017 None back pain Initial treatment stretching 09/08/2017 None back pain Severity moderate 09/08/2017 None back pain Onset of Symptom years ago 09/08/2017 None hypertension Severity not consistently severe symptoms, the symptoms fluctuate from no symptoms to anxiety and headaches 09/08/2017 None hypertension Frequency of Episodes increasing 09/08/2017 None hypertension Triggers stress 09/08/2017 None back pain Location lumbar-sacral spine 08/20/2017 None back pain Quality chronic 08/20/2017 None back pain Onset and Resolution ongoing 08/20/2017 None back pain Onset of Symptom _ years ago 08/20/2017 None back pain Limitation on Activities moderately limits activities 08/20/2017 None back pain Frequency of Episodes increasing 08/20/2017 None back pain Triggers activity 08/20/2017 None back pain Significant Medical Conditions spinal stenosis 08/20/2017 None back pain Alleviating Factors medication 08/20/2017 None back pain Initial treatment massage 08/20/2017 None back pain Initial treatment heat 08/20/2017 None back pain Initial treatment ice 08/20/2017 None back pain Initial treatment injections 08/20/2017 None back pain Initial treatment medication 08/20/2017 None back pain Initial treatment physical therapy 08/20/2017 None back pain Initial treatment stretching 08/20/2017 None back pain Severity moderate 08/20/2017 None back pain Location lumbar-sacral spine 07/28/2017 None back pain Quality chronic 07/28/2017 None back pain Onset and Resolution ongoing 07/28/2017 None back pain Onset of Symptom _ years ago 07/28/2017 None back pain Limitation on Activities moderately limits activities 07/28/2017 None back pain Frequency of Episodes increasing 07/28/2017 None back pain Triggers activity 07/28/2017 None back pain Significant Medical Conditions spinal stenosis 07/28/2017 None back pain Alleviating Factors medication 07/28/2017 None back pain Initial treatment massage 07/28/2017 None back pain Initial treatment heat 07/28/2017 None back pain Initial treatment ice 07/28/2017 None back pain Initial treatment injections 07/28/2017 None back pain Initial treatment medication 07/28/2017 None back pain Initial treatment physical therapy 07/28/2017 None back pain Initial treatment stretching 07/28/2017 None back pain Severity moderate 07/28/2017 None fatigue Onset and Resolution ongoing 07/28/2017 None fatigue Pertinent Findings Denies depressed mood 07/28/2017 None fatigue Pertinent Findings back pain 07/28/2017 None fatigue Pertinent Findings weakness 07/28/2017 None back pain Location lumbar-sacral spine 06/19/2017 None back pain Quality chronic 06/19/2017 None back pain Onset and Resolution ongoing 06/19/2017 None back pain Onset of Symptom _ years ago 06/19/2017 None back pain Limitation on Activities moderately limits activities 06/19/2017 None back pain Frequency of Episodes increasing 06/19/2017 None back pain Triggers activity 06/19/2017 None back pain Significant Medical Conditions spinal stenosis 06/19/2017 None back pain Alleviating Factors medication 06/19/2017 None back pain Initial treatment physical therapy 06/19/2017 None back pain Initial treatment stretching 06/19/2017 None back pain Initial treatment medication 06/19/2017 None back pain Initial treatment injections 06/19/2017 None back pain Initial treatment ice 06/19/2017 None back pain Initial treatment heat 06/19/2017 None back pain Initial treatment massage 06/19/2017 None back pain Severity moderate 06/19/2017 None sinus congestion Onset and Resolution ongoing 06/12/2017 None sinus congestion Onset of Symptom _ years ago 06/12/2017 None sinus congestion Frequency of Episodes unchanged 06/12/2017 None sinus congestion Severity moderate 06/12/2017 None sinus congestion Timing of Episodes all day long 06/12/2017 None sinus congestion Significant Medical Conditions allergic rhinitis 06/12/2017 None sinus congestion Triggers allergens 06/12/2017 None sinus congestion Pertinent Findings cough 06/12/2017 None sinus congestion Pertinent Findings Denies dysphagia 06/12/2017 None sinus congestion Pertinent Findings Denies facial pain 06/12/2017 None sinus congestion Pertinent Findings Denies fever 06/12/2017 None sinus congestion Location on both sides 06/12/2017 None sinus congestion Quality chronic 06/12/2017 None new lesion Location-Major in a generalized area 05/15/2017 rectum new lesion Quality acute 05/15/2017 None new lesion Onset and Resolution ongoing 05/15/2017 None new lesion Onset of Symptom 1 days ago 05/15/2017 None new lesion Limitation on Activities does not limit activities 05/15/2017 None new lesion Severity worsening 05/15/2017 None new lesion Prior Treatments responsive to treatment 05/15/2017 abx in the past have helped new lesion Alleviating Factors treatment medication 05/15/2017 None abdominal pain Location diffusely 04/14/2017 None abdominal pain Location in the RLQ 04/14/2017 None abdominal pain Location in the RUQ 04/14/2017 None abdominal pain Quality chronic 04/14/2017 None abdominal pain Quality cramping 04/14/2017 None abdominal pain Onset and Resolution ongoing 04/14/2017 None abdominal pain Onset of Symptom during adulthood 04/14/2017 None abdominal pain Limitation on Activities does not limit activities 04/14/2017 None abdominal pain Length of Episodes _ seconds 04/14/2017 None abdominal pain Length of Episodes _ minutes 04/14/2017 None abdominal pain Significant Medical Conditions irritable bowel 04/14/2017 and crohns abdominal pain Triggers no known associated factors 04/14/2017 None abdominal pain Pertinent Findings abdominal distension 04/14/2017 None abdominal pain Pertinent Findings back pain 04/14/2017 None abdominal pain Pertinent Findings bloating 04/14/2017 None abdominal pain Pertinent Findings dyspepsia 04/14/2017 None abdominal pain Pertinent Findings heartburn 04/14/2017 None abdominal pain Pertinent Findings Denies nausea 04/14/2017 None abdominal pain Pertinent Findings urinary urgency 04/14/2017 voiding relieves cramping feeling for awhile abdominal pain Location diffusely 03/23/2017 None abdominal pain Quality chronic 03/23/2017 None abdominal pain Quality cramping 03/23/2017 None abdominal pain Onset and Resolution ongoing 03/23/2017 None abdominal pain Onset of Symptom during adulthood 03/23/2017 None abdominal pain Limitation on Activities does not limit activities 03/23/2017 None abdominal pain Length of Episodes _ seconds 03/23/2017 None abdominal pain Length of Episodes _ minutes 03/23/2017 None abdominal pain Significant Medical Conditions irritable bowel 03/23/2017 and crohns abdominal pain Triggers no known associated factors 03/23/2017 None abdominal pain Pertinent Findings back pain 03/23/2017 None abdominal pain Pertinent Findings Denies nausea 03/23/2017 None abdominal pain Pertinent Findings urinary urgency 03/23/2017 voiding relieves cramping feeling for awhile abdominal pain Location in the RLQ 03/23/2017 None abdominal pain Location in the RUQ 03/23/2017 None abdominal pain Pertinent Findings bloating 03/23/2017 None abdominal pain Pertinent Findings abdominal distension 03/23/2017 None abdominal pain Pertinent Findings heartburn 03/23/2017 None abdominal pain Pertinent Findings dyspepsia 03/23/2017 None Annual Medicare Wellness Exam Alcohol Use does not drink any alcohol 02/11/2017 None Annual Medicare Wellness Exam Aspirin Use no 02/11/2017 None Annual Medicare Wellness Exam Blood Glucose (self reported) desireable (below 100) 02/11/2017 None Annual Medicare Wellness Exam Blood Pressure (self reported ) low / normal (120/80) 02/11/2017 None Annual Medicare Wellness Exam Cholesterol (self reported) desireable (below 200) 02/11/2017 None Annual Medicare Wellness Exam Depression (last 6 months) some of the time 02/11/2017 None Annual Medicare Wellness Exam Depression or Hopelessness some of the time 02/11/2017 None Annual Medicare Wellness Exam Describe Your Health good 02/11/2017 None Annual Medicare Wellness Exam Exercise Habits exercises 4 days per week 02/11/2017 None Annual Medicare Wellness Exam Exercise Habits exercises 30 minutes per day 02/11/2017 None Annual Medicare Wellness Exam Handling Stress often has problems coping 02/11/2017 None Annual Medicare Wellness Exam Hemaglobin A-1C (self reported ) don't know 02/11/2017 None Annual Medicare Wellness Exam Hours of Sleep 7 02/11/2017 None Annual Medicare Wellness Exam Interaction with Friends yes 02/11/2017 None Annual Medicare Wellness Exam Interests & Pleasure some of the time 02/11/2017 None Annual Medicare Wellness Exam Life Satisfaction satisfied 02/11/2017 None Annual Medicare Wellness Exam Motor Vehicle Safety always fastens seat belt: y 02/11/2017 None Annual Medicare Wellness Exam Motor Vehicle Safety drives after drinking: n 02/11/2017 None Annual Medicare Wellness Exam Motor Vehicle Safety rides with someone who has been drinking: n 2016 None Annual Medicare Wellness Exam Nutrition servings of fried food / high fat foods per day: 1 2016 None Annual Medicare Wellness Exam Nutrition servings of high fiber / whole grain per day: 2 02/11/2017 None Annual Medicare Wellness Exam Nutrition servings of vegetables / fruit per day: 4 02/11/2017 None Annual Medicare Wellness Exam Smoking and Tobacco Use non smoker 02/11/2017 None Annual Medicare Wellness Exam Social & Emotional Support usually 02/11/2017 None Annual Medicare Wellness Exam Stress daily 02/11/2017 None Annual Medicare Wellness Exam Sun Exposure protects skin when outdoors: y 02/11/2017 None anxiety Quality acute 02/10/2017 None anxiety Quality worsening 02/10/2017 None anxiety Onset and Resolution ongoing 02/10/2017 None anxiety Limitation on Activities does not limit activities 02/10/2017 None anxiety Triggers ants in her house 02/10/2017 None anxiety Alleviating Factors medication 02/10/2017 None anxiety Pertinent Findings tingling in extremities 02/10/2017 None depression Quality constant 02/10/2017 None depression Onset and Resolution ongoing 02/10/2017 None depression Triggers no known associated factors 02/10/2017 None depression Pertinent Findings depressed mood 02/10/2017 None depression Pertinent Findings hopelessness 02/10/2017 None abdominal pain Location diffusely 02/10/2017 None abdominal pain Quality chronic 02/10/2017 None abdominal pain Quality cramping 02/10/2017 None abdominal pain Onset and Resolution ongoing 02/10/2017 None abdominal pain Onset of Symptom during adulthood 02/10/2017 None abdominal pain Limitation on Activities does not limit activities 02/10/2017 None abdominal pain Length of Episodes _ seconds 02/10/2017 None abdominal pain Length of Episodes _ minutes 02/10/2017 None abdominal pain Significant Medical Conditions irritable bowel 02/10/2017 and crohns abdominal pain Triggers no known associated factors 02/10/2017 None abdominal pain Pertinent Findings back pain 02/10/2017 None abdominal pain Pertinent Findings Denies nausea 02/10/2017 None abdominal pain Pertinent Findings urinary urgency 02/10/2017 voiding relieves cramping feeling for awhile anxiety Significant Family History anxiety disorder 02/10/2017 None anxiety Significant Medical Conditions precipitating event for anxiety (PTSD) 02/10/2017 ants in her house depression Limitation on Activities does not limit activities 02/10/2017 None depression Frequency of Episodes decreasing 02/10/2017 doing much better joint complaint Location diffusely 01/23/2017 None joint complaint Quality aching 01/23/2017 None joint complaint Quality dull pain 01/23/2017 None joint complaint Onset and Resolution sudden in onset 01/23/2017 None joint complaint Onset of Symptom 2 weeks ago 01/23/2017 None joint complaint Frequency of Episodes daily 01/23/2017 None anxiety Quality acute 01/13/2017 None anxiety Quality worsening 01/13/2017 None anxiety Limitation on Activities does not limit activities 01/13/2017 None anxiety Triggers ants in her house 01/13/2017 None anxiety Alleviating Factors medication 01/13/2017 None anxiety Pertinent Findings tingling in extremities 01/13/2017 None depression Quality constant 01/13/2017 None depression Triggers no known associated factors 01/13/2017 None depression Pertinent Findings depressed mood 01/13/2017 None depression Pertinent Findings hopelessness 01/13/2017 None abdominal pain Location diffusely 01/13/2017 None abdominal pain Quality chronic 01/13/2017 None abdominal pain Quality cramping 01/13/2017 None abdominal pain Onset and Resolution ongoing 01/13/2017 None abdominal pain Onset of Symptom during adulthood 01/13/2017 None abdominal pain Limitation on Activities does not limit activities 01/13/2017 None abdominal pain Length of Episodes _ seconds 01/13/2017 None abdominal pain Length of Episodes _ minutes 01/13/2017 None abdominal pain Significant Medical Conditions irritable bowel 01/13/2017 and crohns abdominal pain Triggers no known associated factors 01/13/2017 None abdominal pain Pertinent Findings back pain 01/13/2017 None abdominal pain Pertinent Findings Denies nausea 01/13/2017 None abdominal pain Pertinent Findings urinary urgency 01/13/2017 voiding relieves cramping feeling for awhile depression Onset and Resolution ongoing 01/13/2017 None anxiety Onset and Resolution ongoing 01/13/2017 None anxiety Quality acute 12/30/2016 None anxiety Quality worsening 12/30/2016 None anxiety Onset and Resolution sudden in onset 12/30/2016 None anxiety Onset of Symptom 2 weeks ago 12/30/2016 None anxiety Limitation on Activities does not limit activities 12/30/2016 None anxiety Triggers ants in her house 12/30/2016 None anxiety Alleviating Factors medication 12/30/2016 None anxiety Pertinent Findings tingling in extremities 12/30/2016 None depression Quality constant 12/30/2016 None depression Onset and Resolution sudden in onset 12/30/2016 None depression Onset of Symptom 1 months ago 12/30/2016 None depression Triggers no known associated factors 12/30/2016 None depression Pertinent Findings depressed mood 12/30/2016 None depression Pertinent Findings hopelessness 12/30/2016 None abdominal pain Location diffusely 12/30/2016 None abdominal pain Quality chronic 12/30/2016 None abdominal pain Quality cramping 12/30/2016 None abdominal pain Onset and Resolution ongoing 12/30/2016 None abdominal pain Onset of Symptom during adulthood 12/30/2016 None abdominal pain Limitation on Activities does not limit activities 12/30/2016 None abdominal pain Length of Episodes _ seconds 12/30/2016 None abdominal pain Length of Episodes _ minutes 12/30/2016 None abdominal pain Significant Medical Conditions irritable bowel 12/30/2016 and crohns abdominal pain Triggers no known associated factors 12/30/2016 None abdominal pain Pertinent Findings back pain 12/30/2016 None abdominal pain Pertinent Findings Denies nausea 12/30/2016 None abdominal pain Pertinent Findings urinary urgency 12/30/2016 voiding relieves cramping feeling for awhile depression Quality constant 12/22/2016 None depression Onset and Resolution sudden in onset 12/22/2016 None depression Onset of Symptom 1 months ago 12/22/2016 None depression Triggers no known associated factors 12/22/2016 None anxiety Quality acute 12/22/2016 None anxiety Quality worsening 12/22/2016 None anxiety Onset and Resolution sudden in onset 12/22/2016 None anxiety Onset of Symptom 2 weeks ago 12/22/2016 None anxiety Limitation on Activities does not limit activities 12/22/2016 None anxiety Pertinent Findings tingling in extremities 12/22/2016 None anxiety Alleviating Factors medication 12/22/2016 None anxiety Triggers ants in her house 12/22/2016 None depression Pertinent Findings depressed mood 12/22/2016 None depression Pertinent Findings hopelessness 12/22/2016 None abdominal pain Location diffusely 10/20/2016 None abdominal pain Quality chronic 10/20/2016 None abdominal pain Quality cramping 10/20/2016 None abdominal pain Onset and Resolution ongoing 10/20/2016 None abdominal pain Onset of Symptom during adulthood 10/20/2016 None abdominal pain Limitation on Activities does not limit activities 10/20/2016 None abdominal pain Length of Episodes _ seconds 10/20/2016 None abdominal pain Length of Episodes _ minutes 10/20/2016 None abdominal pain Significant Medical Conditions irritable bowel 10/20/2016 and crohns abdominal pain Triggers no known associated factors 10/20/2016 None abdominal pain Pertinent Findings back pain 10/20/2016 None abdominal pain Pertinent Findings Denies nausea 10/20/2016 None abdominal pain Pertinent Findings urinary urgency 10/20/2016 voiding relieves cramping feeling for awhile abdominal pain Location diffusely 08/12/2016 None abdominal pain Quality chronic 08/12/2016 None abdominal pain Quality cramping 08/12/2016 None abdominal pain Onset and Resolution ongoing 08/12/2016 None abdominal pain Onset of Symptom during adulthood 08/12/2016 None abdominal pain Limitation on Activities does not limit activities 08/12/2016 None abdominal pain Length of Episodes _ seconds 08/12/2016 None abdominal pain Length of Episodes _ minutes 08/12/2016 None abdominal pain Significant Medical Conditions irritable bowel 08/12/2016 and crohns abdominal pain Triggers no known associated factors 08/12/2016 None abdominal pain Pertinent Findings back pain 08/12/2016 None abdominal pain Pertinent Findings Denies nausea 08/12/2016 None abdominal pain Pertinent Findings urinary urgency 08/12/2016 voiding relieves cramping feeling for awhile dysuria Quality acute 08/12/2016 None dysuria Onset and Resolution ongoing 08/12/2016 None dysuria Limitation on Activities moderately limits urination 08/12/2016 None dysuria Frequency of Episodes increasing 08/12/2016 None dysuria Triggers no known associated factors 08/12/2016 None rash Location-Major on the lower body 07/15/2016 None rash Color red 2015 None rash Onset of Symptom 2 weeks ago 07/15/2016 None rash Pertinent Findings Denies fever 07/15/2016 None rash Pertinent Findings itching 07/15/2016 None arthropod bite Location diffusely 07/08/2016 None arthropod bite Quality constant 07/08/2016 None arthropod bite Onset and Resolution ongoing 07/08/2016 None arthropod bite Frequency of Episodes daily 07/08/2016 None arthropod bite Location diffusely 07/02/2016 None arthropod bite Quality acute 07/02/2016 None arthropod bite Limitation on Activities does not limit activities 07/02/2016 None arthropod bite Triggers outdoor exposure 07/02/2016 None arthropod bite Pertinent Findings nocturnal pruritus 07/02/2016 None depression Quality constant 06/17/2016 None depression Onset and Resolution sudden in onset 06/17/2016 None depression Onset of Symptom 1 months ago 06/17/2016 None depression Triggers no known associated factors 06/17/2016 None medication follow up Additional Comments medication use 06/17/2016 None medication follow up Location oral intake 06/17/2016 None back pain Location lumbar-sacral spine 05/16/2016 None back pain Quality constant 05/16/2016 None back pain Onset of Symptom 1 weeks ago 05/16/2016 None back pain Frequency of Episodes on and off 05/16/2016 None back pain Triggers activity 05/16/2016 None back pain Significant Medical Conditions spinal stenosis 05/16/2016 None back pain Significant Medical Conditions trauma 05/16/2016 feel last week-xrays okay back pain Alleviating Factors medication 05/16/2016 None back pain Severity moderate 05/16/2016 None back pain Pertinent Findings Denies extremity numbness 05/16/2016 None back pain Pertinent Findings Denies extremity weakness 05/16/2016 None fatigue Limitation on Activities moderately limits activities 05/16/2016 None fatigue Onset of Symptom 2 weeks ago 05/16/2016 None fatigue Frequency of Episodes daily 05/16/2016 None fatigue Pertinent Findings back pain 05/16/2016 None fatigue Pertinent Findings cold intolerance 05/16/2016 None back pain Onset and Resolution ongoing 05/16/2016 None back pain Location lumbar-sacral spine 05/13/2016 None back pain Quality constant 05/13/2016 None back pain Onset of Symptom 1 weeks ago 05/13/2016 None back pain Frequency of Episodes on and off 05/13/2016 None back pain Triggers activity 05/13/2016 None back pain Significant Medical Conditions spinal stenosis 05/13/2016 None back pain Significant Medical Conditions trauma 05/13/2016 feel last week-xrays okay back pain Alleviating Factors medication 05/13/2016 None back pain Severity moderate 05/13/2016 None back pain Pertinent Findings Denies extremity numbness 05/13/2016 None back pain Pertinent Findings Denies extremity weakness 05/13/2016 None fatigue Onset of Symptom 2 weeks ago 05/13/2016 None fatigue Limitation on Activities moderately limits activities 05/13/2016 None fatigue Frequency of Episodes daily 05/13/2016 None fatigue Pertinent Findings back pain 05/13/2016 None fatigue Pertinent Findings cold intolerance 05/13/2016 None back pain Location lumbar-sacral spine 03/06/2016 None back pain Quality constant 03/06/2016 None back pain Onset of Symptom 1 weeks ago 03/06/2016 None back pain Mechanism of injury fall from height 03/06/2016 None back pain Mechanism of injury twisting 03/06/2016 None back pain Pertinent Findings Denies extremity numbness 03/06/2016 None back pain Pertinent Findings Denies extremity weakness 03/06/2016 None back pain Frequency of Episodes on and off 03/06/2016 None back pain Triggers activity 03/06/2016 None back pain Significant Medical Conditions spinal stenosis 03/06/2016 None back pain Significant Medical Conditions trauma 03/06/2016 feel last week-xrays okay back pain Alleviating Factors medication 03/06/2016 None back pain Severity moderate 03/06/2016 None hypothyroid Pertinent Findings coarse hair 02/08/2016 None hypothyroid Pertinent Findings cold skin 02/08/2016 None hypothyroid Pertinent Findings dry skin 02/08/2016 None hypothyroid Pertinent Findings memory impairment 02/08/2016 None hypothyroid Pertinent Findings weakness 02/08/2016 None hypothyroid Pertinent Findings decreased energy 02/08/2016 None hypothyroid Onset of Symptom 1 months ago 02/08/2016 None hypothyroid Frequency of Episodes daily 02/08/2016 None hypothyroid Quality chronic 02/08/2016 None hypothyroid Onset and Resolution ongoing 02/08/2016 None hypothyroid Severity mild with subclinical signs 02/08/2016 None hypothyroid Triggers no known associated factors 02/08/2016 None hypothyroid Alleviating Factors medication 02/08/2016 None hemorrhoids Quality acute 01/03/2016 None hemorrhoids Onset of Symptom _ days ago 01/03/2016 None hemorrhoids Limitation on Activities moderately limits activities 01/03/2016 None hemorrhoids Pertinent Findings pain 01/03/2016 None cough Location in the throat 11/19/2015 None cough Quality dry 09/2016 None cough Onset and Resolution sudden in onset 11/19/2015 None cough Onset of Symptom 4 days ago 11/19/2015 None cough Frequency of Episodes daily 11/19/2015 None cough Pertinent Findings facial pain 11/19/2015 None cough Pertinent Findings nasal congestion 11/19/2015 None cough Pertinent Findings fever 11/19/2015 None sinus congestion Location on both sides 11/19/2015 None sinus congestion Quality fullness 11/19/2015 None sinus congestion Onset and Resolution sudden in onset 11/19/2015 None sinus congestion Onset of Symptom 4 days ago 11/19/2015 None sinus congestion Frequency of Episodes daily 11/19/2015 None sore throat Location on both sides 11/19/2015 None sore throat Quality dull 11/19/2015 None sore throat Quality scratchy 11/19/2015 None sore throat Onset and Resolution sudden in onset 11/19/2015 None sore throat Onset of Symptom 4 days ago 11/19/2015 None sore throat Frequency of Episodes daily 11/19/2015 None headache Location diffusely 11/19/2015 None headache Quality dull 11/19/2015 None headache Quality pressure 11/19/2015 None headache Onset and Resolution sudden in onset 11/19/2015 None headache Onset of Symptom 4 days ago 11/19/2015 None headache Frequency of Episodes daily 11/19/2015 None back pain Quality improving 10/15/2015 Had back surgery 3 weeks ago back pain Limitation on Activities moderately limits activities 10/15/2015 None back pain Location lumbar-sacral spine 10/15/2015 None back pain Triggers no known associated factors 10/15/2015 None oral pain Location on both sides 10/03/2015 None oral pain Quality dull 10/03/2015 None oral pain Quality constant 10/03/2015 None oral pain Quality burning 10/03/2015 None oral pain Onset and Resolution sudden in onset 10/03/2015 None oral pain Limitation on Activities limits oral intake 10/03/2015 None oral pain Frequency of Episodes daily 10/03/2015 None oral pain Pertinent Findings pain with oral intake 10/03/2015 None nasal allergies Onset and Resolution ongoing 09/07/2015 None nasal allergies Location in both nares 09/07/2015 None nasal allergies Onset of Symptom during adulthood 09/07/2015 None nasal allergies Severity moderate 09/07/2015 None nasal allergies Frequency of Episodes unchanged 09/07/2015 None nasal allergies Significant Medical Conditions allergic rhinitis 09/07/2015 None nasal allergies Significant Medications antihistamines 09/07/2015 None nasal allergies Triggers known allergens 09/07/2015 None nasal allergies Pertinent Findings cough 09/07/2015 None nasal allergies Pertinent Findings Denies fever 09/07/2015 None nasal allergies Exacerbating Factors allergen exposure 09/07/2015 None nasal allergies Alleviating Factors medication 09/07/2015 None cyst Onset of Symptom 2 days ago 08/09/2015 None cyst Onset and Resolution gradual in onset 08/09/2015 None cyst Quality acute 11/2014 None cyst Quality dull pain 08/09/2015 None cyst Severity moderate 08/09/2015 None cyst Triggers no known associated factors 08/09/2015 None cyst Exacerbating Factors direct pressure 08/09/2015 None cyst Pertinent Findings pain 08/09/2015 None cyst Pertinent Findings tenderness 08/09/2015 None cyst Pertinent Findings drainage 08/09/2015 None urinary incontinence Quality intermittent 07/31/2015 None urinary incontinence Onset and Resolution ongoing 07/31/2015 None urinary incontinence Onset of Symptom during adulthood 07/31/2015 None urinary incontinence Triggers stress 07/31/2015 None urinary incontinence Pertinent Findings urinary urgency 07/31/2015 None urinary urgency Quality constant 07/31/2015 None urinary urgency Onset and Resolution gradual in onset 07/31/2015 None urinary urgency Onset of Symptom 1 months ago 07/31/2015 None urinary urgency Triggers no known associated factors 07/31/2015 None urinary incontinence Length of Episodes 2 weeks 07/31/2015 noticed more the last 2 weeks fatigue Limitation on Activities moderately limits activities 07/06/2015 None fatigue Onset of Symptom 1 months ago 07/06/2015 None fatigue Frequency of Episodes daily 07/06/2015 None fatigue Timing of Episodes no specific time 07/06/2015 None fatigue Triggers activity 07/06/2015 None fatigue Alleviating Factors rest 07/06/2015 None fatigue Exacerbating Factors exertion 07/06/2015 None fatigue Pertinent Findings dizziness 07/06/2015 None fatigue Pertinent Findings weakness 07/06/2015 None fatigue Quality constant 07/06/2015 None fatigue Onset and Resolution sudden in onset 07/06/2015 None muscle weakness Location diffusely 07/06/2015 None muscle weakness Quality both sides 07/06/2015 None muscle weakness Onset and Resolution sudden in onset 07/06/2015 None muscle weakness Onset of Symptom _ months ago 07/06/2015 None muscle weakness Limitation on Activities moderately limits activities 07/06/2015 None muscle weakness Frequency of Episodes daily 07/06/2015 None muscle weakness Pertinent Findings back pain 07/06/2015 None muscle weakness Pertinent Findings pain 07/06/2015 None fatigue Limitation on Activities moderately limits activities 06/15/2015 None fatigue Onset of Symptom 1 months ago 06/15/2015 None fatigue Frequency of Episodes daily 06/15/2015 None fatigue Timing of Episodes no specific time 06/15/2015 None fatigue Triggers activity 06/15/2015 None fatigue Alleviating Factors rest 06/15/2015 None fatigue Exacerbating Factors exertion 06/15/2015 None fatigue Pertinent Findings dizziness 06/15/2015 None fatigue Pertinent Findings weakness 06/15/2015 None fatigue Quality constant 06/15/2015 None fatigue Onset and Resolution sudden in onset 06/15/2015 None muscle weakness Location diffusely 06/15/2015 None muscle weakness Quality both sides 06/15/2015 None muscle weakness Onset and Resolution sudden in onset 06/15/2015 None muscle weakness Onset of Symptom _ months ago 06/15/2015 None muscle weakness Limitation on Activities moderately limits activities 06/15/2015 None muscle weakness Frequency of Episodes daily 06/15/2015 None muscle weakness Pertinent Findings back pain 06/15/2015 None muscle weakness Pertinent Findings pain 06/15/2015 None ~generic Location diffusely 05/01/2015 Here 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 cough Location in the throat 04/27/2015 None cough Quality productive 04/27/2015 None cough Onset of Symptom _ weeks ago 04/27/2015 None cough Pertinent Findings Denies chest discomfort 04/27/2015 None cough Pertinent Findings Denies dyspnea 04/27/2015 None cough Pertinent Findings Denies fever 04/27/2015 None cough Pertinent Findings Denies hoarseness 04/27/2015 None cough Limitation on Activities does not limit activities 04/27/2015 None cough Frequency of Episodes decreasing 04/27/2015 None cough Significant Medications albuterol 04/27/2015 None cough Triggers known allergens 04/27/2015 None cough Triggers change of seasons 04/27/2015 None sinus congestion Onset and Resolution ongoing 04/13/2015 None sinus congestion Onset of Symptom 1 weeks ago 04/13/2015 None sinus congestion Pertinent Findings cough 04/13/2015 None sinus congestion Pertinent Findings decreased energy level 04/13/2015 None sinus congestion Pertinent Findings Denies fever 04/13/2015 None sinus congestion Severity moderate 04/13/2015 None sinus congestion Frequency of Episodes increasing 04/13/2015 None sinus congestion Significant Medical Conditions allergic rhinitis 04/13/2015 None sinus congestion Triggers allergens 04/13/2015 None sinus congestion Alleviating Factors medication 04/13/2015 None sinus congestion Exacerbating Factors allergen exposure 04/13/2015 None sinus congestion Pertinent Findings Denies vomiting 04/13/2015 None sinus congestion Pertinent Findings Denies weight loss 04/13/2015 None sinus congestion Location on both sides 04/13/2015 None sinus congestion Quality acute 04/13/2015 None back pain Location diffusely 02/23/2015 back, arms, legs, hurts all over back pain Quality chronic 02/23/2015 None back pain Onset and Resolution ongoing 02/23/2015 None back pain Limitation on Activities moderately limits activities 02/23/2015 None back pain Frequency of Episodes increasing 02/23/2015 None back pain Significant Medications injected steroids 02/23/2015 have helped in the past back pain Triggers activity 02/23/2015 None abdominal pain Location diffusely 02/23/2015 None abdominal pain Quality chronic 02/23/2015 None abdominal pain Quality cramping 02/23/2015 None abdominal pain Onset and Resolution ongoing 02/23/2015 None abdominal pain Onset of Symptom during adulthood 02/23/2015 None abdominal pain Limitation on Activities does not limit activities 02/23/2015 None abdominal pain Length of Episodes _ seconds 02/23/2015 None abdominal pain Length of Episodes _ minutes 02/23/2015 None abdominal pain Significant Medical Conditions irritable bowel 02/23/2015 and crohns abdominal pain Triggers no known associated factors 02/23/2015 None abdominal pain Pertinent Findings back pain 02/23/2015 None abdominal pain Pertinent Findings Denies nausea 02/23/2015 None abdominal pain Pertinent Findings urinary urgency 02/23/2015 voiding relieves cramping feeling for awhile fatigue Onset and Resolution worse during the day 02/23/2015 None fatigue Limitation on Activities does not limit activities 02/23/2015 None fatigue Triggers activity 02/23/2015 None fatigue Pertinent Findings back pain 02/23/2015 None fatigue Pertinent Findings Denies insomnia 02/23/2015 None fatigue Pertinent Findings Denies nausea 02/23/2015 None fatigue Pertinent Findings weakness 02/23/2015 "not new" cough Onset of Symptom 2-3 weeks ago 01/26/2015 reports wheezing at night cough Pertinent Findings post nasal drip 01/26/2015 None eye tearing Location in the left eye 01/26/2015 None eye tearing Location in the right eye 01/26/2015 reports lots of sneezing eye tearing Onset of Symptom 2-3 weeks ago 01/26/2015 None headache Onset of Symptom 2-3 weeks ago 01/26/2015 None headache Location on the right 01/26/2015 None headache Location in the frontal area 01/26/2015 above right eye urinary urgency Onset of Symptom 1 weeks ago 12/22/2014 Had urgency all last week, but that is better now urinary urgency Pertinent Findings Denies bladder pain 12/22/2014 None urinary urgency Pertinent Findings back pain 12/22/2014 None urinary retention/hesitancy Onset of Symptom 2 weeks ago 12/22/2014 symptoms of that are better now urinary retention/hesitancy Pertinent Findings back pain 12/22/2014 None urinary retention/hesitancy Pertinent Findings Denies bladder pain 12/22/2014 None urinary retention/hesitancy Pertinent Findings Denies fever 12/22/2014 None cough Onset of Symptom _ weeks ago 12/22/2014 None cough Pertinent Findings dyspnea 12/22/2014 reports that she washes her sinuses out once per day cough Pertinent Findings Denies fever 12/22/2014 None shortness of breath Pertinent Findings cough 12/22/2014 None shortness of breath Pertinent Findings back pain 12/22/2014 None shortness of breath Pertinent Findings sputum production 12/22/2014 clear intermittent shortness of breath Pertinent Findings Denies fever 12/22/2014 None anxiety Onset and Resolution ongoing 12/22/2014 None anxiety Pertinent Findings dyspnea 12/22/2014 stress, doing taxes out of her house fatigue Onset of Symptom _ weeks ago 12/22/2014 None fatigue Pertinent Findings dyspnea 12/22/2014 None fatigue Pertinent Findings back pain 12/22/2014 None fatigue Pertinent Findings Denies fever 12/22/2014 None urinary retention/hesitancy Quality improving 12/22/2014 None urinary retention/hesitancy Triggers no known associated factors 12/22/2014 None cough Location in the larynx 12/22/2014 None cough Quality chronic 12/22/2014 None cough Triggers ill contacts 12/22/2014 None cough Triggers post nasal drip 12/22/2014 None shortness of breath Quality intermittent 12/22/2014 None shortness of breath Onset of Symptom during adulthood 12/22/2014 - wheezing at night - cough Triggers known allergens 12/22/2014 None depression Quality acute 11/16/2014 None depression Quality intermittent 11/16/2014 feeling tearful depression Onset and Resolution gradual in onset 11/16/2014 None depression Onset of Symptom _ years ago 11/16/2014 None depression Length of Episodes _ weeks 11/16/2014 None depression Pertinent Findings Denies anxiety 11/16/2014 None depression Pertinent Findings depressed mood 11/16/2014 says she doesnt have enuf interaction with people depression Pertinent Findings irritability 11/16/2014 None back pain Location in the left lower back area 11/16/2014 worse on left. Had nerve ablation. Has left leg weakness. back pain Location in the right lower back area 11/16/2014 None back pain Quality aching 11/16/2014 None back pain Onset of Symptom _ years ago 11/16/2014 None back pain Radiating down left leg 11/16/2014 None back pain Pertinent Findings Denies chills 11/16/2014 None back pain Pertinent Findings weakness 11/16/2014 None cough Location in the throat 11/16/2014 None cough Quality productive 11/16/2014 white cough Pertinent Findings Denies fever 11/16/2014 None depression Quality acute 10/16/2014 None depression Quality intermittent 10/16/2014 feeling tearful depression Onset and Resolution gradual in onset 10/16/2014 None depression Onset of Symptom _ years ago 10/16/2014 None depression Length of Episodes _ weeks 10/16/2014 None depression Pertinent Findings Denies anxiety 10/16/2014 None depression Pertinent Findings depressed mood 10/16/2014 says she doesnt have enuf interaction with people depression Pertinent Findings irritability 10/16/2014 None back pain Location in the left lower back area 10/16/2014 worse on left. Had nerve ablation. Has left leg weakness. back pain Location in the right lower back area 10/16/2014 None back pain Onset of Symptom _ years ago 10/16/2014 None back pain Radiating down left leg 10/16/2014 None back pain Pertinent Findings Denies chills 10/16/2014 None back pain Pertinent Findings weakness 10/16/2014 None back pain Quality aching 10/16/2014 None depression Quality acute 09/29/2014 None depression Onset and Resolution gradual in onset 09/29/2014 None depression Length of Episodes _ weeks 09/29/2014 None depression Pertinent Findings depressed mood 09/29/2014 says she doesnt have enuf interaction with people depression Pertinent Findings Denies anxiety 09/29/2014 None depression Quality intermittent 09/29/2014 feeling tearful depression Onset of Symptom _ years ago 09/29/2014 None depression Pertinent Findings irritability 09/29/2014 None back pain Location in the left lower back area 09/29/2014 worse on left. Had nerve ablation. Has left leg weakness. back pain Location in the right lower back area 09/29/2014 None back pain Onset of Symptom _ years ago 09/29/2014 None back pain Radiating down left leg 09/29/2014 None back pain Pertinent Findings Denies chills 09/29/2014 None back pain Pertinent Findings weakness 09/29/2014 None cough Location in the throat 09/08/2014 None cough Quality hacking 09/08/2014 clear/white phlegm some cough Onset of Symptom 1 weeks ago 09/08/2014 None cough Pertinent Findings Denies chest discomfort 09/08/2014 None cough Pertinent Findings dyspnea 09/08/2014 a little bit cough Pertinent Findings Denies nasal congestion 09/08/2014 None wheezing Location diffusely 09/08/2014 None wheezing Onset of Symptom 1 weeks ago 09/08/2014 None wheezing Pertinent Findings cough 09/08/2014 None cough Location in the throat 08/28/2014 None cough Pertinent Findings Denies chest discomfort 08/28/2014 None cough Pertinent Findings dyspnea 08/28/2014 a little bit cough Pertinent Findings Denies nasal congestion 08/28/2014 None headache Location diffusely 08/28/2014 None headache Pertinent Findings cough 08/28/2014 None headache Pertinent Findings Denies fever 08/28/2014 None cough Quality improving 08/28/2014 None cough Onset and Resolution improved during the day 08/28/2014 None cough Location in the throat 08/16/2014 None cough Quality hacking 08/16/2014 clear/white phlegm cough Onset of Symptom 1 weeks ago 08/16/2014 None cough Pertinent Findings Denies chest discomfort 08/16/2014 None cough Pertinent Findings dyspnea 08/16/2014 a little bit cough Pertinent Findings Denies nasal congestion 08/16/2014 None wheezing Location diffusely 08/16/2014 None wheezing Onset of Symptom 1 weeks ago 08/16/2014 None wheezing Pertinent Findings cough 08/16/2014 None headache Location diffusely 08/16/2014 None headache Pertinent Findings cough 08/16/2014 None headache Pertinent Findings Denies fever 08/16/2014 None skin lesion Quality red 07/21/2014 None skin lesion Location anal region 07/21/2014 None skin lesion Alleviating Factors medication 07/21/2014 a/d ointment skin lesion Pertinent Findings Denies fever 07/21/2014 None back pain Location diffusely 06/30/2014 back, arms, legs, hurts all over back pain Quality chronic 06/30/2014 None back pain Onset and Resolution ongoing 06/30/2014 None back pain Limitation on Activities moderately limits activities 06/30/2014 None back pain Frequency of Episodes increasing 06/30/2014 None back pain Significant Medications injected steroids 06/30/2014 have helped in the past back pain Triggers activity 06/30/2014 None abdominal pain Location diffusely 06/30/2014 None abdominal pain Quality chronic 06/30/2014 None abdominal pain Quality cramping 06/30/2014 None abdominal pain Onset and Resolution ongoing 06/30/2014 None abdominal pain Onset of Symptom during adulthood 06/30/2014 None abdominal pain Limitation on Activities does not limit activities 06/30/2014 None abdominal pain Length of Episodes _ seconds 06/30/2014 None abdominal pain Length of Episodes _ minutes 06/30/2014 None abdominal pain Significant Medical Conditions irritable bowel 06/30/2014 and crohns abdominal pain Triggers no known associated factors 06/30/2014 None abdominal pain Pertinent Findings back pain 06/30/2014 None abdominal pain Pertinent Findings Denies nausea 06/30/2014 None abdominal pain Pertinent Findings urinary urgency 06/30/2014 voiding relieves cramping feeling for awhile fatigue Limitation on Activities does not limit activities 06/30/2014 None fatigue Onset and Resolution worse during the day 06/30/2014 None fatigue Triggers activity 06/30/2014 None fatigue Pertinent Findings back pain 06/30/2014 None fatigue Pertinent Findings Denies insomnia 06/30/2014 None fatigue Pertinent Findings weakness 06/30/2014 "not new" fatigue Pertinent Findings Denies nausea 06/30/2014 None back pain Quality chronic 06/05/2014 None abdominal pain Pertinent Findings back pain 06/05/2014 None abdominal pain Pertinent Findings urinary urgency 06/05/2014 voiding relieves cramping feeling for awhile abdominal pain Pertinent Findings Denies nausea 06/05/2014 None back pain Location diffusely 06/05/2014 back, arms, legs, hurts all over back pain Onset and Resolution ongoing 06/05/2014 None back pain Limitation on Activities moderately limits activities 06/05/2014 None back pain Frequency of Episodes increasing 06/05/2014 None back pain Significant Medications injected steroids 06/05/2014 have helped in the past back pain Triggers activity 06/05/2014 None abdominal pain Location diffusely 06/05/2014 None abdominal pain Quality chronic 06/05/2014 None abdominal pain Quality cramping 06/05/2014 None abdominal pain Onset and Resolution ongoing 06/05/2014 None abdominal pain Onset of Symptom during adulthood 06/05/2014 None abdominal pain Limitation on Activities does not limit activities 06/05/2014 None abdominal pain Length of Episodes _ seconds 06/05/2014 None abdominal pain Length of Episodes _ minutes 06/05/2014 None abdominal pain Significant Medical Conditions irritable bowel 06/05/2014 and crohns abdominal pain Triggers no known associated factors 06/05/2014 None Hospital Follow Up _ Other: Crohns flair 05/02/2014 pt states that she still has some discomfort in her abdomen, she thinks that it is a combination of her Crohns and her weight gain. Hospital Follow Up Quality chronic illness 05/02/2014 (with an acute flair) Hospital Follow Up Quality improving 05/02/2014 None Hospital Follow Up Severity moderate 05/02/2014 - but symptoms have improved - Hospital Follow Up Pertinent Findings pain 05/02/2014 None Hospital Follow Up Pertinent Findings Denies medication use 05/02/2014 - pt states that she is not taking the reglan regularly - she is trying to keep her bowels regular with fiber/veggies/good food choices - Hospital Follow Up Significant Medical Conditions crohn's disease 05/02/2014 None fatigue Quality chronic 04/04/2014 None fatigue Onset and Resolution ongoing 04/04/2014 None fatigue Limitation on Activities does not limit activities 04/04/2014 None fatigue Frequency of Episodes decreasing 04/04/2014 states she is much better since taking the antibiotic fatigue Triggers no known associated factors 04/04/2014 None fatigue Alleviating Factors medication 04/04/2014 None fatigue Pertinent Findings Denies back pain 04/04/2014 None fatigue Pertinent Findings Denies cough 04/04/2014 None fatigue Pertinent Findings Denies dizziness 04/04/2014 None fatigue Pertinent Findings Denies dyspnea 04/04/2014 None fatigue Pertinent Findings Denies edema 04/04/2014 None fatigue Pertinent Findings Denies fever 04/04/2014 None fatigue Pertinent Findings Denies insomnia 04/04/2014 None fatigue Pertinent Findings Denies nausea 04/04/2014 None fatigue Pertinent Findings Denies syncope 04/04/2014 None fatigue Pertinent Findings Denies vomiting 04/04/2014 None fatigue Pertinent Findings Denies weight loss 04/04/2014 None fatigue Onset of Symptom 2 weeks ago 03/23/2014 None fatigue Frequency of Episodes daily 03/23/2014 None fatigue Pertinent Findings back pain 03/23/2014 None fatigue Pertinent Findings cold intolerance 03/23/2014 None fatigue Limitation on Activities moderately limits activities 03/23/2014 - pt states that she goes to sleep - sleeps well at night, but then in the morning she will take her morning medications, and then go back to sleep - a "hard sleep", and she is so very fatigued, and is worried it may be her thyroid - back pain Location lumbar-sacral spine 02/13/2014 None back pain Quality acute 02/13/2014 history of deg disc disease. also has been on prednisone 10mg that is now being tapered down to 5mg and wondered if that was part of the reason. states has been to chiropractor back pain Onset and Resolution gradual in onset 02/13/2014 wants physical therapy back pain Onset of Symptom 3 weeks ago 02/13/2014 None back pain Limitation on Activities does not limit activities 02/13/2014 None back pain Frequency of Episodes increasing 02/13/2014 None back pain Significant Medications oral steroids 02/13/2014 None back pain Triggers twisting 02/13/2014 None back pain Alleviating Factors medication 02/13/2014 tramadol helps some back pain Alleviating Factors physical therapy 02/13/2014 helped in the past back pain Exacerbating Factors activity 02/13/2014 None back pain Initial treatment medication 02/13/2014 None back pain Radiating does not radiate 02/13/2014 None back pain Sports Participation not significant 02/13/2014 None depression Quality chronic 01/09/2014 None depression Onset and Resolution ongoing 01/09/2014 None depression Onset of Symptom during adulthood 01/09/2014 None depression Triggers stress 01/09/2014 None depression Alleviating Factors medication 01/09/2014 None sinus congestion Onset and Resolution ongoing 11/15/2013 None sinus congestion Onset of Symptom 1 weeks ago 11/15/2013 None sinus congestion Severity mild 11/15/2013 None sinus congestion Frequency of Episodes increasing 11/15/2013 None sinus congestion Significant Medical Conditions allergic rhinitis 11/15/2013 None sinus congestion Significant Medications decongestants 11/15/2013 None sinus congestion Triggers no known associated factors 11/15/2013 None sinus congestion Pertinent Findings cough 11/15/2013 None sinus congestion Pertinent Findings decreased energy level 11/15/2013 None sinus congestion Pertinent Findings facial pain 11/15/2013 None sinus congestion Pertinent Findings Denies hoarseness 11/15/2013 None sinus congestion Pertinent Findings fever 11/15/2013 None sinus congestion Pertinent Findings Denies vomiting 11/15/2013 None earache Location both ears 11/15/2013 None earache Quality acute 11/15/2013 None earache Onset and Resolution ongoing 11/15/2013 None cough Location in the lung 10/31/2013 None cough Quality improving 10/31/2013 None cough Onset and Resolution ongoing 10/31/2013 None cough Pertinent Findings Denies chills 10/31/2013 None cough Pertinent Findings Denies chest discomfort 10/31/2013 None cough Pertinent Findings Denies dyspnea 10/31/2013 None cough Limitation on Activities does not limit activities 10/31/2013 None sinus congestion Onset and Resolution ongoing 10/17/2013 None sinus congestion Severity mild 10/17/2013 None sinus congestion Onset of Symptom 2 weeks ago 10/17/2013 None sinus congestion Frequency of Episodes decreasing 10/17/2013 None sinus congestion Timing of Episodes all day long 10/17/2013 None sinus congestion Significant Medical Conditions allergic rhinitis 10/17/2013 None sinus congestion Significant Medications antibiotics 10/17/2013 on a zpack sinus congestion Triggers allergens 10/17/2013 None sinus congestion Alleviating Factors medication 10/17/2013 None sinus congestion Pertinent Findings cough 10/17/2013 None sinus congestion Pertinent Findings decreased energy level 10/17/2013 None sinus congestion Pertinent Findings facial pain 10/17/2013 None sinus congestion Pertinent Findings Denies fever 10/17/2013 None sinus congestion Pertinent Findings Denies vomiting 10/17/2013 None sinus congestion Pertinent Findings swollen glands 10/17/2013 None sinus congestion Location on both sides 10/17/2013 None sinus congestion Quality acute 10/17/2013 None sinus congestion Quality fullness 10/17/2013 None Advance Directives No Advance Directive data Encounters Encounter Performer Location Codes Date EST. PATIENT, LEVEL IV Diagnosis: Generalized abdominal pain[ICD10: R10.84] Diagnosis: Other vitamin B12 deficiency anemias[ICD10: D51.8] Jenn Mancera MD, [facility] CPT-4: 79531 12/22/2017 ([id number]) [id number] EST. PATIENT, LEVEL III Diagnosis: Atrophy of thyroid (acquired)[ICD10: E03.4] Daniela Mancera MD, [facility] CPT-4: 21543 11/16/2017 ([id number]) 64417 EST. PATIENT, LEVEL IV Diagnosis: Atrophy of thyroid (acquired)[ICD10: E03.4] Diagnosis: Essential (primary) hypertension[ICD10: I10] Diagnosis: Generalized anxiety disorder[ICD10: F41.1] Diagnosis: Crohn's disease of large intestine with other complication[ICD10: K50.118] Daniela Mancera MD, [facility] CPT-4: 22343 2016 ([id number]) [id number] EST. PATIENT, LEVEL III Diagnosis: Essential (primary) hypertension[ICD10: I10] Jacinta Mancera MD, [facility] CPT-4: 10219 09/25/2017 ([id number]) Miscellaneous no charge Diagnosis: Essential (primary) hypertension[ICD10: I10] Daniela Mancera MD, [facility] CPT-4: 41793 09/17/2017 ([id number]) 86419 EST. PATIENT, LEVEL III Diagnosis: Essential (primary) hypertension[ICD10: I10] Jacinta Mancera MD, [facility] CPT-4: 74040 09/08/2017 ([id number]) Miscellaneous no charge Diagnosis: Essential (primary) hypertension[ICD10: I10] Jacinta Mancera MD [facility] CPT-4: 67314 08/24/2017 ([id number]) 63290 EST. PATIENT, LEVEL III Diagnosis: Anorectal abscess[ICD10: K61.2] Diagnosis: Low back pain[ICD10: M54.5] Daniela Mancera MD, [facility] CPT- 4: 68480 08/20/2017 ([id number]) Miscellaneous no charge Diagnosis: Essential (primary) hypertension[ICD10: I10] Daniela Mancera MD [facility] CPT-4: 10486 08/10/2017 ([id number]) Miscellaneous no charge Diagnosis: Essential (primary) hypertension[ICD10: I10] Daniela Mancera MD [facility] CPT-4: 03997 08/06/2017 ([id number]) 15535 EST. 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 PATIENT, LEVEL IV Diagnosis: Essential (primary) hypertension[ICD10: I10] Diagnosis: Generalized anxiety disorder[ICD10: F41.1] Diagnosis: Hypothyroidism, unspecified[ICD10: E03.9] Diagnosis: Allergic rhinitis due to pollen[ICD10: J30.1] Jacinta Mancera MD, [facility] CPT-4: 15465 06/12/2017 66438 EST. PATIENT, LEVEL III Diagnosis: Anorectal abscess[ICD10: K61.2] Jacinta Mancera MD, [facility] CPT-4: 99387 05/15/2017 ([id number]) 90819 EST. PATIENT, LEVEL III Diagnosis: Crohn's disease, unspecified, with other complication[ICD10: K50.918 ] Jacinta Mancera MD, [facility] CPT-4: 27989 2016 ([id number]) [id number] EST. PATIENT, LEVEL IV Diagnosis: Generalized abdominal pain[ICD10: R10.84] Diagnosis: Crohn's disease, unspecified, with other complication[ICD10: K50.918] Diagnosis: Essential (primary) hypertension[ICD10: I10] Jacinta Mancera MD, [facility] CPT-4: 53352 03/23/2017 ([id number]) [id number] EST. PATIENT, LEVEL III Diagnosis: Generalized anxiety disorder[ICD10: F41.1] Diagnosis: Major depressive disorder, single episode, mild[ICD10: F32.0] Jacinta Mancera MD, [facility] CPT-4: 41768 02/10/2017 23586 EST. PATIENT, LEVEL IV Diagnosis: Cervicalgia[ICD10: M54.2] Diagnosis: Other malaise[ICD10: R53.81] Diagnosis: Pain in joints of left hand[ICD10: M25.542] Diagnosis: Pain in joints of right hand[ICD10: M25.541] Diagnosis: Pain in left hip[ICD10: M25.552] Diagnosis: Pain in right hip[ICD10: M25.551] Diagnosis: Personal history of other infectious and parasitic diseases[ICD10: Z86.19] Jenn Mancera MD, [facility] CPT-4: 04974 2016 ([id number]) 63607 EST. PATIENT, LEVEL III Diagnosis: Generalized anxiety disorder[ICD10: F41.1] Diagnosis: Major depressive disorder, single episode, mild[ICD10: F32.0] Diagnosis: Essential (primary) hypertension[ICD10: I10] Diagnosis: Vitamin B12 deficiency anemia due to intrinsic factor deficiency[ ICD10: D51.0] Jacinta Mancera MD, [facility] CPT-4: 84401 01/13/2017 ([id number]) 35619 EST. PATIENT, LEVEL IV Diagnosis: Generalized anxiety disorder[ICD10: F41.1] Diagnosis: Essential (primary) hypertension[ICD10: I10] Diagnosis: Hypothyroidism, unspecified[ICD10: E03.9] Diagnosis: Vitamin B12 deficiency anemia, unspecified[ICD10: D51.9] Diagnosis: Major depressive disorder, single episode, mild[ICD10: F32.0] Jacinta Mancera MD, [facility] CPT-4: 68646 12/30/2016 ([id number]) 83849 EST. PATIENT, LEVEL IV Diagnosis: Atrophy of thyroid (acquired)[ICD10: E03.4] Daniela Mancera MD, [facility] CPT-4: 60498 12/22/2016 ([id number]) 46335 EST. 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 PATIENT, LEVEL IV Diagnosis: Urinary tract infection, site not specified[ICD10: N39.0] Diagnosis: Hypothyroidism, unspecified[ICD10: E03.9] Diagnosis: Generalized anxiety disorder[ICD10: F41.1] Diagnosis: Vitamin B12 deficiency anemia due to intrinsic factor deficiency[ ICD10: D51.0] Jacinta Mancera MD, [facility] CPT-4: 81121 08/12/2016 ([id number]) 81455 EST. PATIENT, LEVEL III Diagnosis: Essential (primary) hypertension[ICD10: I10] Diagnosis: Actinic keratosis[ICD10: L57.0] Jacinta Mancera MD, [facility] CPT-4: 45727 07/15/2016 85962 EST. PATIENT, LEVEL IV Diagnosis: Rash and other nonspecific skin eruption[ICD10: R21] Jenn Mancera MD, [facility] CPT-4: 50438 07/08/2016 60580 EST. PATIENT, LEVEL IV Diagnosis: Rash and other nonspecific skin eruption[ICD10: R21] Diagnosis: Other pruritus[ICD10: L29.8] Diagnosis: Bitten or stung by nonvenomous insect and other nonvenomous arthropods, initial encounter[ICD10: W57.XXXA] Jenn Mancera MD, [facility] CPT-4: 60860 07/02/2016 ([id number]) Miscellaneous no charge Diagnosis: Essential (primary) hypertension[ICD10: I10] Jenn Mancera MD, [facility] CPT-4: 54507 06/24/2016 ([id number]) 86393 EST. 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 PATIENT, LEVEL IV Diagnosis: Hypothyroidism, unspecified[ICD10: E03.9] Diagnosis: Essential (primary) hypertension[ICD10: I10] Diagnosis: Dysuria[ICD10: R30.0] Diagnosis: Vitamin B12 deficiency anemia due to intrinsic factor deficiency[ ICD10: D51.0] Jacinta Mancera MD, [facility] CPT-4: 33013 05/13/2016 ([id number]) 39526 EST. PATIENT, LEVEL III Diagnosis: Essential (primary) hypertension[ICD10: I10] Diagnosis: Low back pain[ICD10: M54.5] Jacinta Mancera MD, [facility] CPT-4: 98520 03/06/2016 ([id number]) 36850 EST. PATIENT, LEVEL IV Diagnosis: Essential (primary) hypertension[ICD10: I10] Diagnosis: Hypothyroidism, unspecified[ICD10: E03.9] Diagnosis: Dizziness and giddiness[ICD10: R42] Diagnosis: Vitamin B12 deficiency anemia due to intrinsic factor deficiency[ ICD10: D51.0] Jacinta Mancera MD, [facility] CPT-4: 39031 02/08/2016 ([id number]) 77477 EST. PATIENT, LEVEL IV Diagnosis: Dysuria[ICD10: R30.0] Diagnosis: Vitamin B12 deficiency anemia, unspecified[ICD10: D51.9] Diagnosis: Crohn's disease, unspecified, with other complication[ICD10: K50.918] Diagnosis: Anorectal abscess[ICD10: K61.2] Diagnosis: Low back pain[ICD10: M54.5] Diagnosis: Vitamin D deficiency, unspecified[ICD10: E55.9] Jacinta Mancera MD, [facility] CPT-4: 23227 01/03/2016 41270 EST. PATIENT, LEVEL III Diagnosis: Vasomotor rhinitis[ICD10: J30.0] Diagnosis: Acute recurrent maxillary sinusitis[ICD10: J01.01] Jenn Mancera MD, [facility] CPT-4: 61057 11/19/2015 ([id number]) 56921 EST. PATIENT, LEVEL IV Diagnosis: Crohn's disease, unspecified, with other complication[ICD10: K50.918] Diagnosis: Low back pain[ICD10: M54.5] Daniela Mancera MD, [facility] CPT- 4: 61096 10/15/2015 97525 EST. PATIENT, LEVEL IV Diagnosis: Candidal stomatitis[ICD10: B37.0] Diagnosis: Other specified disorders of nose and nasal sinuses[ICD10: J34.89] Jenn Mancera MD, [facility] CPT-4: 04654 10/03/2015 ([id number]) 04188 EST. PATIENT, LEVEL III Diagnosis: Lumbago with sciatica, unspecified side[ICD10: M54.40] Daniela Mancera MD, [facility] CPT-4: 26720 09/13/2015 ([id number]) 52302 EST. PATIENT, LEVEL III Diagnosis: Allergic rhinitis due to pollen[ICD10: J30.1] Jacinta Mancera MD, [facility] CPT-4: 81879 09/07/2015 ([id number]) 32433 EST. PATIENT, LEVEL III Diagnosis: Cutaneous abscess, unspecified[ICD10: L02.91] Diagnosis: Anorectal abscess[ICD10: K61.2] Diagnosis: Other herpesviral infection[ICD10: B00.89] Daniela Mancera MD, [facility] CPT-4: 59152 08/09/2015 ([id number]) 74185 EST. PATIENT, LEVEL III Diagnosis: Degenerative disc disease, lumbar[ICD9: 722.52] Diagnosis: URINARY FREQUENCY[ICD9: 788.41] Diagnosis: Crohns disease[ICD9: 555.9] Daniela Mancera MD, [facility] CPT- 4: 58018 07/31/2015 ([id number]) 22145 EST. PATIENT, LEVEL IV Diagnosis: Peroneal mononeuropathy[ICD9: 355.3] Diagnosis: Degenerative disc disease, lumbar[ICD9: 722.52] Diagnosis: Bulging disc[ICD9: 722.2] Diagnosis: Chronic steroid use[ICD9: V58.65] Diagnosis: Crohns disease[ICD9: 555.9] Daniela Mancera MD, [facility] CPT- 4: 60092 07/06/2015 ([id number]) 78496 EST. PATIENT, LEVEL III Diagnosis: Adrenal insufficiency[ICD9: 255.41] Diagnosis: Pain, dental[ICD9: 525.9] Daniela Mancera MD, [facility] CPT-4: 90658 06/15/2015 ([id number]) 22198 EST. PATIENT, LEVEL III Diagnosis: ALLERGIC RHINITIS[ICD9: 477.9] Diagnosis: Chronic sinusitis[ICD9: 473.9] Jacinta Mancera MD, [facility] CPT-4: 77817 04/27/2015 ([id number]) 18492 EST. PATIENT, LEVEL III Diagnosis: ALLERGIC RHINITIS[ICD9: 477.9] Diagnosis: COUGH[ICD9: 786.2] Diagnosis: ACUTE URI[ICD9: 465.9] Jacinta Mancera MD, [facility] CPT-4: 92054 04/13/2015 ([id number]) 77082 EST. PATIENT, LEVEL IV Diagnosis: HYPOTHYROIDISM[ICD9: 244.9] Diagnosis: Vitamin B 12 deficiency[ICD9: 266.2] Diagnosis: Low back pain[ICD9: 724.2] Daniela Mancera MD [facility] CPT- 4: 88928 02/23/2015 ([id number]) 89490 EST. PATIENT, LEVEL III Diagnosis: ACUTE URI[ICD9: 465.9] Diagnosis: ALLERGIC RHINITIS[ICD9: 477.9] Daniela Mancera MD, [facility] CPT- 4: 90212 01/26/2015 ([id number]) 44846 EST. PATIENT, LEVEL IV Diagnosis: Abdominal pain[ICD9: 789.00] Diagnosis: Crohns disease[ICD9: 555.9] Diagnosis: Fatigue[ICD9: 780.79] Diagnosis: Dysuria[ICD9: 788.1] Diagnosis: Dyspnea[ICD9: 786.09] Diagnosis: COPD (chronic obstructive pulmonary disease)[ICD9: 496] Daniela Mancera MD [facility] CPT-4: 32320 12/22/2014 ([id number]) 11815 EST. PATIENT, LEVEL III Diagnosis: COUGH[ICD9: 786.2] Diagnosis: Crohns disease[ICD9: 555.9] Daniela Mancera MD [facility] CPT- 4: 17446 11/16/2014 ([id number]) 48985 EST. PATIENT, LEVEL III Diagnosis: Back pain[ICD9: 724.5] Diagnosis: DEPRESSIVE DISORDER NEC[ICD9: 311] Daniela Mancera MD [facility] CPT-4: 67107 10/16/2014 ([id number]) 10900 EST. PATIENT, LEVEL III Diagnosis: Back pain[ICD9: 724.5] Diagnosis: DEPRESSIVE DISORDER NEC[ICD9: 311] Daniela Mancera MD [facility] CPT-4: 52447 09/29/2014 ([id number]) 46519 EST. PATIENT, LEVEL III Diagnosis: Adrenal insufficiency[ICD9: 255.41] Diagnosis: MALAISE AND FATIGUE[ICD9: 780.79] Diagnosis: Back pain[ICD9: 724.5] Diagnosis: COUGH[ICD9: 786.2] Diagnosis: ACUTE URI[ICD9: 465.9] Daniela Mancera MD, [facility] CPT-4: 26096 09/08/2014 ([id number]) 59304 EST. PATIENT, LEVEL III Diagnosis: Adrenal insufficiency[ICD9: 255.41] Diagnosis: GENERALIZED ANXIETY DISEASE[ICD9: 300.02] Daniela Mancera MD, [facility] CPT-4: 34182 08/28/2014 ([id number]) 00886 EST. PATIENT, LEVEL III Diagnosis: ACUTE SINUSITIS[ICD9: 461.9] Diagnosis: Crohns disease[ICD9: 555.9] Daniela Mancera MD, [facility] CPT- 4: 89200 08/16/2014 ([id number] 54280 EST. PATIENT, LEVEL III Diagnosis: Cellulitis[ICD9: 682.9] Jacinta Mancera MD, [facility] CPT-4: 99183 07/21/2014 [id number]) 16753 EST. PATIENT, LEVEL IV Diagnosis: Hypothyroid[ICD9: 244.9] Diagnosis: Crohns disease[ICD9: 555.9] Daniela Mancera MD, [facility] CPT- 4: 73622 06/30/2014 ([id number]) 96463 EST. PATIENT, LEVEL III Diagnosis: Crohns disease[ICD9: 555.9] Diagnosis: Back pain[ICD9: 724.5] Jacinta Mancera MD, [facility] CPT-4: 98390 06/05/2014 ([id number]) 75733 EST. PATIENT, LEVEL III Diagnosis: Crohns disease[ICD9: 555.9] Diagnosis: Abdominal pain[ICD9: 789.00] Diagnosis: Back pain[ICD9: 724.5] Daniela Mancera MD, [facility] CPT-4: 67255 05/02/2014 ([id number]) 38857 EST. PATIENT, LEVEL III Diagnosis: ANAL FISTULA[ICD9: 565.1] Diagnosis: REGIONAL ENTERITIS[ICD9: 555.9] Daniela Mancera MD, [facility] CPT- 4: 34832 04/04/2014 ([id number]) 96217 EST. PATIENT, LEVEL IV Diagnosis: HYPOPOTASSEMIA[ICD9: 276.8] Diagnosis: MALAISE AND FATIGUE[ICD9: 780.79] Diagnosis: ENCOUNTER LONG-TERM STEROID RX[ICD9: V58.65] Diagnosis: ENCNTR LONG-RX USE NEC[ICD9: V58.69] Diagnosis: Crohns disease[ICD9: 555.9] Diagnosis: ANAL FISTULA[ICD9: 565.1] Daniela Mancera MD, [facility] CPT-4: 23447 03/23/2014 ([id number]) 76097 EST. PATIENT, LEVEL IV Diagnosis: Low back pain[ICD9: 724.2] Diagnosis: Sacroiliitis[ICD9: 720.2] Diagnosis: Bulging disc[ICD9: 722.2] Diagnosis: B12 deficiency[ICD9: 266.2] Diagnosis: Fatigue[ICD9: 780.79] Jacinta Mancera MD, [facility] CPT-4: 34108 02/13/2014 ([id number]) 44531 EST. PATIENT, LEVEL IV Diagnosis: HYPOTHYROIDISM[ICD9: 244.9] Diagnosis: GENERALIZED ANXIETY DISEASE[ICD9: 300.02] Diagnosis: DEPRESSIVE DISORDER NEC[ICD9: 311] Diagnosis: Hypokalemia[ICD9: 276.8] Daniela Mancera MD, [facility] CPT-4: 16729 01/09/2014 ([id number]) 16315 EST. PATIENT, LEVEL III Diagnosis: ACUTE SINUSITIS[ICD9: 461.9] Diagnosis: ACUTE PHARYNGITIS[ICD9: 462] Jacinta Mancera MD, [facility] CPT-4: 46984 11/15/2013 ([id number]) 43550 EST. PATIENT, LEVEL III Diagnosis: Chronic steroid use[ICD9: V58.65] Diagnosis: REGIONAL ENTERITIS[ICD9: 555.9] Diagnosis: GENERALIZED ANXIETY DISEASE[ICD9: 300.02] Diagnosis: HYPOTHYROIDISM[ICD9: 244.9] Diagnosis: Encounter for long-term (current) use of other medications[ICD9: V58.69] Diagnosis: Post-menopausal[ICD9: V49.81] Daniela Mancera MD, [facility] CPT- 4: 68889 10/31/2013 OFFICE VISIT, NEW - LEVEL 3 Diagnosis: ACUTE SINUSITIS[ICD9: 461.9] Diagnosis: Hypothyroid[ICD9: 244.9] Diagnosis: Crohns disease[ICD9: 555.9] [facility] CPT-4: 13072 10/17/2013 Plan of Care Planned Activity Notes Codes Status Date Visit Plan: Abdominal pain - hypoactive bowel sounds - will order x-ray and treat as indicated - discussed need to stay away from milk products while acutely ill with diarrhea and nausea and emesis as it may worsen the symptoms. Liquids initially until the nausea improves, then recommend to advance to bland diet for 1 day, then advance as tolerated. The patient has been counseled against excessive intake of caffeine, spicy foods, peppermint, and cinnamon - all of which can exacerbate esophageal reflux. The patient is to take medications as prescribed and call the office if the symptoms are not improving. 12/22/2017 Appointment: Jenn Reilly WPtel: [phone] [facility] [place] [place] (30 min) Complex 12/22/2017 Patient Education: Patient Medication Summary Completed 12/22/2017 Visit Plan: Hypothyroidism - pt with chronic hypothyroidism , continue with current medication, will monitor pt to signs or symptoms of lack of adequate supplementation. Pt is to continue with current dose of medication unless directed otherwise. Check labs at regular intervals wither q 3 months or q 6 months based on previous levels of control. 11/16/2017 Appointment: [facility] [phone] [facility] [place] (15 min) Moderate 11/16/2017 Patient Education: Patient Medication Summary Completed 11/16/2017 Appointment: Injection 10/29/2017 Patient Education: Patient Medication Summary Completed 10/29/2017 Visit Plan: Hypothyroidism - pt with chronic hypothyroidism , continue with current medication, will monitor pt to signs or symptoms of lack of adequate supplementation. Pt is to continue with current dose of medication unless directed otherwise. Check labs at regular intervals wither q 3 months or q 6 months based on previous levels of control. Anxiety - chronic - refill xanax through [facility]. Crohn's disease - chronic - continue with Azathioprine and prednisone through [facility]. Hypertension - well controlled - continue with current medications, continue with no added salt diet. Pt has been encouraged to exercise daily. The pt has been advised to call the office if there are any acute concerns about change in blood pressure readings at home. 10/19/2017 Appointment: [facility] [phone] [facility] ([facility] min) Complex 10/19/2017 Patient Education: Patient Medication Summary Completed 10/19/2017 Patient Education: Smoking and Tobacco Addiction Completed 10/19/2017 Patient Education: Obesity Completed 10/19/2017 Appointment: Nurse Visit 10/12/2017 Patient Education: Patient Medication Summary Completed 10/12/2017 Patient Education: Smoking and Tobacco Addiction Completed 10/12/2017 Visit Plan: Hypertension - well controlled - continue with current medications, continue with no added salt diet. Pt has been encouraged to exercise daily. The pt has been advised to call the office if there are any acute concerns about change in blood pressure readings at home. 09/25/2017 App[facility]ment: [facility] [phone] [phone] (30 min) Complex 09/25/2017 Patient Education: Patient Medication Summary Completed 09/25/2017 Patient Education: Smoking and Tobacco Addiction Completed 09/25/2017 Patient Education: Obesity Completed 09/25/2017 Patient Education: Patient Medication Summary Completed 09/22/2017 Patient Education: Smoking and Tobacco Addiction Completed 09/22/2017 Patient Education: Hypertension Completed 09/22/2017 Patient Education: Patient Medication Summary Completed 09/22/2017 Appointment: [facility] Modi [facility] [phone] [phone] (30 min) Complex 09/21/2017 Appointment: Nurse Visit 09/17/2017 Patient Education: Patient Medication Summary Completed 09/17/2017 Patient Education: Smoking and Tobacco Addiction Completed 09/17/2017 Patient Education: Hypertension Completed 09/17/2017 Visit Plan: Hypertension - uncontrolled - the patient's medications have been modified as documented in the visit note. The patient has been counseled to cut back on salt in diet for a no added salt diet, low fat diet, start an exercise program with low weight bearing exercises and higher aerobic activity for heart health. The patient is to check blood pressure readings as an outpatient and either fax, call, or email the readings to the office next week for practitioner to review. The pt is to call for acute concerns. 09/08/2017 Appointment: Jacinta Modi WPtel: [address] [place], [place] [phone] (30 min) Complex 09/08/2017 Patient Education: Patient Medication Summary Completed 09/08/2017 Patient Education: Smoking and Tobacco Addiction Completed 09/08/2017 Patient Education: Obesity Completed 09/08/2017 Referral: [facility] Patient informed. Referral info faxed. Completed Appointment: Jacinta Modi WPtel: [phone] (30 min) Complex 08/28/2017 Appointment: Nurse Visit 08/24/2017 Patient Education: Patient Medication Summary Completed 08/24/2017 Patient Education: Smoking and Tobacco Addiction Completed 08/24/2017 Visit Plan: Anorectal abscess - recommended continued antibiotics - rx for mupirocin to be used as well, then start use of barrier cream - desitin and use tucks pads on rectum to clean tissue. Low back pain - recommended pt to keep appt with specialist. 08/20/2017 Appointment: Daniela Mancera WPtel: [address] [place], [place] [phone] [place] (30 min) Complex 08/20/2017 Appointment: Jacinta Modi WPtel: [address] [place], [place] [phone] (30 min) Complex 08/20/2017 Patient Education: Patient Medication Summary Completed 08/20/2017 Patient Education: Smoking and Tobacco Addiction Completed 08/20/2017 Patient Education: Obesity Completed 08/20/2017 Appointment: Nurse Visit 08/10/2017 Patient Education: Patient Medication Summary Completed 08/10/2017 Patient Education: Smoking and Tobacco Addiction Completed 08/10/2017 Patient Education: Hypertension Completed 08/10/2017 Appointment: Nurse Visit 08/06/2017 Patient Education: Patient Medication Summary Completed 08/06/2017 Patient Education: Smoking and Tobacco Addiction Completed 08/06/2017 Patient Education: Hypertension Completed 08/06/2017 Visit Plan: Gluteus medius tear - Hip pain - needs replacement per previous Ortho - recommended a second opinion - I have recommended referral to Dr. Lito Maher. RX for a single point cane. Adrenal crisis - increase steroids - and do a 5mg taper every week until down to 30mg. 07/28/2017 Appointment: Daniela Mancera WPtel: [phone] [facility] (30 min) Complex 07/28/2017 Patient Education: Patient Medication Summary Completed 07/28/2017 Patient Education: Smoking and Tobacco Addiction Completed 07/28/2017 Patient Education: Obesity Completed 07/28/2017 Care Plan: SCREENINGMAMMOGRAPHYDIGITAL LOINC : 41254-1 Pending 07/28/2017 Care Plan: DXA BONE DENSITY AXIAL LOINC : 22081-9 Pending 07/28/2017 Care Plan: Referral Order SNOMED-CT : [id number] Pending 07/28/2017 Visit Plan: Chronic back pain-chronic steroid use-patient seening Dr Coles for back pain-discussed risks of chronic steroid use and importance of tapering to lowest effective dose-patient verbalized understanding. 06/19/2017 Appointment: Jacinta Modi [facility]Ptel[facility] [phone] [phone] (30 min) Complex 06/19/2017 Patient Education: Patient Medication Summary Completed 06/19/2017 Patient Education: Smoking and Tobacco Addiction Completed 06/19/2017 Patient Education: Obesity Completed 06/19/2017 Visit Plan: Hypertension - well controlled - continue with current medications, continue with no added salt diet. Pt has been encouraged to exercise daily. The pt has been advised to call the office if there are any acute concerns about change in blood pressure readings at home. Chronic Depression and anxiety - the pt has symptoms of chronic anxiety and depression that have been fairly well controlled since the last office visit. The pt has expected periods of exacerbation with abatement of the symptoms with change in situational exposure. No change in current medications. Allergies - chronic - recommended pt to use allergy medication as prescribed. Pt has been counseled as to the appropriate use of the medication. Pt to call if allergy symptoms are not controlled with the medication. If using nasal spray, instructions as follows: Nasal spray- use twice daily, one spray per nostril twice daily, after 30 minutes, rinse out nose with saline spray.. Use opposite hand per nostril to spray in the nasal steroid allergy spray. Hypothyroidism - pt with chronic hypothyroidism, continue with current medication, will monitor pt to signs or symptoms of lack of adequate supplementation. Pt is to continue with current dose of medication unless directed otherwise. Check labs at regular intervals wither q 3 months or q 6 months based on previous levels of control. 06/12/2017 Visit Plan: Hypertension - well controlled - continue with current medications, continue with no added salt diet. Pt has been encouraged to exercise daily. The pt has been advised to call the office if there are any acute concerns about change in blood pressure readings at home. Chronic Depression and anxiety - the pt has symptoms of chronic anxiety and depression that have been fairly well controlled since the last office visit. The pt has expected periods of exacerbation with abatement of the symptoms with change in situational exposure. No change in current medications. Allergies - chronic - recommended pt to use allergy medication as prescribed. Pt has been counseled as to the appropriate use of the medication. Pt to call if allergy symptoms are not controlled with the medication. If using nasal spray, instructions as follows: Nasal spray- use twice daily, one spray per nostril twice daily, after 30 minutes, rinse out nose with saline spray.. Use opposite hand per nostril to spray in the nasal steroid allergy spray. Hypothyroidism - pt with chronic hypothyroidism, continue with current medication, will monitor pt to signs or symptoms of lack of adequate supplementation. Pt is to continue with current dose of medication unless directed otherwise. Check labs at regular intervals wither q 3 months or q 6 months based on previous levels of control. 06/12/2017 Patient Education: Patient Medication Summary Completed 06/12/2017 Patient Education: Smoking and Tobacco Addiction Completed 06/12/2017 Patient Education: Obesity Completed 06/12/2017 Patient Education: Hypertension Completed 06/12/2017 Visit Plan: Rectal abscess-RX for cipro sent to patient's pharmacy and instructed on use-call if symptoms do not resolve or if any worse. Patient verbalized understanding of plan. 05/15/2017 Appointment: Jacinta Modi WPtel: [address] [place], [place] [phone] (10 min) Simple 05/15/2017 Patient Education: Patient Medication Summary Completed 05/15/2017 Patient Education: Smoking and Tobacco Addiction Completed 05/15/2017 Visit Plan: Crohns disease-recent flair-patient has finished abx-saw Dr Ellington yesterday and he started her on methotrexate-no changes today-instructed patient to call if symptoms do not continue to improve or if any worse. Patient verbalized understanding of plan. 04/14/2017 Appointment: [facility] Modi [facility]el[facility] [phone] [phone] (30 min) Complex 04/14/2017 Patient Education: Patient Medication Summary Completed 04/14/2017 Patient Education: Smoking and Tobacco Addiction Completed 04/14/2017 Patient Education: Obesity Completed 04/14/2017 Visit Plan: Abdominal zkzc-sinvjq-rrthtaram CT abd/pelvis- check labs-call if symptoms do not resolve or if any worse-instructed patient we will call her with the results of her testing-patient verbalized understanding of plan. HTN-not well controlled-likely due to pain-no medication changes today-continue to monitor 03/23/2017 Patient Education: Patient Medication Summary Completed 03/23/2017 Patient Education: Smoking and Tobacco Addiction Completed 03/23/2017 Patient Education: Obesity Completed 03/23/2017 Patient Education: Hypertension Completed 03/23/2017 Visit Plan: Medicare Exam - today we discussed the patients past history, immunizations, preventative exams/evaluations - colonoscopy, fecal occult blood testing, routine labs for renal function, glucose, cholesterol, osteoporosis evaluations, cardiovascular testing and cancer screenings. We have also discussed mental health and the signs/symptoms of depression. The patient was advised of home safety evaluations and the need to make sure that as the aging process continues, we need to be aware of different ways to make the home a safer place to reside. The patient has also been counseled that exercise is necessary - and of utmost importance as we age to help decrease fall risk and to maintain independence in the home. Today we discussed the need for the patient to create paperwork for Advanced directives as well as for the patient to provide this office with a copy of her DOPA paperwork for health care surrogate. 02/11/2017 Appointment: [phone] [facility] 02/11/2017 Patient Education: Patient Medication Summary Completed 02/11/2017 Patient Education: Smoking and Tobacco Addiction Completed 02/11/2017 Visit Plan: Chronic Depression and anxiety -much improved- the pt has symptoms of chronic anxiety and depression that have been fairly well controlled since the last office visit. The pt has expected periods of exacerbation with abatement of the symptoms with change in situational exposure. No change in current medications. 02/10/2017 Appointment: Jacinta Modi WPtel: [phone] [phone] (30 min) Complex 02/10/2017 Patient Education: Patient Medication Summary Completed 02/10/2017 Patient Education: Smoking and Tobacco Addiction Completed 02/10/2017 Visit Plan: malaise, joint pain, neck pain, fatigue, depression - will check tick panel. Will start doxycycline. Pt is to notify clinic if symptoms do not improve, if they worsen, or with any questions or concerns. 01/23/2017 Appointment: Jenn [facility]illy [facility]el[phone] (15 min) Moderate 01/23/2017 Patient Education: Patient Medication Summary Completed 01/23/2017 Patient Education: Smoking and Tobacco Addiction Completed 01/23/2017 Visit Plan: Chronic Depression and anxiety - the pt has symptoms of chronic anxiety and depression that have been fairly well controlled since the last office visit. The pt has expected periods of exacerbation with abatement of the symptoms with change in situational exposure. No change in current medications. Hypertension - well controlled - continue with current medications, continue with no added salt diet. Pt has been encouraged to exercise daily. The pt has been advised to call the office if there are any acute concerns about change in blood pressure readings at home. B12 injection today in the office 01/13/2017 Appointment: Jacinta Modi [facility]Ptel[phone] [place] (30 min) Complex 01/13/2017 Patient Education: Patient Medication Summary Completed 01/13/2017 Patient Education: Smoking and Tobacco Addiction Completed 01/13/2017 Appointment: Jacinta Modi [facility]el[phone] (30 min) Complex 01/08/2017 Visit Plan: Chronic Depression and anxiety - the pt has symptoms of chronic anxiety and depression that have been fairly well controlled since the last office visit. The pt has expected periods of exacerbation with abatement of the symptoms with change in situational exposure. No change in current medications. Hypertension - well controlled - continue with current medications, continue with no added salt diet. Pt has been encouraged to exercise daily. The pt has been advised to call the office if there are any acute concerns about change in blood pressure readings at home. Hypothyroidism - pt with chronic hypothyroidism, continue with current medication, will monitor pt to signs or symptoms of lack of adequate supplementation. Pt is to continue with current dose of medication unless directed otherwise. Check labs at regular intervals wither q 3 months or q 6 months based on previous levels of control. Vitamin B12 deficiency-injection today in the office-patient to call [facility] to see if the compound a B vitamin injection 12/30/2016 Appointment: Jacinta Modi WPtel: [facility] (30 min) Complex 12/30/2016 Patient Education: Patient Medication Summary Completed 12/30/2016 Patient Education: Smoking and Tobacco Addiction Completed 12/30/2016 Patient Education: Obesity Completed 12/30/2016 Patient Education: Hypertension Completed 12/30/2016 Appointment: Jacinta Modi WPtel: [address] [place], [place] [id number] [place] [address] (30 min) Complex 12/23/2016 Visit Plan: Hypothyroidism - pt with chronic hypothyroidism , continue with current medication, will monitor pt to signs or symptoms of lack of adequate supplementation. Pt is to continue with current dose of medication unless directed otherwise. Check labs at regular intervals wither q 3 months or q 6 months based on previous levels of control. anxiety - pt with persistent symptoms - she continues to benefit form the xanax - no change in treatment at this time. 12/22/2016 Appointment: Daniela Mancera WPtel: [facility] (30 min) Complex 12/22/2016 Patient Education: Patient Medication Summary Completed 12/22/2016 Patient Education: Smoking and Tobacco Addiction Completed 12/22/2016 Appointment: Jacinta Modi WPtel: [phone] (30 min) Complex 12/18/2016 Visit Plan: Hypertension - well controlled - continue with current medications, continue with no added salt diet. Pt has been encouraged to exercise daily. The pt has been advised to call the office if there are any acute concerns about change in blood pressure readings at home. Hypothyroidism - pt with chronic hypothyroidism, continue with current medication, will monitor pt to signs or symptoms of lack of adequate supplementation. Pt is to continue with current dose of medication unless directed otherwise. Check labs at regular intervals wither q 3 months or q 6 months based on previous levels of control. Chronic steroid use-continue steroid taper Bdlobuq-knloenq-dqzximxw fairly well controlled-no change in treatment 10/20/2016 Appointment: Jacinta Modi WPtel: [phone] (30 min) Complex 10/20/2016 Patient Education: Patient Medication Summary Completed 10/20/2016 Patient Education: Smoking and Tobacco Addiction Completed 10/20/2016 Care Plan: Referral Order SNOMED-CT : [id number] Pending 10/20/2016 Appointment: Jacinta Modi WPtel: [phone] (30 min) Complex 10/14/2016 Visit Plan: UTI-culture urine Hypothyroidism - pt with chronic hypothyroidism, continue with current medication, will monitor pt to signs or symptoms of lack of adequate supplementation. Pt is to continue with current dose of medication unless directed otherwise. Check labs at regular intervals wither q 3 months or q 6 months based on previous levels of control. Chronic Depression and anxiety - the pt has symptoms of chronic anxiety and depression that have been fairly well controlled since the last office visit. The pt has expected periods of exacerbation with abatement of the symptoms with change in situational exposure. No change in current medications. B12 deficiency -injection today in the office-check labs Tick bite-check tick panel 08/12/2016 Appointment: Jacinta Modi WPtel: [phone] (30 min) Complex 08/12/2016 Patient Education: Patient Medication Summary Completed 08/12/2016 Patient Education: Smoking and Tobacco Addiction Completed 08/12/2016 Patient Education: Obesity Completed 08/12/2016 Visit Plan: Hypertension - well controlled - continue with current medications, continue with no added salt diet. Pt has been encouraged to exercise daily. The pt has been advised to call the office if there are any acute concerns about change in blood pressure readings at home. Wound Instructions - Pt was instructed to keep the wound clean, wash with antibacterial soap, use triple antibiotic ointment, call if redness, pustular drainage, or any other acute concerns. 07/15/2016 Patient Education: Patient Medication Summary Completed 07/15/2016 Patient Education: Smoking and Tobacco Addiction Completed 07/15/2016 Patient Education: Obesity Completed 07/15/2016 Visit Plan: Tick Bite - pt given script for treatment of infected tick bite, call for symptoms of worsening infection or nonhealing. 07/08/2016 Appointment: Jacinta Modi WPtel: [phone] [id number] (30 min) Complex 07/08/2016 Patient Education: Patient Medication Summary Completed 07/08/2016 Patient Education: Smoking and Tobacco Addiction Completed 07/08/2016 Visit Plan: Tick Bite - pt states that she was power washing the side of her gazebo and thinks she got into a nest of them. Pt states that she pulled off several small seed ticks, but is afraid that she has more that she cannot see - head to toe inspection - 4 small seed ticks removed with head intact from the groin/pubic area - pt given script for treatment of infected tick bite, call for symptoms of worsening infection or nonhealing. 07/02/2016 Appointment: Jacinta Modi [facility]Ptel[phone] (30 min) Complex 07/02/2016 Patient Education: Patient Medication Summary Completed 07/02/2016 Patient Education: Smoking and Tobacco Addiction Completed 07/02/2016 Appointment: Nurse Visit 06/24/2016 Patient Education: Patient Medication Summary Completed 06/24/2016 Patient Education: Smoking and Tobacco Addiction Completed 06/24/2016 Visit Plan: Hypertension - well controlled - continue with current medications, continue with no added salt diet. Pt has been encouraged to exercise daily. The pt has been advised to call the office if there are any acute concerns about change in blood pressure readings at home. Hypothyroidism - pt with chronic hypothyroidism, continue with current medication, will monitor pt to signs or symptoms of lack of adequate supplementation. Pt is to continue with current dose of medication unless directed otherwise. Check labs at regular intervals wither q 3 months or q 6 months based on previous levels of control. Chronic Depression and anxiety - the pt has symptoms of chronic anxiety and depression that have been fairly well controlled since the last office visit. The pt has expected periods of exacerbation with abatement of the symptoms with change in situational exposure. No change in current medications. Recommend counseling-patient will consider Chronic steroid use-decrease to 30mg alternating 35mg x 2 weeks then decrease to 30mg daily. Follow up in 1 month 06/17/2016 Appointment: Jacinta Modi WPtel: [address] [place], [place] [phone] (30 min) [facility] 06/17/2016 Patient Education: Patient Medication Summary Completed 06/17/2016 Patient Education: Smoking and Tobacco Addiction Completed 06/17/2016 Patient Education: Obesity Completed 06/17/2016 Visit Plan: Adrenal insufficiency-chronic steroid use- discussed with Dr Mancera-increase prednisone and taper slowly-will start with 40mg daily x 1 week then decrease to 35mg daily x 1 week then 30mg daily x 1 week then 25mg daily x 1 week then decrease by 1mg per week thereafter. 05/16/2016 Patient Education: Patient Medication Summary Completed 05/16/2016 Patient Education: Smoking and Tobacco Addiction Completed 05/16/2016 Visit Plan: Hypertension - well controlled - continue with current medications, continue with no added salt diet. Pt has been encouraged to exercise daily. The pt has been advised to call the office if there are any acute concerns about change in blood pressure readings at home. Hypothyroidism - pt with chronic hypothyroidism, continue with current medication, will monitor pt to signs or symptoms of lack of adequate supplementation. Pt is to continue with current dose of medication unless directed otherwise. Check labs at regular intervals wither q 3 months or q 6 months based on previous levels of control. TSH low with last 2 labs-will adjust medication if lab values continues to be out of range-draw labs today and instructed patient we will call her with results Dysuria-check UA 05/13/2016 Visit Plan: Hypertension - well controlled - continue with current medications, continue with no added salt diet. Pt has been encouraged to exercise daily. The pt has been advised to call the office if there are any acute concerns about change in blood pressure readings at home. Hypothyroidism - pt with chronic hypothyroidism, continue with current medication, will monitor pt to signs or symptoms of lack of adequate supplementation. Pt is to continue with current dose of medication unless directed otherwise. Check labs at regular intervals wither q 3 months or q 6 months based on previous levels of control. TSH low with last 2 labs-will adjust medication if lab values continues to be out of range-draw labs today and instructed patient we will call her with results Dysuria-check UA 05/13/2016 Visit Plan: Hypertension - well controlled - continue with current medications, continue with no added salt diet. Pt has been encouraged to exercise daily. The pt has been advised to call the office if there are any acute concerns about change in blood pressure readings at home. Hypothyroidism - pt with chronic hypothyroidism, continue with current medication, will monitor pt to signs or symptoms of lack of adequate supplementation. Pt is to continue with current dose of medication unless directed otherwise. Check labs at regular intervals wither q 3 months or q 6 months based on previous levels of control. TSH low with last 2 labs-will adjust medication if lab values continues to be out of range-draw labs today and instructed patient we will call her with results Dysuria-check UA 05/13/2016 Appointment: Jacinta Modi WPtel: [address] [place], [place] [phone] (30 min) [facility] 05/13/2016 Patient Education: Patient Medication Summary Completed 05/13/2016 Patient Education: Smoking and Tobacco Addiction Completed 05/13/2016 Care Plan: Urinalysis Pending 05/13/2016 Visit Plan: Hypertension - well controlled - continue with current medications, continue with no added salt diet. Pt has been encouraged to exercise daily. The pt has been advised to call the office if there are any acute concerns about change in blood pressure readings at home. Chronic Pain Syndrome - pt has chronic pain - has been maintained on current medications, has not sought out other medications, only uses PRN pain medications as directed , and understands the consequences of over-medication. 03/06/2016 Patient Education: Patient Medication Summary Completed 03/06/2016 Patient Education: Smoking and Tobacco Addiction Completed 03/06/2016 Appointment: Lab Draw 02/15/2016 Patient Education: Patient Medication Summary Completed 02/15/2016 Patient Education: Smoking and Tobacco Addiction Completed 02/15/2016 Care Plan: C URINE RT Pending 02/15/2016 Visit Plan: Hypertension - well controlled - continue with current medications, continue with no added salt diet. Pt has been encouraged to exercise daily. The pt has been advised to call the office if there are any acute concerns about change in blood pressure readings at home. Hypothyroidism- patient is symptomatic-dizziness, anxiety, fatigue, hair loss, weight gain- repeat labs including cbc and cmp 02/08/2016 Visit Plan: Hypertension - well controlled - continue with current medications, continue with no added salt diet. Pt has been encouraged to exercise daily. The pt has been advised to call the office if there are any acute concerns about change in blood pressure readings at home. Hypothyroidism- patient is symptomatic-dizziness, anxiety, fatigue, hair loss, weight gain- repeat labs including cbc and cmp 02/08/2016 Visit Plan: Hypertension - well controlled - continue with current medications, continue with no added salt diet. Pt has been encouraged to exercise daily. The pt has been advised to call the office if there are any acute concerns about change in blood pressure readings at home. Hypothyroidism- patient is symptomatic-dizziness, anxiety, fatigue, hair loss, weight gain- repeat labs including cbc and cmp 02/08/2016 Appointment: (30 min) Complex 02/08/2016 Patient Education: Patient Medication Summary Completed 02/08/2016 Patient Education: Smoking and Tobacco Addiction Completed 02/08/2016 Visit Plan: Rectal abscess-continue treatments as previously discussed-RX for cipro sent to patient's pharmacy and instructed on use Dysuria-check UA Chronic back pain-doing better-refill tramadol for PRN use B12 deficiency-check labs Vitamin D deficiency-check labs 01/03/2016 Appointment: (30 min) Complex 01/03/2016 Patient Education: Patient Medication Summary Completed 01/03/2016 Visit Plan: Allergies - chronic - recommended pt to use allergy medication as prescribed. Pt has been counseled as to the appropriate use of the medication. Pt to call if allergy symptoms are not controlled with the medication. If using nasal spray, instructions as follows: Nasal spray- use twice daily, one spray per nostril twice daily, after 30 minutes, rinse out nose with saline spray.. Use opposite hand per nostril to spray in the nasal steroid allergy spray. Sinusitis - Pt has acute infection - pain in face, maxillary region, Pt informed to use decongestant, RX given to patient, sinus rinses also recommended. Call if symptoms do not show improvement. URI - Pt advised to increase fluids, vitamin C. Discussed natural and expected course of this diagnosis and need to alert me if symptoms do not follow expected course, or if any worse. RX sent to patient's pharmacy. 11/19/2015 Appointment: (30 min) Complex 11/19/2015 Patient Education: Patient Medication Summary Completed 11/19/2015 Visit Plan: Low back pain - improved from a Nerve standpoint - now she is just having post-surgical pain. She states that she is feeling much better. She states that she is getting around much better, and is having less spasms in her low back than when she was [facility]. 10/15/2015 Appointment: Daniela Mancera WPtel: [address] [place], [place] [id number] (15 min) Moderate 10/15/2015 Patient Education: Patient Medication Summary Completed 10/15/2015 Visit Plan: Thrush - will order Nystatin swish and swallow. Dy nose - will write order for pt to have humidifier in room. Will write order for pt to have her own vitamins available in her room. 10/03/2015 Patient Education: Patient Medication Summary Completed 10/03/2015 Visit Plan: Lumbar spine pain - pt to have surgery - she needs to see if Dr. Coles will allow her to go to inpatient rehab after her hospitalization. 09/13/2015 Patient Education: Patient Medication Summary Completed 09/13/2015 Visit Plan: Allergies - chronic - recommended pt to use allergy medication as prescribed. Pt has been counseled as to the appropriate use of the medication. Pt to call if allergy symptoms are not controlled with the medication. If using nasal spray, instructions as follows: Nasal spray- use twice daily, one spray per nostril twice daily, after 30 minutes, rinse out nose with saline spray.. Use opposite hand per nostril to spray in the nasal steroid allergy spray. Kenalog injection today in the office B12 deficiency-B12 injection today in the office-patient brought her own supply of medication and we administered 09/07/2015 Patient Education: Patient Medication Summary Completed 09/07/2015 Referral: Allen Coles Referral Completed 08/16/2015 Visit Plan: Cellulitis - continue with oral antibiotics as previously directed, return to clinic as previously directed, call for acute change in symptoms, worsening redness, warmth, discharge. RX for acyclovir given to the patient - pt to call if not improving. 08/09/2015 Appointment: Daniel[facility]cera [facility]Ptel[phone] (30 min) Complex 08/09/2015 Patient Education: Patient Medication Summary Completed 08/09/2015 Appointment: (15 min) Moderate 08/03/2015 Visit Plan: Urinary frequency-small amout of blood-culture urine Degenerative disc disease-low back pain-refer to Dr Coles at [address] 07/31/2015 Patient Education: Patient Medication Summary Completed 07/31/2015 Care Plan: Referral Order SNOMED-CT : [id number] Ordered 07/31/2015 Visit Plan: Bilateral peroneal mononeuropathies-bulding disc low back-degenerative disc disease of lumbar spine-patient unable to tolerate oral NSAIDs due to Crohns disease and zach of GI upset/bleed. Tried neurontin in the past-made her sick and sleepy-she did not tolerate-attempt to appeal lidoderm patches as they have helped with patient's pain in the past and are well tolerated Chronic steroid use-continue taper as directed Abnormal mammogram-schedule compression view and ultrasound Bilateral renal cysts- schedule follow up ultrasound 07/06/2015 Appointment: Jacinta Modi WPtel: [phone] [phone] (30 min) Complex 07/06/2015 Patient Education: Patient Medication Summary Completed 07/06/2015 Visit Plan: Adrenal insufficiency-continue prednisone 60mg x 3 additional days and then decrease by 10mg every 3-4 days until you get to 10mg-then continue 10mg daily. 06/15/2015 Patient Education: Patient Medication Summary Completed 06/15/2015 Appointment: (15 min) Moderate 05/29/2015 Visit Plan: Welcome to Medicare Exam - today we discussed the patients past history, immunizations, preventative exams/evaluations - colonoscopy, fecal occult blood testing, routine labs for renal function, glucose, cholesterol, osteoporosis evaluations, cardiovascular testing and cancer screenings. We have also discussed mental health and the signs/symptoms of depression. The patient was advised of home safety evaluations and the need to make sure that as the aging process continues, we need to be aware of different ways to make the home a safer place to reside. The patient has also been counseled that exercise is necessary - and of utmost importance as we age to help decrease fall risk and to maintain independece in the home. 05/01/2015 Appointment: Jacinta Modi [facility]Ptel: [phone] [phone] [facility] - Welcome to Medicare visit 05/01/2015 Patient Education: Patient Medication Summary Completed 05/01/2015 Visit Plan: Allergies - chronic - recommended pt to use allergy medication as prescribed. Pt has been counseled as to the appropriate use of the medication. Pt to call if allergy symptoms are not controlled with the medication. If using nasal spray, instructions as follows: Nasal spray- use twice daily, one spray per nostril twice daily, after 30 minutes, rinse out nose with saline spray.. Use opposite hand per nostril to spray in the nasal steroid allergy spray. Chronic lludcarsd-nfawzmmqn-muxvh to Dr Florian for evaluation 04/27/2015 Appointment: Follow up 04/27/2015 Patient Education: Patient Medication Summary Completed 04/27/2015 Care Plan: Referral Order SNOMED-CT : [id number] Ordered 04/27/2015 Visit Plan: Allergies - chronic - recommended pt to use allergy medication as prescribed. Pt has been counseled as to the appropriate use of the medication. Pt to call if allergy symptoms are not controlled with the medication. If using nasal spray, instructions as follows: Nasal spray- use twice daily, one spray per nostril twice daily, after 30 minutes, rinse out nose with saline spray.. Use opposite hand per nostril to spray in the nasal steroid allergy spray. URI - Pt advised to increase fluids, vitamin C. Discussed natural and expected course of this diagnosis and need to alert me if symptoms do not follow expected course, or if any worse. RX sent to patient's pharmacy. 04/13/2015 Visit Plan: Allergies - chronic - recommended pt to use allergy medication as prescribed. Pt has been counseled as to the appropriate use of the medication. Pt to call if allergy symptoms are not controlled with the medication. If using nasal spray, instructions as follows: Nasal spray- use twice daily, one spray per nostril twice daily, after 30 minutes, rinse out nose with saline spray.. Use opposite hand per nostril to spray in the nasal steroid allergy spray. URI - Pt advised to increase fluids, vitamin C. Discussed natural and expected course of this diagnosis and need to alert me if symptoms do not follow expected course, or if any worse. RX sent to patient's pharmacy. 04/13/2015 Appointment: (15 min) Moderate 04/13/2015 Patient Education: Patient Medication Summary Completed 04/13/2015 Visit Plan: Hypothyroidism - pt with chronic hypothyroidism , continue with current medication, will monitor pt to signs or symptoms of lack of adequate supplementation. Pt is to continue with current dose of medication unless directed otherwise. Check labs at regular intervals wither q 3 months or q 6 months based on previous levels of control. Vitamin B12 deficiency-check labs Low back zvgv-[id number] PT-no change in medications 02/23/2015 Appointment: [id number] [place] [address] Follow up 02/23/2015 Patient Education: Patient Medication Summary Completed 02/23/2015 Care Plan: TSH Pending 02/23/2015 Care Plan: FREE T4 Pending 02/23/2015 Care Plan: VIT B 12 Pending 02/23/2015 Care Plan: VIT D TOTL Pending 02/23/2015 Care Plan: MAGNESIUM Pending 02/23/2015 Visit Plan: Allergies - chronic - recommended pt to use allergy medication as prescribed. Pt has been counseled as to the appropriate use of the medication. Pt to call if allergy symptoms are not controlled with the medication. If using nasal spray, instructions as follows: Nasal spray- use twice daily, one spray per nostril twice daily, after 30 minutes, rinse out nose with saline spray.. Use opposite hand per nostril to spray in the nasal steroid allergy spray. 01/26/2015 Appointment: [facility] Mancera [facility]Ptel[phone] [facility] Follow up 01/26/2015 Patient Education: Patient Medication Summary Completed 01/26/2015 Visit Plan: COPD - chronic problem for this patient. We have reviewed chronic treatment strategy, symptom control, and plans for acute exacerbations. No changes today to the current treatment plan as the patient is stable, monitor for acute changes. Pt given Samples of Anoro Ellipta for use x 2 weeks, pt to alert the office if the medication is effective, if so, will give RX for the patient for daily use. Dysuria - Check UA. Crohn's disease - symptoms stable at this time. Fatigue, Malaise - -Chronic in nature - recommended pt to be mindful of her chronic disease - need to get better rest at night, go to bed earlier, and put away the stress of her work at the end of the day to focus on sleep instead of deadlines. 12/22/2014 Appointment: Daniel[facility] Mancer[facility]Ptel[phone] [facility] Follow up 12/22/2014 Patient Education: Patient Medication Summary Completed 12/22/2014 Appointment: Daniela Mancera WPtel: [facility] [place] Follow up 12/19/2014 Visit Plan: Cough - suspect due to drainage- no treatment at this time, if it worsens, she is to call the office, otherwise, she needs to use humidification, and PRN albuterol inhaler. Crohn's disease - chronic - symptoms stable. TB positive - pt is to get in touch with health department - she is to start on treatment as per specialist in [place] has directed, orders have been sent to the health department. 11/16/2014 Appointment: Daniel[facility] Mancera WPtel[phone] [facility] Follow up 11/16/2014 Patient Education: Patient Medication Summary Completed 11/16/2014 Visit Plan: Low back pain- the patient was instructed in appropriate posture, need for weight loss to alleviate abdominal obesity that is worsening the patient's back pain.. The pt is to use prn antiinflammatories to manage acute pain. The patient is to call the office if the pain is worsening or does not improve. Chronic Depression and anxiety - the pt has symptoms of chronic anxiety and depression that have been fairly well controlled since the last office visit. The pt has expected periods of exacerbation with abatement of the symptoms with change in situational exposure. No change in current medications. 10/16/2014 Patient Education: Patient Medication Summary Completed 10/16/2014 Visit Plan: Back pain - discussed need to increase activity - stretching, and heat to back, use steroids for antiinflammatories. Depression - uncontrolled - pt to increase wellbutrin, will monitor symptoms. 09/29/2014 Appointment: Daniela Mancera WPtel: [phone] [facility] Follow up 09/29/2014 Patient Education: Patient Medication Summary Completed 09/29/2014 Visit Plan: Adrenal Insufficiency - pt has tapered to quickly down on her Prednisone - will have pt to start on higher dose, and will then consider a slower taper back down on her Prednisone. URI - Pt advised to increase fluids, vitamin C. Discussed natural and expected course of this diagnosis and need to alert me if symptoms do not follow expected course, or if any worse. RX sent to patient's pharmacy. 09/08/2014 Appointment: Daniel[facility] Mancera WPtel: [phone] Follow up 09/08/2014 Patient Education: Patient Medication Summary Completed 09/08/2014 Visit Plan: Adrenal insufficiency - recommended pt to be on steroids she will be on a dose of prednisone 10mg every other day and we will check labs in 2 months. Will check lipids and hgba1c to see if her glucose if too elevated due to the steroids. Anxiety - stable - pt to call office if symptoms are not staying controlled. 08/28/2014 Patient Education: Patient Medication Summary Completed 08/28/2014 Visit Plan: Sinusitis - Pt has acute infection - pain in face, maxillary region, Pt informed to use decongestant, RX given to patient, sinus rinses also recommended. Call if symptoms do not show improvement. pt to take zpack Steroid started as well GI disease - Crohn's disease - pt to start on steroid - will do taper if able. 08/16/2014 Appointment: Daniela Mancera WPtel[facility] [address] [facility] S[facility] 08/16/2014 Patient Education: Patient Medication Summary Completed 08/16/2014 Visit Plan: chronic Crohn's disease with history of fistula. Pt is to start on ciprofloxacin as the concern is that she has a flair of fistula that could lead to an abscess. Pt is to report if her symptoms of her fistula do not improve in the next few days on the ciprofloxacin. 07/21/2014 Appointment: Sick 07/21/2014 Patient Education: Patient Medication Summary Completed 07/21/2014 Appointment: Daniela Mancera WPtel[facility] [phone] [facility] [facility] 07/20/2014 Visit Plan: Hypothyroidism - pt with chronic hypothyroidism , continue with current medication, will monitor pt to signs or symptoms of lack of adequate supplementation. Pt is to continue with current dose of medication unless directed otherwise. Check labs at regular intervals wither q 3 months or q 6 months based on previous levels of control. Crohn's Disease - pt has seen specialist recently - she is to continue with recommendations from her GI specialist - I agree with his recommendations for IV medications to help control her symptoms - she needs to see about getting the medication started LUDIVINA due to worsening symptoms and recent hospitalizations fro her symptoms of Crohn's Disease. 06/30/2014 Appointment: Daniel[facility] Mancera WPtel[phone] [facility] Follow up 06/30/2014 Patient Education: Patient Medication Summary Completed 06/30/2014 Visit Plan: Crohns disease-colonoscopy ok-check inflammatory markers and if not elevated, recommend she discussed recommendations with her GI doctor in [place] at her appt in June. Instructed patient to call for uncontrolled symptoms. Lumbago-recommend she restart physical therapy-continue lidoderm patches and monitor sypmtoms. Call with any concerns. 06/05/2014 Appointment: Jacinta Modi [facility]Ptel[id number] [facility] 06/05/2014 Patient Education: Patient Medication Summary Completed 06/05/2014 Care Plan: ESR Pending 06/05/2014 Appointment: Sick 06/02/2014 Visit Plan: Crohn's disease with abdominal pain - pt is to have a colonoscopy in the next 1-2 weeks, she will continue with current medications, and needs to start using beano with her meals. Back pain - pt is to restart physical therapy at [facility]. 05/02/2014 Appointment: Daniela Mancera WPtel: [address] [place], [place] [id number] [facility] follow up 05/02/2014 Patient Education: Patient Medication Summary Completed 05/02/2014 Visit Plan: Crohns disease-history of fistula-pain resolved with course of ciprofloxacin-discussed with patient and advised her to call if pain returns. Patient verbalized understanding of plan. 04/04/2014 Appointment: Jacinta Modi WPtel: [facility] Follow up 04/04/2014 Patient Education: Patient Medication Summary Completed 04/04/2014 Visit Plan: Abdominal pain - chronic Crohn's disease with history of fistula. Pt is to start on ciprofloxacin as the concern is that she has a flair of fistula that could lead to an abscess. Pt is to report if her symptoms of her fistula do not improve in the next few days on the ciprofloxacin. Hypothyroidism - pt with chronic hypothyroidism, continue with current medication, will monitor pt to signs or symptoms of lack of adequate supplementation. Pt is to continue with current dose of medication unless directed otherwise. Check labs at regular intervals wither q 3 months or q 6 months based on previous levels of control. 03/23/2014 Appointment: Daniela Mancera WPtel: [address] [place] [id number] Follow up 03/23/2014 Patient Education: Patient Medication Summary Completed 03/23/2014 Appointment: Daniela Mancera WPtel: [address] [place] [id number] Follow up 03/15/2014 Appointment: Daniela Mancera WPtel: [address] [place], [place] [id number] Lab Draw 03/13/2014 Appointment: Daniela Mancera WPtel: [address] [place] [id number] Follow up 03/13/2014 Patient Education: Patient Medication Summary Completed 03/13/2014 Appointment: Lab Draw 02/15/2014 Patient Education: Patient Medication Summary Completed 02/15/2014 Visit Plan: Low back pain-sacroilitis- the patient was instructed in appropriate posture, need for weight loss to alleviate abdominal obesity that is worsening the patient's back pain.. The pt is to use prn antiinflammatories to manage acute pain. The patient is to call the office if the pain is worsening or does not improve. START PHYSICAL THERAPY B12 deficiency -fatigue-check labs 02/13/2014 Appointment: Jacinta Modi WPtel: [address] [place] [address] Other 02/13/2014 Patient Education: Patient Medication Summary Completed 02/13/2014 Appointment: Jacinta Modi WPtel: [address] [place] [address] Other 02/09/2014 Visit Plan: Hypothyroidism - pt with chronic hypothyroidism , continue with current medication, will monitor pt to signs or symptoms of lack of adequate supplementation. Pt is to continue with current dose of medication unless directed otherwise. Check labs at regular intervals wither q 3 months or q 6 months based on previous levels of control. Chronic Depression and anxiety - the pt has symptoms of chronic anxiety and depression that have been fairly well controlled since the last office visit. The pt has expected periods of exacerbation with abatement of the symptoms with change in situational exposure. No change in current medications. 01/09/2014 Appointment: Daniela Mancera WPtel: [address] [place], [place] [id number] Follow up 01/09/2014 Patient Education: Patient Medication Summary Completed 01/09/2014 Visit Plan: Sinusitis - Pt has acute infection - pain in face, maxillary region, Pt informed to use decongestant, RX given to patient, sinus rinses also recommended. Call if symptoms do not show improvement. Pharyngitis-strep swab 11/15/2013 Appointment: Jacinta Modi WPtel: [address] [place], [place] [id number] Sick 11/15/2013 Patient Education: Patient Medication Summary Completed 11/15/2013 Visit Plan: Crohn's disease - continue with current use of prednisone - monitor symptoms - pt to see specialist soon. Chronic Depression and anxiety - the pt has symptoms of chronic anxiety and depression that have been fairly well controlled since the last office visit. The pt has expected periods of exacerbation with abatement of the symptoms with change in situational exposure. No change in current medications. Hypothyroidism - pt with chronic hypothyroidism, continue with current medication, will monitor pt to signs or symptoms of lack of adequate supplementation. Pt is to continue with current dose of medication unless directed otherwise. Check labs at regular intervals wither q 3 months or q 6 months based on previous levels of control. 10/31/2013 Appointment: Daniela Mancera WPtel: [facility] Follow up 10/31/2013 Patient Education: Patient Medication Summary Completed 10/31/2013 Visit Plan: Sinusitis-symptoms resolving-continue current treatment and call if symptoms do not resolve Hypothyroidism-continue current dose of medication and will order labs after reviewing her records from her previous physician. Gwyn-radhas GI specialist in [place]-continue f/u with him. 10/17/2013 Visit Plan: Sinusitis-symptoms resolving-continue current treatment and call if symptoms do not resolve Pbgabwq-gfeaeqq-kya had injections in the past-refer to Dr Lopez Hypothyroidism-continue current dose of medication and will order labs after reviewing her records from her previous physician. Gwyn-radhas GI specialist in [place]-continue f/u with him. 10/17/2013 Appointment: Jacinta Modi WPtel: [address] [place], [place] [id number] New Patient 10/17/2013 Patient Education: Patient Medication Summary Completed 10/17/2013 Referral: Christina Jason WPtel: Referral Appointment Requested Referral: [facility] Referral Completed Referral: [id number] Referral Initiated Referral: Allen Coles Referral Initiated Instructions Comment . Abdominal pain - hypoactive bowel sounds - will order x- ray and treat as indicated - discussed need to stay away from milk products while acutely ill with diarrhea and nausea and emesis as it may worsen the symptoms. Liquids initially until the nausea improves, then recommend to advance to bland diet for 1 day, then advance as tolerated. The patient has been counseled against excessive intake of caffeine, spicy foods, peppermint, and cinnamon - all of which can exacerbate esophageal reflux. The patient is to take medications as prescribed and call the office if the symptoms are not improving. . Sinusitis-symptoms resolving-continue current treatment and call if symptoms do not resolve Hypothyroidism-continue current dose of medication and will order labs after reviewing her records from her previous physician. Gwyn-sees GI specialist in [place]-continue f/u with him. . Sinusitis-symptoms resolving-continue current treatment and call if symptoms do not resolve Behjmjt-[id number]-fnx had injections in the past-refer to Dr Lopez Hypothyroidism-continue current dose of medication and will order labs after reviewing her records from her previous physician. Gwyn-sees GI specialist in [place]-continue f/u with him. RETURN FOR LABS NEXT WEEK TAKE ALLERGY MEDICATION DAILY-NASAL SALINE RINSES DAILY . Hypertension - well controlled - continue with current medications, continue with no added salt diet. Pt has been encouraged to exercise daily. The pt has been advised to call the office if there are any acute concerns about change in blood pressure readings at home. Chronic Depression and anxiety - the pt has symptoms of chronic anxiety and depression that have been fairly well controlled since the last office visit. The pt has expected periods of exacerbation with abatement of the symptoms with change in situational exposure. No change in current medications. Allergies - chronic - recommended pt to use allergy medication as prescribed. Pt has been counseled as to the appropriate use of the medication. Pt to call if allergy symptoms are not controlled with the medication. If using nasal spray, instructions as follows: Nasal spray- use twice daily, one spray per nostril twice daily, after 30 minutes, rinse out nose with saline spray.. Use opposite hand per nostril to spray in the nasal steroid allergy spray. Hypothyroidism - pt with chronic hypothyroidism, continue with current medication, will monitor pt to signs or symptoms of lack of adequate supplementation. Pt is to continue with current dose of medication unless directed otherwise. Check labs at regular intervals wither q 3 months or q 6 months based on previous levels of control. . Tick Bite - pt given script for treatment of infected tick bite, call for symptoms of worsening infection or nonhealing. . Allergies - chronic - recommended pt to use allergy medication as prescribed. Pt has been counseled as to the appropriate use of the medication. Pt to call if allergy symptoms are not controlled with the medication. If using nasal spray, instructions as follows: Nasal spray- use twice daily, one spray per nostril twice daily, after 30 minutes, rinse out nose with saline spray.. Use opposite hand per nostril to spray in the nasal steroid allergy spray. URI - Pt advised to increase fluids, vitamin C. Discussed natural and expected course of this diagnosis and need to alert me if symptoms do not follow expected course, or if any worse. RX sent to patient's pharmacy. . Sinusitis - Pt has acute infection - pain in face, maxillary region, Pt informed to use decongestant, RX given to patient, sinus rinses also recommended. Call if symptoms do not show improvement. pt to take zpack Steroid started as well GI disease - Crohn's disease - pt to start on steroid - will do taper if able. prednisone 60mg x 3 more days then decrease to 50mg daily x 3 days . Adrenal insufficiency-continue prednisone 60mg x 3 additional days and then decrease by 10mg every 3-4 days until you get to 10mg-then continue 10mg daily. . Hypothyroidism - pt with chronic hypothyroidism, continue with current medication, will monitor pt to signs or symptoms of lack of adequate supplementation. Pt is to continue with current dose of medication unless directed otherwise. Check labs at regular intervals wither q 3 months or q 6 months based on previous levels of control. . Anorectal abscess - recommended continued antibiotics - rx for mupirocin to be used as well, then start use of barrier cream - desitin and use tucks pads on rectum to clean tissue. Low back pain - recommended pt to keep appt with specialist. . Allergies - chronic - recommended pt to use allergy medication as prescribed. Pt has been counseled as to the appropriate use of the medication. Pt to call if allergy symptoms are not controlled with the medication. If using nasal spray, instructions as follows: Nasal spray- use twice daily, one spray per nostril twice daily, after 30 minutes, rinse out nose with saline spray.. Use opposite hand per nostril to spray in the nasal steroid allergy spray. Sinusitis - Pt has acute infection - pain in face, maxillary region, Pt informed to use decongestant, RX given to patient, sinus rinses also recommended. Call if symptoms do not show improvement. URI - Pt advised to increase fluids, vitamin C. Discussed natural and expected course of this diagnosis and need to alert me if symptoms do not follow expected course, or if any worse. RX sent to patient's pharmacy. CBC,CMP, VITAMIN B12 LEVEL, TSH, FREE T4, vitamin D, tick panel, ESR, CRP, Lipid panel, magnesium . UTI-culture urine Hypothyroidism - pt with chronic hypothyroidism, continue with current medication, will monitor pt to signs or symptoms of lack of adequate supplementation. Pt is to continue with current dose of medication unless directed otherwise. Check labs at regular intervals wither q 3 months or q 6 months based on previous levels of control. Chronic Depression and anxiety - the pt has symptoms of chronic anxiety and depression that have been fairly well controlled since the last office visit. The pt has expected periods of exacerbation with abatement of the symptoms with change in situational exposure. No change in current medications. B12 deficiency-injection today in the office-check labs Tick bite-check tick panel RETURN FOR LABS NEXT WEEK TAKE ALLERGY MEDICATION DAILY-NASAL SALINE RINSES DAILY . Hypertension - well controlled - continue with current medications, continue with no added salt diet. Pt has been encouraged to exercise daily. The pt has been advised to call the office if there are any acute concerns about change in blood pressure readings at home. Chronic Depression and anxiety - the pt has symptoms of chronic anxiety and depression that have been fairly well controlled since the last office visit. The pt has expected periods of exacerbation with abatement of the symptoms with change in situational exposure. No change in current medications. Allergies - chronic - recommended pt to use allergy medication as prescribed. Pt has been counseled as to the appropriate use of the medication. Pt to call if allergy symptoms are not controlled with the medication. If using nasal spray, instructions as follows: Nasal spray- use twice daily, one spray per nostril twice daily, after 30 minutes, rinse out nose with saline spray.. Use opposite hand per nostril to spray in the nasal steroid allergy spray. Hypothyroidism - pt with chronic hypothyroidism, continue with current medication, will monitor pt to signs or symptoms of lack of adequate supplementation. Pt is to continue with current dose of medication unless directed otherwise. Check labs at regular intervals wither q 3 months or q 6 months based on previous levels of control. . Allergies - chronic - recommended pt to use allergy medication as prescribed. Pt has been counseled as to the appropriate use of the medication. Pt to call if allergy symptoms are not controlled with the medication. If using nasal spray, instructions as follows: Nasal spray- use twice daily, one spray per nostril twice daily, after 30 minutes, rinse out nose with saline spray.. Use opposite hand per nostril to spray in the nasal steroid allergy spray. Kenalog injection today in the office B12 deficiency-B12 injection today in the office-patient brought her own supply of medication and we administered . Welcome to Medicare Exam - today we discussed the patients past history, immunizations, preventative exams/evaluations - colonoscopy, fecal occult blood testing, routine labs for renal function, glucose, cholesterol, osteoporosis evaluations, cardiovascular testing and cancer screenings. We have also discussed mental health and the signs/symptoms of depression. The patient was advised of home safety evaluations and the need to make sure that as the aging process continues, we need to be aware of different ways to make the home a safer place to reside. The patient has also been counseled that exercise is necessary - and of utmost importance as we age to help decrease fall risk and to maintain independece in the home. Diagnostic mammogram with bilateral breast ultrasound . Hypertension - well controlled - continue with current medications, continue with no added salt diet. Pt has been encouraged to exercise daily. The pt has been advised to call the office if there are any acute concerns about change in blood pressure readings at home. Hypothyroidism-patient is symptomatic-dizziness, anxiety, fatigue, hair loss, weight gain-repeat labs including cbc and cmp Diagnostic mammogram with bilateral breast ultrasound . Hypertension - well controlled - continue with current medications, continue with no added salt diet. Pt has been encouraged to exercise daily. The pt has been advised to call the office if there are any acute concerns about change in blood pressure readings at home. Hypothyroidism-patient is symptomatic-dizziness, anxiety, fatigue, hair loss, weight gain-repeat labs including cbc and cmp Diagnostic mammogram with bilateral breast ultrasound . Hypertension - well controlled - continue with current medications, continue with no added salt diet. Pt has been encouraged to exercise daily. The pt has been advised to call the office if there are any acute concerns about change in blood pressure readings at home. Hypothyroidism-patient is symptomatic-dizziness, anxiety, fatigue, hair loss, weight gain-repeat labs including cbc and cmp . Adrenal insufficiency - recommended pt to be on steroids she will be on a dose of prednisone 10mg every other day and we will check labs in 2 months. Will check lipids and hgba1c to see if her glucose if too elevated due to the steroids. Anxiety - stable - pt to call office if symptoms are not staying controlled. . Hypertension - well controlled - continue with current medications, continue with no added salt diet. Pt has been encouraged to exercise daily. The pt has been advised to call the office if there are any acute concerns about change in blood pressure readings at home. . Crohns disease-recent flair-patient has finished abx-saw Dr Ellington yesterday and he started her on methotrexate-no changes today- instructed patient to call if symptoms do not continue to improve or if any worse. Patient verbalized understanding of plan. . Allergies - chronic - recommended pt to use allergy medication as prescribed. Pt has been counseled as to the appropriate use of the medication. Pt to call if allergy symptoms are not controlled with the medication. If using nasal spray, instructions as follows: Nasal spray- use twice daily, one spray per nostril twice daily, after 30 minutes, rinse out nose with saline spray.. Use opposite hand per nostril to spray in the nasal steroid allergy spray. URI - Pt advised to increase fluids, vitamin C. Discussed natural and expected course of this diagnosis and need to alert me if symptoms do not follow expected course, or if any worse. RX sent to patient's pharmacy. . Crohns disease-colonoscopy ok-check inflammatory markers and if not elevated, recommend she discussed recommendations with her GI doctor in [place] at her appt in June. Instructed patient to call for uncontrolled symptoms. Lumbago-recommend she restart physical therapy-continue lidoderm patches and monitor sypmtoms. Call with any concerns. Ok to call [facility] to see if they can compound a vitamin b injection . Chronic Depression and anxiety - the pt has symptoms of chronic anxiety and depression that have been fairly well controlled since the last office visit. The pt has expected periods of exacerbation with abatement of the symptoms with change in situational exposure. No change in current medications. Hypertension - well controlled - continue with current medications, continue with no added salt diet. Pt has been encouraged to exercise daily. The pt has been advised to call the office if there are any acute concerns about change in blood pressure readings at home. Hypothyroidism - pt with chronic hypothyroidism, continue with current medication, will monitor pt to signs or symptoms of lack of adequate supplementation. Pt is to continue with current dose of medication unless directed otherwise. Check labs at regular intervals wither q 3 months or q 6 months based on previous levels of control. Vitamin B12 deficiency-injection today in the office-patient to call [facility] to see if the compound a B vitamin injection . Hypertension - well controlled - continue with current medications, continue with no added salt diet. Pt has been encouraged to exercise daily. The pt has been advised to call the office if there are any acute concerns about change in blood pressure readings at home. Hypothyroidism - pt with chronic hypothyroidism, continue with current medication, will monitor pt to signs or symptoms of lack of adequate supplementation. Pt is to continue with current dose of medication unless directed otherwise. Check labs at regular intervals wither q 3 months or q 6 months based on previous levels of control. TSH low with last 2 labs-will adjust medication if lab values continues to be out of range-draw labs today and instructed patient we will call her with results Dysuria-check UA ask dr. coles's office/dr. coles about inpatient rehab at [facility] after your spine surgery for the first 1 week after surgery to allow you to have the best possible recovery after your spine surgery. animal pass can be . Lumbar spine pain - pt to have surgery - she needs to see if Dr. Coles will allow her to go to inpatient rehab after her hospitalization. . Chronic Depression and anxiety -much improved- the pt has symptoms of chronic anxiety and depression that have been fairly well controlled since the last office visit. The pt has expected periods of exacerbation with abatement of the symptoms with change in situational exposure. No change in current medications. . Urinary frequency-small amout of blood-culture urine Degenerative disc disease-low back pain-refer to Dr Coles at [address] Nasal spray- use twice daily, one spray per nostril twice daily, after 30 minutes, rinse out nose with saline spray.. Use opposite hand per nostril to spray in the nasal steroid allergy spray. . Allergies - chronic - recommended pt to use allergy medication as prescribed. Pt has been counseled as to the appropriate use of the medication. Pt to call if allergy symptoms are not controlled with the medication. If using nasal spray, instructions as follows: Nasal spray- use twice daily, one spray per nostril twice daily, after 30 minutes, rinse out nose with saline spray.. Use opposite hand per nostril to spray in the nasal steroid allergy spray. if there are enough valtrex, then take 500mg bid x 7 days . Cellulitis - continue with oral antibiotics as previously directed, return to clinic as previously directed, call for acute change in symptoms, worsening redness, warmth, discharge. RX for acyclovir given to the patient - pt to call if not improving. . Cough - suspect due to drainage- no treatment at this time, if it worsens, she is to call the office, otherwise, she needs to use humidification, and PRN albuterol inhaler. Crohn's disease - chronic - symptoms stable. TB positive - pt is to get in touch with health department - she is to start on treatment as per specialist in [place] has directed, orders have been sent to the health department. . Rectal abscess-continue treatments as previously discussed-RX for cipro sent to patient's pharmacy and instructed on use Dysuria-check UA Chronic back pain-doing better-refill tramadol for PRN use B12 deficiency-check labs Vitamin D deficiency-check labs . Chronic Depression and anxiety - the pt has symptoms of chronic anxiety and depression that have been fairly well controlled since the last office visit. The pt has expected periods of exacerbation with abatement of the symptoms with change in situational exposure. No change in current medications. Hypertension - well controlled - continue with current medications, continue with no added salt diet. Pt has been encouraged to exercise daily. The pt has been advised to call the office if there are any acute concerns about change in blood pressure readings at home. B12 injection today in the office . Sinusitis - Pt has acute infection - pain in face, maxillary region, Pt informed to use decongestant, RX given to patient, sinus rinses also recommended. Call if symptoms do not show improvement. Pharyngitis-strep swab . Hypothyroidism - pt with chronic hypothyroidism, continue with current medication, will monitor pt to signs or symptoms of lack of adequate supplementation. Pt is to continue with current dose of medication unless directed otherwise. Check labs at regular intervals wither q 3 months or q 6 months based on previous levels of control. anxiety - pt with persistent symptoms - she continues to benefit form the xanax - no change in treatment at this time. . malaise, joint pain, neck pain, fatigue, depression - will check tick panel. Will start doxycycline. Pt is to notify clinic if symptoms do not improve, if they worsen, or with any questions or concerns. . Crohn's disease - continue with current use of prednisone - monitor symptoms - pt to see specialist soon. Chronic Depression and anxiety - the pt has symptoms of chronic anxiety and depression that have been fairly well controlled since the last office visit. The pt has expected periods of exacerbation with abatement of the symptoms with change in situational exposure. No change in current medications. Hypothyroidism - pt with chronic hypothyroidism, continue with current medication, will monitor pt to signs or symptoms of lack of adequate supplementation. Pt is to continue with current dose of medication unless directed otherwise. Check labs at regular intervals wither q 3 months or q 6 months based on previous levels of control. . Rectal abscess-RX for cipro sent to patient's pharmacy and instructed on use-call if symptoms do not resolve or if any worse. Patient verbalized understanding of plan. . Tick Bite - pt states that she was power washing the side of her gazebo and thinks she got into a nest of them. Pt states that she pulled off several small seed ticks, but is afraid that she has more that she cannot see - head to toe inspection - 4 small seed ticks removed with head intact from the groin/pubic area - pt given script for treatment of infected tick bite, call for symptoms of worsening infection or nonhealing. . Hypertension - well controlled - continue with current medications, continue with no added salt diet. Pt has been encouraged to exercise daily. The pt has been advised to call the office if there are any acute concerns about change in blood pressure readings at home. Hypothyroidism - pt with chronic hypothyroidism, continue with current medication, will monitor pt to signs or symptoms of lack of adequate supplementation. Pt is to continue with current dose of medication unless directed otherwise. Check labs at regular intervals wither q 3 months or q 6 months based on previous levels of control. TSH low with last 2 labs-will adjust medication if lab values continues to be out of range-draw labs today and instructed patient we will call her with results Dysuria-check UA . Hypertension - well controlled - continue with current medications, continue with no added salt diet. Pt has been encouraged to exercise daily. The pt has been advised to call the office if there are any acute concerns about change in blood pressure readings at home. Hypothyroidism - pt with chronic hypothyroidism, continue with current medication, will monitor pt to signs or symptoms of lack of adequate supplementation. Pt is to continue with current dose of medication unless directed otherwise. Check labs at regular intervals wither q 3 months or q 6 months based on previous levels of control. TSH low with last 2 labs-will adjust medication if lab values continues to be out of range-draw labs today and instructed patient we will call her with results Dysuria-check UA CBC,CMP, VITAMIN B12 LEVEL, TSH, FREE T4 . Hypothyroidism - pt with chronic hypothyroidism, continue with current medication, will monitor pt to signs or symptoms of lack of adequate supplementation. Pt is to continue with current dose of medication unless directed otherwise. Check labs at regular intervals wither q 3 months or q 6 months based on previous levels of control. Vitamin B12 deficiency-check labs Low back opxj-cnczxtyly-bcagbond PT-no change in medications . Abdominal pain - chronic Crohn's disease with history of fistula. Pt is to start on ciprofloxacin as the concern is that she has a flair of fistula that could lead to an abscess. Pt is to report if her symptoms of her fistula do not improve in the next few days on the ciprofloxacin. Hypothyroidism - pt with chronic hypothyroidism, continue with current medication, will monitor pt to signs or symptoms of lack of adequate supplementation. Pt is to continue with current dose of medication unless directed otherwise. Check labs at regular intervals wither q 3 months or q 6 months based on previous levels of control. . Hypothyroidism - pt with chronic hypothyroidism, continue with current medication, will monitor pt to signs or symptoms of lack of adequate supplementation. Pt is to continue with current dose of medication unless directed otherwise. Check labs at regular intervals wither q 3 months or q 6 months based on previous levels of control. Chronic Depression and anxiety - the pt has symptoms of chronic anxiety and depression that have been fairly well controlled since the last office visit. The pt has expected periods of exacerbation with abatement of the symptoms with change in situational exposure. No change in current medications. . Chronic back pain-chronic steroid use-patient seening Dr Coles for back pain-discussed risks of chronic steroid use and importance of tapering to lowest effective dose-patient verbalized understanding. . Thrush - will order Nystatin swish and swallow. Dy nose - will write order for pt to have humidifier in room. Will write order for pt to have her own vitamins available in her room. . Allergies - chronic - recommended pt to use allergy medication as prescribed. Pt has been counseled as to the appropriate use of the medication. Pt to call if allergy symptoms are not controlled with the medication. If using nasal spray, instructions as follows: Nasal spray- use twice daily, one spray per nostril twice daily, after 30 minutes, rinse out nose with saline spray.. Use opposite hand per nostril to spray in the nasal steroid allergy spray. Chronic rdtupqmmm-ttysckotj-etifd to Dr Florian for evaluation . Adrenal insufficiency-chronic steroid use-discussed with Dr Mancera-increase prednisone and taper slowly-will start with 40mg daily x 1 week then decrease to 35mg daily x 1 week then 30mg daily x 1 week then 25mg daily x 1 week then decrease by 1mg per week thereafter. . Low back pain - improved from a Nerve standpoint - now she is just having post-surgical pain. She states that she is feeling much better. She states that she is getting around much better, and is having less spasms in her low back than when she [facility]. . chronic Crohn's disease with history of fistula. Pt is to start on ciprofloxacin as the concern is that she has a flair of fistula that could lead to an abscess. Pt is to report if her symptoms of her fistula do not improve in the next few days on the ciprofloxacin. physical therapy for low back pain-[facility] . Low back pain-sacroilitis- the patient was instructed in appropriate posture, need for weight loss to alleviate abdominal obesity that is worsening the patient's back pain.. The pt is to use prn antiinflammatories to manage acute pain. The patient is to call the office if the pain is worsening or does not improve. START PHYSICAL THERAPY B12 mflnwjjnze-kaazcua-dnzij labs CT ABD/PELVIS WITH IV CONSTRAST . Abdominal thox-gxdppm-gaudwvwhw CT abd/pelvis-check labs-call if symptoms do not resolve or if any worse-instructed patient we will call her with the results of her testing-patient verbalized understanding of plan. HTN-not well controlled-likely due to pain-no medication changes today-continue to monitor . Hypertension - well controlled - continue with current medications, continue with no added salt diet. Pt has been encouraged to exercise daily. The pt has been advised to call the office if there are any acute concerns about change in blood pressure readings at home. Wound Instructions - Pt was instructed to keep the wound clean, wash with antibacterial soap, use triple antibiotic ointment, call if redness, pustular drainage, or any other acute concerns. . Hypothyroidism - pt with chronic hypothyroidism, continue with current medication, will monitor pt to signs or symptoms of lack of adequate supplementation. Pt is to continue with current dose of medication unless directed otherwise. Check labs at regular intervals wither q 3 months or q 6 months based on previous levels of control. Crohn's Disease - pt has seen specialist recently - she is to continue with recommendations from her GI specialist - I agree with his recommendations for IV medications to help control her symptoms - she needs to see about getting the medication started [facility] due to worsening symptoms and recent hospitalizations fro her symptoms of Crohn's Disease. . Medicare Exam - today we discussed the patients past history, immunizations, preventative exams/evaluations - colonoscopy, fecal occult blood testing, routine labs for renal function, glucose, cholesterol, osteoporosis evaluations, cardiovascular testing and cancer screenings. We have also discussed mental health and the signs/symptoms of depression. The patient was advised of home safety evaluations and the need to make sure that as the aging process continues, we need to be aware of different ways to make the home a safer place to reside. The patient has also been counseled that exercise is necessary - and of utmost importance as we age to help decrease fall risk and to maintain independence in the home. Today we discussed the need for the patient to create paperwork for Advanced directives as well as for the patient to provide this office with a copy of her DOP[employer] paperwork for health care surrogate. . Crohns disease-history of fistula-pain resolved with course of ciprofloxacin-discussed with patient and advised her to call if pain returns. Patient verbalized understanding of plan. . Crohn's disease with abdominal pain - pt is to have a colonoscopy in the next 1-2 weeks, she will continue with current medications, and needs to start using beano with her meals. Back pain - pt is to restart physical therapy at [facility]. . Low back pain- the patient was instructed in appropriate posture, need for weight loss to alleviate abdominal obesity that is worsening the patient's back pain.. The pt is to use prn antiinflammatories to manage acute pain. The patient is to call the office if the pain is worsening or does not improve. Chronic Depression and anxiety - the pt has symptoms of chronic anxiety and depression that have been fairly well controlled since the last office visit. The pt has expected periods of exacerbation with abatement of the symptoms with change in situational exposure. No change in current medications. take prednisone 10mg daily x 1 week, then back down to 10mg alternating with 5mg every other day. . Adrenal Insufficiency - pt has tapered to quickly down on her Prednisone - will have pt to start on higher dose, and will then consider a slower taper back down on her Prednisone. URI - Pt advised to increase fluids, vitamin C. Discussed natural and expected course of this diagnosis and need to alert me if symptoms do not follow expected course, or if any worse. RX sent to patient's pharmacy. . Back pain - discussed need to increase activity - stretching, and heat to back, use steroids for antiinflammatories. Depression - uncontrolled - pt to increase wellbutrin, will monitor symptoms. refer to Dr Jason for skin check . Hypertension - well controlled - continue with current medications, continue with no added salt diet. Pt has been encouraged to exercise daily. The pt has been advised to call the office if there are any acute concerns about change in blood pressure readings at home. Hypothyroidism - pt with chronic hypothyroidism, continue with current medication, will monitor pt to signs or symptoms of lack of adequate supplementation. Pt is to continue with current dose of medication unless directed otherwise. Check labs at regular intervals wither q 3 months or q 6 months based on previous levels of control. Chronic steroid use-continue steroid taper Onlcejz-spkwcus-ijrbycaz fairly well controlled-no change in treatment Breast ultrasound 07/12/15 8:15 Schedule bilateral renal ultrasound DX renal cysts . Bilateral peroneal mononeuropathies-bulding disc low back-degenerative disc disease of lumbar spine-patient unable to tolerate oral NSAIDs due to Crohns disease and zach of GI upset/bleed. Tried neurontin in the past-made her sick and sleepy-she did not tolerate-attempt to appeal lidoderm patches as they have helped with patient's pain in the past and are well tolerated Chronic steroid use-continue taper as directed Abnormal mammogram-schedule compression view and ultrasound Bilateral renal cysts-schedule follow up ultrasound . Hypothyroidism - pt with chronic hypothyroidism, continue with current medication, will monitor pt to signs or symptoms of lack of adequate supplementation. Pt is to continue with current dose of medication unless directed otherwise. Check labs at regular intervals wither q 3 months or q 6 months based on previous levels of control. Anxiety - chronic - refill xanax through [facility]. Crohn's disease - chronic - continue with Azathioprine and prednisone through [facility]. Hypertension - well controlled - continue with current medications, continue with no added salt diet. Pt has been encouraged to exercise daily. The pt has been advised to call the office if there are any acute concerns about change in blood pressure readings at home. . Hypertension - well controlled - continue with current medications, continue with no added salt diet. Pt has been encouraged to exercise daily. The pt has been advised to call the office if there are any acute concerns about change in blood pressure readings at home. Chronic Pain Syndrome - pt has chronic pain - has been maintained on current medications, has not sought out other medications, only uses PRN pain medications as directed, and understands the consequences of over-medication. START LOSARTAN 50MG DAILY . Hypertension - uncontrolled - the patient's medications have been modified as documented in the visit note. The patient has been counseled to cut back on salt in diet for a no added salt diet, low fat diet, start an exercise program with low weight bearing exercises and higher aerobic activity for heart health. The patient is to check blood pressure readings as an outpatient and either fax , call, or email the readings to the office next week for practitioner to review. The pt is to call for acute concerns. . COPD - chronic problem for this patient. We have reviewed chronic treatment strategy, symptom control, and plans for acute exacerbations. No changes today to the current treatment plan as the patient is stable, monitor for acute changes. Pt given Samples of Anoro Ellipta for use x 2 weeks, pt to alert the office if the medication is effective, if so, will give RX for the patient for daily use. Dysuria - Check UA. Crohn's disease -symptoms stable at this time. Fatigue, Malaise - -Chronic in nature - recommended pt to be mindful of her chronic disease - need to get better rest at night, go to bed earlier, and put away the stress of her work at the end of the day to focus on sleep instead of deadlines. . Hypertension - well controlled - continue with current medications, continue with no added salt diet. Pt has been encouraged to exercise daily. The pt has been advised to call the office if there are any acute concerns about change in blood pressure readings at home. Hypothyroidism - pt with chronic hypothyroidism, continue with current medication, will monitor pt to signs or symptoms of lack of adequate supplementation. Pt is to continue with current dose of medication unless directed otherwise. Check labs at regular intervals wither q 3 months or q 6 months based on previous levels of control. Chronic Depression and anxiety - the pt has symptoms of chronic anxiety and depression that have been fairly well controlled since the last office visit. The pt has expected periods of exacerbation with abatement of the symptoms with change in situational exposure. No change in current medications. Recommend counseling-patient will consider Chronic steroid use-decrease to 30mg alternating 35mg x 2 weeks then decrease to 30mg daily. Follow up in 1 month get a copy of your MRI of your hip/back Go back up to 60mg steroids daily x 1 wk then 55mg daily x 1 week, then decrease down to 50mg daily. [facility] - Dr. Edwin Schwartz - [facility] - Nick Serra . Gluteus medius tear - Hip pain - needs replacement per previous Ortho - recommended a second opinion - I have recommended referral to Dr. Lito Maher. RX for a single point cane. Adrenal crisis - increase steroids - and do a 5mg taper every week until down to 30mg.
--- OUTSIDE RECORDS SUMMARY | 2018-01-09 21:06 | XMS REPORT | Continuity of Care Document ---
Demographics Address [facility]5 [address] [place] [address] x Preferred Language Unknown Marital Status Unknown Pentecostalism Affiliation Unknown Race Unknown Ethnic Group Unknown Author Author [facility] Organization [facility] Address Unknown Phone Unavailable Allergies Active Description Code Type Severity Reaction Onset Reported/Identified Relationship to Patient Clinical Status Yes amoxicillin [id number] Drug Allergy Unknown N/A 08/31/2006 Yes clavulanic acid [id number] Drug Allergy Unknown N/A 08/31/2006 Yes baclofen [id number] Drug Allergy Unknown N/A 05/08/2014 Yes lorazepam [id number] Drug Allergy Unknown N/A 05/08/2014 Yes metronidazole [id number] Drug Allergy Unknown N/A 05/08/2014 Yes SOME PAIN MEDS GIVEN IV SOME PAIN MEDS GIVEN IV Unknown N/A 05/08/2014 Medications There is no data. 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 07/06/2015 DEXTER LAYTON OIL HOUSE ATTENDANT Ot 733.90 07/06/2015 DEXTER LAYTON OIL HOUSE ATTENDANT Ot V58.65 07/06/2015 DEXTER LAYTON OIL HOUSE ATTENDANT Ot V76.12 07/18/2015 DEXTER LAYTON OIL HOUSE ATTENDANT Ot 733.90 07/18/2015 DEXTER LAYTON OIL HOUSE ATTENDANT Ot V58.65 07/18/2015 DEXTER LAYTON OIL HOUSE ATTENDANT Ot V76.12 08/15/2015 DEXTER LAYTON OIL HOUSE ATTENDANT Ot 593.2 08/15/2015 DEXTER LAYTON [employer] HOU[employer] ATTENDANT Ot 611.72 08/17/2015 Ot 473.9 08/17/2015 Ot 251.2 08/17/2015 Ot 255.8 08/17/2015 Ot 473.9 08/17/2015 Ot 579.9 08/17/2015 Ot 627.2 08/17/2015 YANCY MACHADO, MARITZA Rodrigues Ot V72.84 08/17/2015 DEXTER LAYTON OIL HOUSE ATTENDANT Ot 733.90 08/17/2015 DEXTER LAYTON OIL HOUSE ATTENDANT Ot V58.65 08/17/2015 DEXTER LAYTON OIL HOUSE ATTENDANT Ot V76.12 08/17/2015 DEXTER LAYTON OIL HOUSE ATTENDANT Ot 593.2 08/17/2015 DEXTER LAYTON OIL HOUSE ATTENDANT Ot 611.72 08/27/2015 DEXTER LAYTON OIL HOUSE ATTENDANT Ot 593.2 08/27/2015 DEXTER LAYTON [employer] HOUSE ATTENDANT Ot 611.72 09/11/2015 CK MACHADO, BEATRIZ Santa Ot M47.896 09/11/2015 BEATRIZ STOVER MD Ot M51.26 09/12/2015 Ot 473.9 09/12/2015 Ot 251.2 09/12/2015 Ot 255.8 09/12/2015 Ot 473.9 09/12/2015 Ot 579.9 09/12/2015 Ot 627.2 09/12/2015 YANCY MACHADO, MARITZA M Ot V72.84 09/12/2015 DEXTER LAYTON OIL HOUSE ATTENDANT Ot 733.90 09/12/2015 DEXTER LAYTON OIL HOUSE ATTENDANT Ot V58.65 09/12/2015 DEXTER LAYTON OIL HOUSE ATTENDANT Ot V76.12 09/12/2015 DEXTER LAYTON OIL HOUSE ATTENDANT Ot 593.2 09/12/2015 DEXTER LAYTON OIL HOUSE ATTENDANT Ot 611.72 09/12/2015 CK MACHADO, BEATRIZ Santa Ot M47.896 09/12/2015 CK MACHADO, BEATRIZ Santa Ot M51.26 09/12/2015 BEATRIZ STOVER MD Ot [...] TERRI MACHADO, RONAL Lowry Ot Z87.19 09/19/2015 RONAL MURRAY MD, I Ot K50.90 09/19/2015 TERRI MACHADO, RONAL Lowry Ot Z87.19 09/20/2015 BEATRIZ STOVER MD Ot M47.896 09/20/2015 BEATRIZ STOVER MD Ot M51.26 09/20/2015 BEATRIZ STOVER MD Ot M54.10 09/26/2015 BEATRIZ STOVER MD Ot M54.10 10/08/2015 TERRI MACHADO, RONAL Lowry Ot K50.90 10/08/2015 TERRI MACHADO, RONAL Lowry Ot Z87.19 10/11/2015 RONAL MURRAY MD, I Ot K50.90 10/11/2015 RONAL MURRAY MD, I Ot Z87.19 08/19/2016 YANCY MACHADO, MARITZA M Ot V72.84 EXAM PRE-OPERATIVE NOS 08/19/2016 CALINDEXTER Ravi OIL HOUSE ATTENDANT Ot 733.90 BONE CARTILAGE DIS NOS 08/19/2016 CALINDEXTER Ravi OIL HOUSE ATTENDANT Ot V58.65 LONG-TERM(CURRENT)USE OF STEROIDS 08/19/2016 CALIN DEXTER M OIL HOUSE ATTENDANT Ot V76.12 OTH SCREEN MAMMO-MALIGN NEOPLASM OF LUIS 08/19/2016 CALINDEXTER Ravi OIL HOUSE ATTENDANT Ot 593.2 CYST OF KIDNEY, ACQUIRED 08/19/2016 DEXTER LAYTON [employer] ATTENDANT Ot 611.72 LUMP OR MASS IN BREAST [...] OF OTHER DISEASES OF 08/20/2016 DEXTER LAYTON [employer] HOU[employer] ATTENDANT Ot N28.1 CYST OF KIDNEY, ACQUIRED 09/09/2016 DEXTER LAYTON [employer] HOU[employer] ATTENDANT Ot N28.1 CYST OF KIDNEY, ACQUIRED 09/18/2016 DEXTER LAYTON [employer] ATTENDANT Ot N28.1 CYST OF KIDNEY, ACQUIRED 01/29/2017 JEAN KAY MD Ot M25.50 PAIN IN UNSPECIFIED JOINT 01/29/2017 JEAN KAY MD Ot M54.2 CERVICALGIA 01/29/2017 JEAN KAY MD Ot Z87.898 PERSONAL HISTORY OF OTHER SPECIFIED COND 02/18/2017 JEAN KAY MD Ot M25.50 PAIN IN UNSPECIFIED JOINT 02/18/2017 JEAN KAY MD Ot M54.2 CERVICALGIA 02/18/2017 JEAN KAY MD Ot Z87.898 PERSONAL HISTORY OF OTHER SPECIFIED COND 02/19/2017 DEXTER LAYTON [employer] ATTENDANT Ot I89.0 LYMPHEDEMA, NOT ELSEWHERE CLASSIFIED 02/19/2017 DEXTER LAYTON [employer] ATTENDANT Ot K66.0 PERITONEAL ADHESIONS (POSTPROCEDURAL) (P 03/26/2017 DEXTER LAYTON [employer] HOU[employer] ATTENDANT Ot K50.90 CROHN'S DISEASE, UNSPECIFIED, WITHOUT CO 03/26/2017 DEXTER LAYTON [employer] ATTENDANT Ot K57.90 DVRTCLOS OF INTEST, PART UNSP, W/O PERF 04/14/2017 DEXTER LAYTON OIL HOUSE ATTENDANT Ot I89.0 LYMPHEDEMA, NOT ELSEWHERE CLASSIFIED 04/14/2017 DEXTER LAYTON O[employer] HOUSE ATTENDANT Ot K66.0 PERITONEAL ADHESIONS (POSTPROCEDURAL) (P 04/20/2017 DEXTER LAYTON O[employer] HOUSE ATTENDANT Ot I89.0 LYMPHEDEMA, NOT ELSEWHERE CLASSIFIED 04/20/2017 DEXTER LAYTON OIL HOUSE ATTENDANT Ot K66.0 PERITONEAL ADHESIONS (POSTPROCEDURAL) (P 04/20/2017 DEXTER LAYTON OIL HOUSE ATTENDANT Ot K50.90 CROHN'S DISEASE, UNSPECIFIED, WITHOUT CO 04/20/2017 DEXTER LAYTON [employer] HOU[employer] ATTENDANT Ot K57.90 DVRTCLOS OF INTEST, PART UNSP, W/O PERF 04/22/2017 DEXTER LAYTON OIL HOUSE ATTENDANT Ot K50.90 CROHN'S DISEASE, UNSPECIFIED, WITHOUT CO 04/22/2017 DEXTER LAYTON [employer] ATTENDANT Ot K57.90 DVRTCLOS OF INTEST, PART UNSP, W/O PERF 07/29/2017 JEAN KAY MD Ot Z12.31 ENCNTR SCREEN MAMMOGRAM FOR MALIGNANT NE 07/29/2017 JEAN KAY MD Ot Z79.52 LANDSCAPE SUPERVISOR (CURRENT) USE OF SYSTEMIC STER 08/26/2017 JEAN KAY MD Ot K50.918 CROHN'S DISEASE, UNSPECIFIED, WITH OTHER 08/26/2017 JEAN KAY MD Ot Z12.31 ENCNTR SCREEN MAMMOGRAM FOR MALIGNANT NE 08/26/2017 JEAN KAY MD Ot Z79.52 LANDSCAPE SUPERVISOR (CURRENT) USE OF SYSTEMIC STER 12/23/2017 KASSIDY LAMA CURATOR OF PHOTOGRAPHY AND PRINTS Ot R10.9 UNSPECIFIED ABDOMINAL PAIN 12/28/2017 KASSIDY LAMA APRN Ot R10.9 UNSPECIFIED ABDOMINAL PAIN Procedures There is no data. Results Test Result Range Tick identification panel - 01/23/17 17:05 Serum Ehrlichia chaffeensis IgG antibody detection <1:16 <1:16 Serum Ehrlichia chaffeensis IgM antibody detection <1:10 <1:10 Serum Rickettsia rickettsii IgG antibody assay (units/volume) < <1:16 [place] spotted fever panel < <1:10 Francisella tularensis antibody assay <1:20 [facility] Borrelia burgdorferi (Lyme disease) antibody 0.22 0.00- 0.90 Complete blood count (CBC) with automated white blood cell (WBC) differential - 01/09/18 16:35 Blood leukocytes automated count (number/volume) 26.1 10*3/uL 4.3-11.0 Blood erythrocytes automated count (number/volume) 4.09 10*6/uL 4.35-5.85 Venous blood hemoglobin measurement (mass/volume) 13.8 g/dL 11.5-16.0 Blood hematocrit (volume fraction) 40 % 35-52 Automated erythrocyte mean corpuscular volume 98 [foz_us] 80-99 Automated erythrocyte mean corpuscular hemoglobin (mass per erythrocyte) 34 pg 25-34 Automated erythrocyte mean corpuscular hemoglobin concentration measurement ( mass/volume) 35 g/dL 32-36 Automated erythrocyte distribution width ratio 14.0 % 10.0-14.5 Automated blood platelet count (count/volume) 368 10*3/uL 130-400 Automated blood platelet mean volume measurement 9.1 [foz_us] 7.4-10.4 Automated blood neutrophils/100 leukocytes 86 % 42-75 Automated blood lymphocytes/100 leukocytes 6 % 12-44 Blood monocytes/100 leukocytes 8 % 0-12 Automated blood eosinophils/100 leukocytes 0 % 0-10 Automated blood basophils/100 leukocytes 0 % 0-10 Blood neutrophils automated count (number/volume) 22.5 10*3 1.8-7.8 Blood lymphocytes automated count (number/volume) 1.5 10*3 1.0-4.0 Blood monocytes automated count (number/volume) 2.0 10*3 0.0-1.0 Automated eosinophil count 0.0 10*3/uL 0.0-0.3 Automated blood basophil count (count/volume) 0.0 10*3/uL 0.0-0.1 Blood manual differential performed detection - 01/09/18 16:35 Blood monocytes/100 leukocytes 7 % NRG Manual blood segmented neutrophils/100 leukocytes 83 % NRG Blood band neutrophils/100 leukocytes 3 % NRG Manual blood lymphocytes/100 leukocytes 7 % NRG Manual eosinophils/100 leukocytes in nose 0 % NRG Manual blood basophils/100 leukocytes 0 % NRG Blood erythrocyte morphology finding identification NORMAL [facility] Comprehensive metabolic panel - 01/09/18 16:35 Serum or plasma sodium measurement (moles/volume) 136 mmol/L 135-145 Serum or plasma potassium measurement (moles/volume) 3.7 mmol/L 3.6-5.0 Serum or plasma chloride measurement (moles/volume) 101 mmol/L 98-107 Carbon dioxide 24 mmol/L 21-32 Serum or plasma anion gap determination (moles/volume) 11 mmol/L 5-14 Serum or plasma urea nitrogen measurement (mass/volume) 9 mg/dL 7-18 Serum or plasma creatinine measurement (mass/volume) 0.71 mg/dL 0.60-1.30 Serum or plasma urea nitrogen/creatinine mass ratio 13 NRG Serum or plasma creatinine measurement with calculation of estimated glomerular filtration rate > NRG Serum or plasma glucose measurement (mass/volume) 103 mg/dL 70-105 Serum or plasma calcium measurement (mass/volume) 9.8 mg/dL 8.5-10.1 Serum or plasma total bilirubin measurement (mass/volume) 1.6 mg/dL 0.1-1.0 Serum or plasma alkaline phosphatase measurement (enzymatic activity/volume) 60 U/L 40-136 Serum or plasma aspartate aminotransferase measurement (enzymatic activity/ volume) 13 U/L 5-34 Serum or plasma alanine aminotransferase measurement (enzymatic activity/volume ) 12 U/L 0-55 Serum or plasma protein measurement (mass/volume) 7.0 g/dL 6.4-8.2 Serum or plasma albumin measurement (mass/volume) 4.0 g/dL 3.2-4.5 Lipase - 01/09/18 16:35 Lipase < U/L 8-78 Complete urinalysis with reflex to culture - 01/09/18 19:21 Urine color determination YELLOW NRG Urine clarity determination CLEAR NRG Urine pH measurement by test strip 5 5-9 Specific gravity of urine by test strip 1.020 1.016- 1.022 Urine protein assay by test strip, semi-quantitative 1+ NEGATIVE Urine glucose detection by automated test strip NEGATIVE NEGATIVE Erythrocytes detection in urine sediment by light microscopy 4+ NEGATIVE Urine ketones detection by automated test strip NEGATIVE NEGATIVE Urine nitrite detection by test strip NEGATIVE NEGATIVE Urine total bilirubin detection by test strip NEGATIVE NEGATIVE Urine urobilinogen measurement by automated test strip (mass/volume) NORMAL NORMAL Urine leukocyte esterase detection by dipstick 3+ NEGATIVE Automated urine sediment erythrocyte count by microscopy (number/high power field) [HPF] NRG Automated urine sediment leukocyte count by microscopy (number/high power field ) [HPF] NRG Bacteria detection in urine sediment by light microscopy TRACE NRG Squamous epithelial cells detection in urine sediment by light microscopy 2-5 NRG Crystals detection in urine sediment by light microscopy NONE NRG Casts detection in urine sediment by light microscopy NONE NRG Mucus detection in urine sediment by light microscopy MODERATE NRG Complete urinalysis with reflex to culture YES NRG Encounters ACCT No. Visit Date/Time Discharge Status Pt. Type Provider Facility Loc./Unit Complaint [id number] 12/22/2017 16:09:00 12/22/2017 23:59:59 CLS Outpatient KASSIDY LAMA APRN [facility] RAD R10.9 [id number] 08/06/2017 09:36:00 08/06/2017 23:59:59 CLS Outpatient JEAN KAY MD [facility] RAD SCREENING [id number] 03/24/2017 13:16:00 04/30/2017 14:31:00 DIS Outpatient DEXTER LAYTON [facility] REHAB ABDOMINAL ADHESIONS; EDEMA IN NECK/SHOULDERS [id number] 03/24/2017 14:09:00 03/24/2017 23:59:59 CLS Outpatient DEXTER LAYTON [facility] RAD ABD PAIN, CHROHNS [id number] 01/23/2017 16:55:00 01/23/2017 23:59:59 CLS Outpatient JEAN KAY MD [facility] LAB JOINT ACHES [id number] 08/18/2016 13:18:00 08/18/2016 23:59:59 CLS Outpatient DEXTER LAYTON [facility] RAD L RENAL CYST [id number] 09/12/2015 07:19:00 09/12/2015 23:59:59 CLS Outpatient RONAL MURRAY MD, I [facility] RAD CLOSTRIDUIM FIFFICILE COLITIS, HX OF CROHNS [id number] 08/28/2015 08:02:00 08/28/2015 23:59:59 CLS Outpatient OTHER, UNLISTED [facility] RAD CLOSTRIDUIM FIFFICILE COLITIS, HX OF CROHNS [id number] 08/27/2015 09:40:00 08/27/2015 23:59:59 CLS Outpatient RONAL MURRAY MD, I [facility] LAB CROHNS DISEASE, CLOSTRIDIUM DIFFICILE,MRI W/CONTRA [id number] 08/27/2015 08:16:00 08/27/2015 23:59:59 CLS Outpatient BEATRIZ STOVER MD [facility] RAD RADICULOPATHY [id number] 08/22/2015 14:23:00 08/22/2015 23:59:59 CLS Outpatient BEATRIZ STOVER MD [facility] RAD RADICULOPATHY [id number] 08/17/2015 14:42:00 08/17/2015 23:59:59 CLS Outpatient BEATRIZ STOVER MD [facility] RAD RADICULOPATHY [id number] 07/23/2015 13:34:00 07/23/2015 23:59:59 CLS Outpatient DEXTER LAYTON [facility] RAD LEFT BREAST NODULE, RENAL CYST [id number] 06/28/2015 11:13:00 06/28/2015 23:59:59 CLS Outpatient DEXTER LAYTON [facility] RAD SCREENING ALF STEROID USE [id number] 05/08/2014 06:39:00 05/08/2014 10:10:00 DIS Outpatient MARITZA HAINES MD [facility] SDC CHRONS DISEASE [id number] 05/03/2014 07:20:00 05/03/2014 23:59:59 CLS Outpatient MARITZA HAINES MD [facility] PREOP CHRONS DISEASE [id number] 04/09/2014 02:52:00 04/11/2014 12:07:00 DIS Inpatient LOUISE DELGADO DO [facility] SURGICAL SMALL BOWEL OBSTRUCTION [id number] 01/09/2018 20:35:00 ACT Inpatient JEAN KAY MD [facility] 4TH CROHN'S FLARE, UTI [id number] 05/08/2010 15:25:00 Document Registration [id number] 04/19/2010 10:18:00 Document Registration
[2018-01-09] MEDS ORDERED: ONDANSETRON 4 MG/2 ML (SDV) Z0FRAN IV PRN (21:15)
[2018-01-09] MEDS ORDERED: CATHETER FLUSH 10 ML SYR IV PRN (21:15)
[2018-01-09] MEDS ORDERED: fentaNYL INJECTION 100 MCG/2 ML AMP IV PRN (21:15)
[2018-01-09] MEDS: NS IV 1000 ML 1,000 ML IV SCH (21:28)
[2018-01-09] MEDS: CATHETER FLUSH 10 ML SYR IV SCH (23:47)
[2018-01-10] VITALS (7 sets, daily range): BP systolic 123–141; BP diastolic 53–86
[2018-01-10] MEDS ORDERED: RT-ALBUTEROL SULF 2.5 MG/3 ML PRE-MIX VIAL INH PRN (00:30)
[2018-01-10] MEDS: CATHETER FLUSH 10 ML SYR IV SCH ×4 (00:33→21:22)
[2018-01-10] MEDS ORDERED: RT-ALBUTEROL SULF 2.5 MG/3 ML PRE-MIX VIAL INH SCH (02:00)
[2018-01-10] MEDS: methylPREDNISolone 125 MG (Solu-MEDROL) VIAL IV SCH ×4 (02:11→21:19)
[2018-01-10 04:40] LABS: BASOPHILS % (AUTO) 0 % (0-10); EOSINOPHILS % (AUTO) 0 % (0-10); HEMATOCRIT 39 % (35-52); HEMOGLOBIN 13.3 G/DL (11.5-16.0); LYMPHOCYTES # (AUTO) 0.5 X 10^3 (1.0-4.0); LYMPHOCYTES % (AUTO) 3 % (12-44); MEAN CORPUSCULAR HEMOGLOBIN 33 PG (25-34); MEAN CORPUSCULAR HGB CONC 34 G/DL (32-36); MEAN CORPUSCULAR VOLUME 98 FL (80-99); MEAN PLATELET VOLUME 9.4 FL (7.4-10.4); MONOCYTES # (AUTO) 0.4 X 10^3 (0.0-1.0); MONOCYTES % (AUTO) 2 % (0-12); NEUTROPHILS # (AUTO) 20.1 X 10^3 (1.8-7.8); NEUTROPHILS % (AUTO) 95 % (42-75); PLATELET COUNT 312 10^3/uL (130-400); RED BLOOD COUNT 4.01 10^6/uL (4.35-5.85); RED CELL DISTRIBUTION WIDTH 14.1 % (10.0-14.5); WHITE BLOOD COUNT 21.1 10^3/uL (4.3-11.0)
[2018-01-10] MEDS: ACETAMINOPHEN 500 MG TAB (TYLENOL) PO PRN ×3 (04:57→21:20)
[2018-01-10 04:58] LABS: ALANINE AMINOTRANSFERASE 13 U/L (0-55); ALBUMIN 3.7 GM/DL (3.2-4.5); ALKALINE PHOSPHATASE 55 U/L (40-136); BILIRUBIN,TOTAL 1.1 MG/DL (0.1-1.0); BUN/CREATININE RATIO 12; CALCIUM 9.2 MG/DL (8.5-10.1); CARBON DIOXIDE 23 MMOL/L (21-32); CHLORIDE 104 MMOL/L (98-107); CREATININE SERUM 0.65 MG/DL (0.60-1.30); GFR ESTIMATED > 60; GLUCOSE 156 MG/DL (70-105); POTASSIUM 3.7 MMOL/L (3.6-5.0); SODIUM 138 MMOL/L (135-145); TOTAL PROTEIN 6.8 GM/DL (6.4-8.2)
[2018-01-10] MEDS: RT-ALBUTEROL SULF 2.5 MG/3 ML PRE-MIX VIAL INH SCH ×2 (08:08→19:04)
[2018-01-10] MEDS ORDERED: INFLUENZA TRIvalent 2017-2018 0.5 ML/45 MCG SYR IM ONE (09:00)
--- NOTE | 2018-01-10 12:05 | History & Physical-Hospitalist ---
HPI History of Present Illness: HPI/Chief Complaint The patient is a 67-year-old white female patient of Dr. Daniela Mancera. She was admitted after she presented to the emergency room yesterday afternoon with complaints of abdominal pain. She has had Crohn's disease since 1995. There were symptoms prior to that. In her past there was a resection involving proximal colon and distal small bowel. This provided pathologic proof of disease. She has taken Imuran and at times prednisone for this. She has not really felt well and more than a month. She does not report fever or sweats. There has been bowel dysfunction and pain over the left abdomen. She states this is unusual as in the past most pain had been right sided in orientation. There is been no hematochezia or melena. She apparently has had previous perirectal abscesses but does not report that at this time. She had previously seen Dr. VARNER for her gastroenterology needs however his left hip area. More recently she has been seeing someone in [place]. She reports that she has been on a higher dose of prednisone recently with plans for this to be tapered. Her ER visit showed a white count of 26,[address] scan which showed thickened mucosa circumferentially from the transverse colon to the distal colon. Inflammatory changes were reported in the area of the mid to distal descending colon. Source: patient Exam Limitations: no limitations Date Seen 01/10/18 Time Seen by Provider: 12:00 Attending Physician Daniela Mancera MD PCP Daniela Mancera MD Referring Physician Date of Admission Jan 09, 2018 at 20:35 Home Medications & Allergies Home Medications Reviewed patient Home Medication Reconciliation Form Allergies Allergies Coded Allergies amoxicillin (Verified Allergy, Unknown, 08/31/06) baclofen (Unverified Allergy, Unknown, 05/08/14) clavulanic acid (Verified Allergy, Unknown, 08/31/06) lorazepam (Unverified Allergy, Unknown, 05/08/14) metronidazole (Unverified Allergy, Unknown, 05/08/14) Uncoded Allergies SOME PAIN MEDS GIVEN IV ( Allergy, Unknown, 05/08/14) Past Foqwtzi-Uzrbpz-Jvwsoa Hx Patient Social History Alcohol Use: Denies Use Recreational Drug Use: No Smoking Status: Current Everyday Smoker Type Used: Cigarettes Physical Abuse Screen: No Sexual Abuse: No Recent Foreign Travel: No Contact w/other who traveled: No Recent Infectious Disease Expo: No Immunizations Up To Date Date of Pneumonia Vaccine: Aug 09, 2011 Seasonal Allergies Seasonal Allergies: Yes Surgeries Yes (Spinal Fusion) Respiratory Yes Currently Using CPAP: No Currently Using BIPAP: No Cardiovascular No Neurological No Reproductive System Hx Reproductive Disorders: No Sexually Transmitted Disease: No HIV/AIDS: No Genitourinary No Gastrointestinal Yes (gastritis) Crohns Disease, Hiatal Hernia Musculoskeletal Yes Degenerate Disk Disease, Arthritis Endocrine History of Endocrine Disorders: Yes Endocrine Disorders: Hypothyroidsim HEENT History of HEENT Disorders: No Cancer No Psychosocial History of Psychiatric Problem: No Integumentary History of Skin or Integumenta: No Blood Transfusions History of Blood Disorders: No Adverse Reaction to a Blood Tr: No Reviewed Nursing Assessment Reviewed/Agree w Nursing PMH: Yes Family Medical History Family Hx: Cancer 19 FATHER, Onset:40's - 50 G8 SISTER, Onset:40's - 50 Family history: Allergy 19 MOTHER Family history: Alzheimer's disease 19 MOTHER Family history: Arthritis 19 MOTHER Family history: Asthma 19 MOTHER Family history: Cardiovascular disease 19 MOTHER Family history: Osteoporosis 19 MOTHER Heart disease 19 MOTHER History of - respiratory disease 19 MOTHER Hypercholesterolemia 19 MOTHER Malignant neoplasm of lung G8 SISTER Stroke 19 MOTHER No Family History of: Abdominal aortic aneurysm [place]'s disease Alcoholism Aphasia Cancer of colon Cataract Chest pain Congenital heart disease Congestive heart failure Cystic fibrosis Family history: Breast disease Family history: Coronary thrombosis Family history: Diabetes mellitus Family history: Gastrointestinal disease Family history: Glaucoma Family history: Hypertension Headache Hearing loss Hereditary disease History of - anemia History of - disorder History of drug abuse Human immunodeficiency virus (HIV) seropositivity Infertile Kidney disease Myocardial infarction Parkinson's disease Prostate cancer Psychotic disorder Seizure disorder Tuberculosis Review of Systems Constitutional: see HPI EENTM: no symptoms reported Respiratory: no symptoms reported Cardiovascular: no symptoms reported Gastrointestinal: see HPI Genitourinary: no symptoms reported, other (ER visit revealed pyuria consistent with UTI) Musculoskeletal: muscle pain, muscle weakness Skin: no symptoms reported Psychiatric/Neurological: No Symptoms Reported Physical Exam Physical Exam Vital Signs Vital Signs - First Documented 01/09/18 01/09/18 17:54 21:03 Temp 98.6 Pulse 105 Resp 18 B/P (MAP) 143/101 (115) Pulse Ox 94 O2 Delivery Room Air Capillary Refill : Less Than 3 Seconds General Appearance: Mild Distress Eyes: Bilateral Eye Normal Inspection HEENT: Normal ENT Inspection Neck: Normal Inspection Respiratory: Chest Non Tender, Lungs Clear, Normal Breath Sounds, No Accessory Muscle Use, No Respiratory Distress Cardiovascular: Regular Rate, Rhythm, No Edema, No Gallop, No JVD, No Murmur, Normal Peripheral Pulses Gastrointestinal: Other (decreased bowel sounds. Mild and generalized tenderness from the xiphoid to the splenic flexure and distally.) Back: Normal Inspection Extremity: Normal Capillary Refill Neurologic/Psychiatric: Alert Skin: Normal Color, Warm/Dry Lymphatic: No Adenopathy Results Results/Procedures Lab Laboratory Tests 01/09/18 16:35 01/10/18 04:15 Assessment/Plan Admission Diagnosis Crohn's disease and flare. 2.urinary tract infection. 3.hypertension. 4.steroid dependency. Admission Status: Inpatient Order (span 2 midnights) Reason for Inpatient Admission: UTI and flare of Crohn's disease Clinical Quality Measures DVT/VTE Risk/Contraindication: Risk Factor Score Per Nursin RFS Level Per Nursing on Admit: 3=High FRANKLIN HAGAN MD Jan 10, 2018 12:05
[2018-01-10] MEDS ORDERED: TRAZ150T72 PO (12:35)
[2018-01-10] MEDS ORDERED: PRD10T PO (12:35)
[2018-01-10] MEDS ORDERED: LIOT5TAB3 PO (12:35)
[2018-01-10] MEDS ORDERED: BUPR150T14 PO (12:35)
[2018-01-10] MEDS ORDERED: LOSA50TA36 PO (12:35)
[2018-01-10] MEDS ORDERED: FLUT16SP22 NSEACH (12:35)
[2018-01-10] MEDS ORDERED: DIPH25TA31 PO (12:35)
[2018-01-10] MEDS ORDERED: ACET-93 PO (12:35)
[2018-01-10] MEDS ORDERED: RT-ALBUINH IH (12:35)
[2018-01-10] MEDS ORDERED: PRD20T PO (12:35)
[2018-01-10] MEDS ORDERED: OMEP20CA12 PO (12:35)
[2018-01-10] MEDS ORDERED: TRAM50TA2 PO (12:35)
[2018-01-10] MEDS ORDERED: [UNRECOGNIZED DRUG - OTHER] PO (12:35)
[2018-01-10] MEDS ORDERED: ERGO50006 PO (12:35)
[2018-01-10] MEDS ORDERED: VITA1CAP PO (12:35)
[2018-01-10] MEDS ORDERED: BUPR150T20 PO (12:35)
[2018-01-10] MEDS ORDERED: L.AC1CAP6 PO (12:35)
[2018-01-10] MEDS ORDERED: SIME125T50 PO (12:35)
[2018-01-10] MEDS ORDERED: CNC1KV IJ (12:35)
[2018-01-10] MEDS ORDERED: ALPR0.5T7 PO (12:35)
[2018-01-10] MEDS ORDERED: LEVO50TA6 PO (12:35)
[2018-01-10] MEDS ORDERED: [UNRECOGNIZED DRUG - OTHER] PO (12:35)
[2018-01-10] MEDS ORDERED: ACET-2422 PO (12:35)
[2018-01-10] MEDS ORDERED: AZAT50TA PO (12:35)
[2018-01-10] MEDS: NS IV 1000 ML 1,000 ML IV SCH ×2 (12:41→12:53)
[2018-01-10] MEDS ORDERED: diphenhydrAMINE 25 MG TAB (BENADRYL) PO PRN (13:00)
[2018-01-10] MEDS ORDERED: NON-FORMULARY MEDICATION 1 EA EA (Simethicone 125 MG) PO PRN (13:00)
[2018-01-10] MEDS ORDERED: PATIENT MAY USE OWN MEDS, ALL MC SCH (13:00)
[2018-01-10] MEDS ORDERED: FLUTICASONE NASAL SPRAY (FLONASE) 16 GM BTL NS PRN (13:00)
[2018-01-10] MEDS ORDERED: ALPRAZolam 0.5 MG (XANAX) TAB PO PRN (13:00)
[2018-01-10] MEDS ORDERED: SIMETHICONE 80 MG (MYLICON) CHEW PO PRN (15:45)
[2018-01-10] MEDS ORDERED: LEVOTHYROXINE 50 MCG (LEVOTHROID) TAB PO SCH ×2 (18:30)
[2018-01-10] MEDS: buPROPion SR 150 MG (WELLBUTRIN SR) TAB PO SCH (18:30)
[2018-01-10] MEDS ORDERED: NICOTINE 14 MG (NICODERM) PATCH TD ONE (18:54)
[2018-01-10] MEDS ORDERED: buPROPion SR 150 MG (WELLBUTRIN SR) TAB PO SCH (19:00)
[2018-01-10] MEDS: NICOTINE 14 MG (NICODERM) PATCH TD SCH (19:00)
[2018-01-10] MEDS ORDERED: azaTHIOprine (IMURAN) 50 MG TAB PO SCH (21:00)
[2018-01-10] MEDS ORDERED: traZODone 150 MG (DESYREL) TABLET PO SCH (21:00)
[2018-01-10] MEDS: cefTRIAXone 1 GM/NS 100 ML IVPB IV SCH ×2 (21:19)
[2018-01-10] MEDS: traZODone 150 MG (DESYREL) TABLET PO SCH (21:21)
[2018-01-10] MEDS: azaTHIOprine (IMURAN) 50 MG TAB PO SCH (21:21)
[2018-01-10] MEDS: ALPRAZolam 0.5 MG (XANAX) TAB PO PRN (22:07)
[2018-01-11] VITALS (7 sets, daily range): BP systolic 110–159; BP diastolic 56–91
[2018-01-11] MEDS: methylPREDNISolone 125 MG (Solu-MEDROL) VIAL IV SCH ×4 (03:23→21:20)
[2018-01-11] MEDS ORDERED: [UNRECOGNIZED DRUG - OTHER] PO SCH (09:00)
[2018-01-11] MEDS ORDERED: MULTIVIT W/MINERALS TAB (THERAGRAN M) PO SCH (09:00)
[2018-01-11] MEDS ORDERED: LOSARTAN 50 MG (COZAAR) TAB PO SCH (09:00)
[2018-01-11] MEDS ORDERED: buPROPion SR 150 MG (WELLBUTRIN SR) TAB PO SCH (09:00)
[2018-01-11] MEDS ORDERED: PANTOPRAZOLE 20 MG TABLET (PROTONIX) PO SCH (09:00)
[2018-01-11] MEDS ORDERED: LIOTHYRONINE 5 MCG (CYTOMEL) TAB NON-FORMULARY PO SCH (09:00)
[2018-01-11] MEDS ORDERED: NON-FORMULARY MEDICATION 1 EA EA (Vitamin B Complex 1 CAP) PO SCH (09:00)
[2018-01-11] MEDS: buPROPion SR 150 MG (WELLBUTRIN SR) TAB PO SCH ×3 (09:31→22:58)
[2018-01-11] MEDS: LIOTHYRONINE 5 MCG (CYTOMEL) TAB NON-FORMULARY PO SCH ×2 (09:34→10:53)
[2018-01-11] MEDS: ALPRAZolam 0.5 MG (XANAX) TAB PO PRN ×2 (09:49→22:59)
--- NOTE | 2018-01-11 09:59 | Progress Note (SOAP) ---
Objective Exam Vital Signs Date Time Temp Pulse Resp B/P (MAP) Pulse Ox O2 Delivery O2 Flow Rate FiO2 01/11/18 08:03 98.2 65 18 129/60 (83) 96 Room Air 01/11/18 04:00 99.1 82 18 115/56 (75) 94 Room Air 01/11/18 00:05 97.3 63 18 110/56 (74) 93 Room Air 01/10/18 20:03 98.5 82 20 124/67 (86) 96 Room Air 01/10/18 19:04 94 Room Air 01/10/18 16:38 97.5 88 20 141/86 (104) 96 Room Air 01/10/18 12:00 97.6 77 20 136/76 (96) 93 Room Air I & O 01/11/18 07:00 Intake Total 1930 ml Output Total 1600 ml Balance 330 ml Capillary Refill : Less Than 3 Seconds Results Lab Microbiology 01/09/18 Blood Culture - Preliminary, Resulted No growth 01/09/18 Urine Culture - Preliminary, Resulted Probable Gardnerella Vaginalis Clinical Quality Measures DVT/VTE Risk/Contraindication: Risk Factor Score Per Nursin RFS Level Per Nursing on Admit: 3=High JEAN KAY MD Jan 11, 2018 09:59
[2018-01-11] MEDS ORDERED: metroNIDAZOLE 500MG/100ML IVPB 100 ML IV SCH (10:00)
[2018-01-11] MEDS: LOSARTAN 50 MG (COZAAR) TAB PO SCH (10:50)
[2018-01-11] MEDS: NICOTINE 14 MG (NICODERM) PATCH TD SCH (10:54)
[2018-01-11] MEDS: LACTOBACILLUS Acidoph/Bulgar (LACTINEX/FLORANEX) TAB PO SCH (10:55)
[2018-01-11] MEDS: MULTIVIT W/MINERALS TAB (THERAGRAN M) PO SCH (11:21)
[2018-01-11] MEDS: OMEPRAZOLE 20 MG (PriLOSEC) CAP NON-FORMULARY PO SCH (11:22)
[2018-01-11] MEDS: CATHETER FLUSH 10 ML SYR IV SCH ×3 (14:58→20:01)
[2018-01-11] MEDS: RT-ALBUTEROL SULF 2.5 MG/3 ML PRE-MIX VIAL INH SCH ×2 (16:01→19:05)
[2018-01-11] MEDS: metroNIDAZOLE 500MG/100ML IVPB 100 ML IV SCH (17:49)
[2018-01-11] MEDS ORDERED: LEVOTHYROXINE 50 MCG (LEVOTHROID) TAB PO SCH (18:00)
[2018-01-11] MEDS: cefTRIAXone 1 GM/NS 100 ML IVPB IV SCH ×2 (21:20)
[2018-01-11] MEDS: azaTHIOprine (IMURAN) 50 MG TAB PO SCH (21:22)
[2018-01-11] MEDS: ACETAMINOPHEN 500 MG TAB (TYLENOL) PO PRN (22:07)
[2018-01-11] MEDS: traZODone 150 MG (DESYREL) TABLET PO SCH (22:59)
[2018-01-12 01:32] VITALS: BP 136/79
[2018-01-12] MEDS: methylPREDNISolone 125 MG (Solu-MEDROL) VIAL IV SCH ×4 (02:52→22:01)
[2018-01-12] MEDS: metroNIDAZOLE 500MG/100ML IVPB 100 ML IV SCH ×3 (02:52→18:32)
[2018-01-12] MEDS: ACETAMINOPHEN 500 MG TAB (TYLENOL) PO PRN ×3 (03:53→18:37)
[2018-01-12] MEDS: ALPRAZolam 0.5 MG (XANAX) TAB PO PRN ×2 (04:23→22:02)
[2018-01-12] MEDS: LEVOTHYROXINE 50 MCG (LEVOTHROID) TAB PO SCH ×2 (06:20→08:33)
[2018-01-12] MEDS: OMEPRAZOLE 20 MG (PriLOSEC) CAP NON-FORMULARY PO SCH (06:20)
[2018-01-12 06:26] LABS: MEAN PLATELET VOLUME 9.8 FL (7.4-10.4); RED BLOOD COUNT 3.27 10^6/uL (4.35-5.85); WHITE BLOOD COUNT 13.3 10^3/uL (4.3-11.0)
[2018-01-12 06:48] LABS: ALANINE AMINOTRANSFERASE 15 U/L (0-55); ALBUMIN 3.3 GM/DL (3.2-4.5); ALKALINE PHOSPHATASE 43 U/L (40-136); BILIRUBIN,TOTAL 0.3 MG/DL (0.1-1.0); BUN/CREATININE RATIO 22; CALCIUM 8.8 MG/DL (8.5-10.1); CARBON DIOXIDE 19 MMOL/L (21-32); CHLORIDE 108 MMOL/L (98-107); CREATININE SERUM 0.64 MG/DL (0.60-1.30); GFR ESTIMATED > 60; GLUCOSE 123 MG/DL (70-105); SODIUM 141 MMOL/L (135-145); TOTAL PROTEIN 5.9 GM/DL (6.4-8.2)
[2018-01-12 08:00] VITALS: BP 179/72
[2018-01-12] MEDS: NICOTINE 14 MG (NICODERM) PATCH TD SCH (08:31)
[2018-01-12] MEDS: LACTOBACILLUS Acidoph/Bulgar (LACTINEX/FLORANEX) TAB PO SCH (08:31)
[2018-01-12] MEDS: LIOTHYRONINE 5 MCG (CYTOMEL) TAB NON-FORMULARY PO SCH (08:32)
[2018-01-12] MEDS: LOSARTAN 50 MG (COZAAR) TAB PO SCH (08:34)
[2018-01-12] MEDS: buPROPion SR 150 MG (WELLBUTRIN SR) TAB PO SCH ×2 (08:34→20:50)
[2018-01-12] MEDS: MULTIVIT W/MINERALS TAB (THERAGRAN M) PO SCH (08:35)
[2018-01-12] MEDS ORDERED: KCL 10 MEQ TAB (MICRO K) PO NR (08:45)
--- NOTE | 2018-01-12 08:47 | Progress Note (SOAP) ---
Objective Exam Vital Signs Date Time Temp Pulse Resp B/P (MAP) Pulse Ox O2 Delivery O2 Flow Rate FiO2 01/12/18 01:32 97.3 68 18 136/79 (98) 95 Room Air 01/11/18 23:25 97.7 66 17 159/70 (99) 95 Room Air 01/11/18 19:45 69 97 01/11/18 16:00 97.6 69 20 145/91 (109) 97 Room Air 01/11/18 12:30 97.9 78 20 152/71 (98) 95 Room Air I & O 01/12/18 07:00 Intake Total 2120 ml Output Total 1850 ml Balance 270 ml Capillary Refill : Less Than 3 Seconds Results Lab Laboratory Tests 01/12/18 05:21: White Blood Count 13.3H, Red Blood Count 3.27L, Hemoglobin 11.0L, Hematocrit 32L , Mean Corpuscular Volume 99, Mean Corpuscular Hemoglobin 34, Mean Corpuscular Hemoglobin Concent 34, Red Cell Distribution Width 14.0, Platelet Count 311, Mean Platelet Volume 9.8, Sodium Level 141, Potassium Level 3.0L, Chloride Level 108H, Carbon Dioxide Level 19L, Anion Gap 14, Blood Urea Nitrogen 14, Creatinine 0.64, Estimat Glomerular Filtration Rate > 60, BUN/Creatinine Ratio 22, Glucose Level 123H, Calcium Level 8.8, Total Bilirubin 0.3, Aspartate Amino Transf (AST/SGOT) 16, Alanine Aminotransferase (ALT/SGPT) 15, Alkaline Phosphatase 43, Total Protein 5.9L, Albumin 3.3 Microbiology 01/09/18 Blood Culture - Preliminary, Resulted No growth 01/09/18 Urine Culture - Preliminary, Resulted Probable Gardnerella Vaginalis Clinical Quality Measures DVT/VTE Risk/Contraindication: Risk Factor Score Per Nursin RFS Level Per Nursing on Admit: 3=High JEAN KAY MD Jan 12, 2018 08:47
[2018-01-12] MEDS: NS W/KCL 20 MEQ/L 1,000 ML IV SCH (09:28)
[2018-01-12] MEDS: CATHETER FLUSH 10 ML SYR IV SCH ×2 (14:13→20:53)
[2018-01-12 16:08] VITALS: BP 174/84
[2018-01-12] MEDS: traZODone 150 MG (DESYREL) TABLET PO SCH (20:49)
[2018-01-12] MEDS: azaTHIOprine (IMURAN) 50 MG TAB PO SCH (20:51)
[2018-01-13 00:05] VITALS: BP 174/68
[2018-01-13] MEDS ORDERED: LOSARTAN 50 MG (COZAAR) TAB PO ONE (00:45)
[2018-01-13] MEDS: ACETAMINOPHEN 500 MG TAB (TYLENOL) PO PRN ×3 (01:17→14:57)
[2018-01-13] MEDS: NS W/KCL 20 MEQ/L 1,000 ML IV SCH ×2 (01:19→12:40)
[2018-01-13] MEDS: metroNIDAZOLE 500MG/100ML IVPB 100 ML IV SCH ×3 (01:21→18:01)
[2018-01-13] MEDS: CATHETER FLUSH 10 ML SYR IV SCH ×2 (05:47→14:56)
[2018-01-13 06:20] LABS: HEMOGLOBIN 11.7 G/DL (11.5-16.0); MEAN PLATELET VOLUME 9.7 FL (7.4-10.4); RED BLOOD COUNT 3.53 10^6/uL (4.35-5.85); RED CELL DISTRIBUTION WIDTH 13.9 % (10.0-14.5); WHITE BLOOD COUNT 11.3 10^3/uL (4.3-11.0)
[2018-01-13] MEDS: methylPREDNISolone 125 MG (Solu-MEDROL) VIAL IV SCH ×2 (06:38→14:56)
[2018-01-13] MEDS: OMEPRAZOLE 20 MG (PriLOSEC) CAP NON-FORMULARY PO SCH (06:39)
[2018-01-13 06:52] LABS: ALANINE AMINOTRANSFERASE 29 U/L (0-55); ALBUMIN 3.4 GM/DL (3.2-4.5); ALKALINE PHOSPHATASE 44 U/L (40-136); BILIRUBIN,TOTAL 0.3 MG/DL (0.1-1.0); BUN/CREATININE RATIO 18; CARBON DIOXIDE 25 MMOL/L (21-32); CHLORIDE 107 MMOL/L (98-107); CREATININE SERUM 0.67 MG/DL (0.60-1.30); GFR ESTIMATED > 60; GLUCOSE 109 MG/DL (70-105); SODIUM 142 MMOL/L (135-145); TOTAL PROTEIN 6.1 GM/DL (6.4-8.2)
[2018-01-13 07:44] VITALS: BP 198/64
[2018-01-13] MEDS: NICOTINE 14 MG (NICODERM) PATCH TD SCH (08:00)
[2018-01-13] MEDS: LACTOBACILLUS Acidoph/Bulgar (LACTINEX/FLORANEX) TAB PO SCH (08:01)
[2018-01-13] MEDS: ALPRAZolam 0.5 MG (XANAX) TAB PO PRN (08:01)
[2018-01-13] MEDS: buPROPion SR 150 MG (WELLBUTRIN SR) TAB PO SCH (08:03)
[2018-01-13] MEDS: LEVOTHYROXINE 50 MCG (LEVOTHROID) TAB PO SCH (08:04)
[2018-01-13] MEDS: LIOTHYRONINE 5 MCG (CYTOMEL) TAB NON-FORMULARY PO SCH (08:05)
[2018-01-13] MEDS: MULTIVIT W/MINERALS TAB (THERAGRAN M) PO SCH (08:07)
[2018-01-13] MEDS ORDERED: LOSA50TA36 PO (08:20)
[2018-01-13] MEDS ORDERED: METR500T21 PO (08:20)
[2018-01-13] MEDS ORDERED: meTOprolol TARTRATE 25 MG (LOPRESSOR) TABLET ONE (08:21)
--- NOTE | 2018-01-13 08:22 | Discharge Inst-Complex ---
PDI Med Rec & Follow Up Appt. New Medications: Metronidazole (Metronidazole) 500 Mg Tablet 500 MG PO TID, #15 TAB Losartan Potassium (Losartan Potassium) 50 Mg Tablet 100 MG PO DAILY, #30 TAB 6 Refills Continued Medications: Acetaminophen (Acetaminophen) 500 Mg Tablet 1000 MG PO DAILY PRN for BACK PAIN, TAB TAKES 2 (500 MG) TABLETS Acetaminophen (Acetaminophen ER) 650 Mg Tablet.er 650 MG PO HS PRN for BACK PAIN, TAB Albuterol Sulfate (Proair Hfa) 1 Puff Puff 2 PUFF IH Q4H PRN for SHORTNESS OF BREATH, PUFF 1 PUFF = 90 MCG Alprazolam (Alprazolam) 0.5 Mg Tablet 0.5 MG PO BID PRN for ANXIETY Azathioprine (Azathioprine) 50 Mg Tablet 150 MG PO HS TAKES 3 (50 MG) TABLETS Bupropion HCl (Bupropion HCl Sr) 150 Mg Tablet.er 150 MG PO 1900, TAB Bupropion HCl (Bupropion HCl Sr) 150 Mg Tablet.er 300 MG PO DAILY TAKES 2 (150 MG) TABLETS Cyanocobalamin (Cyanocobalamin Injection) 1,000 Mcg/Ml Inj 1000 MCG IJ BI-WEEKLY, VIAL Diphenhydramine HCl (Diphenhydramine HCl) 25 Mg Tablet 25 MG PO DAILY PRN for ALLERGIES, TAB Ergocalciferol (Vitamin D2) (Vitamin D2) 50,000 Unit Capsule 44504 UNIT PO Fr, CAP Fluticasone Propionate (Fluticasone Propionate) 16 Gm Hobson.susp 1-2 SPRAYS NSEACH DAILY PRN for ALLERGIES, SPRAY L.acidoph & Paracasei,B.lactis (Probiotic) 1 Each Capsule 1 CAP PO DAILY, CAP Levothyroxine Sodium (Levothyroxine Sodium) 50 Mcg Tablet 50 MCG PO 1830 Liothyronine Sodium (Liothyronine Sodium) 5 Mcg Tablet 10 MCG PO DAILY TAKES 2 (5 MCG) TABLETS Omeprazole (Omeprazole) 20 Mg Capsule.dr 20 MG PO DAILY Prednisone (Prednisone) 20 Mg Tab 20 MG PO DAILY Prednisone (Prednisone) 10 Mg Tab 5 MG PO DAILY TAKES 1/2 OF A (10 MG) TABLET Simethicone (Simethicone) 125 Mg Tab.chew 125 MG PO PRN PRN for GAS, TAB Tramadol HCl (Tramadol HCl) 50 Mg Tablet 50 MG PO BID PRN for PAIN-MODERATE Trazodone HCl (Trazodone HCl) 150 Mg Tablet 150 MG PO HS Vitamin B Complex (Vitamin B Complex) 1 Each Capsule 1 CAP PO DAILY, CAP [Herbalife Meal Repla] () PO DAILY [Herbalife Multivit] () 1 TAB PO DAILY Discontinued Medications: Losartan Potassium (Losartan Potassium) 50 Mg Tablet 50 MG PO DAILY Prescription: Transmitted to Pharmacy Activity, Diet and PDI Resume Normal Activity: Yes Discharge Diet: Low Residue Drink 6-8 Glasses of Fluid/Day: Yes Driving Instructions: No Driving for 24 Hours Symptoms to Reoprt to : Fever Over 101 Degrees F For Problems or Questions: Contact Your Physician, Go to Emergency Room JEAN KAY MD Jan 13, 2018 08:22
--- NOTE | 2018-01-13 08:23 | Discharge Summary ---
Diagnosis/Chief Complaint Date of Admission Jan 09, 2018 at 20:35 Date of Discharge Discharge Date: Jan 13, 2018 Discharge Time: 1000 Discharge Summary Discharge Physical Examination Allergies: Coded Allergies: amoxicillin (Verified Allergy, Unknown, 08/31/06) baclofen (Unverified Allergy, Unknown, 05/08/14) clavulanic acid (Verified Allergy, Unknown, 08/31/06) lorazepam (Unverified Allergy, Unknown, 05/08/14) Uncoded Allergies: SOME PAIN MEDS GIVEN IV (Allergy, Unknown, 05/08/14) Vitals & I&Os Vital Signs Date Time Temp Pulse Resp B/P (MAP) Pulse Ox O2 Delivery O2 Flow Rate FiO2 01/13/18 07:44 97.3 81 17 198/64 (108) 95 Room Air Hospital Course Pending Labs Laboratory Tests 01/13/18 05:45: White Blood Count 11.3, Red Blood Count 3.53, Hemoglobin 11.7, Hematocrit 34, Mean Corpuscular Volume 97, Mean Corpuscular Hemoglobin 33, Mean Corpuscular Hemoglobin Concent 34, Red Cell Distribution Width 13.9, Platelet Count 320, Mean Platelet Volume 9.7, Sodium Level 142, Potassium Level 3.0, Chloride Level 107, Carbon Dioxide Level 25, Anion Gap 10, Blood Urea Nitrogen 12, Creatinine 0.67, Estimat Glomerular Filtration Rate > 60, BUN/Creatinine Ratio 18, Glucose Level 109, Calcium Level 9.0, Total Bilirubin 0.3, Aspartate Amino Transf (AST/ SGOT) 22, Alanine Aminotransferase (ALT/SGPT) 29, Alkaline Phosphatase 44, Total Protein 6.1, Albumin 3.4 Discharge Instructions to patient/family Please see electronic discharge instructions given to patient. Discharge Medications Reviewed and agree with Discharge Medication list on patient's Discharge Instruction sheet Clinical Quality Measures DVT/VTE Risk/Contraindication: Risk Factor Score Per Nursin RFS Level Per Nursing on Admit: 3=High JEAN KAY MD Jan 13, 2018 08:22
[2018-01-13] MEDS ORDERED: meTOprolol TARTRATE 25 MG (LOPRESSOR) TABLET PO NR (08:30)
[2018-01-13] MEDS ORDERED: LOSARTAN 50 MG (COZAAR) TAB PO SCH (09:00)
[2018-01-13 11:51] VITALS: BP 139/98
[2018-01-13 16:47] VITALS: BP 179/70
[2018-01-13 18:15] VITALS: BP 179/70
[2018-01-15] MEDS ORDERED: VITAMIN D2 50,000 UNITS (1.25 MG) CAP PO SCH (09:00)
== END 2018-01-13 18:15 | disposition home or self-care (01) | DRG 386 ==
LOC: EDUNIT# 17:27 → ER 17:28 → 4TH 20:35
PROVIDERS: ADMIT Internal Medicine; ATTEND Family Medicine
DX: K50.10 Crohn's disease of large intestine without complications (principal); N39.0 Urinary tract infection, site not specified; F19.20 Other psychoactive substance dependence, uncomplicated; K44.9 Diaphragmatic hernia without obstruction or gangrene; J06.9 Acute upper respiratory infection, unspecified; J45.909 Unspecified asthma, uncomplicated; I10 Essential (primary) hypertension; E03.9 Hypothyroidism, unspecified; M47.9 Spondylosis, unspecified; F17.210 Nicotine dependence, cigarettes, uncomplicated; Z79.52 Long term (current) use of systemic steroids; Z87.19 Personal history of other diseases of the digestive system; Z98.1 Arthrodesis status; Z90.49 Acquired absence of other specified parts of digestive tract
CPT/HCPCS: 36415; 74176; 80053; 81000; 83605; 83690; 85007; 85025; 85027; 87040; 87088; 94640; 94760; 96361; 96374; 96375

== ENCOUNTER 2018-01-25 10:05 | Outpatient (RCR) | payer MEDICARE ==
[2018-01-22 18:00] VITALS: BP 140/81
[~2018-01-25] VITALS: Ht 162.6 cm; Wt 88.9 kg
[~2018-01-25 10:05] MED LIST changes: +ACET-2422 PO; +ACET-93 PO; +ALPR0.5T7 PO; +BUPR150T14 PO; +BUPR150T20 PO; +CNC1KV IJ; +DIPH25TA31 PO; +ERGO50006 PO; +FLUT16SP22 NSEACH; +L.AC1CAP6 PO; +LEVO50TA6 PO; +LOSA50TA36 PO; +METR500T21 PO; +OMEP20CA12 PO; +PRD10T PO; +PRD20T PO; +RT-ALBUINH IH; +SIME125T50 PO; +TRAZ150T72 PO; +VITA1CAP PO; +[UNRECOGNIZED DRUG - OTHER] PO; +[UNRECOGNIZED DRUG - OTHER] PO; +metroNIDAZOLE 500MG/100ML IVPB 100 ML IV ONE
[2018-01-25 10:52] VITALS: BP 140/81
== END 2018-04-22 | disposition home or self-care (01) ==
LOC: SDC 10:05 → EDSTATUS 10:05
PROVIDERS: ATTEND Nurse Practitioner Family
DX: Z45.2 Encounter for adjustment and management of vascular access device (principal); K57.92 Diverticulitis of intestine, part unspecified, without perforation or abscess without bleeding
CPT/HCPCS: 76937; 96365

== ENCOUNTER → 2018-01-26 | Outpatient (CLI) | payer MEDICARE ==
[~2018-01-26] MED LIST changes: +CATHETER FLUSH 10 ML SYR IV PRN; +IOHEXOL 350 MG/ML 100 ML (OMNIPAQUE 350) VIAL IV ONE; +NS 100 ML (IVPB) BAG IV ONE; -metroNIDAZOLE 500MG/100ML IVPB 100 ML IV ONE
--- NOTE | 2018-01-26 15:54 | Diagnostic Imaging Report ---
PROCEDURE: CT abdomen and pelvis with contrast. TECHNIQUE: Multiple contiguous axial images were obtained through the abdomen and pelvis after administration of intravenous contrast. INDICATION: Left flank pain. FINDINGS: The previous CT abdomen/pelvis exam of 01/09/2018 suggested acute diverticulitis of the descending colon. On this exam, the edema/inflammation about the descending colon noted on the prior exam has diminished significantly. There is only a small amount of residual abnormal edema/inflammation about the distal descending colon. There still appears to be mild generalized thickening of the wall of the descending and sigmoid colon. Furthermore, there does appear to be somewhat greater thickening of the wall of the transverse colon than noted on the prior exam. There may be also some thickening of the ascending colon. There is still no evidence for a diverticular mass or abscess, and there is no sign of pneumoperitoneum or microperforation. There are still a few fluid-filled segments of small bowel present in the left mid abdomen and left lower pelvis. These are nonspecific but may be related to a mild ileus perhaps secondary to enteritis. There is no sign of a bowel obstruction. As noted on the prior exam, there are surgical clips involving the distal ascending colon. The patient has had a prior partial right hemicolectomy. The appendix was not well visualized, but there are no indirect signs of acute appendicitis. There is no pelvic mass or free fluid collection noted. The urinary bladder is grossly unremarkable. The uterus is surgically absent. The liver, spleen, pancreas, adrenals, kidneys, aorta, and inferior vena cava are unchanged when compared to the prior study. The 3.4 cm cyst arising from the left kidney noted previously is again evident and no different. The stomach is not well distended and consequently difficult to assess. The lung bases are clear. The bone windows show no sign of a fracture or of a destructive lesion. The fusion of L4, L5, and S1 noted previously is again evident and no different. IMPRESSION: 1. There are mixed results. There does appear to be much less edema/inflammation of the descending and sigmoid colon than noted on the prior study. However, there is greater thickening and irregularity of the wall of the transverse and proximal ascending colon than on the prior exam. This appearance is most likely due to colitis. Clinical followup is recommended. 2. The overall appearance of the abdomen and pelvis has not changed significantly otherwise. No new abnormality has developed. Dictated by: Dictated on workstation # [id number]
== END ==
LOC: RAD 13:44
PROVIDERS: ATTEND Nurse Practitioner Family
DX: K50.00 Crohn's disease of small intestine without complications (principal); K57.90 Diverticulosis of intestine, part unspecified, without perforation or abscess without bleeding
CPT/HCPCS: 74177

== ENCOUNTER → 2018-05-18 | Outpatient (CLI) | payer MEDICARE ==
[~2018-05-18] MED LIST changes: -CATHETER FLUSH 10 ML SYR IV PRN; -IOHEXOL 350 MG/ML 100 ML (OMNIPAQUE 350) VIAL IV ONE; -NS 100 ML (IVPB) BAG IV ONE
--- NOTE | 2018-05-18 09:30 | Diagnostic Imaging Report ---
CLINICAL INDICATION: Patient with sinus issues. History of deviated septum. EXAM: Axial maxillofacial CT scan performed without IV contrast with coronal reformations. COMPARISON: CT scan of the sinuses dated 04/19/2010. FINDINGS: PARANASAL SINUSES: FRONTAL: Unremarkable. ETHMOID: Unremarkable. MAXILLARY: There is minimal mucosal thickening involving the medial rodriguez of both maxillary sinuses near the infundibulum, which is new. There is interval development of small air-fluid levels in both maxillary sinuses (left side more than the right). SPHENOID: There is interval development of a small air-fluid levels in the sphenoid sinus. OTHER PARANASAL SINUS FINDINGS: Again seen paradoxical curvature of both middle nasal turbinates (left side more than the right). There is ytqp-kx-jjlysudc mucosal thickening in the nasal cavity which has progressed. NASAL SEPTUM: Stable rightward nasal septal deviation. VISUALIZED TEMPORAL BONE STRUCTURES: Unremarkable. BONY STRUCTURES: Unremarkable. EXTRACRANIAL SOFT TISSUE/ ORBITS: Unremarkable. IMPRESSION: 1: There is interval development of mild paranasal sinusitis involving both maxillary sinuses and sphenoid sinus. 2: Stable rightward nasal septal deviation. Dictated by: Dictated on workstation # [id number]
== END ==
LOC: RAD 09:03
PROVIDERS: ATTEND Nurse Practitioner Family
DX: J34.2 Deviated nasal septum (principal); J32.0 Chronic maxillary sinusitis; J32.3 Chronic sphenoidal sinusitis
CPT/HCPCS: 70486

== ENCOUNTER → 2018-07-23 | Outpatient (CLI) | payer MEDICARE ==
[~2018-07-23] MED LIST changes: -LOSA50TA36 PO; +LOSA50TA7 PO
--- NOTE | 2018-08-10 16:06 | RADIOLOGY REPORT ---
NAME: JULIENNE GENAO [facility] REC#: [id number] PT STATUS: REG CLI : 1950 PHYSICIAN: ZOË GOLD ADMIT DATE: 07/23/18/RAD CORRECTED Signed Date of Exam:07/23/18 MRI THORACIC SPINE W/O CON EXAM: MRI THORACIC SPINE W/O CON INDICATION: Radiculopathy. COMPARISON: MRI thoracic spine 08/27/2015. FINDINGS: Stable mild left apex thoracic curvature. No fred- or retro-listhesis. Vertebral body heights are preserved. Stable benign hemangioma in the T9 vertebral body. Bone marrow signal is otherwise unremarkable. Hgeg-ta-vnwohyyy diffuse degenerative endplate changes. Posterior disc osteophyte complexes appear to result in at least mild, possibly moderate, spinal canal narrowing at C6-C7 and C7-T1. There is also mild spinal canal narrowing at T12-L1. No high-grade spinal canal narrowing in the thoracic spine. No substantial neural foraminal narrowing. No abnormal signal in the thoracic spinal cord. The visualized paravertebral soft tissues are unremarkable. IMPRESSION: 1. Gynd-ri-twtbszrr degenerative endplate changes result in no neural impingement in the thoracic spine. 2. No acute osseous findings. 3. The lower cervical spine is included within the vepti-ey-ueqs on the sagittal sequences and demonstrates at least mild, possibly moderate, spinal canal narrowing at C6-C7 and C7-T1. This could be better evaluated with dedicated MRI. Dictated by: Dictated on workstation # [id number] Dict: 07/23/18 1207 Trans: 07/23/18 1736 [id number] Interpreted by: MAGNO BLACK MD Electronically signed by: MAGNO BLACK MD 07/23/18 1736 [facility]
== END ==
LOC: RAD 10:31
PROVIDERS: ATTEND Physician Assistant
DX: M48.03 Spinal stenosis, cervicothoracic region (principal); M47.22 Other spondylosis with radiculopathy, cervical region
CPT/HCPCS: 72146

== ENCOUNTER → 2019-03-01 | Outpatient (CLI) | payer MEDICARE ==
[~2019-03-01] MED LIST changes: +LOSA50TA63 PO; -LOSA50TA7 PO; +METR-145 PO; -METR500T21 PO
--- NOTE | 2019-03-01 13:02 | Diagnostic Imaging Report ---
INDICATION: Back pain, left flank pain. FINDINGS: The bowel gas pattern appears normal. There is no abnormal fecal loading. Postoperative changes to the lower lumbar spine are noted. There are pelvic calcifications, believed phleboliths. No convincing evidence for radiopaque urolithiasis. IMPRESSION: No obstructive features or acute findings identified. Dictated by: Dictated on workstation # [id number]
--- NOTE | 2019-03-01 13:06 | Diagnostic Imaging Report ---
INDICATION: Back pain, left flank pain. FINDINGS: There is posterior and interbody fusion at L4 through S1, and L1 superior endplate compression fracture shows no change from an MRI performed 07/23/2018. Very slight L2 superior endplate concavity is below the arzgb-nx-txyt of that prior thoracic MRI but also appeared chronic. No hardware fracture. There is slight grade 1 retrolisthesis of L1 on L2 and L2 on L3 of about 2 mm. There are degenerative changes to the discs and endplates at those levels as well. IMPRESSION: Chronic L1 compression, likely chronic. Slight L2 compression. Intact hardware. Slight grade 1 degenerative retrolisthesis at the upper lumbar spine with no acute bony abnormality apparent. Dictated by: Dictated on workstation # [id number]
== END ==
LOC: RAD 12:15
PROVIDERS: ATTEND Nurse Practitioner Family
DX: M48.56XA Collapsed vertebra, not elsewhere classified, lumbar region, initial encounter for fracture (principal); R10.9 Unspecified abdominal pain; Z98.1 Arthrodesis status
CPT/HCPCS: 72100; 74019

== ENCOUNTER → 2019-03-02 | Outpatient (CLI) | payer MEDICARE ==
--- NOTE | 2019-03-02 15:49 | Diagnostic Imaging Report ---
PROCEDURE: CT sinuses without contrast TECHNIQUE: Multiple contiguous axial images were obtained through the sinuses without the use of intravenous contrast. Coronal and sagittal reformations were then performed. Auto Exposure Controls were utilized during the CT exam to meet ALARA standards for radiation dose reduction. INDICATION: Chronic sinusitis. Correlation is made with prior CT sinus study from 05/18/2018. A frontal sinus is hypoplastic. Ethmoid air cells are clear. There appears to be trace fluid or mucosal thickening in the sphenoid sinus. There is also trace mucosal thickening of the maxillary sinuses bilaterally. No air-fluid levels are seen. There is some mild mucosal thickening in the region of the ostiomeatal complex on the right and left. Nasal septum is deviated to the right. Mastoids are aerated. IMPRESSION: Mild paranasal sinus mucosal thickening. There is some mucosal thickening in the region of ostiomeatal complexes bilaterally. No air-fluid levels are seen. Dictated by: Dictated on workstation # [id number]
== END ==
LOC: RAD 15:03
PROVIDERS: ATTEND Otolaryngology Otolaryngology/Facial Plastic Surgery
DX: J32.9 Chronic sinusitis, unspecified (principal)
CPT/HCPCS: 70486

== ENCOUNTER → 2019-03-04 | Outpatient (CLI) | payer MEDICARE ==
--- NOTE | 2019-03-04 12:05 | Diagnostic Imaging Report ---
PROCEDURE: CT abdomen and pelvis without contrast. TECHNIQUE: Multiple contiguous axial images were obtained through the abdomen and pelvis without the use of intravenous contrast. Auto Exposure Controls were utilized during the CT exam to meet ALARA standards for radiation dose reduction. INDICATION: Abdominal pain. COMPARISON: Exam compared with study from 01/26/2018. FINDINGS: There are no findings to suggest residual or recurrent colitis. There is no diverticulitis. The appendix is surgically absent. There is a left lower pole renal cyst, stable. There is no hydronephrosis or opaque urinary tract calculus. The gallbladder is surgically absent. There is no pathological distention of the biliary ducts. The spleen, adrenals, and pancreas are unremarkable. The calcified aorta is nonaneurysmal. There is no bowel obstruction or ileus. There is no ascites, abscess, hematoma, or fluid collection. The uterus is absent or atrophic; there is no adnexal lesion. There are degenerative and postoperative changes to the spine. The L1 superior endplate concavity is chronic and stable. IMPRESSION: No evidence of colitis, diverticulitis, appendicitis, or other acute inflammatory process. No bowel, biliary, or urinary tract obstruction. No ascites, fluid collection, or acute abnormalities identified. Dictated by: Dictated on workstation # [id number]
== END ==
LOC: RAD 11:02
PROVIDERS: ATTEND Nurse Practitioner Family
DX: R10.9 Unspecified abdominal pain (principal); Z90.49 Acquired absence of other specified parts of digestive tract; Z90.710 Acquired absence of both cervix and uterus
CPT/HCPCS: 74176

== ENCOUNTER → 2019-03-11 | Outpatient (CLI) | payer MEDICARE ==
--- NOTE | 2019-03-11 14:01 | Diagnostic Imaging Report ---
PROCEDURE: MRI lumbar spine. TECHNIQUE: Multiplanar, multisequence MRI of the lumbar spine was performed without contrast. INDICATION: Back pain, L1 fracture. FINDINGS: An L1 compression fracture is felt to be chronic. There is mild edema across the T12-L1 articular endplates that is believed to be on a degenerative basis. This is asymmetric, greater left. There is disc herniation at that level with superior migration. Disc fragment tracks posterior to the left paramedian T12 vertebral body with severe left lateral recess stenosis. The disc measures a cephalocaudal height of 18 mm with transverse width of 8.2 mm and extends roughly 8 mm posterior to the endplate margin. This results in a moderate severity of central canal stenosis. It did not extend into the neuroforamina. The remaining lumbar statures are normal. There is disc desiccation, disc bulge, and endplate osteophytes throughout. There is posterior fusion with bi-pedicular screws at the L4-L5 and S1 levels. No paravertebral mass, hemorrhage, or fluid collection. At T12-L1, L1-L2, and L2-L3, mild disc bulge and endplate osteophytes flatten the ventral thecal sac with mild canal stenosis. At L3-L4, there is ligamentous thickening and facet arthrosis with mild disc material resulting in vyrs-es-ckyzpbvl degree of canal stenosis with mild biforaminal narrowing. At L4-L5, in addition to diffuse disc bulge a right paramedian focal protrusion indents the ventral thecal sac with mild canal and moderate right lateral recess stenosis and there is mild left and vjrj-vk-gxblrvpv right neuroforaminal narrowing. At the L5-S1 level, focal midline disc protrusion results in right greater than left lateral recess stenosis. The disc contacts and may displace mildly the descending right S1 nerve. Disc material did not substantially narrow the spinal canal. There is nrkv-zm-iimsgliz left and mild right neuroforaminal stenoses. IMPRESSION: 1. A nonacute L1 compression fracture is noted. 2. Left paramedian disc herniation at the T12-L1 level superiorly migrating posterior to the T12 body with severe left lateral recess stenosis and moderate canal stenosis. 3. Additional multilevel spondylosis, disc displacements, and resultant stenosis to the canal, neuroforamina, and lateral recesses, listed level by level above. 4. Postoperative changes with no acute osseous pathology. Partial visualization of left renal cyst noted. Dictated by: Dictated on workstation # [id number]
== END ==
LOC: RAD 09:59
PROVIDERS: ATTEND Physician Assistant
DX: S32.010A Wedge compression fracture of first lumbar vertebra, initial encounter for closed fracture (principal); Q05.6 Thoracic spina bifida without hydrocephalus; M48.061 Spinal stenosis, lumbar region without neurogenic claudication; M48.07 Spinal stenosis, lumbosacral region; M48.05 Spinal stenosis, thoracolumbar region; M99.72 Connective tissue and disc stenosis of intervertebral foramina of thoracic region; M51.26 Other intervertebral disc displacement, lumbar region; M46.96 Unspecified inflammatory spondylopathy, lumbar region; M99.73 Connective tissue and disc stenosis of intervertebral foramina of lumbar region; M47.814 Spondylosis without myelopathy or radiculopathy, thoracic region; M47.815 Spondylosis without myelopathy or radiculopathy, thoracolumbar region; N28.1 Cyst of kidney, acquired
CPT/HCPCS: 72148

== ENCOUNTER 2019-05-29 16:01 | Inpatient (IN) | payer MEDICARE | END 2019-05-31 19:15 | disposition home or self-care (01) | LOC: ER 16:01 → 4TH 19:35 ==

== ENCOUNTER → 2019-06-03 | Outpatient (CLI) | payer MEDICARE ==
[~2019-06-03] MED LIST changes: +ALBU2.5V4 NEB; +ALPR0.5T PO; +BACI3.5O6 OD; +CIPR-242 PO; +LOSA100T57 PO; +SULF-222 PO; +TR1C15 TP
[2019-06-03 15:51] LABS: BASOPHILS % (AUTO) 0 % (0-10); EOSINOPHILS % (AUTO) 0 % (0-10); HEMATOCRIT 42 % (35-52); LYMPHOCYTES # (AUTO) 0.9 X 10^3 (1.0-4.0); LYMPHOCYTES % (AUTO) 8 % (12-44); MEAN CORPUSCULAR HGB CONC 34 G/DL (32-36); MEAN CORPUSCULAR VOLUME 103 FL (80-99); MEAN PLATELET VOLUME 8.7 FL (7.4-10.4); MONOCYTES # (AUTO) 0.6 X 10^3 (0.0-1.0); MONOCYTES % (AUTO) 5 % (0-12); NEUTROPHILS # (AUTO) 10.4 X 10^3 (1.8-7.8); NEUTROPHILS % (AUTO) 87 % (42-75); PLATELET COUNT 398 10^3/uL (130-400); RED CELL DISTRIBUTION WIDTH 13.3 % (10.0-14.5)
[2019-06-03 15:52] LABS: MEAN CORPUSCULAR HEMOGLOBIN 34 PG (25-34)
--- NOTE | 2019-06-03 16:15 | Diagnostic Imaging Report ---
INDICATION: Abdominal pain, recent small bowel obstruction. TECHNIQUE: Single supine view of the abdomen, 3:54 p.m. CORRELATION STUDY: 05/30/2019. FINDINGS: Gastric tube has been removed. Generalized paucity of bowel gas is noted. However, no findings to suggest high-degree bowel obstruction. Presumably cholecystectomy clips in the right upper quadrant. Lumbar spinal fixation hardware L4 to S1. Additional suture line over the right hemipelvis just above the iliac crest medially. IMPRESSION: 1. Generalized paucity of bowel gas. However, no findings to suggest high-degree bowel obstruction. Dictated by: Dictated on workstation # [id number]
[2019-06-03 16:25] LABS: ALANINE AMINOTRANSFERASE 18 U/L (0-55); ALKALINE PHOSPHATASE 52 U/L (40-136); BILIRUBIN,TOTAL 0.3 MG/DL (0.1-1.0); BUN/CREATININE RATIO 16; CALCIUM 9.4 MG/DL (8.5-10.1); CARBON DIOXIDE 20 MMOL/L (21-32); CHLORIDE 105 MMOL/L (98-107); CREATININE SERUM 0.81 MG/DL (0.60-1.30); GFR ESTIMATED > 60; GLUCOSE 132 MG/DL (70-105); POTASSIUM 3.6 MMOL/L (3.6-5.0); SODIUM 140 MMOL/L (135-145); TOTAL PROTEIN 6.7 GM/DL (6.4-8.2)
== END ==
LOC: RAD 15:24
PROVIDERS: ATTEND Nurse Practitioner Family
DX: K56.609 Unspecified intestinal obstruction, unspecified as to partial versus complete obstruction (principal)
CPT/HCPCS: 36415; 74018; 80053; 85025

== ENCOUNTER → 2019-08-23 | Outpatient (CLI) | payer MEDICARE ==
[~2019-08-23] MED LIST changes: +LIOT5TAB PO; -OMEP20CA12 PO; +OMEP20CA13 PO
--- NOTE | 2019-08-23 09:52 | Diagnostic Imaging Report ---
INDICATION: Postmenopausal screening for osteoporosis. COMPARISON: 08/06/2017. FINDINGS: AP Spine L1-L4: [BMD (g/cm2): na] [T-Score: na] [Z-Score: na] [BMD Previous: na] [BMD % Change: na] LT Hip Neck: [BMD (g/cm2): 0.795] [T-Score: -1.7] [Z-Score: -0.4] LT Hip Total: [BMD (g/cm2):0.881] [T-Score:-1.0] [Z-Score: 0.1] [BMD Previous: 0.931] [BMD % Change: -5.4] RT Hip Neck: [BMD (g/cm2):0.739] [T-Score:-2.2] [Z-Score:-0.8] RT Hip Total: [BMD (g/cm2):0.862] [T-score:-1.2] [Z-Score:-0.1] [BMD Previous:0.929] [BMD % Change:-7.2] *Indicates significant change from prior examination based on 95% confidence level. World Health Organization criteria for BMD interpretation classify patients as Normal (T-score at or above -1.0), Osteopenic (T-score between -1.0 and -2.5) or Osteoporotic (T-score at or below -2.5). LIMITATIONS AND MODIFICATION: None. FRACTURE RISK (FRAX SCORE): The ten year probability of (%): Major Osteoporotic Fracture: [7.0] Hip Fracture: [4.3] IMPRESSION: 1. Osteopenia (Low bone mass). 2. No significant change in bone mineral density since prior examination. 3. See below National Osteoporosis Foundation guidelines on when to potentially initiate pharmacologic therapy. Based on the National Osteoporosis Foundation Guidelines, pharmacologic treatment should be initiated in any of the following, unless clinical conditions suggest otherwise: * Any patient with prior fragility fracture of the hip or vertebrae. A spine fracture indicates 5X risk for subsequent spine fracture and 2X risk for subsequent hip fracture. * Osteoporosis (T-score <-2.5). * Postmenopausal women and men age 50 and older with low bone mass/osteopenia (T-score between -1.0 and -2.5) by DXA and 10-year major osteoporotic fracture greater than 20% or a 10-year probability of hip fracture greater than 3%. These fracture risks are supplied above in the FRAX score, if applicable. * Clinician judgement and/or patient preferences may indicate treatment for people with 10-year fracture probabilities above or below these levels. Dictated by: Dictated on workstation # [id number]
== END ==
LOC: RAD 08:36
PROVIDERS: ATTEND Internal Medicine Endocrinology, Diabetes & Metabolism
DX: Z13.820 Encounter for screening for osteoporosis (principal); M85.89 Other specified disorders of bone density and structure, multiple sites; Z79.52 Long term (current) use of systemic steroids
CPT/HCPCS: 77080

== ENCOUNTER 2019-12-15 16:45 | Outpatient (CLI) | payer MEDICARE ==
[~2019-12-15] VITALS: Ht 160 cm; Wt 79.5 kg
[~2019-12-15 16:45] MED LIST changes: -LIOT5TAB PO; +LIOT5TAB10 PO; +OMEP-280 PO; -OMEP20CA13 PO; +TRM50T PO
[2019-12-15] MEDS ORDERED: metroNIDAZOLE 500MG/100ML IVPB 100 ML ONE (16:54)
[2019-12-15] MEDS ORDERED: NS IV 1000 ML 1,000 ML ONE (16:55)
[2019-12-15 17:12] LABS: BILIRUBIN,URINE NEGATIVE (NEGATIVE); CLARITY,URINE CLEAR; COLOR,URINE YELLOW; GLUCOSE, URINE (UA) NEGATIVE (NEGATIVE); KETONES,URINE TRACE (NEGATIVE); LEUKOCYTE ESTERASE ,URINE NEGATIVE (NEGATIVE); NITRITE,URINE NEGATIVE (NEGATIVE); PH,URINE 5.5 (5-9); PROTEIN,URINE NEGATIVE (NEGATIVE)
[2019-12-15] MEDS ORDERED: NS IV 1000 ML 1,000 ML IV SCH (17:15)
[2019-12-15] MEDS ORDERED: metroNIDAZOLE 500MG/100ML IVPB 100 ML IV ONE (17:15)
[2019-12-15 17:36] LABS: BACTERIA,URINE NEGATIVE /HPF; CALCIUM OXALATE CRYSTALS,UR FEW /LPF
[2019-12-15 17:44] LABS: HEMOGLOBIN 14.7 G/DL (11.5-16.0); MEAN PLATELET VOLUME 9.3 FL (7.4-10.4); RED CELL DISTRIBUTION WIDTH 13.4 % (10.0-14.5); WHITE BLOOD COUNT 12.3 10^3/uL (4.3-11.0)
[2019-12-15 18:01] LABS: ALANINE AMINOTRANSFERASE 16 U/L (0-55); ALBUMIN 4.2 GM/DL (3.2-4.5); ALKALINE PHOSPHATASE 71 U/L (40-136); BILIRUBIN,TOTAL 0.4 MG/DL (0.1-1.0); BUN/CREATININE RATIO 10; CALCIUM 9.8 MG/DL (8.5-10.1); CARBON DIOXIDE 27 MMOL/L (21-32); CHLORIDE 104 MMOL/L (98-107); CREATININE SERUM 0.77 MG/DL (0.60-1.30); GFR ESTIMATED > 60; GLUCOSE 110 MG/DL (70-105); MAGNESIUM 1.3 MG/DL (1.6-2.4); POTASSIUM 3.4 MMOL/L (3.6-5.0); SODIUM 142 MMOL/L (135-145)
--- NOTE | 2019-12-15 18:10 | NUR ---
CALLED LAB RESULTS TO TAMARA GUZMAN. TAMARA GUZMAN STATED SHE IS GOING TO CALL IN MAGNESIUM TO PATIENT'S PHARMACY AND TO INSTRUCT THE PATIENT TO INCREASE HER POTASSIUM INTAKE THROUGH DIET.
[2019-12-15 18:21] VITALS: BP 152/69
== END 2019-12-15 18:21 | disposition home or self-care (01) ==
LOC: SDC 16:45
PROVIDERS: ATTEND Nurse Practitioner Family
DX: E86.0 Dehydration (principal); K57.92 Diverticulitis of intestine, part unspecified, without perforation or abscess without bleeding
CPT/HCPCS: 36415; 80053; 81000; 83735; 85027; 96361

== ENCOUNTER → 2020-04-17 | Outpatient (CLI) | payer MEDICARE ==
[~2020-04-17] MED LIST changes: -BUPR150T20 PO; +BUPR150T28 PO; -OMEP-280 PO; +OMEP20CA18 PO
--- NOTE | 2020-04-17 15:23 | Diagnostic Imaging Report ---
PROCEDURE: CT Sinus w/o Contrast. TECHNIQUE: Multiple contiguous axial images were obtained through the sinuses without the use of intravenous contrast. Coronal reformations were performed. All CT scans use one or more of the following dose optimizing techniques: automated exposure control, MA and/or KvP adjustment based on a patient size and exam type, or iterative reconstruction. INDICATION: Chronic sinusitis. Tooth abscess in February. COMPARISON: None FINDINGS: Tooth extraction changes are visualized in the area of the right first upper molar. No evidence of breech into the right maxillary sinus is seen. A small amount of retained secretions are seen in the paranasal sinuses with frothy secretions in the left sphenoid sinus. Postsurgical changes are visualized in the medial wall of the maxillary sinus bilaterally. There is relative hypoplasia of the bilateral frontal sinuses. The sphenoethmoid and frontoethmoid recesses are patent and unremarkable. The mastoid air cells are well pneumatized. The bony nasal septum is deviated to the right. No acute facial fractures. The globes and orbits are symmetric and unremarkable. Included intracranial contents show no acute abnormalities. The included soft tissues of the head are normal in appearance. IMPRESSION: 1. Extraction changes in the area of the right first upper molar. No evidence of extension into the right maxillary sinus. 2. Frothy secretions in the left sphenoid sinus, which can be seen with acute sinusitis. 3. Rightward deviation of the bony nasal septum. Dictated by: Dictated on workstation # [id number]
== END ==
LOC: RAD 13:28
PROVIDERS: ATTEND Nurse Practitioner Family
DX: J32.9 Chronic sinusitis, unspecified (principal); J34.2 Deviated nasal septum; Z98.890 Other specified postprocedural states
CPT/HCPCS: 70486

== ENCOUNTER → 2020-08-14 | Outpatient (CLI) | payer MEDICARE ==
[~2020-08-14] VITALS: Ht 160 cm; Wt 72.7 kg
[~2020-08-14] MED LIST changes: +NS IV 1000 ML 1,000 ML IV SCH; +NS IV 1000 ML 1,000 ML ONE; +metroNIDAZOLE 500 MG/100 ML IVPB (PRE-MIX) IV ONE; +metroNIDAZOLE 500MG/100ML IVPB 100 ML ONE
[2020-08-14 16:50] VITALS: BP 128/95
== END ==
LOC: SDC 14:25
PROVIDERS: ATTEND Nurse Practitioner Family
DX: R19.7 Diarrhea, unspecified (principal); R10.9 Unspecified abdominal pain
CPT/HCPCS: 96360; 96365

== ENCOUNTER → 2020-09-11 | Outpatient (CLI) | payer MEDICARE ==
[~2020-09-11] MED LIST changes: -NS IV 1000 ML 1,000 ML IV SCH; -NS IV 1000 ML 1,000 ML ONE; -metroNIDAZOLE 500 MG/100 ML IVPB (PRE-MIX) IV ONE; -metroNIDAZOLE 500MG/100ML IVPB 100 ML ONE
--- NOTE | 2020-09-11 17:08 | Diagnostic Imaging Report ---
INDICATION: Right shoulder pain for one week. Time of exam 4:55 p.m. Three views of the right shoulder were obtained. Glenohumeral and acromioclavicular alignment are normal. There is some degenerative spurring at the humeral head and neck junction. No fracture or dislocation is identified. There is some narrowing of the acromiohumeral space which can be seen with chronic rotator cuff arthropathy. IMPRESSION: Chronic changes. No acute bony abnormality is detected. Dictated by: Dictated on workstation # [id number]
--- NOTE | 2020-09-11 17:09 | Diagnostic Imaging Report ---
INDICATION: Pain. COMPARISON: Imaging of the right shoulder from same date. TECHNIQUE: Two radiographs of the right clavicle dated September 11, 2020. FINDINGS: Mild degenerative changes of the acromioclavicular joint. No acute fracture or dislocation. No destructive osseous process. Mild degenerative changes in the glenohumeral joint. No suspicious radiopaque foreign body. IMPRESSION: No acute osseous abnormality with mild degenerative changes. Dictated by: Dictated on workstation # [id number]
== END ==
LOC: RAD 16:28
PROVIDERS: ATTEND Nurse Practitioner Family
DX: M19.011 Primary osteoarthritis, right shoulder (principal)
CPT/HCPCS: 73000; 73030

== ENCOUNTER → 2020-10-08 | Outpatient (CLI) | payer MEDICARE ==
[2020-10-08 14:52] LABS: BASOPHILS # (AUTO) 0.1 10^3/uL (0.0-0.1); BASOPHILS % (AUTO) 1 % (0-10); EOSINOPHILS # (AUTO) 0.1 10^3/uL (0.0-0.3); EOSINOPHILS % (AUTO) 1 % (0-10); HEMATOCRIT 43 % (35-52); HEMOGLOBIN 14.3 g/dL (11.5-16.0); LYMPHOCYTES # (AUTO) 1.4 10^3/uL (1.0-4.0); LYMPHOCYTES % (AUTO) 12 % (12-44); MEAN CORPUSCULAR HEMOGLOBIN 35 pg (25-34); MEAN CORPUSCULAR HGB CONC 34 g/dL (32-36); MEAN CORPUSCULAR VOLUME 104 fL (80-99); MEAN PLATELET VOLUME 8.9 fL (9.0-12.2); MONOCYTES # (AUTO) 0.8 10^3/uL (0.0-1.0); MONOCYTES % (AUTO) 7 % (0-12); NEUTROPHILS # (AUTO) 9.6 10^3/uL (1.8-7.8); NEUTROPHILS % (AUTO) 80 % (42-75); PLATELET COUNT 311 10^3/uL (130-400)
--- NOTE | 2020-10-08 15:08 | Diagnostic Imaging Report ---
CLINICAL INDICATION: Patient with hypothyroidism. COMPARISONS: None. FINDINGS: THYROID NODULES: There is a 2 mm cystic nodule involving the upper portion of the right thyroid lobe. There is a 4 mm cystic nodule involving the inferior portion of the left thyroid lobe. THYROID GLAND: Besides the thyroid nodules, the thyroid gland has normal size, shape and echogenicity. The right lobe measures 4.8 cm x 1.8 cm x 1.7 cm and the left lobe measures 3.8 cm x 1.4 cm x 1.2 cm in their three dimensions. ISTHMUS: The isthmus is unremarkable and measures 2 mm in thickness. IMPRESSION: Bilateral thyroid gland cystic nodules, the largest measuring 4 mm on the left side. Otherwise, thyroid gland is unremarkable. Dictated by: Dictated on workstation # [id number]
--- NOTE | 2020-10-08 15:26 | Diagnostic Imaging Report ---
PROCEDURE: US Renal Bilateral. TECHNIQUE: Multiple real-time grayscale images were obtained over the kidneys in various projections bilaterally. INDICATION: Renal cyst, follow-up. COMPARISON: Correlation is made with prior CT from 05/29/2019. FINDINGS: Right kidney measures 10.7 x 4.3 x 4.9 cm and the left kidney measures 11.1 x 5.1 x 4.5 cm. Cortical thickness and echogenicity is unremarkable. There are no calculi or hydronephrosis. There is a cyst in lower pole of left kidney measuring 2.6 x 2.6 x 2.8 cm. This is stable when compared with prior CT from 05/29/2019. No other abnormalities are seen. IMPRESSION: Stable left lower pole renal cyst when compared with prior CT from 05/29/2019. Dictated by: Dictated on workstation # [id number]
== END ==
LOC: RAD 13:15
PROVIDERS: ATTEND Nurse Practitioner Family
DX: E03.9 Hypothyroidism, unspecified (principal); E04.2 Nontoxic multinodular goiter; N28.1 Cyst of kidney, acquired
CPT/HCPCS: 36415; 76536; 76770; 85025; 87040

== ENCOUNTER 2021-01-22 14:25 | Outpatient (CLI) | payer MEDICARE ==
[~2021-01-22] VITALS: Ht 160 cm; Wt 76.8 kg
[2021-01-22] MEDS ORDERED: NS IV 1000 ML 1,000 ML ONE (14:45)
[2021-01-22] MEDS ORDERED: metroNIDAZOLE 500MG/100ML IVPB 100 ML ONE (14:46)
[2021-01-22] MEDS ORDERED: NS IV 1000 ML 1,000 ML IV SCH (15:00)
[2021-01-22] MEDS ORDERED: metroNIDAZOLE 500 MG/100 ML IVPB (PRE-MIX) IV ONE (15:00)
[2021-01-22 16:15] VITALS: BP 124/65
== END 2021-01-22 16:15 | disposition home or self-care (01) ==
LOC: SDC 14:25
PROVIDERS: ATTEND Nurse Practitioner Family
DX: Z01.89 Encounter for other specified special examinations (principal)
CPT/HCPCS: 96360

== ENCOUNTER 2021-03-25 05:33 | Outpatient (RCR) | payer MEDICARE ==
[~2021-03-25] VITALS: Ht 160 cm; Wt 75.0 kg
[~2021-03-25 05:33] MED LIST changes: +VITA-189 PO
[2021-03-27] MEDS ORDERED: PANT40TA2 PO (10:06)
== END 2021-03-28 08:42 | disposition home or self-care (01) ==
LOC: PREOP 05:33
PROVIDERS: ATTEND Surgery
DX: Z01.812 Encounter for preprocedural laboratory examination (principal); R10.9 Unspecified abdominal pain; R11.0 Nausea; R19.7 Diarrhea, unspecified; Z20.822 Contact with and (suspected) exposure to COVID-19
CPT/HCPCS: 87635

== ENCOUNTER 2021-03-27 09:26 | Day surgery (SDC) | payer MEDICARE ==
[2021-03-27] VITALS (8 sets, daily range): BP systolic 127–154; BP diastolic 62–79
[~2021-03-27] VITALS: Ht 160 cm; Wt 75.0 kg
[2021-03-27] MEDS ORDERED: LACTATED RINGERS 1,000 ML IV ONE (09:32)
[2021-03-27] MEDS ORDERED: LACTATED RINGERS 1,000 ML IV STA (09:38)
[2021-03-27] MEDS ORDERED: LIDOCAINE JELLY 2% 6 ML SYRINGE MM PRN (09:45)
[2021-03-27] MEDS ORDERED: HURRICAINE EXT TUBE (BENZOCAINE) XX PRN (09:45)
[2021-03-27] MEDS ORDERED: PROPOFOL INJECTION 50 ML IV ONE (09:46)
[2021-03-27] MEDS ORDERED: HURRICAINE EXT TUBE (BENZOCAINE) ONE (10:03)
[2021-03-27] MEDS ORDERED: LIDOCAINE JELLY 2% 6 ML SYRINGE ONE (10:03)
--- NOTE | 2021-03-27 10:05 | Progress Note-Pre Operative ---
Pre-Operative Progress Note H&P Reviewed The H&P was reviewed, patient examined and no changes noted. Date Seen by Provider: March 27, 2021 Time Seen by Provider: : Date H&P Reviewed: March 27, 2021 Time H&P Reviewed: :30 Pre-Operative Diagnosis: nausea/vomiting, diarrhea, abd pain JULIA RUBIO MD March 27, 2021 10:05
[2021-03-27] MEDS ORDERED: PANT40TA2 PO (10:06)
--- NOTE | 2021-03-27 10:06 | Discharge Inst-Surgical ---
D/C Lap Instructions-KIDO New, Converted, or Re-Newed RX: RX on Chart Follow Up Appt in 2 weeks Activity as tolerated High Fiber Diet 25g or more per day Avoid Alcohol, Caffeine, Spicy [place] and Acid foods. Drink 64 fluid oz or more of fluids per day. Symptoms to Report: Fever over 101 degree F, Nausea/Vomiting If any problems/questions: Contact your physician or go to Emergency Room JULIA RUBIO MD March 27, 2021 10:06
[2021-03-27] MEDS ORDERED: ACETAMINOPHEN 325 MG TABLET PO PRN (10:15)
[2021-03-27] MEDS ORDERED: morphine INJ 10 MG/ML 1ML (SYR OR VIAL) IVP PRN ×2 (10:15)
[2021-03-27] MEDS ORDERED: HYDROcodone/APAP 5 MG/325 MG (LORTAB) TAB PO PRN (10:15)
[2021-03-27] MEDS ORDERED: ONDANSETRON 4 MG/2 ML (SDV) Z0FRAN IVP PRN (10:15)
--- NOTE | 2021-03-27 12:19 | Anesthesia-General Post-Op ---
MAC Patient Condition Mental Status/LOC: Same as Preop Cardiovascular: Satisfactory Nausea/Vomiting: Absent Respiratory: Satisfactory Pain: Controlled Complications: Absent Post Op Complications Complications None Follow Up Care/Instructions Patient Instructions None needed. Anesthesiology Discharge Order Discharge Order Patient is doing well, no complaints, stable vital signs, no apparent adverse anesthesia problems. No complications reported per nursing. LEONEL LNUDBERG CRNA March 27, 2021 12:19
--- NOTE | 2021-03-27 15:40 | OPERATIVE REPORT ---
DATE OF SERVICE: 03/27/2021 ATTENDING PRIMARY CARE PHYSICIAN: Daniela Mancera MD PREOPERATIVE DIAGNOSES: Nausea, diarrhea, crampy abdominal pain. POSTOPERATIVE DIAGNOSES: Reflux esophagitis stage II, small hiatal hernia approximately 1.5 cm in size, moderate to severe gastritis. Chronic stage II external and internal hemorrhoids, polyp of the sigmoid colon and hepatic flexure, normal ileocolonic anastomosis. PROCEDURE: EGD with biopsy, colonoscopy with polypectomy by forceps and electrocautery. SURGEON: Julia Rubio MD. ANESTHESIA: Monitored anesthesia care. ESTIMATED BLOOD LOSS: Minimal. FINDINGS: Reflux esophagitis stage II, small hiatal hernia approximately 1.5 cm in size, moderate to severe gastritis. Chronic stage II external and internal hemorrhoids, polyp of the sigmoid colon and hepatic flexure, normal ileocolonic anastomosis. DISPOSITION: The patient tolerated the procedure well. INDICATIONS: The patient is a 70-year-old female known to us. She has had chronic pain issues for many years. She also does have a history of Crohn's disease and has been on multiple rounds of steroids. She underwent an ileocecal resection in 1987. She has also had other medical issues including nephrolithiasis, hypothyroid, [place] spotted fever and hypertension. She reports that she has had a 2-week history of abdominal bloating, nausea, diarrhea and crampy abdominal pain. She does not report any first-degree family history of colon cancer. DESCRIPTION OF PROCEDURE: The patient was brought to the endoscopy suite, laid in the left lateral decubitus position. After adequate IV pain and sedative medications and monitored anesthesia care, the mouthpiece was applied. The endoscope was placed in the mouth, visualizing the pharynx and hypopharyngeal region. Vocal cords, epiglottis and vallecula identified and appeared to be normal. The endoscope was then gently intubated at the esophageal opening and esophagus insufflated. The endoscope was then advanced to the first, second and third portion of esophagus at the level of the GE junction, a reflux esophagitis stage II identified. There were no ulcers or strictures identified in this region. A biopsy was taken with forceps with visualization of good hemostasis. The endoscope was then advanced in the stomach and the endoscope retroflexed, visualizing a small hiatal hernia approximately 1.5 cm in size. There was a moderate to severe gastritis, which was diffuse throughout the stomach. No formal ulcerations, polyps, or any neoplasms. A biopsy was taken of the antrum to rule out H. pylori with visualization of good hemostasis. The endoscope was then advanced to the pylorus and the first and second portion of the duodenum, which appeared normal with no ulcerations. The endoscope was then slowly withdrawn while taking a second look and suctioning of residual air with no additional findings. A digital rectal examination was performed, which revealed chronic stage II external and internal hemorrhoids, not actively edematous nor inflamed and no bleeding. Normal suture tone was felt and there were no palpable masses. The endoscope was then intubated to the anus and rectum gently insufflated. The endoscope was then advanced through the valves of [place] of the rectum with no polyps or any neoplasms identified. We then proceeded through the sigmoid colon where there was a mild sigmoid diverticulosis as well as a small polyp approximately 2 mm in size, which was biopsied and destroyed using forceps and electrocautery. The endoscope was then advanced through the descending colon to the hepatic flexure where another polyp slightly larger, approximately 3 mm in size was identified and this was also biopsied and destroyed with forceps and electrocautery. The endoscope was then advanced to the ileocolonic anastomosis, which appeared normal with no lesions identified. The endoscope was then slowly withdrawn while taking a second look and suctioning of residual air with no additional findings. The patient tolerated the procedure well. We will recommend the necessary lifestyle and diet accommodation for her gastritis, which we feel is the root of the majority of her gastrointestinal symptoms. We will also start Protonix 40 mg daily. We will also have her incorporate a high fiber diet with fiber supplementation, which should equal or exceed 25 grams daily. The goal is to have soft stools on a daily basis; however, not runny diarrhea or hard well-formed stools. Job ID: [id number] DocumentID: [id number] Dictated Date: 03/27/2021 11:12:34 Stitch Burnisher Date: 03/27/2021 15:39:37 Dictated By: JULIA RUBIO MD
== END 2021-03-27 12:10 | disposition home or self-care (01) ==
LOC: ENDO 09:26
PROVIDERS: ATTEND Surgery
DX: K21.00 Gastro-esophageal reflux disease with esophagitis, without bleeding (principal); D12.3 Benign neoplasm of transverse colon; K63.5 Polyp of colon; K44.9 Diaphragmatic hernia without obstruction or gangrene; K64.1 Second degree hemorrhoids; K29.70 Gastritis, unspecified, without bleeding; I10 Essential (primary) hypertension; E03.9 Hypothyroidism, unspecified; Z79.899 Other long term (current) drug therapy; Z79.890 Hormone replacement therapy

== ENCOUNTER → 2021-10-08 | Outpatient (CLI) | payer MEDICARE ==
[~2021-10-08] MED LIST changes: +PANT40TA2 PO
--- NOTE | 2021-10-09 12:32 | Diagnostic Imaging Report ---
EXAMINATION: Digital mammogram bilateral screening with CAD. INDICATION: Screening. COMPARISON: This study was compared to the prior exams of 08/06/2017 and 06/28/2015. PERSONAL HISTORY: At this time, there are no current complaints. FINDINGS: The fibroglandular tissue in both breasts is heterogeneously dense. In the inferomedial aspect of the left breast at mid depth, there is a group of microcalcifications. These do seem somewhat more conspicuous than on the prior exam although they have not changed significantly. Even so, the possibility that they are related to DCIS should be considered. I would recommend that compression/magnification views of this area be obtained in the ML and CC projections as well as a true lateral view for further study. The overall appearance of the breasts has not changed significantly otherwise. There is no primary or secondary sign of malignancy noted. IMPRESSION: Additional mammographic views of the left breast would be recommended for further study. ACR BI-RADS Category 0: Incomplete. (Needs additional imaging evaluation). Result letter will be mailed to the patient. Note: At least 10% of breast cancer is not imaged by mammography. Dictated by: Dictated on workstation # [id number]
== END ==
LOC: RAD 13:00
PROVIDERS: ATTEND Nurse Practitioner Family
DX: Z12.31 Encounter for screening mammogram for malignant neoplasm of breast (principal)
CPT/HCPCS: 77063; 77067

== ENCOUNTER → 2021-10-16 | Outpatient (CLI) | payer MEDICARE ==
--- NOTE | 2021-10-16 16:14 | Diagnostic Imaging Report ---
INDICATION: Left breast calcifications. Patient presents for additional views. TECHNIQUE: Unilateral left 2D and 3D diagnostic mammography was performed with CAD. This included magnification CC and ML views as well as conventional 90 degree lateral views. FINDINGS: There is a cluster of microcalcifications in the medial left breast, best seen on the CC view. These are located at mid depth. These appear to be near the nipple line or perhaps just above the nipple line on the ML view. The calcifications appear to be slightly more numerous on today's study. These are indeterminate. No soft tissue mass is seen. IMPRESSION: There has been an increase in a cluster of microcalcifications in the inner left breast. Tissue sampling is recommended. These would be amenable to a stereotactic biopsy approach. ACR BI-RADS Category 4: Suspicious abnormality. Result letter will be mailed to the patient. Note: At least 10% of breast cancer is not imaged by mammography. Dictated by: Dictated on workstation # [id number]
== END ==
LOC: RAD 13:15
PROVIDERS: ATTEND Nurse Practitioner Family
DX: R92.0 Mammographic microcalcification found on diagnostic imaging of breast (principal)
CPT/HCPCS: 77065; G0279

== ENCOUNTER → 2021-12-09 | Outpatient (CLI) | payer MEDICARE ==
[~2021-12-09] VITALS: Ht 162 cm; Wt 75.0 kg
[~2021-12-09] MED LIST changes: +LIDOCAINE 1% INJ 20 ML VIAL INJ ONE; +LIDOCAINE 1% INJ 20 ML VIAL ONE
--- NOTE | 2021-12-09 12:42 | Diagnostic Imaging Report ---
INDICATION: Left breast calcifications. Patient presents for stereotactic biopsy. FINDINGS: The patient was brought to the stereotactic suite and placed in a chair in the sitting upright position. The left breast was positioned mediolateral. The cluster of suspicious microcalcifications in the medial left breast was targeted after obtaining multiple tomographic images. All images were viewed on a dedicated workstation. The medial left breast was then prepped and draped in the usual sterile fashion. A small amount of 1% lidocaine was utilized for local anesthesia. The 8 gauge vacuum-assisted needle was advanced and placed with its tip per targeted coordinates. A total of four core biopsies was obtained utilizing a vacuum-assisted device. A specimen radiograph was obtained demonstrating numerous microcalcifications in all 4 samples but particularly samples labeled #1 and 4. A marker clip was then deployed. The needle was removed and hemostasis was obtained using manual compression. 2D CC and MLO mammography images were obtained to evaluate clip location. The clip is satisfactorily located at the biopsy site in the medial left breast at mid depth. The patient tolerated the procedure well and left the Department in stable condition. IMPRESSION: Successful stereotactic biopsy of the left breast calcifications utilizing a vacuum-assisted device. Pathology results are currently pending. Dictated by: Dictated on workstation # [id number]
== END ==
LOC: RAD 11:00
PROVIDERS: ATTEND Nurse Practitioner Family
DX: R92.1 Mammographic calcification found on diagnostic imaging of breast (principal); R92.2 Inconclusive mammogram
CPT/HCPCS: 19081; A4648

== ENCOUNTER 2022-05-23 14:26 | Outpatient (CLI) | payer MEDICARE ==
[~2022-05-23] VITALS: Ht 160 cm; Wt 75.0 kg
[~2022-05-23 14:26] MED LIST changes: +BUPR-105 PO; -BUPR150T14 PO; -LIDOCAINE 1% INJ 20 ML VIAL INJ ONE; -LIDOCAINE 1% INJ 20 ML VIAL ONE
[2022-05-23] MEDS ORDERED: metroNIDAZOLE 500 MG/100 ML IVPB (PRE-MIX) IV ONE (14:45)
[2022-05-23 15:12] LABS: BASOPHILS % (AUTO) 0 % (0-10); EOSINOPHILS # (AUTO) 0.1 10^3/uL (0.0-0.3); EOSINOPHILS % (AUTO) 1 % (0-10); HEMATOCRIT 40 % (35-52); HEMOGLOBIN 13.6 g/dL (11.5-16.0); LYMPHOCYTES # (AUTO) 1.4 X 10^3 (1.0-4.0); LYMPHOCYTES % (AUTO) 14 % (12-44); MEAN CORPUSCULAR HEMOGLOBIN 35 pg (25-34); MEAN CORPUSCULAR HGB CONC 34 g/dL (32-36); MEAN CORPUSCULAR VOLUME 101 fL (80-99); MEAN PLATELET VOLUME 9.3 fL (9.0-12.2); MONOCYTES # (AUTO) 0.5 X 10^3 (0.0-1.0); MONOCYTES % (AUTO) 5 % (0-12); NEUTROPHILS # (AUTO) 8.1 X 10^3 (1.8-7.8); NEUTROPHILS % (AUTO) 80 % (42-75); PLATELET COUNT 323 10^3/uL (130-400); WHITE BLOOD COUNT 10.1 10^3/uL (4.3-11.0)
[2022-05-23 15:35] LABS: BILIRUBIN,TOTAL 0.5 MG/DL (0.1-1.0); CALCIUM 9.1 MG/DL (8.5-10.1); CREATININE SERUM 0.82 MG/DL (0.60-1.30); POTASSIUM 3.1 MMOL/L (3.6-5.0); TOTAL PROTEIN 6.7 GM/DL (6.4-8.2)
[2022-05-23 15:59] VITALS: BP 151/88
== END 2022-05-23 16:00 ==
LOC: SDC 14:26
PROVIDERS: ATTEND Nurse Practitioner Family
DX: R10.9 Unspecified abdominal pain (principal); R19.7 Diarrhea, unspecified
CPT/HCPCS: 36415; 80053; 85025; 96365

== ENCOUNTER 2022-06-03 16:50 | Emergency (ER) | payer MEDICARE ==
[~2022-06-03] VITALS: Ht 162 cm; Wt 74.8 kg
--- NOTE | 2022-06-03 17:28 | ED Lower Extremity ---
General Chief Complaint: Lower Extremity Stated Complaint: POSSIBLE BLOOD CLOTT IN FOOT Nursing Triage Note: PT PRESENTS TO ED WITH COMPLAINTS OF L FOOT/ANKLE PAIN AND INCREASED SWELLING/HEAT SINCE THURSDAY Source: patient Exam Limitations: no limitations History of Present Illness Date Seen by Provider: Jun 03, 2022 Time Seen by Provider: 17:24 Initial Comments Patient is a 72-year-old female who presents to ED with right ankle and foot pain. Symptoms started this past Thursday with swelling and warmth. Denies of any specific injury. Has pain with walking. Some lower calf discomfort. Denies of any fever, chills, history of gout or known bite. Has been taken Tylenol without much improvement. She states she was sent from her physical therapy to rule out possible blood clot versus gout. She is not diabetic. She does take losartan daily. Patient reports history of osteoarthritis. Denies RA. Patient denies excessive alcohol use. No History of kidney disease Allergies and Home Medications Allergies Coded Allergies: amoxicillin (Verified Allergy, Unknown, 08/31/06) baclofen (Unverified Allergy, Unknown, 05/08/14) buspirone (Verified Allergy, Unknown, 08/14/20) clavulanic acid (Verified Allergy, Unknown, 08/31/06) lorazepam (Unverified Allergy, Unknown, 05/08/14) Uncoded Allergies: SOME PAIN MEDS GIVEN IV (Allergy, Unknown, 05/08/14) Patient Home Medication List Home Medication List Reviewed: Yes Acetaminophen (Acetaminophen) 500 Mg Tablet, 1,000 MG PO DAILY PRN for BACK PAIN, (Reported) Entered as Reported by: MALKA ANDREW on 01/10/18 1235 Acetaminophen (Acetaminophen ER) 650 Mg Tablet.er, 650 MG PO HS PRN for BACK PAIN, (Reported) Entered as Reported by: MALKA ANDREW on 01/10/18 1235 Alprazolam (Alprazolam) 0.5 Mg Tablet, 0.5 MG PO HS, (Reported) Entered as Reported by: MALKA ANDREW on 01/10/18 1235 Alprazolam (Alprazolam) 0.5 Mg Tablet, 0.5 MG PO DAILY PRN for ANXIETY, (Reported) Entered as Reported by: AWILDA REYNOSO on 05/30/19 0943 Azathioprine (Azathioprine) 50 Mg Tablet, 150 MG PO HS, (Reported) Entered as Reported by: MALKA ANDREW on 01/10/18 1235 Bacitracin (Bacitracin) 3.5 Gm Oint...g., 1 APPLIC OD BID, (Reported) Entered as Reported by: AWILDA REYNOSO on 05/30/19 0956 Bupropion HCl (Bupropion HCl Sr) 150 Mg Tablet.er, 150 MG PO 1900, (Reported) Entered as Reported by: MALKA ANDREW on 01/10/18 1235 Bupropion HCl (Bupropion HCl Sr) 150 Mg Tablet.er, 300 MG PO DAILY, (Reported) Entered as Reported by: MALKA ANDREW on 01/10/18 1235 Cephalexin (Cephalexin) 500 Mg Tablet, 500 MG PO QID Prescribed by: GAIL GONZALES on 06/03/22 181 Cyanocobalamin (Cyanocobalamin Injection) 1,000 Mcg/Ml Inj, 1,000 MCG IJ BI- WEEKLY, (Reported) Entered as Reported by: MALKA ANDREW on 01/10/18 1235 Diphenhydramine HCl (Diphenhydramine HCl) 25 Mg Tablet, 25 MG PO DAILY PRN for ALLERGIES, (Reported) Entered as Reported by: MALKA ANDREW on 01/10/18 1235 Ergocalciferol (Vitamin D2) (Vitamin D2) 50,000 Unit Capsule, 50,000 UNIT PO MoWeFr, (Reported) Entered as Reported by: MALKA ANDREW on 01/10/18 1235 Fluticasone Propionate (Fluticasone Propionate) 16 Gm [place].susp, 1-2 SPRAYS NSEACH DAILY PRN for ALLERGIES, (Reported) Entered as Reported by: MALKA ANDREW on 01/10/18 1235 Levothyroxine Sodium (Levothyroxine Sodium) 50 Mcg Tablet, 25 MCG PO DAILY, (Reported) Entered as Reported by: MALKA ANDREW on 01/10/18 1235 Liothyronine Sodium (Liothyronine Sodium) 5 Mcg Tablet, 5 MCG PO DAILY, (Reported) Entered as Reported by: MALAK ANDREW on 01/10/18 1235 Losartan Potassium (Losartan Potassium) 100 Mg Tablet, 100 MG PO DAILY, (Reported) Entered as Reported by: AWILDA REYNOSO on 05/30/19 0859 Naproxen (Naproxen) 500 Mg Tablet, 500 MG PO BID Prescribed by: GAIL GONZALES on 06/03/221818 Omeprazole (Omeprazole) 20 Mg Capsule.dr, 20 MG PO BID, (Reported) Entered as Reported by: MALKA ANDREW on 01/10/18 123 Pantoprazole Sodium (Protonix) 40 Mg Tablet.dr, 40 MG PO DAILY Prescribed by: JULIA RUBIO on 03/27/21 1006 Prednisone (Prednisone) 20 Mg Tab, 25 MG PO EVERY OTHER DAY, (Reported) Entered as Reported by: MALKA ANDREW on 01/10/18 123 Prednisone (Prednisone) 20 Mg Tab, 22.5 MG PO EVERY OTHER DAY, (Reported) Entered as Reported by: AWILDA REYNOSO on 05/30/19 1000 Prednisone (Prednisone) 20 Mg Tab, 40 MG PO DAILY Prescribed by: GAIL GONZALES on 06/03/221818 Simethicone (Simethicone) 125 Mg Tab.chew, 125 MG PO PRN PRN for GAS, (Reported) Entered as Reported by: MALKA ANDREW on 01/10/18 123 Tramadol HCl (Tramadol HCl) 50 Mg Tablet, 50 MG PO BID PRN for PAIN-MODERATE, (Reported) Entered as Reported by: MALKA ANDREW on 01/10/18 123 Trazodone HCl (Trazodone HCl) 150 Mg Tablet, 150 MG PO HS, (Reported) Entered as Reported by: MALKA ANDREW on 01/10/18 123 Triamcinolone Acet (Triamcinolone Acetonide 0.1% Cream) 15 Gm Cr, 15 GM TP BID, (Reported) Entered as Reported by: AWILDA REYNOSO on 05/30/19 0956 Vitamin B Complex (B Complex) 1 Each Tablet, 1 EACH PO DAILY, (Reported) Entered as Reported by: BETTINA DURAN on 03/20/21 1034 [Herbalife Meal Repla] , PO DAILY, (Reported) Entered as Reported by: MALKA ANDREW on 01/10/18 1235 [Herbalife Multivit] , 1 TAB PO DAILY, (Reported) Entered as Reported by: MALKA ANDREW on 01/10/18 1235 Review of Systems Constitutional: No chills, No diaphoresis, No malaise EENTM: No ear pain, No blurred vision, No double vision Respiratory: No cough, No dyspnea on exertion Cardiovascular: No chest pain Gastrointestinal: No abdominal pain, No diarrhea, No nausea, No vomiting Genitourinary: No decreased output, No discharge Musculoskeletal: joint pain, joint swelling Skin: change in color; No change in hair/nails All Other Systems Reviewed Negative Unless Noted: Yes Past Exyfvvx-Kezkrh-Mqtbfi Hx Patient Social History Tobacco Use?: Yes Tobacco type used: Cigarettes Smoking Status: Current Everyday Smoker Substance use?: No Alcohol Use?: No Pt feels they are or have been: No Immunizations Up To Date First/Initial COVID19 Vaccinat: YES Second COVID19 Vaccination Guy: YES Third COVID19 Vaccination Date: YES Seasonal Allergies Seasonal Allergies: Yes Past Medical History Surgery/Hospitalization HX: CHRONS DISEASE, CHRONIC BACK PAIN, SINUS, DEPRESSION, HTN, LEVOTHYROXINE Surgeries: Yes (Spinal Fusion, COLON RESCECTION) Abdominal, Appendectomy, Section, Hysterectomy, Tonsillectomy Respiratory: Yes Asthma Currently Using CPAP: No Currently Using BIPAP: No Cardiac: Yes Hypertension Neurological: No Reproductive Disorders: No 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 Sexually Transmitted Disease: No HIV/AIDS: No Genitourinary: Yes Kidney Stones Gastrointestinal: Yes (gastritis) Crohns Disease, Hiatal Hernia Musculoskeletal: Yes Degenerate Disk Disease, Arthritis Endocrine: Yes Adrenal Disease, Hypothyroidsim HEENT: No Cancer: No Psychosocial: Yes Anxiety Integumentary: Yes Blood Disorders: No Adverse Reaction/Blood Tranf: No Family Medical History Cancer 19 FATHER, Onset:40's - 50 G8 SISTER, Onset:40's - 50 Family history: Allergy 19 MOTHER Family history: Alzheimer's disease 19 MOTHER Family history: Arthritis 19 MOTHER Family history: Asthma 19 MOTHER Family history: Cardiovascular disease 19 MOTHER Family history: Osteoporosis 19 MOTHER Heart disease 19 MOTHER History of - respiratory disease 19 MOTHER Hypercholesterolemia 19 MOTHER Malignant neoplasm of lung G8 SISTER Stroke 19 MOTHER No Family History of: Abdominal aortic aneurysm Huntington's disease Alcoholism Aphasia Cancer of colon Cataract Chest pain Congenital heart disease Congestive heart failure Cystic fibrosis Family history: Breast disease Family history: Coronary thrombosis Family history: Diabetes mellitus Family history: Gastrointestinal disease Family history: Glaucoma Family history: Hypertension Headache Hearing loss Hereditary disease History of - anemia History of - disorder History of drug abuse Human immunodeficiency virus (HIV) seropositivity Infertile Kidney disease Myocardial infarction Parkinson's disease Prostate cancer Psychotic disorder Seizure disorder Tuberculosis Asthma, Cancer, CAD Over 55 Years Old Physical Exam Vital Signs Vital Signs - First Documented 06/03/22 17:01 Temp 36.7 Pulse 86 Resp 18 B/P (MAP) 122/71 (88) Pulse Ox 95 Capillary Refill : Less Than 3 Seconds Height, Weight, BMI Height: 5'4.00" Weight: 183lbs. 8.0oz. [id number]; 28.00 BMI Method:Stated General Appearance: WD/WN, no apparent distress HEENT: PERRL/EOMI, normal ENT inspection, TMs normal, pharynx normal Neck: non-tender, full range of motion, supple Cardiovascular: regular rate, rhythm, no edema, no gallop, no JVD Respiratory: chest non-tender, lungs clear, normal breath sounds, no respiratory distress, no accessory muscle use Gastrointestinal: normal bowel sounds, non tender, soft, no organomegaly Back: normal inspection, no CVA tenderness Legs: right leg other (Right lower posterior calf tenderness along the c alcaneus tendon.) Ankles: right ankle pain (Right lateral ankle), right ankle soft tissue tenderness, right ankle swelling Feet: right foot other (Neurovascularly intact. 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, no motor/sensory deficits, alert, normal mood/affect, oriented x 3 Skin: normal color, warm/dry Progress/Results/Core Measures Results/Orders Lab Results Laboratory Tests Test 06/03/22 17:31 Range/Units White Blood Count 13.6 H 4.3-11.0 10^3/uL Red Blood Count 4.03 3.80-5.11 10^6/uL Hemoglobin 13.9 11.5-16.0 g/dL Hematocrit 40 35-52 % Mean Corpuscular Volume 100 H 80-99 fL Mean Corpuscular Hemoglobin 35 H 25-34 pg Mean Corpuscular Hemoglobin Concent 35 32-36 g/dL Red Cell Distribution Width 13.1 10.0-14.5 % Platelet Count 282 130-400 10^3/uL Mean Platelet Volume 9.2 9.0-12.2 fL Immature Granulocyte % (Auto) 1 % Neutrophils (%) (Auto) 81 H 42-75 % Lymphocytes (%) (Auto) 10 L 12-44 % Monocytes (%) (Auto) 8 0-12 % Eosinophils (%) (Auto) 0 0-10 % Basophils (%) (Auto) 1 0-10 % Neutrophils # (Auto) 11.0 H 1.8-7.8 10^3/uL Lymphocytes # (Auto) 1.3 1.0-4.0 10^3/uL Monocytes # (Auto) 1.1 H 0.0-1.0 10^3/uL Eosinophils # (Auto) 0.1 0.0-0.3 10^3/uL Basophils # (Auto) 0.1 0.0-0.1 10^3/uL Immature Granulocyte # (Auto) 0.1 0.0-0.1 10^3/uL Erythrocyte Sedimentation Rate 6 0-30 MM/HR D-Dimer 0.35 0.00-0.49 UG/ML Sodium Level 142 135-145 MMOL/L Potassium Level 3.1 L 3.6-5.0 MMOL/L Chloride Level 104 98-107 MMOL/L Carbon Dioxide Level 25 21-32 MMOL/L Anion Gap 13 5-14 MMOL/L Blood Urea Nitrogen 9 7-18 MG/DL Creatinine 0.80 0.60-1.30 MG/DL Estimat Glomerular Filtration Rate 78 BUN/Creatinine Ratio 11 Glucose Level 108 H 70-105 MG/DL Uric Acid 3.1 2.6-7.2 MG/DL Calcium Level 9.5 8.5-10.1 MG/DL Corrected Calcium 9.4 8.5-10.1 MG/DL Total Bilirubin 0.7 0.1-1.0 MG/DL Aspartate Amino Transf (AST/SGOT) 12 5-34 U/L Alanine Aminotransferase (ALT/SGPT) 10 0-55 U/L Alkaline Phosphatase 68 40-136 U/L C-Reactive Protein High Sensitivity 2.40 H 0.00-0.50 MG/DL Total Protein 6.9 6.4-8.2 GM/DL Albumin 4.1 3.2-4.5 GM/DL My Orders Orders - LYDIA RIVAS Cbc With Automated Diff (06/03/22 17:23) Comprehensive Metabolic Panel (06/03/22 17:23) Uric Acid (06/03/22 17:23) Fibrin Degradation Products (06/03/22 17:23) Hs C Reactive Protein (06/03/22 17:26) Erythrocyte Sedimentation Rate (06/03/22 17:26) Vital Signs/I&O 06/03/22 06/03/22 17:01 18:30 Temp 36.7 36.7 Pulse 86 86 Resp 18 18 B/P (MAP) 122/71 (88) 122/71 Pulse Ox 95 95 Blood Pressure Mean: 88 Departure Communication (PCP) Patient has swelling and redness to the right lateral, posterior ankle. Normal active range of motion. Does not appear to be septic. Neurovascular intact. Denies of any specific trauma. No history of gout. No area of inoculation. Does noted redness and swelling around the ankle and the lower calf. Her D- dimer was negative. Slight elevated white blood count. Slight elevated CRP. Discussed with patient concerning for potential gout versus cellulitis. Due to the location gout would be of concern. No history of gout. She does take losartan daily. Denies excessive alcohol use. Patient denies excessive seafood or red meats. Discussed with patient that naproxen or an NSAID for 3 to 5 days could help with the pain. Discussed low-dose steroid for the next 4 to 5 days as well to help with inflammatory spots if related to gout. Will discharge with Keflex for potential infectious etiology so this does not result in septic joint. Recommend follow-up with primary care physician 2 to 3 days for reevaluation. If any worsening symptoms return back to ED for further evaluation peer Impression Primary Impression: Ankle swelling Disposition: HOME, SELF-CARE Condition: Stable Departure-Patient Inst. Decision time for Depature: 18:17 Referrals: JEAN KAY MD (PCP/Family) Primary Care Physician Patient Instructions: Swollen Joints (DC) Scripts Naproxen (Naproxen) 500 Mg Tablet 500 MG PO BID for 5 Days, #10 TAB Prov: LYDIA RIVAS 06/03/22 Cephalexin (Cephalexin) 500 Mg Tablet 500 MG PO QID for 7 Days, #28 TAB Prov: LYDIA RIVAS 06/03/22 Prednisone (Prednisone) 20 Mg Tab 40 MG PO DAILY for 5 Days, #10 TAB Prov: LYDIA RIVAS 06/03/22 LYDIA RIVAS Jun 03, 2022 17:28
[2022-06-03 17:38] LABS: BASOPHILS # (AUTO) 0.1 10^3/uL (0.0-0.1); BASOPHILS % (AUTO) 1 % (0-10); EOSINOPHILS # (AUTO) 0.1 10^3/uL (0.0-0.3); EOSINOPHILS % (AUTO) 0 % (0-10); HEMATOCRIT 40 % (35-52); HEMOGLOBIN 13.9 g/dL (11.5-16.0); LYMPHOCYTES # (AUTO) 1.3 10^3/uL (1.0-4.0); LYMPHOCYTES % (AUTO) 10 % (12-44); MEAN CORPUSCULAR HEMOGLOBIN 35 pg (25-34); MEAN CORPUSCULAR HGB CONC 35 g/dL (32-36); MEAN CORPUSCULAR VOLUME 100 fL (80-99); MEAN PLATELET VOLUME 9.2 fL (9.0-12.2); MONOCYTES # (AUTO) 1.1 10^3/uL (0.0-1.0); MONOCYTES % (AUTO) 8 % (0-12); NEUTROPHILS % (AUTO) 81 % (42-75); PLATELET COUNT 282 10^3/uL (130-400); WHITE BLOOD COUNT 13.6 10^3/uL (4.3-11.0)
[2022-06-03 17:49] LABS: ALBUMIN 4.1 GM/DL (3.2-4.5); POTASSIUM 3.1 MMOL/L (3.6-5.0)
[2022-06-03 17:50] LABS: CALCIUM 9.5 MG/DL (8.5-10.1)
[2022-06-03 17:52] LABS: TOTAL PROTEIN 6.9 GM/DL (6.4-8.2)
[2022-06-03 17:53] LABS: BILIRUBIN,TOTAL 0.7 MG/DL (0.1-1.0)
[2022-06-03 17:55] LABS: CREATININE SERUM 0.8 MG/DL (0.60-1.30)
[2022-06-03 17:58] LABS: URIC ACID 3.1 MG/DL (2.6-7.2)
[2022-06-03 17:59] LABS: ERYTHROCYTE SEDIMENTATION RATE 6 MM/HR (0-30)
[2022-06-03] MEDS ORDERED: methylPREDNISolone 40 MG/ML (Solu-MEDROL) VIAL IM ONE (18:15)
[2022-06-03] MEDS ORDERED: CEPH500T PO (18:19)
[2022-06-03] MEDS ORDERED: PRD20T PO (18:19)
[2022-06-03] MEDS ORDERED: NAPR-915 PO (18:19)
[2022-06-03 18:30] VITALS: BP 122/71
== END 2022-06-03 18:29 | disposition home or self-care (01) ==
LOC: EDUNIT# 16:50 → ER 16:52
DX: M25.471 Effusion, right ankle (principal); D72.829 Elevated white blood cell count, unspecified; R79.82 Elevated C-reactive protein (CRP); I10 Essential (primary) hypertension; E03.9 Hypothyroidism, unspecified; F17.210 Nicotine dependence, cigarettes, uncomplicated; Z79.899 Other long term (current) drug therapy
CPT/HCPCS: 36415; 80053; 84550; 85025; 85379; 85652; 86141

== ENCOUNTER 2022-10-24 17:28 | Emergency (ER) | payer MEDICARE ==
[~2022-10-24] VITALS: Ht 160 cm; Wt 70.0 kg
[~2022-10-24 17:28] MED LIST changes: +ALBU8.5H6 IH; +CEPH500T PO; +NAPR-915 PO; -RT-ALBUINH IH
[2022-10-24 18:00] LABS: BASOPHILS # (AUTO) 0.1 10^3/uL (0.0-0.1); BASOPHILS % (AUTO) 1 % (0-10); EOSINOPHILS # (AUTO) 0.1 10^3/uL (0.0-0.3); EOSINOPHILS % (AUTO) 1 % (0-10); HEMATOCRIT 43 % (35-52); LYMPHOCYTES # (AUTO) 1.9 10^3/uL (1.0-4.0); LYMPHOCYTES % (AUTO) 19 % (12-44); MEAN CORPUSCULAR HEMOGLOBIN 35 pg (25-34); MEAN CORPUSCULAR HGB CONC 35 g/dL (32-36); MEAN CORPUSCULAR VOLUME 101 fL (80-99); MEAN PLATELET VOLUME 8.9 fL (9.0-12.2); MONOCYTES # (AUTO) 0.5 10^3/uL (0.0-1.0); MONOCYTES % (AUTO) 5 % (0-12); NEUTROPHILS # (AUTO) 7.9 10^3/uL (1.8-7.8); NEUTROPHILS % (AUTO) 75 % (42-75); PLATELET COUNT 323 10^3/uL (130-400); WHITE BLOOD COUNT 10.5 10^3/uL (4.3-11.0)
--- NOTE | 2022-10-24 18:02 | ED Neurological Problem ---
General Chief Complaint: Altered Mental Status Stated Complaint: CONFUSED/DISORIENTATED/SLURRED SPEECH Nursing Triage Note: AMBULATED TO ROOM 06 WITH HELP. 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 WORKER STATES SHE IS CONFUSED AND TALKING IN LOOPS. WAS SEEN BY DR KAY RECENTLY FOR SOME NEUROLOGICAL PROBLEMS IN HER NECK. History of Present Illness Date Seen by Provider: Oct 24, 2022 Time Seen by Provider: 17:40 Initial Comments Patient is a 32-year-old female who presents to the emergency department with acute onset of altered mental status and confusion. Patient is accompanied by one of her coworkers. Coworker states patient called her stating that she felt like she could be having a stroke, heart attack, or panic attack. Patient states this call occurred approximately an hour prior to arrival. Coworker states she saw the patient that [facility] earlier today and she was at her baseline. Patient denies any headache, chest pain, shortness of air, or any other complaints at this time. Coworker states patient is defi nitely not talking like normal and seems to be talking in "loops". States she has some mild dizziness but denies any other complaints. Denies any drug or alcohol use in the recent past. Allergies and Home Medications Allergies Coded Allergies: amoxicillin (Verified Allergy, Unknown, 08/31/06) baclofen (Unverified Allergy, Unknown, 05/08/14) buspirone (Verified Allergy, Unknown, 08/14/20) clavulanic acid (Verified Allergy, Unknown, 08/31/06) lorazepam (Unverified Allergy, Unknown, 05/08/14) Uncoded Allergies: SOME PAIN MEDS GIVEN IV (Allergy, Unknown, 05/08/14) Patient Home Medication List Home Medication List Reviewed: Yes Acetaminophen (Acetaminophen) 500 Mg Tablet, 1,000 MG PO DAILY PRN for BACK PAIN, (Reported) Entered as Reported by: MALKA ANDREW on 01/10/18 1235 Acetaminophen (Acetaminophen ER) 650 Mg Tablet.er, 650 MG PO HS PRN for BACK PAIN, (Reported) Entered as Reported by: MALKA ANDREW on 01/10/18 1235 Alprazolam (Alprazolam) 0.5 Mg Tablet, 0.5 MG PO HS, (Reported) Entered as Reported by: MALKA ANDREW on 01/10/18 1235 Alprazolam (Alprazolam) 0.5 Mg Tablet, 0.5 MG PO DAILY PRN for ANXIETY, (Reported) Entered as Reported by: AWILDA REYNOSO on 05/30/19 0943 Azathioprine (Azathioprine) 50 Mg Tablet, 150 MG PO HS, (Reported) Entered as Reported by: MALKA ANDREW on 01/10/18 1235 Bacitracin (Bacitracin) 3.5 Gm Oint...g., 1 APPLIC OD BID, (Reported) Entered as Reported by: AWILDA REYNOSO on 05/30/19 0956 Bupropion HCl (Bupropion HCl Sr) 150 Mg Tablet.er, 150 MG PO 1900, (Reported) Entered as Reported by: MALKA ANDREW on 01/10/18 1235 Bupropion HCl (Bupropion HCl Sr) 150 Mg Tablet.er, 300 MG PO DAILY, (Reported) Entered as Reported by: MALKA ANDREW on 01/10/18 1235 Cephalexin (Cephalexin) 500 Mg Tablet, 500 MG PO QID Prescribed by: GAIL GONZALES on 06/03/22 181 Cyanocobalamin (Cyanocobalamin Injection) 1,000 Mcg/Ml Inj, 1,000 MCG IJ BI- WEEKLY, (Reported) Entered as Reported by: MALKA ANDREW on 01/10/18 1235 Diphenhydramine HCl (Diphenhydramine HCl) 25 Mg Tablet, 25 MG PO DAILY PRN for ALLERGIES, (Reported) Entered as Reported by: MALKA ANDREW on 01/10/18 1235 Ergocalciferol (Vitamin D2) (Vitamin D2) 50,000 Unit Capsule, 50,000 UNIT PO MoWeFr, (Reported) Entered as Reported by: MALKA ANDREW on 01/10/18 1235 Fluticasone Propionate (Fluticasone Propionate) 16 Gm [place].susp, 1-2 SPRAYS NSEACH DAILY PRN for ALLERGIES, (Reported) Entered as Reported by: MALKA ANDREW on 01/10/18 1235 Levothyroxine Sodium (Levothyroxine Sodium) 50 Mcg Tablet, 25 MCG PO DAILY, (Reported) Entered as Reported by: MALKA ANDREW on 01/10/18 1235 Liothyronine Sodium (Liothyronine Sodium) 5 Mcg Tablet, 5 MCG PO DAILY, (Reported) Entered as Reported by: MALKA ANDREW on 01/10/18 1235 Losartan Potassium (Losartan Potassium) 100 Mg Tablet, 100 MG PO DAILY, (Reported) Entered as Reported by: AWILDA REYNOSO on 05/30/19 0859 Naproxen (Naproxen) 500 Mg Tablet, 500 MG PO BID Prescribed by: GAIL GONZALES on 06/03/22 181 Omeprazole (Omeprazole) 20 Mg Capsule.dr, 20 MG PO BID, (Reported) Entered as Reported by: MALKA ANDREW on 01/10/18 1235 Pantoprazole Sodium (Protonix) 40 Mg Tablet.dr, 40 MG PO DAILY Prescribed by: JULIA RUBIO on 03/27/21 1006 Prednisone (Prednisone) 20 Mg Tab, 25 MG PO EVERY OTHER DAY, (Reported) Entered as Reported by: MALKA ANDREW on 01/10/18 1235 Prednisone (Prednisone) 20 Mg Tab, 22.5 MG PO EVERY OTHER DAY, (Reported) Entered as Reported by: AWILDA REYNOSO on 05/30/19 1000 Prednisone (Prednisone) 20 Mg Tab, 40 MG PO DAILY Prescribed by: GAIL GONZALES on 06/03/221818 Simethicone (Simethicone) 125 Mg Tab.chew, 125 MG PO PRN PRN for GAS, (Reported) Entered as Reported by: MALKA ANDREW on 01/10/18 1235 Tramadol HCl (Tramadol HCl) 50 Mg Tablet, 50 MG PO BID PRN for PAIN-MODERATE, (Reported) Entered as Reported by: MALKA ANDREW on 01/10/18 1235 Trazodone HCl (Trazodone HCl) 150 Mg Tablet, 150 MG PO HS, (Reported) Entered as Reported by: MALKA ANDREW on 01/10/18 1235 Triamcinolone Acet (Triamcinolone Acetonide 0.1% Cream) 15 Gm Cr, 15 GM TP BID, (Reported) Entered as Reported by: AWILDA REYNOSO on 05/30/19 0956 Vitamin B Complex (B Complex) 1 Each Tablet, 1 EACH PO DAILY, (Reported) Entered as Reported by: BETTINA DURNA on 03/20/21 1034 [Herbalife Meal Repla] , PO DAILY, (Reported) Entered as Reported by: MALKA ANDREW on 01/10/18 1235 [Herbalife Multivit] , 1 TAB PO DAILY, (Reported) Entered as Reported by: MALKA ANDREW on 01/10/18 1235 Review of Systems Review of Systems Constitutional: see HPI, dizziness Eyes: No Symptoms Reported Ears, Nose, Mouth, Throat: no symptoms reported Respiratory: no symptoms reported Cardiovascular: no symptoms reported Gastrointestinal: no symptoms reported Genitourinary: no symptoms reported Musculoskeletal: no symptoms reported Skin: no symptoms reported Psychiatric/Neurological: See HPI Endocrine: No Symptoms Reported Hematologic/Lymphatic: No Symptoms Reported Past Dglgnoh-Xrhicl-Bpvade Hx Patient Social History Tobacco Use?: Yes Smokeless Tobacco Frequency: Current Everyday User Substance use?: No Alcohol Use?: No Immunizations Up To Date First/Initial COVID19 Vaccinat: YES Second COVID19 Vaccination Guy: UNKNOWN Third COVID19 Vaccination Date: YES COVID19 Vaccine Screening Tech: UNKNOWN Seasonal Allergies Seasonal Allergies: Yes Past Medical History Surgery/Hospitalization HX: CHRONS DISEASE, CHRONIC BACK PAIN, SINUS, DEPRESSION, HTN, LEVOTHYROXINE Surgeries: Yes (Spinal Fusion, COLON RESCECTION) Abdominal, Appendectomy, Section, Hysterectomy, Tonsillectomy Respiratory: Yes Asthma Currently Using CPAP: No Currently Using BIPAP: No Cardiac: Yes Hypertension Neurological: No Reproductive Disorders: No 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 Sexually Transmitted Disease: No HIV/AIDS: No Genitourinary: Yes Kidney Stones Gastrointestinal: Yes (gastritis) Crohns Disease, Hiatal Hernia Musculoskeletal: Yes Degenerate Disk Disease, Arthritis Endocrine: Yes Adrenal Disease, Hypothyroidsim HEENT: No Cancer: No Psychosocial: Yes Anxiety Integumentary: Yes Blood Disorders: No Adverse Reaction/Blood Tranf: No Family Medical History Cancer 19 FATHER, Onset:40's - 50 G8 SISTER, Onset:40's - 50 Family history: Allergy 19 MOTHER Family history: Alzheimer's disease 19 MOTHER Family history: Arthritis 19 MOTHER Family history: Asthma 19 MOTHER Family history: Cardiovascular disease 19 MOTHER Family history: Osteoporosis 19 MOTHER Heart disease 19 MOTHER History of - respiratory disease 19 MOTHER Hypercholesterolemia 19 MOTHER Malignant neoplasm of lung G8 SISTER Stroke 19 MOTHER No Family History of: Abdominal aortic aneurysm [place]'s disease Alcoholism Aphasia Cancer of colon Cataract Chest pain Congenital heart disease Congestive heart failure Cystic fibrosis Family history: Breast disease Family history: Coronary thrombosis Family history: Diabetes mellitus Family history: Gastrointestinal disease Family history: Glaucoma Family history: Hypertension Headache Hearing loss Hereditary disease History of - anemia History of - disorder History of drug abuse Human immunodeficiency virus (HIV) seropositivity Infertile Kidney disease Myocardial infarction Parkinson's disease Prostate cancer Psychotic disorder Seizure disorder Tuberculosis Asthma, Cancer, CAD Over 55 Years Old Physical Exam Vital Signs Vital Signs - First Documented 10/24/22 17:35 Temp 36.2 Pulse 86 Resp 16 B/P (MAP) 170/154 (159) Pulse Ox 98 O2 Delivery Room Air Capillary Refill : Less Than 3 Seconds Height, Weight, BMI Height: 5'4.00" Weight: 183lbs. 8.0oz. [id number]; 27.00 BMI Method:Stated General Appearance: no apparent distress HEENT: PERRL/EOMI, normal ENT inspection, TMs normal, pharynx normal Neck: non-tender, full range of motion, supple, normal inspection Respiratory: chest non-tender, lungs clear, normal breath sounds, no respiratory distress, no accessory muscle use Cardiovascular: regular rate, rhythm Gastrointestinal: non tender, soft Extremities: normal range of motion, non-tender, normal inspection, no pedal edema, no calf tenderness Neurologic/Psychiatric: no motor/sensory deficits, alert, normal mood/affect, oriented x 3 Skin: normal color, warm/dry Progress/Results/Core Measures Results/Orders Lab Results Laboratory Tests Test 10/24/22 17:44 10/24/22 17:53 10/24/22 17:55 10/24/22 18:36 Range/Units Prothrombin Time 13.2 12.2-14.7 SEC INR Comment 1.0 0.8-1.4 Activated Partial Thromboplast Time 28 24-35 SEC Sodium Level 143 135-145 MMOL/L Potassium Level 3.6 3.6-5.0 MMOL/L Chloride Level 105 98-107 MMOL/L Carbon Dioxide Level 26 21-32 MMOL/L Anion Gap 12 5-14 MMOL/L Blood Urea Nitrogen 10 7-18 MG/DL Creatinine 0.80 0.60-1.30 MG/DL Estimat Glomerular Filtration Rate 78 BUN/Creatinine Ratio 13 Glucose Level 118 H 70-105 MG/DL Calcium Level 9.7 8.5-10.1 MG/DL Corrected Calcium 9.4 8.5-10.1 MG/DL Total Bilirubin 0.5 0.1-1.0 MG/DL Aspartate Amino Transf (AST/SGOT) 18 5-34 U/L Alanine Aminotransferase (ALT/SGPT) 14 0-55 U/L Alkaline Phosphatase 79 40-136 U/L Troponin I < 0.028 <0.028 NG/ML Total Protein 7.3 6.4-8.2 GM/DL Albumin 4.4 3.2-4.5 GM/DL Serum Alcohol < 10 <10 MG/DL White Blood Count 10.5 4.3-11.0 10^3/uL Red Blood Count 4.30 3.80-5.11 10^6/uL Hemoglobin 15.0 11.5-16.0 g/dL Hematocrit 43 35-52 % Mean Corpuscular Volume 101 H 80-99 fL Mean Corpuscular Hemoglobin 35 H 25-34 pg Mean Corpuscular Hemoglobin Concent 35 32-36 g/dL Red Cell Distribution Width 12.6 10.0-14.5 % Platelet Count 323 130-400 10^3/uL Mean Platelet Volume 8.9 L 9.0-12.2 fL Immature Granulocyte % (Auto) 1 % Neutrophils (%) (Auto) 75 42-75 % Lymphocytes (%) (Auto) 19 12-44 % Monocytes (%) (Auto) 5 0-12 % Eosinophils (%) (Auto) 1 0-10 % Basophils (%) (Auto) 1 0-10 % Neutrophils # (Auto) 7.9 H 1.8-7.8 10^3/uL Lymphocytes # (Auto) 1.9 1.0-4.0 10^3/uL Monocytes # (Auto) 0.5 0.0-1.0 10^3/uL Eosinophils # (Auto) 0.1 0.0-0.3 10^3/uL Basophils # (Auto) 0.1 0.0-0.1 10^3/uL Immature Granulocyte # (Auto) 0.1 0.0-0.1 10^3/uL Glucometer 102 70-110 MG/DL Urine Color YELLOW Urine Clarity CLOUDY Urine pH 6.0 5-9 Urine Specific [place] >=1.030 1.016-1.022 Urine Protein NEGATIVE NEGATIVE Urine Glucose (UA) NEGATIVE NEGATIVE Urine Ketones NEGATIVE NEGATIVE Urine Nitrite NEGATIVE NEGATIVE Urine Bilirubin NEGATIVE NEGATIVE Urine Urobilinogen 0.2 < = 1.0 MG/DL Urine Leukocyte Esterase TRACE H NEGATIVE Urine RBC (Auto) NEGATIVE NEGATIVE Urine RBC NONE /HPF Urine WBC 2-5 /HPF Urine Squamous Epithelial Cells 2-5 /HPF Urine Crystals NONE /LPF Urine Bacteria FEW H /HPF Urine Casts PRESENT /LPF Urine Hyaline Casts RARE /LPF Urine Mucus NEGATIVE /LPF Urine Culture Indicated YES Urine Opiates Screen NEGATIVE NEGATIVE Urine Oxycodone Screen NEGATIVE NEGATIVE Urine Methadone Screen NEGATIVE NEGATIVE Urine Propoxyphene Screen NEGATIVE NEGATIVE Urine Barbiturates Screen NEGATIVE NEGATIVE Ur Tricyclic Antidepressants Screen NEGATIVE NEGATIVE Urine Phencyclidine Screen NEGATIVE NEGATIVE Urine Amphetamines Screen NEGATIVE NEGATIVE Urine Methamphetamines Screen NEGATIVE NEGATIVE Urine Benzodiazepines Screen POSITIVE H NEGATIVE Urine Cocaine Screen NEGATIVE NEGATIVE Urine Cannabinoids Screen POSITIVE H NEGATIVE My Orders Orders - PATTI HOPKINS 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 CHAIN OPERATOR Cbc With Automated Diff (10/24/22 17:49) Protime With Inr (10/24/22 17:49) Partial Thromboplastin Time (10/24/22 17:49) Comprehensive Metabolic Panel (10/24/22 17:49) Troponin I Thomas (10/24/22 17:49) Ua Culture If Indicated (10/24/22 17:49) Chest 1 View, Ap/Pa Only (10/24/22 17:49) Ekg Tracing (10/24/22 17:49) Nothing By Mouth (10/24/22 Dinner) Accucheck Stat ONCE (10/24/22 17:49) Ed Iv/Invasive Line Start (10/24/22 17:49) Vital Signs Stroke Patient Q15M (10/24/22 17:49) Ct Head Wo-R/O Stroke (10/24/22 17:49) Intake & Output , (10/24/22 17:49) Monitor-Rhythm Ecg Trace Only (10/24/22 17:49) Dysphagia Screening Tool Q10MX1 (10/24/22 17:49) Drug Screen Stat (Urine) (10/24/22 17:49) Alcohol (10/24/22 17:49) Ct Angio Head/Neck (10/24/22 19:06) Urine Culture (10/24/22 18:36) Iohexol Injection (Omnipaque 350 Mg/Ml 1 (10/24/22 19:30) Received Contrast (Hold Metformin- Contr (10/24/22 19:30) Sodium Chloride Flush (Catheter Flush Sy (10/24/22 19:30) Ns (Ivpb) (Sodium Chloride 0.9% Ivpb Bag (10/24/22 19:30) Medications Given in ED Current Medications Medications Dose Ordered Sig/Judith Route Start Time Stop Time Status Last Admin Dose Admin Iohexol 75 ml ONCE ONCE IV 10/24/22 19:30 10/24/22 19:31 DC 10/24/22 19:30 75 ML Sodium Chloride 100 ml ONCE ONCE IV 10/24/22 19:30 10/24/22 19:31 DC 10/24/22 19:30 100 ML Vital Signs/I&O 10/24/22 17:35 Temp 36.2 Pulse 86 Resp 16 B/P (MAP) 170/154 (159) Pulse Ox 98 O2 Delivery Room Air Blood Pressure Mean: 159 FSBG Bedside Testing Finger Stick Blood Glucose: 102 Blood Glucose Action Taken: Arina MCDONALD NOTIFIED Progress Progress Note : Progress Note Patient is nontoxic and well-hydrated on exam. Patient was ambulatory to the room without much issue. No focal neurologic deficits appreciated. Pupils e qual round reactive to light and extraocular movements are intact. Initial NIH 0. Patient is awake alert and oriented to person place and time. Initial head CT acutely negative. Laboratory evaluation very reassuring. UDS was positive for benzodiazepines which is expected as patient takes alprazolam nightly. UDS also positive for cannabinoids. Patient initially denied any use but then states she ate a brownie containing possible delta 8 at a [employer] food store approximately an hour before the symptoms began. CT of the head neck was also obtained that is acutely negative. There appears to be no indication for further work-up of stroke or other abnormality as the orally ingested cannabinoids seems to be the etiology of the symptoms. Discussed supportive care and anticipatory guidance. Follow-up with PCP. Return precautions for urgent symptomology discussed. Patient verbalized understanding. EKG : EKG Time: 17:56 Rate: 70 Rhythm: PVC ECG Impression: Nonspecific Changes Departure Impression Primary Impression: Cannabis intoxication Qualified Codes: F12.920 - Cannabis use, unspecified with intoxication, uncomplicated Disposition: 01 HOME, SELF-CARE Condition: Stable Departure-Patient Inst. Decision time for Depature: 20:05 Referrals: JEAN KAY MD (PCP/Family) Primary Care Physician Patient Instructions: Marijuana Use and Addiction (DC) PATTI HOPKINS APRN Oct 24, 2022 18:02
[2022-10-24 18:06] LABS: ALBUMIN 4.4 GM/DL (3.2-4.5); CHLORIDE 105 MMOL/L (98-107); POTASSIUM 3.6 MMOL/L (3.6-5.0); SODIUM 143 MMOL/L (135-145)
[2022-10-24 18:07] LABS: CALCIUM 9.7 MG/DL (8.5-10.1)
[2022-10-24 18:08] LABS: GLUCOSE 118 MG/DL (70-105)
[2022-10-24 18:09] LABS: TOTAL PROTEIN 7.3 GM/DL (6.4-8.2)
[2022-10-24 18:10] LABS: BILIRUBIN,TOTAL 0.5 MG/DL (0.1-1.0); CARBON DIOXIDE 26 MMOL/L (21-32)
[2022-10-24 18:12] LABS: ALKALINE PHOSPHATASE 79 U/L (40-136); GFR ESTIMATED 78
[2022-10-24 18:13] LABS: BUN/CREATININE RATIO 13
[2022-10-24 18:15] LABS: ALANINE AMINOTRANSFERASE 14 U/L (0-55)
[2022-10-24 18:24] LABS: PROTHROMBIN TIME PATIENT 13.2 SEC (12.2-14.7)
--- NOTE | 2022-10-24 18:24 | Diagnostic Imaging Report ---
INDICATION: Stroke. FINDINGS: The lungs are clear. No failure, effusion or pneumothorax. IMPRESSION: No acute appearing abnormality. Dictated by: Dictated on workstation # [id number]
--- NOTE | 2022-10-24 18:29 | Diagnostic Imaging Report ---
PROCEDURE: CT head w/o r/o stroke. TECHNIQUE: Multiple contiguous axial images were obtained through the brain without the use of intravenous contrast. Auto Exposure Controls were utilized during the CT exam to meet ALARA standards for radiation dose reduction. INDICATION: Confusion and dysarthria. COMPARISON: None. FINDINGS: There is no intracerebral hemorrhage. There is no hydrocephalus. There is some periventricular white matter small vessel changes appearing symmetric. There are intracranial vascular calcifications along the carotids, chronic. No suspicious asymmetric intraluminal arterial hyperdensities were found and no cortical edema evident. No sulcal effacement. No loss of the cortical lyles-white matter differentiations. IMPRESSION: Chronic white matter changes and atherosclerosis but no hemorrhage, edema or acute appearing abnormalities apparent at noncontrasted CT head. Report called to Ken in the [place] [facility] at 6:26 p.m., by gilmar. Dictated by: Dictated on workstation # [id number]
[2022-10-24 18:44] LABS: BILIRUBIN,URINE NEGATIVE (NEGATIVE); CLARITY,URINE CLOUDY; COLOR,URINE YELLOW; GLUCOSE, URINE (UA) NEGATIVE (NEGATIVE); KETONES,URINE NEGATIVE (NEGATIVE); LEUKOCYTE ESTERASE ,URINE TRACE (NEGATIVE); NITRITE,URINE NEGATIVE (NEGATIVE); PROTEIN,URINE NEGATIVE (NEGATIVE)
[2022-10-24 18:58] LABS: AMPHETAMINE SCREEN, URINE NEGATIVE (NEGATIVE); BENZODIAZEPINES SCREEN URINE POSITIVE (NEGATIVE); COCAINE SCREEN URINE NEGATIVE (NEGATIVE)
[2022-10-24 18:59] LABS: BARBITURATE SCREEN URINE NEGATIVE (NEGATIVE); CANNABINOID SCREEN, URINE POSITIVE (NEGATIVE); METHADONE STAT NEGATIVE (NEGATIVE); OPIATE SCREEN URINE NEGATIVE (NEGATIVE); OXYCODONE STAT NEGATIVE (NEGATIVE); PROPOXYPHENE STAT NEGATIVE (NEGATIVE); TRICYCLIC ANTIDEPRESSANTS SCRE NEGATIVE (NEGATIVE)
[2022-10-24 19:12] LABS: BACTERIA,URINE FEW /HPF; HYALINE CASTS, URINE RARE /LPF
[2022-10-24] MEDS ORDERED: IOHEXOL 350 MG/ML 100 ML (OMNIPAQUE 350) VIAL IV ONE (19:30)
[2022-10-24] MEDS ORDERED: CATHETER FLUSH 10 ML SYR IV PRN (19:30)
[2022-10-24] MEDS ORDERED: NS 100 ML (IVPB) BAG IV ONE (19:30)
[2022-10-24] MEDS ORDERED: HOLD METFORMIN - RECEIVED CONTRAST 20 ML VIAL IV SCH (19:30)
--- NOTE | 2022-10-24 20:00 | Diagnostic Imaging Report ---
PROCEDURE: CT angiography of the head and CT angiography of the neck with and without contrast. TECHNIQUE: Contiguous noncontrast images were obtained from the skull base through the vertex. After intravenous contrast administration, helical CT angiography of the neck was performed. Source data was reformatted into 3D MIP projections. Delayed post contrast acquisition was also obtained. Auto Exposure Controls were utilized during the CT exam to meet ALARA standards for radiation dose reduction. INDICATION: Altered mental status. COMPARISON: Noncontrast CT head performed earlier same day. FINDINGS: CTA NECK: Aorta: Aortic arch is normal, with standard three vessel branching pattern. Anterior Circulation: The origin of the bilateral common carotid arteries are patent. No stenosis of the common carotid arteries in the neck. Atherosclerotic plaquing results in less than 25% stenosis the proximal internal carotid arteries per NASCET criteria. Cervical divisions of the internal carotid arteries are normal. The proximal external carotid arteries are patent and without significant stenosis. Posterior Circulation: Origins of the bilateral vertebral arteries are normal. Right vertebral artery is dominant. The proximal extraousseous, intrasosseous, and distal extraosseous segments of the vertebral arteries are patent without dissection or stenosis. Non-vascular: No cervical lymphadenopathy. The airway is patent. No evidence of mucosal-based mass lesion in the pharynx. Thyroid is normal. Salivary glands are normal. No concerning lesion in the cervical spine. CTA HEAD: Anterior Circulation: The distal internal carotid arteries are patent. The bilateral M1 and M2 segments of the middle cerebral arteries are patent and without stenosis. The bilateral M3 and M4 segments are symmetric in size and number. The anterior cerebral arteries are patent and without stenosis. Anterior communicating artery is patent. No saccular aneurysm in the anterior circulation. Posterior Circulation: The bilateral intracranial segments of the vertebral arteries are patent. The basilar artery is patent and without stenosis. The posterior cerebral arteries are patent. Bilateral posterior communicating arteries are patent and without aneurysm. No saccular aneurysm in the posterior circulation. Post Contrast Head: No pathologic enhancement on delayed post-contrast enhancement. Dural venous sinuses are patent. IMPRESSION: 1. No intra-cranial large vessel occlusion or saccular aneurysm. 2. No arterial occlusion or stenosis in the major neck arteries. Less than 25% stenosis the bilateral proximal internal carotid arteries. Dictated by: Dictated on workstation # [id number]
[2022-10-24 20:20] VITALS: BP 142/89
== END 2022-10-24 20:20 | disposition home or self-care (01) ==
LOC: EDUNIT# 17:28 → ER 17:31
DX: F12.929 Cannabis use, unspecified with intoxication, unspecified (principal); F17.200 Nicotine dependence, unspecified, uncomplicated
CPT/HCPCS: 70450; 70496; 70498; 71045; 80053; 80306; 81000; 82947; 84484; 85025; 85610; 85730; 87088; 93041; 99284; G0480; 36415; 80320; 93005

== ENCOUNTER → 2023-03-18 | Outpatient (CLI) | payer MEDICARE ==
[~2023-03-18] VITALS: Ht 162.6 cm; Wt 73.5 kg
[~2023-03-18] MED LIST changes: +NS IV 1000 ML 1,000 ML IV SCH; +metroNIDAZOLE 500 MG/100 ML IVPB (PRE-MIX) IV ONE
[2023-03-18 11:51] LABS: HEMATOCRIT 40 % (35-52); HEMOGLOBIN 13.8 g/dL (11.5-16.0); MEAN CORPUSCULAR HEMOGLOBIN 34 pg (25-34); MEAN CORPUSCULAR HGB CONC 34 g/dL (32-36); MEAN CORPUSCULAR VOLUME 99 fL (80-99); MEAN PLATELET VOLUME 9.2 fL (9.0-12.2); PLATELET COUNT 318 10^3/uL (130-400); WHITE BLOOD COUNT 11.5 10^3/uL (4.3-11.0)
[2023-03-18 12:11] LABS: BILIRUBIN,TOTAL 0.5 MG/DL (0.1-1.0); CALCIUM 8.8 MG/DL (8.5-10.1); CREATININE SERUM 0.81 MG/DL (0.60-1.30); POTASSIUM 5.2 MMOL/L (3.6-5.0); TOTAL PROTEIN 7.5 GM/DL (6.4-8.2)
[2023-03-18 13:05] VITALS: BP 113/83
== END ==
LOC: SDC 11:09
PROVIDERS: ATTEND Nurse Practitioner Family
DX: K50.90 Crohn's disease, unspecified, without complications (principal); E86.0 Dehydration
CPT/HCPCS: 36415; 80053; 85027; 96360; 96365

== ENCOUNTER → 2023-07-14 | Outpatient (CLI) | payer MEDICARE ==
[~2023-07-14] MED LIST changes: -LOSA100T57 PO; +LOSA100T58 PO; -NS IV 1000 ML 1,000 ML IV SCH; -metroNIDAZOLE 500 MG/100 ML IVPB (PRE-MIX) IV ONE
--- NOTE | 2023-07-14 17:48 | Diagnostic Imaging Report ---
EXAMINATION: Left knee 3 views HISTORY: Knee pain COMPARISON: None available. FINDINGS: There is chondrocalcinosis of the menisci. No effusion. No fracture. No dislocation. There is mild tricompartmental osteoarthritis. IMPRESSION: 1. 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 Dictated by: Dictated on workstation # [id number]
== END ==
LOC: RAD 15:45
PROVIDERS: ATTEND Nurse Practitioner Family
DX: M17.12 Unilateral primary osteoarthritis, left knee (principal); M11.262 Other chondrocalcinosis, left knee
CPT/HCPCS: 73562

== ENCOUNTER → 2023-07-14 | Outpatient (CLI) | payer MEDICARE ==
[~2023-07-14] VITALS: Ht 162 cm; Wt 73.5 kg
[~2023-07-14] MED LIST changes: +NS IV 1000 ML 1,000 ML IV SCH; +metroNIDAZOLE 500 MG/100 ML IVPB (PRE-MIX) IV ONE
[2023-07-14 14:51] LABS: ALBUMIN 3.7 GM/DL (3.2-4.5); BILIRUBIN,TOTAL 0.2 MG/DL (0.1-1.0); CALCIUM 8.6 MG/DL (8.5-10.1); CREATININE SERUM 0.74 MG/DL (0.60-1.30); MAGNESIUM 1.4 MG/DL (1.6-2.4); POTASSIUM 4.2 MMOL/L (3.6-5.0); TOTAL PROTEIN 6.7 GM/DL (6.4-8.2)
[2023-07-14 15:07] VITALS: BP 137/65
== END ==
LOC: SDC 13:56
PROVIDERS: ATTEND Nurse Practitioner Family
DX: R19.7 Diarrhea, unspecified (principal); E86.0 Dehydration
CPT/HCPCS: 36415; 80053; 83735; 96360; 96365

== ENCOUNTER → 2023-10-08 | Outpatient (CLI) | payer MEDICARE ==
[~2023-10-08] MED LIST changes: -NS IV 1000 ML 1,000 ML IV SCH; -metroNIDAZOLE 500 MG/100 ML IVPB (PRE-MIX) IV ONE
--- NOTE | 2023-10-08 11:20 | Diagnostic Imaging Report ---
PROCEDURE: MRI lumbar spine. TECHNIQUE: Multiplanar, multisequence MRI of the lumbar spine was performed without contrast. INDICATION: Back pain. Lumbar spine fusion. COMPARISON: MRI lumbar spine 03/11/2019. FINDINGS: There are 5 lumbar-type vertebral bodies for the purposes of this report. Minimal retrolisthesis of L1 on L2 and L2 on L3 with anterolisthesis of T12 on L1, stable. Chronic compression fracture of L1 resulting in approximately 20% height loss is stable. Vertebral body heights are preserved. Modic type I degenerative endplate changes at T11-T12. Bilateral juliet and pedicle screw fixation at L4-L5 with interbody fusions. Left L4 hemilaminotomy. No abnormal signal in the conus which terminates at L1-L2. Normal morphology of the cauda equina. The pelvis and visualized paravertebral soft tissues demonstrate no acute findings. T12-L1: The left paracentral disc extrusion with superior migration has nearly completely resolved. No spinal canal or lateral recess narrowing. Severe left and moderate right neuroforaminal narrowing. L1-L2: Retrolisthesis and annular disc bulging result in mild spinal canal and bilateral lateral recess narrowing. Moderate bilateral neuroforaminal narrowing. L2-L3: Annular disc bulging and facet arthropathy result in moderate bilateral lateral recess narrowing. Mild spinal canal narrowing. Moderate to severe bilateral neuroforaminal narrowing. L3-L4: Broad-based disc bulging, ligamentous hypertrophy, and facet arthropathy all result in moderate to severe spinal canal stenosis which has progressed since the prior exam. Severe bilateral neuroforaminal narrowing. L4-L5: Stable disc/osteophyte complex resulting in moderate lateral recess narrowing. No significant spinal canal narrowing. Moderate to severe bilateral neuroforaminal narrowing. L5-S1: Broad-based disc bulging results in moderate right and mild left lateral recess narrowing. No spinal canal narrowing. Moderate to severe bilateral neuroforaminal narrowing. IMPRESSION: 1. Stable post operative findings including bilateral juliet and pedicle screw fixation at L4-S1 with interbody fusions. There is also a left hemilaminotomy at L4. 2. Interval progression of spondylotic changes at L3-L4 now result in moderate to severe spinal canal stenosis. 3. Multilevel high-grade lateral recess and neuroforaminal narrowing as detailed above level by level. Dictated by: Dictated on workstation # [id number]
== END ==
LOC: RAD 09:54
PROVIDERS: ATTEND Nurse Practitioner Family
DX: M47.816 Spondylosis without myelopathy or radiculopathy, lumbar region (principal); M48.061 Spinal stenosis, lumbar region without neurogenic claudication; Z98.1 Arthrodesis status; Z98.890 Other specified postprocedural states
CPT/HCPCS: 72148